=== PATIENT | male | born 1955 | race Caucasian/White ===

== ENCOUNTER 2019-10-11 07:59 | Emergency (ER) | payer OTHER, MEDICARE ==
--- OUTSIDE RECORDS SUMMARY | 2019-10-11 08:04 | XMS REPORT | Clinical Summary ---
:1955 Author Organization [facility] Address [address] [place] [address] Care Team Providers Name Role Phone Asked, Pcp Primary Care Provider Unavailable Allergies Active Allergy Reactions Severity Noted Date Comments Naproxen Sodium GI Intolerance Colchicine GI Intolerance 04/23/2017 Dutasteride-Tamsulosin Other (See Comments) Tamsulosin Other (See Comments) Medications Medication Sig Dispensed Refills Start End Status Date Date metoprolol Take 100 mg by 0 Acti ve tartrate mouth 2 (two) (LOPRESSOR) 100 mg times a day. tablet metFORMIN Take 1,000 mg 0 Active (GLUCOPHAGE) 500 by mouth 2 mg tablet (two) times a day with meals. zinc 50 mg tablet Take 50 mg by 0 Active mouth daily. omega-3/dha/epa/dp Take 1,400 mg 0 Active a/fish oil by mouth daily. (OMEGA-3 2100 ORAL) multivitamin Take 1 tablet 0 Act joey (THERAGRAN) tablet by mouth daily. metOLazone Take 5 mg by 0 Active (ZAROXOLYN) 5 MG mouth daily. tablet furosemide (LASIX) Take 40 mg by 0 Active 40 mg tablet mouth 2 (two) times a day. aspirin (ECOTRIN) Take 81 mg by 0 Active 81 MG enteric mouth daily. coated tablet magnesium sulfate Take 500 mg by 0 Active 100 mg capsule mouth daily. ondansetron Take 4 mg by 0 Activ e (ZOFRAN) 4 MG mouth every 8 tablet (eight) hours as needed for nausea or vomiting. digOXIN (LANOXIN) Take 125 mcg by 0 Active 125 mcg (0.125 mg) mouth daily. tablet potassium chloride Take 20 mEq by 0 Active (KLOR-CON) 20 mEq mouth daily. packet amIODarone Take 200 mg by 0 Acti ve (PACERONE) 200 MG mouth 2 (two) tablet times a day. apixaban (ELIQUIS) Take 5 mg by 0 Active 5 mg tablet mouth 2 (two) times a day. acetaminophen Take 1,000 mg 0 Ac tive (TYLENOL) 500 MG by mouth 2 tablet (two) times a day as needed for mild pain or moderate pain. ferrous sulfate Take 325 mg by 0 Active 325 (65 FE) MG mouth daily tablet with breakfast. dulaglutide Inject 0.75 mg 0 Act joey (TRULICITY) 0.75 under the skin mg/0.5 mL pen every 7 days. injector nystatin Apply topically 30 g 0 04/23/19 Acti ve (MYCOSTATIN) 2 (two) times a 20 021 100,000 unit/gram day. cream citalopram Take 20 mg by 0 Disco ntinued (CeleXA) 20 MG mouth nightly. 020 (Med List tablet Cleanup) apixaban (ELIQUIS) Take 5 mg by 0 Discontinued 5 mg tablet mouth 2 (two) 019 (Med List times a day. Cleanup ) amIODarone Take 400 mg by 0 Disc ontinued (PACERONE) 200 MG mouth 2 (two) 019 (Med List tablet times a day. Cleanup ) iron 18 mg tablet Take 28 mg by 0 Discontinued mouth daily. 020 (Med Li st Cleanup) potassium chloride Take 20 mEq by 0 Discontinued (K-DUR,KLOR-CON) mouth daily. 019 (Reorder) 10 MEQ CR tablet magnesium sulfate Take 500 mg by 0 Discontinued 100 mg capsule mouth daily. 020 (M ed List Cleanup) HYDROcodone-acetam Take 1 tablet 30 tablet 0 10/26/19 inophen (NORCO) by mouth every 019 10-325 mg per 6 (six) hours tabletIndications: as needed for acute pain moderate pain for up to 7 days .Acute Pain. Max Daily Amount: 4 tablets ondansetron ODT Take 1 tablet 15 tablet 0 10/25/ (ZOFRAN-ODT) 4 MG (4 mg total) by disintegrating mouth every 8 tablet (eight) hours as needed for nausea or vomiting for up to 5 days. potassium chloride Take 1 tablet 30 tablet 0 10/26/19 (K-DUR) 20 MEQ CR (20 mEq total) 019 tablet by mouth daily for 30 days. ertapenem 1 g in Infuse 1 g into 0 10/27/19 sodium chloride a venous 019 0.9 % MBP 50 mL catheter daily IVPB for 12 days. amLODIPine Take 1 tablet 30 tablet 0 10/26/19 Expir ed (NORVASC) 10 mg (10 mg total) 019 tablet by mouth daily for 30 days. nystatin Take 5 mL 120 mL 0 10/29/19 (MYCOSTATIN) (500,000 Units 100,000 unit/mL total) by mouth suspension 4 (four) times a day for 6 days. Swish in mouth amoxicillin-pot Take 1 tablet 14 tablet 0 11/15/19 clavulanate by mouth 2 (AUGMENTIN) (two) times a 875-125 mg per day for 7 days. tablet ondansetron Take 1 tablet 30 tablet 0 02/24/19 Disc ontinued (ZOFRAN) 4 MG (4 mg total) by 020 (Med List tablet mouth every 8 Cleanu p) (eight) hours as needed for nausea or vomiting for up to 15 doses. nitrofurantoin Take 50 mg by 0 D iscontinued (MACRODANTIN) 50 mouth daily. 020 (Therapy MG capsule completed ) semaglutide Inject 0.5 mg 0 Disc ontinued (OZEMPIC SUBQ) under the skin 020 (Alternate once a week. therapy ) Every sunday ertapenem 500 mg Infuse 500 mg 0 03/19/19 in sodium chloride into a venous 020 0.9% 50 mL IVPB catheter daily for 19 days. HYDROcodone-acetam Take 1 tablet 10 tablet 0 03/19/19 inophen (NORCO) by mouth every 020 10-325 mg per 8 (eight) hours tabletIndications: as needed for acute pain moderate pain for up to 10 doses .acute pain. Max Daily Amount: 3 tablets belladonna Insert 1 15 suppository 0 04/15/19/09/13 Expi red alkaloids-opium suppository (30 20 020 (B&O SUPPRETTES) mg total) into 16.2-30 mg the rectum suppositoryIndicat every 8 (eight) ions: acute pain hours as needed (bladder spasms) for up to 5 days .acute pain. linezolid (ZYVOX) Take 1 tablet 14 tablet 0 04/15/19 600 mg tablet (600 mg total) 20 020 by mouth 2 (two) times a day for 7 days. traMADoL (ULTRAM) Take 0.5 14 tablet 0 04/15/19 Ex pired 50 mg tablets (25 mg 20 020 tabletIndications: total) by mouth acute pain every 6 (six) hours as needed for moderate pain for up to 7 days .acute pain. triamcinolone Apply topically 80 g 0 05/11/19 (KENALOG) 0.1 % 2 (two) times a 20 020 cream day for 30 days. Active Problems Problem Noted Date Diverticulitis 03/27/2019 Overview: Added automatically from request for mireya orellana [id number] Acute diverticulitis 03/17/2019 Diverticulitis of large intestine with abscess without bleeding 10/17/2018 Chronic systolic (congestive) heart failure 10/17/2018 VALERIA (acute kidney injury) 10/17/2018 Trigger index finger of left hand 09/18/2017 Tendinitis of finger 09/18/2017 CHF exacerbation 05/02/2017 Type 2 diabetes mellitus 05/02/2017 Essential hypertension 05/02/2017 CAD (coronary artery disease) 05/02/2017 Scrotal edema 05/02/2017 Encounters Date Type Specialty Care Team Description 09/30/2019 Office Visit Orthopedic Ramy Salas Pain of right hand Adelaida Heart MD (Primary Dx) 09/30/2019 Travel 09/15/2019 Travel 07/29/2019 Office Visit Orthopedic Ramy Salas Right hand vikas n Adelaida Heart MD (Primary Dx) 07/22/2019 Travel 05/11/2019 Emergency Emergency Jewell Agarwal ([facility] suzi Dx) Medicine Elizabeth Long MD 05/11/2019 Travel 04/23/2019 Hospital Encounter Radiology Rosado, Vesicoint estinal [place] Narayan, fistula 04/23/2019 Office Visit General Surgery [facility], Surgery foll ow-up Dallin Escalante MD examination ( Primary Dx) 04/23/2019 Travel 04/15/2019 Transcribe Orders Access Rosado, Vesicointe stinal [place] Narayan, fistula (Prima ry Dx) 04/11/2019 Anesthesia Event General Surgery Basilia Astudillo MD Cheema, Ivelisse, [employer] 04/11/2019 Surgery General Surgery [facility], Laparoscopic sigmoid Dallin Escalante MD colon resecti on, mobilization of splenic flexure 04/11/2019 - Hospital Encounter General Internal [facility], Diver ticulitis of large intestine with abscess without bleeding (Primary Dx); 04/15/2019 Medicine Dallin Escalante MD Diverticulitis Nancy Jj MD 04/07/2019 Pre-Admit Testing Pre-Admission [facility], Preop tato ting (Primary Appointment Testing Dallin Escalante MD Dx) 03/27/2019 Office Visit General Surgery [facility], Diverticulit is of large Dallin Escalante MD intestine wit h perforation wit hout bleeding (Prima ry Dx) 03/27/2019 Transcribe Orders General Surgery [facility], Diverti culitis of large intestine with perforation without bleeding (Primary Dx); Dallin Escalante MD Diverticuliti s 03/17/2019 - Hospital Encounter General Internal Ronald Harris diverticulitis (Primary Dx); 03/19/2019 Last Matson III, MD VALERIA (acute kidney injury) ([facility]) Nancy Jj MD 02/24/2019 Orders Only General Surgery OpperDallin theodore MD 12/27/2018 Hospital Encounter Radiology Ashlee Pneumatou polo Fransico Busch MD 12/26/2018 Transcribe Orders Access Ashlee Pneumatour ia (Primary Fransico Busch, Dx) 11/14/2018 Office Visit General Surgery [facility], Diverticulit is of large Dallin Escalante MD intestine wit h perforation wit hout bleeding (Prima ry Dx) 11/11/2018 Hospital Encounter Radiology [facility], Diverticu litis of large Dallin Escalante MD intestine wit h perforation and abscess without bleedin g 10/28/2018 Orders Only General Surgery OpDallin gomes MD 10/28/2018 Orders Only General Surgery [place], Diverticulit is of large Dallin Escalante MD intestine wit h perforation and abscess without bleedin g (Primary Dx) 10/28/2018 Patient Outreach Quality Laura Bates [facility] 10/17/2018 - Hospital Encounter General Internal Rivenes, Amari Div erticulitis (Primary Dx); 10/25/2018 Medicine MD Rigo Abnormal CT of the abdomen; Shaggy Peng Type 2 diabe tato mellitus with ketoacidotic coma, unspecified whether jail insulin use ([facility]); MD Lakshmi Essential hyper tension; VALERIA (acute kidn ey injury) ([facility]) after 10/10/2018 Immunizations Name Administration Dates Next Due FLUCELVAX QUAD PF 10/25/2018, 05/04/2017 Pneumococcal Conjugate 13-Valent 05/04/2017 Pneumococcal Polysaccharide 03/19/2019 Family History Medical History Relation Name Comments Heart disease Father Diabetes Mother Relation Name Status Comments Father Mother Social History Tobacco Use Types Packs/Day Years Used Date Former Smoker Smokeless Tobacco: Never Used Comments: only as young adult Alcohol Use Drinks/Week oz/Week Comments Yes Sex Assigned at Date Recorded Not on file Job Start Date Occupation Industry Not on file Not on file Not on file Travel History Travel Start Travel End No recent travel history available. COVID-19 Exposure Response Date Recorded In the last month, have you been in contact with No / Unsure 09/30/2019 10:26 AM CDT someone who was confirmed or suspected to have Coronavirus / COVID-19? Last Filed Vital Signs Vital Sign Reading Time Taken Comments Blood Pressure 128/60 05/11/2019 6:33 AM CDT Pulse 78 05/11/2019 6:33 AM CDT Temperature 36.7 C (98.1 F) 05/11/2019 6:33 AM CDT Respiratory Rate 18 05/11/2019 6:33 AM CDT Oxygen Saturation 99% 05/11/2019 6:33 AM CDT Inhaled Oxygen Concentration - - Weight 102 kg (224 lb) 04/23/2019 9:42 AM CDT Height 177.8 cm (5' 10") 04/23/2019 9:42 AM CDT Body Mass Index 32.14 04/23/2019 9:42 AM CDT Plan of Treatment Date Type Specialty Care Team Description 10/13/2019 Office Visit [place] [id number] [place] [address] [phone] Health Maintenance Due Date Last Done Comments DIABETIC RETINAL EYE EXAM 1955 DIABETIC FOOT EXAM 1964 URINE MICROALBUMIN 1964 COLONOSCOPY SCREENING 2004 SHINGLES VACCINES (#1) 2004 INFLUENZA VACCINE 11/13/2019 10/25/2018, 05/04/2017 Implants Implanted Type Area Development Assistant Device Shelf Model / Identifier Expiration Serial / Lot Date Lens-12/13/2009 Lens ECCS CATARAT EXTRACTION / Implanted: 12/13/2009 (Quantity not on file) / Eea Circular Stapler With Tri- Staple Technolgy Stapling - N/A: [employer] 09/12/2023 [id number] / Implanted: Qty: 1 on 04/11/2019 by Dallin Melendrez MD at [facility] Conventional / N/A DEVICES / Open Surgery (FORMERLY [id number] cutters, [employer]) staplers, reloads Catheter Cv Powerline Dlmn Al 6fr - [id number] Surgical N/A: CR BARD 04/12/2023 [id number] / Implanted: 03/18/2019 at [facility] (Quantity not on file) Implants ; N/A / Expanders; [id number] Extenders; Surgical Wires Catheter Uretl 5fr 70cm Opn-End Flx-Tp Std - [id number] Urologic al N/A: miLibris UROLOGICAL 01/30/2022 [id number] / Implanted: 04/11/2019 at [facility] (Quantity not on file) Implant s or N/A / Sets [id number] Catheter Uretl 5fr 70cm Opn-End Flx-Tp Std - [id number] Urologic al N/A: miLibris UROLOGICAL 01/30/2022 [id number] / Implanted: 04/11/2019 at [facility] (Quantity not on file) Implant s or N/A / Sets [id number] Procedures Procedure Name Priority Date/Time Associated Diagnosis Comme nts XR HAND 3+ VW RIGHT Routine 07/29/2019 9:31 Right hand pain R esults for AM CDT this procedure are in the results section. FL CYSTOGRAM MINIMUM 3 Routine 04/23/2019 3:13 Vesicointestin al Results for VW PM CDT fistula this procedure are in the results section. IR TUNNELED CENTRAL Routine 04/15/2019 1:48 Resu lts for LINE REMOVAL PM [employer] this procedure are in the results section. POC GLUCOSE Routine 04/15/2019 7:41 Results for AM [employer] this procedure are in the results section. ESTIMATED GFR Routine 04/15/2019 6:06 Results fo r AM [employer] this procedure are in the results section. HC COMPLETE BLD COUNT Routine 04/15/2019 6:06 Re sults for W/AUTO DIFF AM [employer] this procedure are in the results section. BASIC METABOLIC PANEL Routine 04/15/2019 6:06 Re sults for AM [employer] this procedure are in the results section. POC GLUCOSE Routine 04/14/2019 9:24 Results for PM [employer] this procedure are in the results section. POC GLUCOSE Routine 04/14/2019 4:21 Results for PM [employer] this procedure are in the results section. POC GLUCOSE Routine 04/14/2019 12:11 Results for PM [employer] this procedure are in the results section. POC GLUCOSE Routine 04/14/2019 7:26 Results for AM [employer] this procedure are in the results section. ESTIMATED GFR Routine 04/14/2019 4:45 Results fo r AM [employer] this procedure are in the results section. HC COMPLETE BLD COUNT Routine 04/14/2019 4:45 Re sults for W/AUTO DIFF AM [employer] this procedure are in the results section. BASIC METABOLIC PANEL Routine 04/14/2019 4:45 Re sults for AM [employer] this procedure are in the results section. POC GLUCOSE Routine 04/13/2019 9:30 Results for PM [employer] this procedure are in the results section. POC GLUCOSE Routine 04/13/2019 11:05 Results for AM [employer] this procedure are in the results section. POC GLUCOSE Routine 04/13/2019 8:54 Results for AM [employer] this procedure are in the results section. GASTROINTESTINAL PANEL Routine 04/13/2019 5:50 R esults for AM [employer] this procedure are in the results section. ESTIMATED GFR Routine 04/13/2019 4:18 Results fo r AM [employer] this procedure are in the results section. HC COMPLETE BLD COUNT Routine 04/13/2019 4:18 Re sults for W/AUTO DIFF AM [employer] this procedure are in the results section. BASIC METABOLIC PANEL Routine 04/13/2019 4:18 Re sults for AM [employer] this procedure are in the results section. POC GLUCOSE Routine 04/12/2019 9:44 Results for PM [employer] this procedure are in the results section. POC GLUCOSE Routine 04/12/2019 3:07 Results for PM [employer] this procedure are in the results section. POC GLUCOSE Routine 04/12/2019 12:26 Results for PM [employer] this procedure are in the results section. POC GLUCOSE Routine 04/12/2019 9:12 Results for AM [employer] this procedure are in the results section. ESTIMATED GFR Routine 04/12/2019 2:06 Results fo r AM [employer] this procedure are in the results section. MAGNESIUM LEVEL Routine 04/12/2019 2:06 Results for AM [employer] this procedure are in the results section. HC COMPLETE BLD COUNT Routine 04/12/2019 2:06 Re sults for W/AUTO DIFF AM [employer] this procedure are in the results section. BASIC METABOLIC PANEL Routine 04/12/2019 2:06 Re sults for AM [employer] this procedure are in the results section. POC GLUCOSE Routine 04/11/2019 5:43 Results for PM [employer] this procedure are in the results section. ECG 12-LEAD Routine 04/11/2019 3:05 Results for PM [employer] this procedure are in the results section. XR CHEST 1 VW PORTABLE Routine 04/11/2019 2:13 R esults for PM [employer] this procedure are in the results section. ESTIMATED GFR Routine 04/11/2019 2:06 Results fo r PM [employer] this procedure are in the results section. FIBRINOGEN Routine 04/11/2019 2:06 Results for PM [employer] this procedure are in the results section. PROTHROMBIN TIME WITH Routine 04/11/2019 2:06 Re sults for INR PM [employer] this procedure are in the results section. PARTIAL THROMBOPLASTIN Routine 04/11/2019 2:06 R esults for TIME (PTT) PM [employer] this procedure are in the results section. IONIZED CALCIUM Routine 04/11/2019 2:06 Results for PM [employer] this procedure are in the results section. MAGNESIUM LEVEL Routine 04/11/2019 2:06 Results for PM [employer] this procedure are in the results section. BASIC METABOLIC PANEL Routine 04/11/2019 2:06 Re sults for PM [employer] this procedure are in the results section. HC COMPLETE BLD COUNT Routine 04/11/2019 2:06 Re sults for W/AUTO DIFF PM [employer] this procedure are in the results section. POC GLUCOSE Routine 04/11/2019 1:49 Results for PM [employer] this procedure are in the results section. SURGICAL PATHOLOGY Routine 04/11/2019 12:30 Resul ts for REQUEST PM [employer] this procedure are in the results section. URINE CULTURE Timed 04/11/2019 9:28 Results fo r AM [employer] this procedure are in the results section. ID AN ELECTIVE Routine 04/11/2019 9:09 Results f or ENDOTRACHEAL AIRWAY AM [employer] this pro cedure are in the results section. URINALYSIS SCREEN AND Timed 04/11/2019 8:41 Diverticulitis Results for MICROSCOPY, WITH REFLEX AM [employer] this procedure TO CULTURE are in the results section. ID AN PERIPHERAL BLOCK Routine 04/11/2019 8:24 R esults for PROCEDURE FOR PAIN AM [employer] this proc edure are in the results section. POC GLUCOSE Routine 04/11/2019 7:10 Results for AM [employer] this procedure are in the results section. ECG PRE/POST OP Routine 04/07/2019 11:48 Preop testing Results for AM [employer] this procedure are in the results section. ESTIMATED GFR Routine 04/07/2019 10:49 Results fo r AM [employer] this procedure are in the results section. TYPE AND SCREEN Routine 04/07/2019 10:49 Preop testing Results for AM [employer] this procedure are in the results section. HEMOGLOBIN A1C Routine 04/07/2019 10:49 Preop testing Results for AM [employer] this procedure are in the results section. BASIC METABOLIC PANEL Routine 04/07/2019 10:49 Preop testing R esults for AM [employer] this procedure are in the results section. HC COMPLETE BLD COUNT Routine 04/07/2019 10:49 Preop testing R esults for W/AUTO DIFF AM [employer] this procedure are in the results section. ESTIMATED GFR Routine 03/19/2019 4:45 Results fo r AM [employer] this procedure are in the results section. HC COMPLETE BLD COUNT Routine 03/19/2019 4:45 Re sults for W/AUTO DIFF AM [employer] this procedure are in the results section. BASIC METABOLIC PANEL Routine 03/19/2019 4:45 Re sults for AM [employer] this procedure are in the results section. POC GLUCOSE Routine 03/18/2019 8:24 Results for PM [employer] this procedure are in the results section. POC GLUCOSE Routine 03/18/2019 5:06 Results for PM [employer] this procedure are in the results section. US GUIDED VASCULAR Routine 03/18/2019 3:01 Resul ts for ACCESS PM [employer] this procedure are in the results section. IR TUNNELED CENTRAL Routine 03/18/2019 3:01 Resu lts for LINE PLACEMENT PM [employer] this procedur e are in the results section. POC GLUCOSE Routine 03/18/2019 11:48 Results for AM [employer] this procedure are in the results section. POC GLUCOSE Routine 03/18/2019 7:06 Results for AM [employer] this procedure are in the results section. ESTIMATED GFR Routine 03/18/2019 4:00 Results fo r AM [employer] this procedure are in the results section. HC COMPLETE BLD COUNT Routine 03/18/2019 4:00 Re sults for W/AUTO DIFF AM [employer] this procedure are in the results section. BASIC METABOLIC PANEL Routine 03/18/2019 4:00 Re sults for AM [employer] this procedure are in the results section. POC GLUCOSE Routine 03/17/2019 4:31 Results for PM [employer] this procedure are in the results section. CT ABDOMEN PELVIS WO STAT 03/17/2019 5:49 Res ults for CONTRAST AM [employer] this procedure are in the results section. URINE CULTURE Routine 03/17/2019 5:43 Results fo r AM [employer] this procedure are in the results section. URINALYSIS SCREEN AND Routine 03/17/2019 5:25 Re sults for MICROSCOPY, WITH REFLEX AM [employer] this procedure TO CULTURE are in the results section. BLOOD CULTURE, AEROBIC Routine 03/17/2019 5:00 R esults for & ANAEROBIC AM [employer] this procedure are in the results section. ESTIMATED GFR STAT 03/17/2019 4:50 Results fo r AM [employer] this procedure are in the results section. COMPREHENSIVE METABOLIC STAT 03/17/2019 4:50 Results for PANEL AM [employer] this procedure are in the results section. LIPASE LEVEL STAT 03/17/2019 4:50 Results for AM [employer] this procedure are in the results section. PARTIAL THROMBOPLASTIN STAT 03/17/2019 4:50 R esults for TIME (PTT) AM [employer] this procedure are in the results section. PROTHROMBIN TIME WITH STAT 03/17/2019 4:50 Re sults for INR AM [employer] this procedure are in the results section. HC COMPLETE BLD COUNT STAT 03/17/2019 4:50 Re sults for W/AUTO DIFF AM [employer] this procedure are in the results section. BLOOD CULTURE, AEROBIC Routine 03/17/2019 4:50 R esults for & ANAEROBIC AM [employer] this procedure are in the results section. CT ABDOMEN PELVIS WO Routine 12/27/2018 2:38 Pneumatouria Res ults for CONTRAST PM [employer] this procedure are in the results section. CT ABDOMEN PELVIS W Routine 11/11/2018 3:06 Diverticulitis of Results for CONTRAST PM CDT large intestine with this pr ocedure perforation and are in the abscess without results bleeding section. POC GLUCOSE Routine 10/25/2018 11:41 Results for AM CDT this procedure are in the results section. CT ABDOMEN PELVIS WO Routine 10/25/2018 9:00 Res ults for CONTRAST AM CDT this procedure are in the results section. POC GLUCOSE Routine 10/25/2018 8:00 Results for AM CDT this procedure are in the results section. ESTIMATED GFR Routine 10/25/2018 4:00 Results fo r AM CDT this procedure are in the results section. HC COMPLETE BLD COUNT Routine 10/25/2018 4:00 Re sults for W/AUTO DIFF AM CDT this procedure are in the results section. BASIC METABOLIC PANEL Routine 10/25/2018 4:00 Re sults for AM CDT this procedure are in the results section. POC GLUCOSE Routine 10/24/2018 8:49 Results for PM CDT this procedure are in the results section. POC GLUCOSE Routine 10/24/2018 5:04 Results for PM CDT this procedure are in the results section. POC GLUCOSE Routine 10/24/2018 11:35 Results for AM CDT this procedure are in the results section. POC GLUCOSE Routine 10/24/2018 7:45 Results for AM CDT this procedure are in the results section. ESTIMATED GFR Routine 10/24/2018 4:48 Results fo r AM CDT this procedure are in the results section. PHOSPHORUS LEVEL Routine 10/24/2018 4:48 Results for AM CDT this procedure are in the results section. MAGNESIUM LEVEL Routine 10/24/2018 4:48 Results for AM CDT this procedure are in the results section. HC COMPLETE BLD COUNT Routine 10/24/2018 4:48 Re sults for W/AUTO DIFF AM CDT this procedure are in the results section. BASIC METABOLIC PANEL Routine 10/24/2018 4:48 Re sults for AM CDT this procedure are in the results section. POC GLUCOSE Routine 10/23/2018 9:33 Results for PM CDT this procedure are in the results section. POC GLUCOSE Routine 10/23/2018 5:27 Results for PM CDT this procedure are in the results section. POC GLUCOSE Routine 10/23/2018 1:13 Results for PM CDT this procedure are in the results section. IR PICC PLACEMENT Routine 10/23/2018 12:55 Result s for PM CDT this procedure are in the results section. POC GLUCOSE Routine 10/23/2018 7:45 Results for AM CDT this procedure are in the results section. POC GLUCOSE Routine 10/22/2018 8:45 Results for PM CDT this procedure are in the results section. POC GLUCOSE Routine 10/22/2018 3:52 Results for PM CDT this procedure are in the results section. CT PELVIS WO CONTRAST Routine 10/22/2018 2:47 Re sults for PM CDT this procedure are in the results section. POC GLUCOSE Routine 10/22/2018 10:42 Results for AM CDT this procedure are in the results section. POC GLUCOSE Routine 10/22/2018 7:14 Results for AM CDT this procedure are in the results section. ESTIMATED GFR Routine 10/22/2018 4:00 Results fo r AM CDT this procedure are in the results section. PHOSPHORUS LEVEL Routine 10/22/2018 4:00 Results for AM CDT this procedure are in the results section. MAGNESIUM LEVEL Routine 10/22/2018 4:00 Results for AM CDT this procedure are in the results section. HC COMPLETE BLD COUNT Routine 10/22/2018 4:00 Re sults for W/AUTO DIFF AM CDT this procedure are in the results section. BASIC METABOLIC PANEL Routine 10/22/2018 4:00 Re sults for AM CDT this procedure are in the results section. PARTIAL THROMBOPLASTIN Routine 10/22/2018 4:00 R esults for TIME (PTT) AM CDT this procedure are in the results section. PROTHROMBIN TIME WITH Routine 10/22/2018 4:00 Re sults for INR AM CDT this procedure are in the results section. POC GLUCOSE Routine 10/21/2018 8:27 Results for PM CDT this procedure are in the results section. POC GLUCOSE Routine 10/21/2018 4:39 Results for PM CDT this procedure are in the results section. POC GLUCOSE Routine 10/21/2018 11:15 Results for AM CDT this procedure are in the results section. CT ABDOMEN PELVIS WO Routine 10/21/2018 10:13 Res ults for CONTRAST AM CDT this procedure are in the results section. ESTIMATED GFR Routine 10/21/2018 7:50 Results fo r AM CDT this procedure are in the results section. MAGNESIUM LEVEL Routine 10/21/2018 7:50 Results for AM CDT this procedure are in the results section. PHOSPHORUS LEVEL Routine 10/21/2018 7:50 Results for AM CDT this procedure are in the results section. BASIC METABOLIC PANEL Routine 10/21/2018 7:50 Re sults for AM CDT this procedure are in the results section. POC GLUCOSE Routine 10/21/2018 7:49 Results for AM CDT this procedure are in the results section. HC COMPLETE BLD COUNT Routine 10/21/2018 4:40 Re sults for W/AUTO DIFF AM CDT this procedure are in the results section. POC GLUCOSE Routine 10/20/2018 8:48 Results for PM CDT this procedure are in the results section. POC GLUCOSE Routine 10/20/2018 5:08 Results for PM CDT this procedure are in the results section. POC GLUCOSE Routine 10/20/2018 11:38 Results for AM CDT this procedure are in the results section. POC GLUCOSE Routine 10/20/2018 8:16 Results for AM CDT this procedure are in the results section. ESTIMATED GFR Routine 10/20/2018 4:57 Results fo r AM CDT this procedure are in the results section. MAGNESIUM LEVEL Routine 10/20/2018 4:57 Results for AM CDT this procedure are in the results section. CBC WITH PLATELET AND Routine 10/20/2018 4:57 Re sults for DIFFERENTIAL AM CDT this procedure are in the results section. BASIC METABOLIC PANEL Routine 10/20/2018 4:57 Re sults for AM CDT this procedure are in the results section. POC GLUCOSE Routine 10/20/2018 12:44 Results for AM CDT this procedure are in the results section. POC GLUCOSE Routine 10/19/2018 9:44 Results for PM CDT this procedure are in the results section. POC GLUCOSE Routine 10/19/2018 4:23 Results for PM CDT this procedure are in the results section. POC GLUCOSE Routine 10/19/2018 11:00 Results for AM CDT this procedure are in the results section. POC GLUCOSE Routine 10/19/2018 7:41 Results for AM CDT this procedure are in the results section. ESTIMATED GFR Routine 10/19/2018 4:47 Results fo r AM CDT this procedure are in the results section. HC COMPLETE BLD COUNT Routine 10/19/2018 4:47 Re sults for W/AUTO DIFF AM CDT this procedure are in the results section. COMPREHENSIVE METABOLIC Routine 10/19/2018 4:47 Results for PANEL AM CDT this procedure are in the results section. HEMOGLOBIN A1C Routine 10/19/2018 4:47 Results f or AM CDT this procedure are in the results section. POC GLUCOSE Routine 10/18/2018 11:54 Results for PM CDT this procedure are in the results section. POC GLUCOSE Routine 10/18/2018 9:01 Results for PM CDT this procedure are in the results section. POC GLUCOSE Routine 10/18/2018 4:29 Results for PM CDT this procedure are in the results section. POC GLUCOSE Routine 10/18/2018 11:37 Results for AM CDT this procedure are in the results section. LACTIC ACID LEVEL, Timed 10/18/2018 9:55 Resul ts for SEPSIS - NOW AND REPEAT AM CDT this procedure 2X EVERY 3 HOURS are in the results section. POC GLUCOSE Routine 10/18/2018 7:24 Results for AM CDT this procedure are in the results section. LACTIC ACID LEVEL, Timed 10/18/2018 6:43 Resul ts for SEPSIS - NOW AND REPEAT AM CDT this procedure 2X EVERY 3 HOURS are in the results section. POC GLUCOSE Routine 10/18/2018 4:52 Results for AM CDT this procedure are in the results section. URINALYSIS SCREEN AND STAT 10/18/2018 3:55 Re sults for MICROSCOPY, WITH REFLEX AM CDT this procedure TO CULTURE are in the results section. URINE CULTURE STAT 10/18/2018 3:55 Results fo r AM CDT this procedure are in the results section. ESTIMATED GFR Routine 10/18/2018 3:45 Results fo r AM CDT this procedure are in the results section. LACTIC ACID LEVEL Routine 10/18/2018 3:45 Result s for AM CDT this procedure are in the results section. HC COMPLETE BLD COUNT Routine 10/18/2018 3:45 Re sults for W/AUTO DIFF AM CDT this procedure are in the results section. COMPREHENSIVE METABOLIC Routine 10/18/2018 3:45 Results for PANEL AM CDT this procedure are in the results section. B NATRIURETIC PEPTIDE Routine 10/18/2018 12:48 Re sults for AM CDT this procedure are in the results section. POC GLUCOSE Routine 10/18/2018 12:30 Results for AM CDT this procedure are in the results section. LACTIC ACID LEVEL, Timed 10/17/2018 9:10 Resul ts for SEPSIS - NOW AND REPEAT PM CDT this procedure 2X EVERY 3 HOURS are in the results section. POC GLUCOSE Routine 10/17/2018 8:26 Results for PM CDT this procedure are in the results section. LACTIC ACID LEVEL, Timed 10/17/2018 6:35 Resul ts for SEPSIS - NOW AND REPEAT PM CDT this procedure 2X EVERY 3 HOURS are in the results section. BLOOD CULTURE, AEROBIC Routine 10/17/2018 5:07 R esults for & ANAEROBIC PM CDT this procedure are in the results section. BLOOD CULTURE, AEROBIC Routine 10/17/2018 5:00 R esults for & ANAEROBIC PM CDT this procedure are in the results section. CT ABDOMEN PELVIS WO STAT 10/17/2018 3:57 Res ults for CONTRAST PM CDT this procedure are in the results section. ECG ED PRELIMINARY Routine 10/17/2018 3:17 Resul ts for INTERPRETATION PM CDT this procedur e are in the results section. ECG 12-LEAD STAT 10/17/2018 3:10 Results for PM CDT this procedure are in the results section. ESTIMATED GFR STAT 10/17/2018 3:02 Results fo r PM CDT this procedure are in the results section. LACTIC ACID LEVEL STAT 10/17/2018 3:02 Result s for PM CDT this procedure are in the results section. TROPONIN STAT 10/17/2018 3:02 Results for PM CDT this procedure are in the results section. LIPASE LEVEL STAT 10/17/2018 3:02 Results for PM CDT this procedure are in the results section. COMPREHENSIVE METABOLIC STAT 10/17/2018 3:02 Results for PANEL PM CDT this procedure are in the results section. HC COMPLETE BLD COUNT STAT 10/17/2018 3:02 Re sults for W/AUTO DIFF PM CDT this procedure are in the results section. after 10/10/2018 Results XR Hand 3+ Vw Right (07/29/2019 9:31 AM CDT) Specimen Narrative Performed At This result has an attachment that is no t available. 3 views Rt hand in good penetrance and quality with out any acute obvious [facility] fractures, dislocations or calcifications unless HPI s tates otherwise. 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 TECHNIQUE: Cystogram was performed. Contrast was insti lled into the bladder in a retrograde manner via Shah catheter. TOTAL DOSE: 22.4 mGy ref air Kerma FINDINGS: Bladder is normally distensible and norm al in contour. No intraluminal filling defect or vesico ureteral reflux. No extraluminal contrast leak or vesicoi ntestinal fistula. No significant postvoid residual. IMPRESSION: Unremarkable cystogram. 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 TECHNIQUE: Cystogram was performed. Cont rast was instilled into the bladder in a retrograde manner via Shah catheter. TOTAL DOSE: 22.4 mGy ref air Kerma FINDINGS: Bladder is normally distensible and norm al in contour. No intraluminal filling defect or vesico ureteral reflux. No extraluminal contrast leak or vesicoi ntestinal fistula. No significant postvoid residual. IMPRESSION: Unremarkable cystogram. [facility]-[id number] Performing Organization Address [facility] Phone Number [facility] [address] [place] [address] IR Tunneled Central Line Removal (04/15/2019 1:48 PM DIRECTOR OF MARKETING [employer] ADS) Specimen Narrative Performed At PROCEDURE: [facility] Bedside tunneled central venous catheter removal Performing Radiologist Ricardo Grimaldo MD Assistants None Pre Procedure Diagnosis: infection Post Procedure Diagnosis: infection Indication: Catheter no longer needed Additional clinical history: None Complications: No immediate complications. IMPRESSION: Successful bedside removeal of a right-sided tunneled central venous catheter. Plan: Please re-consult interventional radiology if new cath eter placement is desired. PROCEDURE SUMMARY: - Tunneled central venous catheter remov al - Additional procedure(s): None PROCEDURE DETAILS: Pre-procedure: Comparison studies: None Prophylactic antibiotics: None Preparation: The right anterior chest was prepared and draped using all elements of maximal sterile barrier technique includin g sterile gloves, sterile gown, catheter, mask, large sterile sheet, delonte rile ultrasound probe cover, hand hygiene and cutaneous antisepsis using chlorhexidine. Anesthesia/Sedation: Level of anesthesia: Lidocaine Duration of intraservice [id number] an esthesia/sedation: N/A Catheter removal The skin site around the subcutaneous tract was noted to be clean/dry and intact. No purulent drainage. Local anesthesia was administered. The catheter was removed with traction. The subcutaneous c uff was removed en bloc. Closure Hemostasis was achieved with manual compression. Steri le dressing(s) applied. Contrast N/A Radiation Dose N/A Additional Details Additional description of procedure: Non e Equipment details: None Specimens removed: Tunneled central veno us catheter. Estimated blood loss (mL): Less than 10 [id number] Procedure Note Hm Interface, Radiology Results Incoming - 04/15/2019 10:15 PM DIRECTOR OF MARKETING [employer] ADS PROCEDURE: Bedside tunneled central venous catheter removal Performing Radiologist Ricardo Grimaldo MD Assistants None Pre Procedure Diagnosis: infection Post Procedure Diagnosis: infection Indication: Catheter no longer needed Additional clinical history: None Complications: No immediate complications. IMPRESSION: Successful bedside removeal of a right-s ided tunneled central venous catheter. Plan: Please re-consult interventional radiolo gy if new catheter placement is desired. PROCEDURE SUMMARY: - Tunneled central venous catheter remov al - Additional procedure(s): None PROCEDURE DETAILS: Pre-procedure: Comparison studies: None Prophylactic antibiotics: None Preparation: The right anterior chest wa s prepared and draped using all elements of maximal sterile barrier technique including sterile gloves, sterile gown, catheter, mask, large sterile sheet, sterile ultrasound probe cover, hand hygiene and cutaneous antisepsis using chlorhexidine. Anesthesia/Sedation: Level of anesthesia: Lidocaine Duration of intraservice [id number] an esthesia/sedation: N/A Catheter removal The skin site around the subcutaneous tr act was noted to be clean/dry and intact. No purulent drainage. Local anesthesia was administered. The catheter was removed with traction. The subcutaneous cuff was removed en bloc. Closure Hemostasis was achieved with manual comp ression. Sterile dressing(s) applied. Contrast N/A Radiation Dose N/A Additional Details Additional description of procedure: Non e Equipment details: None Specimens removed: Tunneled central veno us catheter. Estimated blood loss (mL): Less than 10 [id number] Performing Organization Address City/[facility]/Zipcode Phone Number [facility] [address] [place] [address] POC glucose (04/15/2019 7:41 AM DIRECTOR OF MARKETING [employer] AD[employer])Only the most recent of55 resultswithin the time period is included. Pathologist Sig nature POC glucose 104 (H) 65 - 99 mg/dL [facility] CONFUCIANIST Comment: [facility] Investments Manager Name: Saul Riojas I Device ID: [id number] Chartable: RN Notified Specimen Performing Organization Address City/[facility]/Zipcode Phone Number [facility] DEPARTMENT OF PATHOLOGY [address] [facility] [place] [address] AND GENOMIC MEDICINE [facility] [address] [facility] [place] [address] HOSPITAL Estimated GFR (04/15/2019 6:06 AM DIRECTOR OF MARKETING [employer] ADS)Only the most recent of17 resultswithin the time period is included. Pathologist [facility] Estimated GFR 61 mL/min/1.73 BLUFFS CONFUCIANIST Comment: m2 LESTER Catergory Units Interpretation HOS PITAL G1 >=90 Normal or high G2 60-89 Mildly decreased G3a 45-59 Mildly to moderately decreas ed G3b 30-44 Moderately to severely decre ased G4 15-29 Severely decreased G5 <15 Kidney failure The eGFR was calculated using the Chronic Kidney Disea se Epidemiology Collaboration (CKD-EPI) equation. Interpretation is based on recommendations of the National Kidney Foundation-Kidney Disease Outcomes Jose lity Initiative (NKF-KDOQI) published in 2014. Specimen Plasma specimen Performing Organization Address City/State/Zipcode Phone Number [facility] DEPARTMENT OF PATHOLOGY [address] [facility] [place] [address] [facility] [address] [facility] [place] [address] HOSPITAL CBC with platelet and differential (04/15/2019 6:06 AM DIRECTOR OF MARKETING [employer] ADS)Only the most recent of17 resultswithin the time period is included. WBC 11.0 4.5 - 11.0 k/uL [facility] RBC 3.49 (L) 4.40 - 6.00 [facility] m/uL [facility] HGB 8.3 (L) 14.0 - 18.0 [facility] g/dL [facility] HCT 28.3 (L) 41.0 - 51.0 % [facility] MCV 81.1 (L) 82.0 - 100.0 fL [facility] MCH 23.8 (L) 27.0 - 34.0 pg [facility] MCHC 29.3 (L) 31.0 - 37.0 [facility] g/dL [facility] RDW - SD 49.3 37.0 - 55.0 fL [facility] MPV 9.5 6.9 - 11.0 fL [facility] Platelet count 547 (H) 150 - 400 K/uL [facility] Nucleated RBC 0.00 /100 WBC [facility] Neutrophils 66.3 39.0 - 69.0 % [facility] Lymphocytes 20.2 (L) 25.0 - 45.0 % [facility] Monocytes 8.9 0.0 - 10.0 % [facility] Eosinophils 3.5 0.0 - 5.0 % [facility] Basophils 0.4 0.0 - 1.0 % [facility] Immature granulocytes 0.7 0.0 - 1.0 % [facility] Specimen Blood Performing Organization Address City/[facility]/Zipcode Phone Number [facility] DEPARTMENT OF PATHOLOGY [address] [facility] [place] [address] AND GENOMIC MEDICINE [place] CONFUCIANIST SUGAR [address] Basic metabolic panel (04/15/2019 6:06 AM DIRECTOR OF MARKETING [employer])Only the most recent of13 results within the time period is included. Pathologist Sig nature Sodium 137 135 - 148 mEq/L [facility] Potassium 3.8 3.5 - 5.0 mEq/L [facility] Chloride 97 (L) 98 - 112 mEq/L [facility] CO2 27 24 - 31 mEq/L [facility] Anion gap 13@ANIO 7 - 15 mEq/L [facility] BUN 33 (H) 8 - 23 mg/dL [facility] Creatinine 1.23 (H) 0.70 - 1.20 mg/dL [facility] Glucose 116 (H) 65 - 99 mg/dL [facility] Calcium 9.4 8.8 - 10.2 mg/dL [facility] Specimen Plasma specimen Performing Organization Address City/State/Zipcode Phone Number [facility] DEPARTMENT OF PATHOLOGY [address] [place] [address] AND GENOMIC MEDICINE [facility] [id number] [place] [address] Gastrointestinal panel (04/13/2019 5:50 AM DIRECTOR OF MARKETING [employer] ADS) Pathologist [facility] Gastrointestinal panel Negative for all pathogens tested: BLUFFS Negative for Salmonella CONFUCIANIST Negative for Campylobacter [facility] Negative for Diarrheagenic E coli/Shigella Negative for Shiga-like toxin-producing E coli Negative for Plesiomonas shigelloides Negative for Yersinia enterocolitica Negative for Vibrio species Negative for Clostridium difficile (Toxin A/B) Negative for Cryptosporidium Negative for Giardia lamblia Negative for Cyclospora cayeteanensis Negative for Entamoeba histolytica Negative for Adenovirus F 40/41 Negative for Astrovirus Negative for Norovirus GI/GII Negative for Rotavirus A Negative for Sapovirus Negative for Clostridium difficile toxin Negative for E coli 0157 This real-time PCR assay detects the presence of nucle ic acids (RNA or DNA) for the gastrointestinal pathogens listed. A result of "Not-detected" does not exclude the possib ility of the presence of one or more pathogens at concentrat ions less than the detectable limits of the assay. Comment: Specimen Information Specimen Source: Stool Specimen Site: Nonpreserved Specimen Stool - Nonpreserved Performing Organization Address City/[facility]/Zipcode Phone Number [facility] DEPARTMENT OF PATHOLOGY AND [address] [place], [place] [address] [facility] [address] [place] [address] Magnesium level (04/12/2019 2:06 AM DIRECTOR OF MARKETING [employer])Only the most recent of6 resultswithin the time period is included. Pathologist Sig nature Magnesium 2.5 (H) 1.6 - 2.4 mg/dL [facility] Specimen Plasma specimen Performing Organization Address City/[facility]/Zipcode Phone Number [facility] DEPARTMENT OF PATHOLOGY [address] [facility] [place] [address] [facility] [address] [facility] [place] [address] HOSPITAL ECG 12 lead (04/11/2019 3:05 PM DIRECTOR OF MARKETING [employer] ADS)Only the most recent of2 resultswithin the time period is included. 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 Performing Organization Address [facility] Phone Number [facility] MUSE [address] [place] [address] XR Chest 1 Vw Portable (04/11/2019 2:13 PM DIRECTOR OF MARKETING [employer]) Specimen Narrative Performed At EXAMINATION: XR CHEST 1 VW PORTABLE HM [facility] CLINICAL HISTORY: post op COMPARISON: February 10, 2014 IMPRESSION: Tunneled right IJ central line overlies the cavoatrial junction. Cardiomediastinal silhouette is similar to before when accounting for differences in technique. Heart appears mildly enlarged accentuated by AP techni que and low lung volumes. Aorta is calcified. Patchy bibasilar subsegmental atelectasis. No edema, c onfluent opacity, pleural effusion, or pneumothorax. Status-post midline sternotomy. Extensive spinal hardw are consistent with multilevel fixation. [facility]-[id number] Procedure Note Interface, Radiology Results Incoming - 04/11/2019 2:21 PM DIRECTOR OF MARKETING [employer] PERFORMANCE ADS EXAMINATION: XR CHEST 1 VW PORTABLE CLINICAL HISTORY: post op COMPARISON: February 10, 2014 IMPRESSION: Tunneled right IJ central line overlies the cavoatrial junction. Cardiomediastinal silhouette is similar to before when accounting for differences in technique. Heart appears mildly enlarged accentuate d by AP technique and low lung volumes. Aorta is calcified. Patchy bibasilar subsegmental atelectasi s. No edema, confluent opacity, pleural effusion, or pneumothorax. Status-post midline sternotomy. Extensiv e spinal hardware consistent with multilevel fixation. [facility]-[id number] Performing Organization Address [facility]/Zipcode Phone Number [employer] [address] [place] [address] Partial thromboplastin time, activated (04/11/2019 2:06 PM DIRECTOR OF MARKETING [employer] PERFORMANCE ADS)Only the most recent of3 resultswithin the time period is included. PTT 39.8 (H) 23.0 - 36.0 BLUFFS CONFUCIANIST Comment: [facility] PTT therapeutic range for unfractionated heparin is HOSPITAL 61.0-112.0 seconds which corresponds to Anti-Xa 0.3-0.7 U/ml. Specimen Blood Performing Organization Address [facility] Cent[facility]ode Phone Number [facility] DEPARTMENT OF PATHOLOGY [address] [facility] [address] AND GENOMIC MEDICINE [facility] [address] [facility] X [address] HOSPITAL Prothrombin time with INR (04/11/2019 2:06 PM DIRECTOR OF MARKETING [employer] PERFORMANCE ADS)Only the most recent of3 resultswithin the time period is included. Prothrombin time 16.3 (H) 11.5 - 14.5 [facility] INR 1.3 BLUFFS Comment: CONFUCIANIST [facility] International Normalized Ratio (INR) is a therapeu [facility] monitoring tool for patients who are stable on oral anticoagulant therapy. An INR of 2.0-3.0 is suggested for deep vein thrombosis/pulmonary embolism. Specimen Blood Performing Organization Address City/[facility] Centercode Phone Number [facility] DEPARTMENT OF PATHOLOGY [address] [place] [address] [address] [address] [facility] Fibrinogen (04/11/2019 2:06 PM DIRECTOR OF MARKETING [employer] PERFORMANCE ADS) Pathologist Sig nature Fibrinogen 599 (H) 200 - 450 mg/dL [facility] Specimen Blood Performing Organization Address City/[facility]/Zipcode Phone Number [facility] DEPARTMENT OF PATHOLOGY [address] [place] [address] X [address] Ionized calcium (04/11/2019 2:06 PM DIRECTOR OF MARKETING [employer] PERFORMANCE ADS) Pathologist Sig nature pH 7.42 [facility] Ionized calcium 1.06 (L) 1.11 - 1.32 [facility] mmol/L [facility] Specimen Plasma specimen Performing Organization Address [facility] Centercode Phone Number [facility] DEPARTMENT OF PATHOLOGY [address] [place] [address] X [address] [place] [id number] [place] [address] Surgical pathology request (04/11/2019 12:30 PM DIRECTOR OF MARKETING [employer] PERFORMANCE ADS) [facility] DEPARTMENT OF PATHOLOGY AND GENOMIC MEDICINE Surgical pathology See link below [facility] DEPARTMENT OF report for PDF Lab PATHOLOGY AND Report GENOMIC MEDICINE Result status This is Final [facility] DEPARTMENT OF Report for PATHOLOGY AND [id number] GENOMIC MEDICINE Specimen Performing Organization Address [facility] Centercode Phone Number [facility] DEPARTMENT OF PATHOLOGY [address] [place] [address] X [address] AND [facility] MEDICINE Urine culture (04/11/2019 9:28 AM DIRECTOR OF MARKETING [employer] PERFORMANCE ADS)Only the most recent of3 resultswithin the time period is included. Urine culture Enterococcus faecium [facility] isolate >10-5 cfu/ml [facility] The performance characteristics of this assay on this isolate were validated by the Microbiology Laboratory at [facility]. This source has not been approve d by the U.S. Food and Drug Administration. The results are n ot intended to be used as the sole means for clinical abiel gnosis or patient management. The Microbiology Laboratory i s authorized under the clinical Laboratory Improvement Amendments of 1988 (CLIA-88) to perform high complexit y testing. This organism is Vancomycin Sensitive. (A) Comment: Specimen Information Specimen Source: Urine Specimen Site: Catheterized Specimen Urine - Catheterized Organism Antibiotic Method Susceptibility Enterococcus faecium Ampicillin AMENA >8 mcg/mL: Resistant Enterococcus faecium Levofloxacin AMENA >4 mcg/mL: Resistant Enterococcus faecium Linezolid AMENA 2 mcg/mL: S usceptible Enterococcus faecium Minocycline AMENA >8 mcg/mL: Resistant Enterococcus faecium Tetracycline AMENA >8 mcg/mL: Resistant Enterococcus faecium Vancomycin AMENA <=0.5 mcg/m L: Susceptible Enterococcus faecium Ciprofloxacin AMENA mcg/mL: Re sistant Performing Organization Address City/State/Zipcode Phone Number [facility] DEPARTMENT OF PATHOLOGY AND [address] [place] [address] [address] [address] Airway (04/11/2019 9:09 AM DIRECTOR OF MARKETING [employer] PERFORMANCE ADS) Narrative Performed At Renetta Bourne CRNA 04/11/19 20 9:11 AM Airway Date/Time: 04/11/2019 7:59 AM Performed by: Renetta Bourne CRNA Authorized by: Basilia Astudillo MD Location: OR Urgency: Elective Difficult Airway: No Anesthesiologist: Basilia Astudillo MD Resident/CIRCULAR SAWYER HELPER/AA: Renetta Bourne CRNA Performed by: resident/CIRCULAR SAWYER HELPER/AA Preoxygenated with 100% O2: Yes Mask Ventilation: Easy mask Final Airway Type: Endotracheal airway Final Endotracheal Airway: ETT Cuffed: Yes Technique Used: Video laryngoscopy Devices/Methods Used in Placement: Int ubating stylet Insertion Site: Oral Blade Type: Mark Laryngoscope Blade/Videolaryngoscope Armen de Size: 4 ETT Size (mm): 7.5 Cuff at minimum occlusion pressure: No Measured from: Lips ETT to Lips (cm): 21 Placement Verified by: CO2 detection, di rect visualization and equal breath sounds Laryngoscopic view: Grade I - full vie w of glottis Rapid Sequence Induction (RSI): No Modified RSI: No Number of Attempts at Approach: 2 Attempt with DL grade 3 seen, second attempt with Gli descope successful Urinalysis screen and microscopy, with reflex to culture (04/11/2019 8:41 AM DIRECTOR OF MARKETING [employer] PERFORMANCE ADS)Only the most recent of3 resultswithin the time period is included. Specimen site Catheterized [facility] Color, UA Yellow [facility] Appearance, UA Sl Cloudy [facility] Specific gravity, UA 1.012 1.001 - 1.030 [facility] pH, UA 6.0 5.0 - 9.0 [facility] Protein, UA 2+ (A) Negative [facility] Glucose, UA Negative Negative [facility] Ketones, UA Negative Negative [facility] Bilirubin, UA Negative Negative [facility] Blood, UA Negative Negative [facility] Nitrite, UA Negative Negative [facility] Urobilinogen, UA <2.0 <2.0 E.U./dL [facility] Leukocyte esterase, Negative Negative [facility] Epithelial cells, UA <1 /HPF [facility] WBC, UA 3 (H) 0 - 1 /HPF [facility] RBC, UA <1 0 - 5 /HPF [facility] Bacteria, UA Moderate (A) None seen [facility] Yeast, UA None seen [facility] Yeast with None seen [facility] pseudohyphae, UA [facility] Hyaline casts, UA 2-5 /LPF [facility] Specimen Urine - Urinary bladder Performing Organization Address City/State/Zipcode Phone Number [facility] DEPARTMENT OF PATHOLOGY [address] [facility] [place] [address] AND GENOMIC MEDICINE [facility] [address] [facility] X [address] [facility] Peripheral Block (04/11/2019 8:24 AM DIRECTOR OF MARKETING [employer] PERFORMANCE ADS) Narrative Performed At Basilia Astudillo MD 04/11/2019 8: 26 AM Peripheral Block Performed by: Basilia Astudillo MD Authorized by: Basilia Astudillo MD Patient Location: Pre-op Start Time: 04/11/2019 7:25 AM End Time: 04/11/2019 7:34 AM Reason for Block: at surgeon's request, post-op pain management Staff: Anesthesiologist: Basilia Astudillo MD Performed by: Anesthesiologist Preprocedure: patient identified, IV kristofer cked, site and side verified, risks and benefits discussed, procedure verified, surgical consent complete, patient position confirmed, mo nitors and equipment checked, pre-op evaluation complete and site river ed Peripheral Nerve Block: Patient Position: Supine Prep: ChloraPrep Monitoring: Blood pressure monitoring, heart rate and continuous pulse oximetry Block Type: Quadratus lumborum Laterality: Bilateral Injection Technique: Single injection Procedures: ultrasound guided Ultrasound documentation: Printed/plac ed in chart Anesthesia block local: exparel + 0.25% bupivacaine. Needle: Needle Type: SonoPlex Needle Gauge: 21 G Needle Length: 10 cm Assessment: Injection Assessment: Visualized needle/local ane sthetic surrounding nerve, intermittent aspiration during local anesthetic administration, no symptoms of intraneural/intravenous inje ction, visualized pertinent vascular structures and nerves and needl e tip visualized at all times during injection of medication Paresthesia Pain: None Heart Rate Change: No Slow Fractionated Injection: Yes Block outcome: No apparent complica tions, patient comfortable and patient tolerated procedure well ECG Pre/Post Op (04/07/2019 11:48 AM DIRECTOR OF MARKETING [employer] PERFORMANCE ADS) Pathologist Sig nature Ventricular rate 68 [facility] Atrial rate 68 [facility] ID interval 186 [facility] QRSD interval 198 [facility] QT interval 546 [facility] QTC interval 580 [facility] P axis 1 65 [facility] QRS axis 1 -22 [facility] T wave axis -5 [facility] EKG impression Normal sinus rhythm-Right bu ndle branch block-Minimal voltage criteria for LVH, may be normal variant-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 Performing Organization Address City/State/Zipcode Phone Number [facility] MUSE [address] [place] [address] Type and screen (04/07/2019 10:49 AM DIRECTOR OF MARKETING [employer] PERFORMANCE ADS) Pathologist Sig nature ABO grouping O [facility] Rh type POS [facility] Antibody screen (gel) NEG [facility] Specimen Blood Performing Organization Address City/State/Zipcode Phone Number [facility] DEPARTMENT OF PATHOLOGY [id number] [place] [address] X [phone] AND [facility] [id number] [place] [phone] [place] [address] Hemoglobin A1c (04/07/2019 10:49 AM DIRECTOR OF MARKETING [employer] PERFORMANCE ADS)Only the most recent of2 resultswithin the time period is included. Hemoglobin A1C 6.6 (H) 4.0 - 5.6 % [facility] Comment: LESTER HbA1c cutoffs for diagnosing diabetes: HO SPITAL 4.0% - 5.6% = normal 5.7% - 6.4% = increased risk for diabetes (prediabetes )9 >=6.5% = diabetes9 Goals for glycemic control (ADA 2016) < 7.0% Target for non adults with diabetes. More or less stringent targets may be appropriate for individual patients. <7.5% Target for Children and adolescents with type 1 diabetes. Specimen Blood Performing Organization Address [facility] Centercode Phone Number [facility] DEPARTMENT OF PATHOLOGY [id number] [place] [address] X [phone] AND [facility] [id number] [place] [address] X [address] [facility] IR Tunneled Central Line Placement (03/18/2019 3:01 PM DIRECTOR OF MARKETING [employer] PERFORMANCE ADS) Specimen Narrative Performed At Performing Radiologist SUDHAKAR Acosta MD Assistants None. Anesthesia Type Intraservice moderate sedation was administered by the procedure nurse and monitored by the procedure physician for 10 minute s. Lidocaine 1% and lidocaine 1% with epinephrine were u sed for local anesthetic. Pre Procedure Diagnosis Diverticulitis Post Procedure Diagnosis Status post tunneled right internal jugular vein centr al venous catheter placement. Procedure Placement of a tunneled right internal jugular vein ce ntral venous catheter. Technique After explaining the procedure as well as its benefits and risks including but not limited to bleeding, infection, and damage to adjacent structures all of the patient's questions were answere d to apparent satisfaction and written informed consen t was then obtained. The patient's right neck and upper chest were sterilel y prepared and draped in the routine manner. All elements of maximal sterile barrier technique were followed. Lidocaine 1% was used for local anesthetic. Using real-time ultrasound guidance, a 21-gauge microp uncture needle was advanced successfully into the right internal jugular vein. A 0.018 inch guidewire was advanced centrally into the inferior raymundo a cava through the needle under fluoroscopy. The needle was removed and a micropuncture sheath system w as then placed. Under ultrasound guidance, documentation of vessel pat ency, needle access with permanent recording, and reporting are per formed followed by placement of a sheath in the right inter nal jugular vein. The inner dilator and guidewire were then removed, and a guidewire was advanced through the micropuncture sheath and successf ully into the inferior vena cava. The right infraclavicular fossa wa s anesthetized with lidocaine 1% mixed with epinephrine . A skin incision was made, and a tunneling device was use d to pass the tunneled central venous catheter from the skin entry s ite to the venotomy site. Attention was then returned to the venotomy site. The tract was then sequentially dilated, and a tunneled central venous ca theter was then deployed through a peel-away sheath. The catheter tip was placed in the right atrium under fluoroscopic guidance . All ports were tested and demonstrate adequate flow. T he catheter was secured to the skin using 2-0 silk suture. The small v enotomy incision was closed with Dermabond. The patient t olerated the procedure well. Total Fluoroscopic Exposure 28 mGy Complications None. Specimens Removed None. Estimated Blood Loss Less than 2 mL. Blood/Blood Products Administered None. Grafts/Implants As described in the above report. Impression: Successful fluoroscopic-guided placement of a tunneled central venous catheter via the right internal jugular vein. Ready for use. [facility]-[id number] Procedure Note Interface, Radiology Results Incoming - 03/18/2019 4:44 PM DIRECTOR OF MARKETING [employer] PERFORMANCE ADS Performing Radiologist River Acosta MD Assistants None. Anesthesia Type Intraservice moderate sedation was admin istered by the procedure nurse and monitored by the procedure physician for 10 minutes. Lidocaine 1% and lidocaine 1% with epinephrine were used for local anesthetic. Pre Procedure Diagnosis Diverticulitis Post Procedure Diagnosis Status post tunneled right internal jugu lar vein central venous catheter placement. Procedure Placement of a tunneled right internal j ugular vein central venous catheter. Technique After explaining the procedure as well a s its benefits and risks including but not limited to bleeding, infection, and damage to adjacent structures all of the patient's questions were answered to apparent satisfaction and written informed consent was then obtained. The patient's right neck and upper chest were sterilely prepared and draped in the routine manner. All elements of maximal sterile barrier technique were followed. Lidocaine 1% was used for local anesthetic. Using real-time ultrasound guidance, a 2 1-gauge micropuncture needle was advanced successfully into the right internal jugular vein. A 0.018 inch guidewire was advanced centrally into the inferior vena cava through the needle under fluoroscopy. The needle was removed and a micropuncture s genia system was then placed. Under ultrasound guidance, documentation of vessel patency, needle access with permanent recording, and reporting are performed followed by placement of a sheath in the right inter nal jugular vein. The inner dilator and guidewire were the n removed, and a guidewire was advanced through the micropuncture sheath and successfully into the inferior vena cava. The right infraclavicular fossa was anesthetized with lidocaine 1% mixed with epinephrine. A skin incision was made, and a tunneling device was used to pass the tunneled central venous catheter from the skin entry site to the venotomy site. Attention was then returned to the venot navi site. The tract was then sequentially dilated, and a tunneled central venous catheter was then deployed through a peel-away sheath. The catheter tip was placed in the right atrium under fluoroscopic guidance . All ports were tested and demonstrate ad equate flow. The catheter was secured to the skin using 2-0 silk suture. The small venotomy incision was closed with Dermabond. The patient tolerated the procedure well. Total Fluoroscopic Exposure 28 mGy Complications None. Specimens Removed None. Estimated Blood Loss Less than 2 mL. Blood/Blood Products Administered None. Grafts/Implants As described in the above report. Impression: Successful fluoroscopic-guided placement of a tunneled central venous catheter via the right internal jugular vein. Ready for use. [facility]-[id number] Performing Organization Address City/State/Zipcode Phone Number SUDHAKAR [address] [place] [address] [place] Guided Vascular Access (03/18/2019 3:01 PM DIRECTOR OF MARKETING [employer] PERFORMANCE ADS) Specimen Narrative Performed At Performing Radiologist SUDHAKAR Acosta MD Assistants None. Anesthesia Type Intraservice moderate sedation was administered by the procedure nurse and monitored by the procedure physician for 10 minute s. Lidocaine 1% and lidocaine 1% with epinephrine were u sed for local anesthetic. Pre Procedure Diagnosis Diverticulitis Post Procedure Diagnosis Status post tunneled right internal jugular vein centr al venous catheter placement. Procedure Placement of a tunneled right internal jugular vein ce ntral venous catheter. Technique After explaining the procedure as well as its benefits and risks including but not limited to bleeding, infection, and damage to adjacent structures all of the patient's questions were answere d to apparent satisfaction and written informed consen t was then obtained. The patient's right neck and upper chest were sterilel y prepared and draped in the routine manner. All elements of maximal sterile barrier technique were followed. Lidocaine 1% was used for local anesthetic. Using real-time ultrasound guidance, a 21-gauge microp uncture needle was advanced successfully into the right internal jugular vein. A 0.018 inch guidewire was advanced centrally into the inferior raymundo a cava through the needle under fluoroscopy. The needle was removed and a micropuncture sheath system w as then placed. Under ultrasound guidance, documentation of vessel pat ency, needle access with permanent recording, and reporting are per formed followed by placement of a sheath in the right inter nal jugular vein. The inner dilator and guidewire were then removed, and a guidewire was advanced through the micropuncture sheath and successf ully into the inferior vena cava. The right infraclavicular fossa wa s anesthetized with lidocaine 1% mixed with epinephrine . A skin incision was made, and a tunneling device was use d to pass the tunneled central venous catheter from the skin entry s ite to the venotomy site. Attention was then returned to the venotomy site. The tract was then sequentially dilated, and a tunneled central venous ca theter was then deployed through a peel-away sheath. The catheter tip was placed in the right atrium under fluoroscopic guidance . All ports were tested and demonstrate adequate flow. T he catheter was secured to the skin using 2-0 silk suture. The small v enotomy incision was closed with Dermabond. The patient t olerated the procedure well. Total Fluoroscopic Exposure 28 mGy Complications None. Specimens Removed None. Estimated Blood Loss Less than 2 mL. Blood/Blood Products Administered None. Grafts/Implants As described in the above report. Impression: Successful fluoroscopic-guided placement of a tunneled central venous catheter via the right internal jugular vein. Ready for use. [facility]-[id number] Procedure Note Hm Interface, Radiology Results Incoming - 03/18/2019 4:44 PM DIRECTOR OF MARKETING [employer] PERFORMANCE ADS Performing Radiologist River Acosta MD Assistants None. Anesthesia Type Intraservice moderate sedation was admin istered by the procedure nurse and monitored by the procedure physician for 10 minutes. Lidocaine 1% and lidocaine 1% with epinephrine were used for local anesthetic. Pre Procedure Diagnosis Diverticulitis Post Procedure Diagnosis Status post tunneled right internal jugu lar vein central venous catheter placement. Procedure Placement of a tunneled right internal j ugular vein central venous catheter. Technique After explaining the procedure as well a s its benefits and risks including but not limited to bleeding, infection, and damage to adjacent structures all of the patient's questions were answered to apparent satisfaction and written informed consent was then obtained. The patient's right neck and upper chest were sterilely prepared and draped in the routine manner. All elements of maximal sterile barrier technique were followed. Lidocaine 1% was used for local anesthetic. Using real-time ultrasound guidance, a 2 1-gauge micropuncture needle was advanced successfully into the right internal jugular vein. A 0.018 inch guidewire was advanced centrally into the inferior vena cava through the needle under fluoroscopy. The needle was removed and a micropuncture s genia system was then placed. Under ultrasound guidance, documentation of vessel patency, needle access with permanent recording, and reporting are performed followed by placement of a sheath in the right inter nal jugular vein. The inner dilator and guidewire were the n removed, and a guidewire was advanced through the micropuncture sheath and successfully into the inferior vena cava. The right infraclavicular fossa was anesthetized with lidocaine 1% mixed with epinephrine. A skin incision was made, and a tunneling device was used to pass the tunneled central venous catheter from the skin entry site to the venotomy site. Attention was then returned to the venot navi site. The tract was then sequentially dilated, and a tunneled central venous catheter was then deployed through a peel-away sheath. The catheter tip was placed in the right atrium under fluoroscopic guidance . All ports were tested and demonstrate ad equate flow. The catheter was secured to the skin using 2-0 silk suture. The small venotomy incision was closed with Dermabond. The patient tolerated the procedure well. Total Fluoroscopic Exposure 28 mGy Complications None. Specimens Removed None. Estimated Blood Loss Less than 2 mL. Blood/Blood Products Administered None. Grafts/Implants As described in the above report. Impression: Successful fluoroscopic-guided placement of a tunneled central venous catheter via the right internal jugular vein. Ready for use. [facility]-[id number] Performing Organization Address City/State/Zipcode Phone Number [facility] [address] [place] [address] CT Abdomen Pelvis Wo Contrast (03/17/2019 5:49 AM DIRECTOR OF MARKETING [employer] ADS)Only the most recent of5 resultswithin the time period is included. Specimen Narrative Performed At EXAMINATION: CT ABDOMEN PELVIS WO CONT RAST HM [facility] CLINICAL HISTORY: IV contrast only LLQ pain hx o f perforated diverticulitis. TECHNIQUE: Multiple axial images of the abdomen and pelvis were obtained without intravenous administration of iodinat ed contrast. Sagittal and coronal computerized reformatted images w ere also obtained. All CT images were acquired using radi ation dose lowering technique with automated exposure control an d / or iterative reconstruction. COMPARISON: CT abdomen pelvis 12/28/19 19 IMPRESSION: ABDOMEN: Evaluation of solid abdominal organs is limited without IV contrast. 1. Coronary artery calcifications. Mild scarring at th e lung bases which otherwise clear. 2.Sigmoid colonic diverticulosis, with wall thickening throughout the sigmoid, as well as pericolonic fat stranding and smal l amount of fluid indicating acute sigmoid diverticulitis, which involve s the more proximal and more extensive segment than prior. Resolution of the pelvic crest containing collection previously, and no new pericolonic abscess is identified at this time, th ough follow-up to ensure resolution is recommended. 3.There is abutment of a 3.5 cm segment of the inflame d sigmoid with the top of the urinary bladder, and an air-fluid level is present within the bladder. This could be due to recent catheterization, though patent colovesical fistula is also consideration and confirmation with the clinical histo ry of any recent catheterization, is recommended. 4.Borderline dilated loops of jejunum are likely an as sociated mild ileus. No extraluminal gas is identified . 5.Cholecystectomy. Liver somewhat lobulated in surface contours which may indicate chronic liver disease. No focal lesion de tected on noncontrast exam. 6.Pancreas unremarkable. Calcified splenic granulomata and mild subcapsular scarring. 7.A 1.5 cm right adrenal nodule is stable from 2014, b enign. Left adrenal unremarkable. 8.Calcified plaque and tortuosity of the abdominal aorta without AAA. 9.Bilateral perinephric stranding indicating medical r enal disease. A 1.2 cm probable cyst anteriorly in the mid left kidney . No hydronephrosis. PELVIS: 1. Mild aortocaval and periaortic lymphadenopathy, and also bilateral external iliac lymphadenopathy is likely reactive to t he diverticulitis. Trace free fluid surrounding the inflamed colon. No fo sarah fluid collection. 2.Findings in the urinary bladder as above. Prostate a nd seminal vesicles grossly unremarkable. 3.Izaguirre edd down the visualized spi ne. SUMMARY: Acute sigmoid diverticulitis involving a more lengthy and proximal segment than prior. No abscess identifie d. Abutment and secondary inflammation of the urinary armen dder dome, with an air-fluid level, which may be due to a patent colovesi sarah fistula, though could also be due to recent catheterization, co nferring with the clinical history. Other findings as above. [facility]-[id number] Procedure Note Interface, Radiology Results Incoming - 03/17/2019 6:21 AM DIRECTOR OF MARKETING [employer] ADS EXAMINATION: CT ABDOMEN PELVIS WO CONTRAST CLINICAL HISTORY: IV contrast only LLQ pain hx of perforated diverticulitis. TECHNIQUE: Multiple axial images of the abdomen and pelvis were obtained without intravenous administration of iodinated contrast. Sagittal and coronal computerized reformatted images were also obtained. All CT images were acquired using radiation dose lowering technique with automated expos ure control and / or iterative reconstruction. COMPARISON: CT abdomen pelvis 9 IMPRESSION: ABDOMEN: Evaluation of solid abdominal organs is limited without IV contrast. 1. Coronary artery calcifications. Mild scarring at the lung bases which otherwise clear. 2.Sigmoid colonic diverticulosis, with w all thickening throughout the sigmoid, as well as pericolonic fat stranding and small amount of fluid indicating acute sigmoid diverticulitis, which involves the more proximal and more extensive segment than prior. Resolution of the pelvic crest containi ng collection previously, and no new pericolonic abscess is identified at this time, though follow-up to ensure resolution is recommended. 3.There is abutment of a 3.5 cm segment of the inflamed sigmoid with the top of the urinary bladder, and an air-fluid level is present within the bladder. This could be due to recent catheterization, though patent colovesical fistula is also consideration and confirmation with the clinical history of any recent catheterization, is recommended. 4.Borderline dilated loops of jejunum ar e likely an associated mild ileus. No extraluminal gas is identified. 5.Cholecystectomy. Liver somewhat lobula rosalina in surface contours which may indicate chronic liver disease. No focal lesion detected on noncontrast exam. 6.Pancreas unremarkable. Calcified splen ic granulomata and mild subcapsular scarring. 7.A 1.5 cm right adrenal nodule is stabl e from 2014, benign. Left adrenal unremarkable. 8.Calcified plaque and tortuosity of the abdominal aorta without AAA. 9.Bilateral perinephric stranding indica ting medical renal disease. A 1.2 cm probable cyst anteriorly in the mid left kidney. No hydronephrosis. PELVIS: 1. Mild aortocaval and periaortic lympha denopathy, and also bilateral external iliac lymphadenopathy is likely reactive to the diverticulitis. Trace free fluid surrounding the inflamed colon. No focal fluid collection. 2.Findings in the urinary bladder as abo ve. Prostate and seminal vesicles grossly unremarkable. 3.Izaguirre edd down the visualized spi ne. SUMMARY: Acute sigmoid diverticulitis involving a more lengthy and proximal segment than prior. No abscess identified. Abutment and secondary inflammation of t he urinary bladder dome, with an air- fluid level, which may be due to a patent colovesical fistula, though could also be due to recent catheterization, conferring with the clinical history. Other findings as above. [facility]-[id number] Performing Organization Address City/[facility] Phone Number [facility] [address] [place] [address] Blood culture, aerobic & anaerobic (03/17/2019 5:00 AM DIRECTOR OF MARKETING [employer] ADS)Only the most recent of4 resultswithin the time period is included. Blood culture No growth after 5 days of incubation. [facility] CONFUCIANIST isolate Comment: HOSPITAL Specimen Information Specimen Source: Blood Specimen Site: Hand Right Specimen Blood - Antecubital, left Performing Organization Address City/State/Zipcode Phone Number [facility] DEPARTMENT OF PATHOLOGY AND [address] [place], [place] [address] GENOMIC MEDICINE [address] [address] Lipase level (03/17/2019 4:50 AM DIRECTOR OF MARKETING [employer] ADS)Only the most recent of2 resultswithin the time period is included. Pathologist Sig nature Lipase 22 13 - 60 U/L [facility] Specimen Plasma specimen Performing Organization Address City/[facility]/Zipcode Phone Number [facility] DEPARTMENT OF PATHOLOGY [id number] [place] [address] X [id number] [place] [address] Comprehensive metabolic panel (03/17/2019 4:50 AM DIRECTOR OF MARKETING [employer] ADS)Only the most recent of4 resultswithin the time period is included. Sodium 134 (L) 135 - 148 [facility] mEq/L [facility] Potassium 3.5 3.5 - 5.0 [facility] mEq/L [facility] Chloride 87 (L) 98 - 112 mEq/L [facility] CO2 29 24 - 31 mEq/L [facility] Anion gap 18@ANIO (H) 7 - 15 mEq/L [facility] BUN 48 (H) 8 - 23 mg/dL [facility] Creatinine 1.84 (H) 0.70 - 1.20 [facility] mg/dL [facility] Glucose 179 (H) 65 - 99 mg/dL [facility] Calcium 10.0 8.8 - 10.2 [facility] mg/dL [facility] Protein 7.8 6.3 - 8.3 g/dL [facility] Albumin 3.6 3.5 - 5.0 g/dL [facility] A/G ratio 0.9 0.7 - 3.8 [facility] Alkaline phosphatase 80 40 - 129 U/L [facility] AST 20 10 - 50 U/L [facility] ALT 16 5 - 50 U/L [facility] Total bilirubin 0.4 0.2 - 1.2 [facility] mg/dL [facility] Specimen Plasma specimen Performing Organization Address City/[facility]/Zipcode Phone Number [facility] DEPARTMENT OF PATHOLOGY [phone] [place] [address] X [address] AND [facility] [id number] [place] [address] [facility] [address] Abdomen Pelvis W Contrast (11/11/2018 3:06 PM CDT) Specimen Narrative Performed At EXAMINATION: CT ABDOMEN PELVIS W CONTR AST HM [facility] CLINICAL HISTORY: K57.20 Diverticulitis of large int estine with perforation and abscess without bleeding, perforated s igmoid diverticulitis with abscess TECHNIQUE: Multiple axial images of the abdomen and pe lvis were obtained following intravenous administration of iodinated cont rast. CT imaging was performed with iterative reconstruction technique and/or automated exposure control to reduce radiation dose. COMPARISON: Multiple CTs of the abdomen and pelvis fro m 10/17/2018 200 10/25/2018, also CT abdomen pelvis from 2013. FINDINGS: LOWER THORAX: There is some residual linear atelectasis in the left lung base. Right lung base atelectasis has resolved. Calcified granulom a in the left lower lobe. Heavy coronary arterial calcifications are noted. Midline sternotomy wires are present. ABDOMEN: Liver: There is no hepatic mass or intrahepatic biliar y ductal dilatation. Gallbladder and Common Bile Duct: The gallbladder is s urgically absent. The common bile duct is not dilated. Pancreas: The pancreas is unremarkable. Spleen: A calcified granuloma is present in the spleen. Adrenal Glands: A right-sided adrenal nodules present which measures 1.9 x 1.2 cm (axial dimensions on series 2 image 46). The nodule has been stable since January 2014. Kidneys: There are 2 simple renal cysts in the left ki dney. The kidneys are somewhat atrophic bilaterally with minimal perinep hric stranding, compatible with medical renal disease. There is no kory dence of solid mass, calculus, or hydronephrosis. Vasculature: The abdominal aorta is normal in caliber with moderate calcific atherosclerosis. Nodes: Numerous prominent retroperitoneal lymph nodes are present, slightly improved from prior. These are likely reactive in etiology. Bowel: There is diverticulosis of the sigmoid colon an d descending colon with extensive fat stranding around a portion of the s igmoid colon. The stranding has improved compared to prior CT. There is no free intraperitoneal air. Resolution of small abscess adjacent to the sigmoid colon in the right low er quadrant. Abscess between the sigmoid colon and superior aspect of the bladder has decreased in size currently measuring 6.3 x 3.8 cm. sl ight increase in small contained phlegmon in the left low er quadrant best seen on series 2 images 112 through 114 without drainable collection to be reassessed at the time of the next fo llow-up. This could represent a developing fistula Bones and Soft Tissues : There is posterior fusion of the entire visualized spine from T8-S1. PELVIS: Pelvic Organs and Bladder: No pelvic mas s or lymphadenopathy. IMPRESSION: 1.Perforated sigmoid diverticulitis with resolution of small abscess in the right lower quadrant adjacent to the sigmoid colon with decrease in size of abscess posterior to the bladder. No bowel obs truction. No new fluid collections. 2.Right-sided adrenal nodule is present measuring 1.9 cm, which has been stable since January 2014. [facility]-[id number] Dictated and approved by residential mental health worker/fellow: Dyan Lopez M.D. I, Gregory Mccurdy MD, personally reviewed the images and resident's/fellow's findings and agree with the final report. Procedure Note [facility], Radiology Results Incoming - 11/11/2018 4:52 PM CDT EXAMINATION: CT ABDOMEN PELVIS W CONTRAST CLINICAL HISTORY: K57.20 Diverticulitis of large intestine with perforation and abscess without bleeding, perforated sigmoid diverticulitis with abscess TECHNIQUE: Multiple axial images of the abdomen and pelvis were obtained following intravenous administration of iodinated contrast. CT imaging was performed with iterative reconstruction technique and/or automated exposure control to reduce radiation dose. COMPARISON: Multiple CTs of the abdomen and pelvis from 10/17/2018 200 10/25/2018, also CT abdomen pelvis from January 2014. FINDINGS: LOWER THORAX: There is some residual linear atelectasi s in the left lung base. Right lung base atelectasis has resolved. Calcified granuloma in the left lower lobe. Heavy coronary arterial calcifications are noted. Midline sternotomy wires are present. ABDOMEN: Liver: There is no hepatic mass or intra hepatic biliary ductal dilatation. Gallbladder and Common Bile Duct: The ga llbladder is surgically absent. The common bile duct is not dilated. Pancreas: The pancreas is unremarkable. Spleen: A calcified granuloma is present in the spleen. Adrenal Glands: A right-sided adrenal no dules present which measures 1.9 x 1.2 cm (axial dimensions on series 2 image 46). The nodule has been stable since January 2014. Kidneys: There are 2 simple renal cysts in the left kidney. The kidneys are somewhat atrophic bilaterally with minimal perinephric stranding, compatible with medical renal disease. There is no evidence of solid mass, calculus, or hydronephrosis. Vasculature: The abdominal aorta is norm al in caliber with moderate calcific atherosclerosis. Nodes: Numerous prominent retroperitonea l lymph nodes are present, slightly improved from prior. These are likely reactive in etiology. Bowel: There is diverticulosis of the si gmoid colon and descending colon with extensive fat stranding around a portion of the sigmoid colon. The stranding has improved compared to prior CT. There is no free intraperitoneal air. Resolution of small abscess adjacent to the sigmoid colon in the right lower quadrant. Abscess between the sigmoid colon and superior aspect of the bladder has decreased in size currently measuring 6.3 x 3.8 cm. slight increase in small contained phlegmon in the left lower quadrant best seen on series 2 images 11 2 through 114 without drainable collection to be reassessed at the time of the next follow-up. 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 PELVIS: Pelvic Organs and Bladder: No pelvic mas s or lymphadenopathy. IMPRESSION: 1.Perforated sigmoid diverticulitis with resolution of small abscess in the right lower quadrant adjacent to the sigmoid colon with decrease in size of abscess posterior to the bladder. No bowel obstruction. No new fluid collections. 2.Right-sided adrenal nodule is present measuring 1.9 cm, which has been stable since January 2014. [facility]-[id number] Dictated and approved by radiology resid ent/fellow: Mehrdad Lopez M.D. I, Gregory Mccurdy MD, personally reviewed t he images and resident's/fellow's findings and agree with the final report. Performing Organization Address City/[facility]/Zipcode Phone Number [facility] [address] [place] [address] Phosphorus level (10/24/2018 4:48 AM CDT)Only the most recent of3 resultswithin the time period is included. Pathologist Sig nature Phosphorus 2.8 2.4 - 4.5 mg/dL [facility] [place] [facility] Specimen Plasma specimen Performing Organization Address City/[facility]/Zipcode Phone Number [facility] DEPARTMENT OF PATHOLOGY [address] [facility] [place] [address] AND GENOMIC MEDICINE [facility] [place] [address] [facility] [place] [address] HOSPITAL IR PICC Placement (10/23/2018 12:55 PM CDT) Specimen Narrative Performed At [facility]ED[facility] ( PICC) placement Performing Radiologist: Rae Mckeon MD Assistants: None Pre Procedure Diagnosis: Diverticulitis Post Procedure Diagnosis: Diverticulitis Indication: IV access for fluids/medication/blood dr doreen Complications: No immediate post procedure complication s. IMPRESSION: 1.Technically successful insertion of a right sided du al lumen power injectable PICC. 2.The right basilic and brachial veins are patent and compressible on preprocedure ultrasound. PLAN: The PICC is ready for immediate use. PROCEDURE SUMMARY: 1.Venous access with ultrasound guidance 2.PICC insertion under fluoroscopic guid ance PROCEDURE DETAILS: Pre-procedure: Comparison studies: None Written informed consent was obtained. Prophylactic antibiotics: None Preparation: The upper extremity was prepared and drap ed using all elements of maximal sterile barrier technique includin g sterile gloves, sterile gown, catheter, mask, large sterile sheet, delonte rile ultrasound probe cover, hand hygiene and cutaneous antisepsis using chlorhexidine. Anesthesia/Sedation: Level of anesthesia: None Medications used: 1% Lidocaine Anesthesia administration: None Duration of intra-service [id number] anesthesia/sedation: N/A Access: Local anesthesia was administered. The right brachial and basilic veins were evaluated with preprocedure ultrasound. Both vein s were patent as demonstrated by normal ultrasound compressibility. [place] l-time ultrasound was used to visualize needle entry into the vessel and a permanent image was st ored. Vein accessed: Right basilic vein Access technique: 5 Macanese micropuncture set Venography: Vein accessed: N/A Indication for venography: Not performed Findings: N/A PICC placement: A 0.018 inch measuring wire was used to measure the in travascular distance. The catheter was trimmed to the appropriate length and placed into the vein under fluoroscopic guidance via a peel-a way sheath. The catheter tip location was fluoroscopical ly verified and an image was archived. PICC placed: Bard Catheter size: 5 Macanese Catheter length: 50 cm Catheter tip position: Atriocaval juncti on Closure: The catheter was secured to the subcutaneous tissues a nd a sterile bandage was applied. Catheter securement technique: StatLock Contrast: Contrast agent: None Contrast volume: N/A Radiation dose: Reference air kerma: 0.4 mGy Additional details: Estimated blood loss: Less than 10 cc [facility]-[id number] Procedure Note [facility], Radiology Results Incoming - 10/23/2018 1:49 PM CDT PROCEDURE: Peripherally inserted central catheter ( PICC) placement Performing Radiologist: Rae Mckeon MD Assistants: None Pre Procedure Diagnosis: Diverticulitis Post Procedure Diagnosis: Diverticulitis Indication: IV access for fluids/medication/blood dr logan Complications: No immediate post procedure complication s. IMPRESSION: 1.Technically successful insertion of a right sided dual lumen power injectable PICC. 2.The right basilic and brachial veins a re patent and compressible on preprocedure ultrasound. PLAN: The PICC is ready for immediate use. PROCEDURE SUMMARY: 1.Venous access with ultrasound guidance 2.PICC insertion under fluoroscopic guid ancchristoph PROCEDURE DETAILS: Pre-procedure: Comparison studies: None Written informed consent was obtained. Prophylactic antibiotics: None Preparation: The upper extremity was pre pared and draped using all elements of maximal sterile barrier technique including sterile gloves, sterile gown, catheter, mask, large sterile sheet, sterile ultrasound probe cover, hand hygiene and cutaneous antisepsis using chlorhexidine. Anesthesia/Sedation: Level of anesthesia: None Medications used: 1% Lidocaine Anesthesia administration: None Duration of intra-service [id number] anesthesia/sedation: N/A Access: Local anesthesia was administered. The r ight brachial and basilic veins were evaluated with preprocedure ultrasound. Both veins were patent as demonstrated by normal ultrasound compressibility. Real-time ultrasound was used to visualize needle entry into the vessel and a permanent image was st ored. Vein accessed: Right basilic vein Access technique: 5 Macanese micropuncture set Venography: Vein accessed: N/A Indication for venography: Not performed Findings: N/A PICC placement: A 0.018 inch measuring wire was used to measure the intravascular distance. The catheter was trimmed to the appropriate length and placed into the vein under fluoroscopic guidance via a peel-away sheath. The catheter tip location was fluoroscopical ly verified and an image was archived. PICC placed: Bard Catheter size: 5 Macanese Catheter length: 50 cm Catheter tip position: Atriocaval juncti on Closure: The catheter was secured to the subcutan eous tissues and a sterile bandage was applied. Catheter securement technique: StatLock Contrast: Contrast agent: None Contrast volume: N/A Radiation dose: Reference air kerma: 0.4 mGy Additional details: Estimated blood loss: Less than 10 cc [facility]-[id number] Performing Organization Address City/State/[facility] Cent[facility] Phone Number [facility] [address] [place] [address] CT Pelvis Wo Contrast (10/22/2018 2:47 PM CDT) Specimen Narrative Performed At Procedure: SUDHAK[facility] Limited CT of the pelvis obtained in preparation for p ossible abscess drain placement Performing Radiologist Ricardo Grimaldo MD Assistants None Pre Procedure Diagnosis: Diverticular abscess Post Procedure Diagnosis: Diverticular abscess Indication: Diverticular abscess Complications None IMPRESSION: 1.Limited CT of the pelvis obtained with the patient i n the left lateral decubitus position demonstrates interval decrease in s ize of the fluid collection adjacent to the sigmoid colon previously seen on prior CT. 2.Large or fluid collection seen within the pelvis is unchanged in size, however, is accessible percutaneously. PROCEDURE SUMMARY: 1.Limited, noncontrast CT of the pelvis obtained with the patient in the left lateral decubitus position demonstrates a small 2 .4 x 3.2 cm fluid collection adjacent to the mid/distal sigmoid colon. T his previously measured 4.4 x 3.[address] from 10/21/2018. There is a second, air-fluid level seen more inferiorly within the pelvis measuring 5.6 x 4.7 cm, previously 5.5 x 4. 4 cm. This is essentially unchanged in size, however, not accessible percutaneously. PROCEDURE DETAILS: Pre-procedure: Comparison studies: CT abdomen pelvis wi thout contrast from 10/21/2018 Written and informed consent for the procedure (to inc lude risks, benefits and alternative therapy) and monitored consci ous sedation was obtained from the patient. Prophylactic antibiotics: None Anesthesia/Sedation: None Procedural Technique: A bilobed abscess is seen adjacent to the sigmoid colo n. The superior portion of the abscess has decreased in size when comp ared to previous examination from 10/21/2018. For this reason, percutaneo us drainage is not possible. The air-fluid level seen more inferiorly within the pelvis is unchanged in size, how ever, not accessible percutaneously. Additional Details Additional description of procedure: Non e Equipment details: None Specimens removed: None Estimated blood loss (mL): Less than 10 [facility]-[id number] Procedure Note [facility], Radiology Results Incoming - 10/22/2018 6:34 PM CDT Procedure: Limited CT of the pelvis obtained in pre paration for possible abscess drain placement Performing Radiologist Ricardo Grimaldo MD Assistants None Pre Procedure Diagnosis: Diverticular abscess Post Procedure Diagnosis: Diverticular abscess Indication: Diverticular abscess Complications None IMPRESSION: 1.Limited CT of the pelvis obtained with the patient in the left lateral decubitus position demonstrates interval decrease in size of the fluid collection adjacent to the sigmoid colon previously seen on prior CT. 2.Large or fluid collection seen within the pelvis is unchanged in size, however, is accessible percutaneously. PROCEDURE SUMMARY: 1.Limited, noncontrast CT of the pelvis obtained with the patient in the left lateral decubitus position demonstrates a small 2.4 x 3.2 cm fluid collection adjacent to the mid/distal sigmoid colon. This previously measured 4.4 x 3.[address] from 10/21/2018. There is a second, air-fluid l evel seen more inferiorly within the pelvis measuring 5.6 x 4.7 cm, previously 5.5 x 4.4 cm. This is essentially unchanged in size, however, not accessible percutaneously. PROCEDURE DETAILS: Pre-procedure: Comparison studies: CT abdomen pelvis wi thout contrast from 10/21/2018 Written and informed consent for the pro cedure (to include risks, benefits and alternative therapy) and monitored conscious sedation was obtained from the patient. Prophylactic antibiotics: None Anesthesia/Sedation: None Procedural Technique: A bilobed abscess is seen adjacent to th e sigmoid colon. The superior portion of the abscess has decreased in size when compared to previous examination from 10/21/2018. For this reason, percutaneous drainage is not possible. The air-fluid level seen more inferiorly within the pelvis is unchange d in size, however, not accessible percutaneously. Additional Details Additional description of procedure: Non e Equipment details: None Specimens removed: None Estimated blood loss (mL): Less than 10 [facility]-[id number] Performing Organization Address City/[facility]/Zipcode Phone Number [facility] [address] [place] [address] Lactic acid level, SEPSIS - Now and repeat 2x every 3 hours (10/18/2018 9:55 AM CDT)Only the most recent of4 resultswithin the time period is included. [facility] Lactic acid 2.2 0.5 - 2.2 mmol/L [facility] Specimen Plasma specimen Performing Organization Address City/[facility]/Zipcode Phone Number [facility] DEPARTMENT OF PATHOLOGY [address] [facility]. [place] [phone] Lactic acid level (10/18/2018 3:45 AM CDT)Only the most recent of2 results within the time period is included. Pathologist Salas giraldo Lactic acid 3.4 (H) 0.5 - 2.2 mmol/L [facility] Specimen Plasma specimen Performing Organization Address [place]/[facility] Phone Number [facility] DEPARTMENT OF PATHOLOGY [address] [place] [address] B natriuretic peptide (10/18/2018 12:48 AM CDT) Pathologist Salas giraldo BNP 166 (H) 0 - 100 pg/mL [facility] Specimen Blood Performing Organization Address [place]/[facility] Phone Number [facility] DEPARTMENT OF PATHOLOGY [address] [place] [address] ECG ED Preliminary Interpretation - Not an Order (10/17/2018 3:17 PM CDT) Narrative Performed At Amari Majano MD 10/17/2018 7 :13 PM ECG ED Preliminary Interpretation - Not an Order Performed by: Amari Majano MD Authorized by: Amari Majano MD ECG reviewed by ED Physician in the abse nce of a hosiery knitter: yes Interpretation: Interpretation: non-specific Rate: ECG rate: 77 ECG rate assessment: normal Rhythm: Rhythm: sinus rhythm Conduction: Conduction: abnormal ST segments: ST segments: Non-specific T waves: T waves: non-specific Troponin (10/17/2018 3:02 PM CDT) Troponin 0.038 0.000 - 0.040 [facility] Comment: ng/mL [facility] changed methodology eff ective: HOSPITAL 06/18/2018 at 10:00 am The new method has a 99th percentile cutoff of 0.040 n g/mL Specimen Plasma specimen Performing Organization Address [place]/[facility] Phone Number [facility] DEPARTMENT OF PATHOLOGY [address] [place] [address] AND [facility] CONFUCIANIST [place] [address] [facility] [place] [address] HOSPITAL after 10/10/2018 Insurance Payer Benefit Plan / Subscriber ID Effective Dates Phone Addre ss Type Group MEDICARE MEDICARE PART A xxxxxxxxxxx 2013-[place] Medicare AND B t AARP AARP SUPPLEMENT xxxxxxxxxxx 2019-Present [address] (Home) [place] [address] Advance Directives For more information, please contact: [phone] Type Date Recorded Patient Social Professionals Explanati on Advance Directives, Living Will 10/17/2018 3:16 PM and Medical Power of Rotary Cutter Operator Code Status Date Activated Date Inactivated Comments Full Code 05/02/2017 5:50 PM 05/05/2017 1:38 PM Code Status decision reached by: Patient
--- OUTSIDE RECORDS SUMMARY | 2019-10-11 08:06 | XMS REPORT | Continuity of Care Document ---
:1955 Author Organization [facility] t Address [address] Lamb [address] [place] [id number] Care Team Providers Name Role Phone Asked, Pcp Primary Care Physician Unavailable Una Salas MD Attending Clinician Stefano MILIAN, Ethan Attending Clinician Boris Melendrez MD Attending Clinician Ashlee MILIAN, Narayan Attending Clinician Davion MILIAN Attending Clinician Wilda MILIAN, Kun Attending Clinician Elmira MELTON Attending Clinician Steven MILIAN TEmy Attending Clinician [facility] Attending Clinician Unavailable Gretel MILIAN, REmy Attending Clinician Ginette MILIAN PEmy Attending Clinician DAVION Admitting Clinician Unavailable GINETTE Admitting Clinician Unavailable Payers Payer Name Policy Policy Number Effective Expiration Source Type Date Date MEDICAREMEDICARE PART xxxxxxxxxxx 2013 Franco Oneil AND 00:00:00 [facility] Gejunnpxzilc35/1/2013 [place] 2019 [place] SUPPLEMENTxxxxxxxxxxx 00:00:00 Met baer 2019-PresentComme rcial Problems Condition Condition Condition Status Onset Resolution Last Treating Co mments Source Name Details Category Date Date Treatment Clinician Date Diverticul Diverticul Disease Active Overview : [place] itis itis 2-13 Added Methodi 00:00: automatic st 00 ally from request for surgery [id number] Acute Acute Disease Active [place] diverticul diverticul 2-03 Me thodi itis itis 00:00: st 00 Diverticul Diverticul Disease Active [place] itis of itis of 905 Methodi large large 00:00: st intestine intestine 00 with with abscess abscess without without bleeding bleeding Chronic Chronic Disease Active [place] systolic systolic 905 Method i (congestiv (congestiv 00:00: st e) heart e) heart 00 failure failure VALERIA (acute VALERIA (acute Disease Active [place] kidney kidney 9 Methodi injury) injury) 00:00: st 00 Trigger Trigger Disease Active [place] index index 8-07 Methodi finger of finger of 00:00: st left hand left hand 00 Tendinitis Tendinitis Disease Active [place] of finger of finger 8-07 Meth candelaria 00:00: st 00 CHF CHF Disease Active [place] exacerbati exacerbati 3-21 Me thodi on on 00:00: st 00 Type 2 Type 2 Disease Active [place] diabetes diabetes 3-21 Method i mellitus mellitus 00:00: st 00 Essential Essential Disease Active [facility] hypertensi hypertensi 3-21 Me [facility] on on 00:00: st 00 CAD CAD Disease Active [place] (coronary (coronary 3- Meth candelaria artery artery 00:00: st disease) disease) 00 Scrotal Scrotal Disease Active [place] edema edema 3-21 Methodi 00:00: st 00 Allergies, Adverse Reactions, Alerts Allergy Allergy Status Severity Reaction(s) Onset Inactive Treating Comm ents Source Name Type Date Date Clinician Colchici Propensi Active [facility] [place] ne ty to Intolerance 3-12 Metho di adverse 00:00: st reaction 00 s to drug Naproxen Propensi Active [facility] [place] Sodium ty to Intolerance 1 Metho di adverse 00:00: st reaction 00 s to drug Dutaster Propensi Active Other (See [place] laron-Tams ty to Comments) 02-12 Metho di ulosin adverse 00:00: st reaction 00 s to drug Tamsulos Propensi Active Other (See 1900-0 Ho ch[place] in ty to Comments) 02-12 Methodi adverse 00:00: st reaction 00 s to drug Family History Family Member Diagnosis Comments Start Date Stop Date Source Natural father Heart disease Lucas Lopezist Natural mother Diabetes [place] Me thodist Social History Social Habit Start Date Stop Date Quantity Comments Source Sex Assigned At [place] M ethodist Exposure to Not sure [place] Metho dist SARS-CoV-2 (event) Alcohol intake 2019-09-30 2019-09-30 Current drinker [place] [facility] 00:00:00 00:00:00 of alcohol (finding) Tobacco Comment 2019-04-07 2019-04-07 only as young [place] [facility] 00:00:00 00:00:00 adult Smoking Status Start Date Stop Date Source Former smoker 2019-09-30 00:00:00 2019-09-30 00:00:00 [place] [facility] Medications Ordered Filled Start Stop Current Ordering Indication Dosage Frequency Signature Comments Components Source Medication Medication Date Date Medication? Clinician (SIG) Name Name triamcinolo 2019- 2020- No Q.5D Apply [facility] miguel ángel ne 05-10 04-28 topically Method (KENALOG) 00:00: 23:59 2 (two) st 0.1 % cream 00 :00 times a day for 30 days. nystatin 2019-0 2020- No Q.5D Apply [place] (MYCOSTATIN 3-11 03-11 topically Nm thodi ) 100,000 00:00: 23:59 2 (two) st unit/gram 00 :00 times a cream day. metoprolol 2020-0 Yes 100mg Q.5D Take 100 Franco perez tartrate 3-03 mg by Methodi (LOPRESSOR) 15:35: mouth 2 st 100 mg 08 (two) tablet times a day. metFORMIN 2020-0 Yes 1000mg Q.5D Take 1,000 [place] (GLUCOPHAGE 3-03 mg by Methodi ) 500 mg 15:35: mouth 2 st tablet 08 (two) times a day with meals. zinc 50 mg 2020-0 Yes 50mg QD Take 50 mg [place] tablet 3-03 by mouth Methodi 15:35: daily. st 08 omega-3/dha 2020-0 Yes 1400mg QD Take 1,400 [place] /epa/dpa/fi 3-03 mg by Methodi sh oil 15:35: mouth st (OMEGA-3 08 daily. 2100 ORAL) multivitami 2020-0 Yes 1{tbl} QD Take 1 [place] n 3-03 tablet by Methodi (THERAGRAN) 15:35: mouth st tablet 08 daily. metOLazone 2020-0 Yes 5mg QD Take 5 mg [place] (ZAROXOLYN) 3-03 by mouth Meth candelaria 5 MG tablet 15:35: daily. st 08 furosemide 2020-0 Yes 40mg Q.5D Take 40 mg [place] (LASIX) 40 3-03 by mouth 2 Met hodi mg tablet 15:35: (two) st 08 times a day. aspirin 2020-0 Yes 81mg QD Take 81 mg [place] (ECOTRIN) 3-03 by mouth Method i 81 MG 15:35: daily. st enteric 08 coated tablet magnesium 2020-0 Yes 500mg QD Take 500 [place] sulfate 100 3-03 mg by Methodi mg capsule 15:35: mouth st 08 daily. ondansetron 2020-0 Yes 4mg Q8H Take 4 mg [place] (ZOFRAN) 4 3-03 by mouth Metho di MG tablet 15:35: every 8 st 08 (eight) hours as needed for nausea or vomiting. digOXIN 2020-0 Yes 125ug QD Take 125 [place] (LANOXIN) 3-03 mcg by Methodi 125 mcg 15:35: mouth st (0.125 mg) 08 daily. tablet potassium 2020-0 Yes 20meq QD Take 20 [place] chloride 3-03 mEq by Methodi (KLOR-CON) 15:35: mouth st 20 mEq 08 daily. packet amIODarone 2020-0 Yes 200mg Q.5D Take 200 [place] (PACERONE) 3-03 mg by Methodi 200 MG 15:35: mouth 2 st tablet 08 (two) times a day. apixaban 2020-0 Yes 5mg Q.5D Take 5 mg [place] (ELIQUIS) 5 3-03 by mouth 2 Me thodi mg tablet 15:35: (two) st 08 times a day. acetaminoph 2020-0 Yes 1000mg Q.5D Take 1,000 [place] en 3-03 mg by Methodi (TYLENOL) 15:35: mouth 2 st 500 MG 08 (two) tablet times a day as needed for mild pain or moderate pain. ferrous 2020-0 Yes 325mg QD Take 325 [place] sulfate 325 3-03 mg by Methodi (65 FE) MG 15:35: mouth st tablet 08 daily with breakfast. dulaglutide 2019-0 Yes .75mg Q1W Inject [facility] [facility] (TRULICITY) 3-03 0.75 mg Metho di 0.75 mg/0.5 15:35: under the s t mL pen 08 skin every injector 7 days. linezolid 2020- No 600mg Q.5D Take 1 [place] (ZYVOX) 600 04-14 03-10 tablet Metho di mg tablet 00:00: 23:59 ([address] 00 :00 total) by mouth 2 (two) times a day for 7 days. traMADoL 2020- No acute pain 25mg Q6H Take 0.5 [place] (ULTRAM) 50 - 03-10 tablets Meth candelaria mg tablet 00:00: 23:59 ([address] 00 :00 total) by mouth every 6 (six) hours as needed for moderate pain for up to 7 days .acute pain. belladonna 2020- No acute pain 30mg Q8H Insert 1 [place] alkaloids-o - 03-08 suppositor M ethodi pium (B&O 00:00: 23:59 y ([address] SUPPRETTES) 00 :00 total) 16.2-30 mg into the suppository rectum every 8 (eight) hours as needed (bladder spasms) for up to 5 days .acute pain. nitrofurant 2020- No 50mg QD Take 50 mg [place] oin 04-07-24 by mouth Methodi (MACRODANTI 09:39: 00:[address] N) 50 MG 53 :00 capsule semaglutide 2020- No .5mg Q7D Inject 0.5 [place] (OZEMPIC 2- 02-24 mg under Method i SUBQ) 09:35: 00:[address] 12 :00 once a week. Every sunday ertapenem 2019- 2020- No 500mg Q24H Infuse 500 [place] 500 mg in 2-05 02-24 mg into a Meth candelaria sodium 00:00: 23:[address] chloride 00 :00 catheter 0.9% 50 mL daily for IVPB 19 days. HYDROcodone 2019-0 2020- No acute pain 1{tbl} Q8H Take 1 [place] -acetaminop 2-05 02-12 tablet by Me aguilacandelaria felipe (NORCO) 00:00: 23:[address] 10-325 mg 00 :00 every 8 per tablet (eight) hours as needed for moderate pain for up to 10 doses .acute pain. Max Daily Amount: 3 tablets iron 18 mg 2019- No 28mg QD Take 28 mg [place] tablet 03-17-03 by mouth Methodi 08:13: 00:[address] 35 :00 magnesium 2019- No 500mg QD Take 500 [place] sulfate 100 03-17-03 mg by Method i mg capsule 08:09: 00:[address] 47 :00 daily. citalopram 2019- No 20mg QD Take 20 mg [place] (CeleXA) 20 03-17-03 by mouth Met hodi MG tablet 08:09: 00:[address] 20 :00 ondansetron 2019- No 4mg Q8H Take 1 [facility] (ZOFRAN) 4 02-24 tablet (4 Met hodi MG tablet 00:00: 00:00 mg total) st 00 :00 by mouth every 8 (eight) hours as needed for nausea or vomiting for up to 15 doses. amoxicillin 2018-02- No 1{tbl} Q.5D Take 1 [place] -pot 0-03 10-10 tablet by Methodi clavulanate 00:00: 23:[address] (AUGMENTIN) 00 :00 (two) 875-125 mg times a per tablet day for 7 days. nystatin 2018- No [id number] Q.25D Take 5 mL [place] (MYCOSTATIN 10-28 (500,000 Met hodi ) 100,000 00:00: 23:[address] unit/mL 00 :00 total) by suspension mouth 4 (four) times a day for 6 days. Swish in mouth ertapenem 1 2019- No 1g Q24H Infuse 1 g [place] g in sodium 10-26 into a Metho di chloride 00:00: 23:[address] 0.9 % MBP 00 :00 catheter 50 mL IVPB daily for 12 days. potassium 2018- No 20meq QD Take 20 [place] chloride 10-25 mEq by Methodi (K-DUR,KLOR 13:39: 00:[address] -CON) 10 41 :00 daily. MEQ CR tablet potassium 2018- No 20meq QD Take 1 [place] chloride 10-25-13 tablet (20 Meth candelaria (K-DUR) 20 00:00: 23:59 mEq total) st MEQ CR 00 :00 by mouth tablet daily for 30 days. amLODIPine 2018- No 10mg QD Take 1 [place] (NORVASC) 10-25 tablet (10 Met hodi 10 mg 00:00: 23:59 mg total) st tablet 00 :00 by mouth daily for 30 days. HYDROcodone 2018- No acute pain 1{tbl} Q6H Take 1 [place] -acetaminop 10-25 tablet by Me rachele wang (NORCO) 00:00: 23:[address] 10-325 mg 00 :00 every 6 per tablet (six) hours as needed for moderate pain for up to 7 days .Acute Pain. Max Daily Amount: 4 tablets ondansetron 2018- No 4mg Q8H Take 1 [place] ODT 10-25 tablet (4 Methodi (ZOFRAN-ODT 00:00: 23:59 mg total) st ) 4 MG 00 :00 by mouth disintegrat every 8 ing tablet (eight) hours as needed for nausea or vomiting for up to 5 days. apixaban 2018- No 5mg Q.5D Take 5 mg [facility] [facility] (ELIQUIS) 5 10-17 by mouth 2 M ethodi mg tablet 20:47: 00:00 (two) st 32 :00 times a day. amIODarone 2018- No 400mg Q.5D Take 400 [place] (PACERONE) 10-17 mg by Methodi 200 MG 20:47: 00:[address] tablet 23 :00 (two) times a day. Immunizations Ordered Immunization Filled Immunization Date Status Commen ts Source Name Name Pneumococcal 2019-03-19 Completed [place] Polysaccharide 00:00:00 [facility] FLUCELVAX QUAD PF 2018-10-25 Completed [place] 00:00:00 [facility] Pneumococcal 2017-05-04 Completed [place] Conjugate 13-Valent 00:00:00 Metho dist FLUCELVAX QUAD PF 2017-05-04 Completed [place] 00:00:00 [facility] Vital Signs Vital Name Observation Time Observation Value Comments Source Systolic blood 2019-05-11 06:33:00 128 mm[Hg] [place] [facility] pressure Diastolic blood 2019-05-11 06:33:00 60 mm[Hg] [place] [facility] pressure Heart rate 2019-05-11 06:33:00 78 /min Lucas Alcantara Body temperature 2019-05-11 06:33:00 36.72 Lola [place] [facility] Respiratory rate 2019-05-11 06:33:00 18 /min [place] [facility] Oxygen saturation in 2019-05-11 06:33:00 99 /min Lucas Alcantara Arterial blood by Pulse oximetry Body height 2019-04-23 09:42:00 177.8 cm Lucas Alcantara Body weight 2019-04-23 09:42:00 101.606 kg Lucas Alcantara BMI 2019-04-23 09:42:00 32.14 kg/m2 Lucas Alcantara Procedures Procedure Date / Time Performing Clinician Source Performed XR HAND 3+ VW RIGHT 2019-07-29 09:31:53 Chrissie Salas [place] CYSTOGRAM MINIMUM 3 VW 2019-04-23 15:13:42 Autumn Rosado Narayan IR TUNNELED CENTRAL LINE 2019-04-15 13:48:00 Brady Jalloh [facility] REMOVAL Elizabeth POC GLUCOSE 2019-04-15 07:41:00 Nancy Jj ethodist BASIC METABOLIC PANEL 2019-04-15 06:06:00 Nancy Jj [facility] HC COMPLETE BLD COUNT 2019-04-15 06:06:00 Nancy Jj [facility] W/AUTO DIFF ESTIMATED GFR 2019-04-15 06:06:00 Nancy Jj ethodist POC GLUCOSE 2019-04-14 21:24:00 Nancy Jj ethodist POC GLUCOSE 2019-04-14 16:21:00 Nancy Jj ethodist POC GLUCOSE 2019-04-14 12:11:00 Nancy Jj ethodist POC GLUCOSE 2019-04-14 07:26:00 Nancy Jj ethodist BASIC METABOLIC PANEL 2019-04-14 04:45:00 Nancy Jj Flaco de jesus [facility] HC COMPLETE BLD COUNT 2019-04-14 04:45:00 Nancy Jj Flaco de jesus [facility] W/AUTO DIFF ESTIMATED GFR 2019-04-14 04:45:00 Nancy Jj ethodist POC GLUCOSE 2019-04-13 21:30:00 Nancy Jj ethodist POC GLUCOSE 2019-04-13 11:05:00 Nancy Jj ethodist POC GLUCOSE 2019-04-13 08:54:00 Nancy Jj ethodist GASTROINTESTINAL PANEL 2019-04-13 05:50:00 Nancy Jj chris [facility] BASIC METABOLIC PANEL 2019-04-13 04:18:00 Nancy Jj Flaco de jesus [facility] HC COMPLETE BLD COUNT 2019-04-13 04:18:00 Nancy Jj [facility] de jesus [facility] W/AUTO DIFF ESTIMATED GFR 2019-04-13 04:18:00 Nancy Jj ethodist POC GLUCOSE 2019-04-12 21:44:00 Nancy Jj ethodist POC GLUCOSE 2019-04-12 15:07:00 Nancy Jj ethodist POC GLUCOSE 2019-04-12 12:26:00 Nancy Jj ethodist POC GLUCOSE 2019-04-12 09:12:00 Nancy Jj ethodist BASIC METABOLIC PANEL 2019-04-12 02:06:00 Jared Tsai [facility] HC COMPLETE BLD COUNT 2019-04-12 02:06:00 Jared Tsai [facility] W/AUTO DIFF MAGNESIUM LEVEL 2019-04-12 02:06:00 Jared Tsai Meth odist ESTIMATED GFR 2019-04-12 02:06:00 Jared Tsai Meth odist POC GLUCOSE 2019-04-11 17:43:00 Nancy Jj ethodist ECG 12-LEAD 2019-04-11 15:05:18 Flo Goncalves Met hodist XR CHEST 1 VW PORTABLE 2019-04-11 14:13:11 Flo Goncalves [facility] HC COMPLETE BLD COUNT 2019-04-11 14:06:00 Flo Goncalves on [facility]ism W/AUTO DIFF BASIC METABOLIC PANEL 2019-04-11 14:06:00 Flo Goncalves on [facility] MAGNESIUM LEVEL 2019-04-11 14:06:00 Flo Goncalves Met hodist IONIZED CALCIUM 2019-04-11 14:06:00 Flo Goncalves Met hodist PARTIAL THROMBOPLASTIN TIME 2019-04-11 14:06:00 Flo Goncalves [facility] (PTT) PROTHROMBIN TIME WITH INR 2019-04-11 14:06:00 Flo Goncalves [place] FIBRINOGEN 2019-04-11 14:06:00 Flo Goncalves Met hodkenya ESTIMATED GFR 2019-04-11 14:06:00 Flo Goncalves Met hodist POC GLUCOSE 2019-04-11 13:49:00 Nancy Jj SURGICAL PATHOLOGY REQUEST 2019-04-11 12:30:00 Gerardo Melendrez E. URINE CULTURE 2019-04-11 09:28:00 Robyn Melendrez ethmanuel E. MO AN ELECTIVE ENDOTRACHEAL 2019-04-11 09:09:38 Renetta Bourne AIRWAY URINALYSIS SCREEN AND 2019-04-11 08:41:00 Robyn Melendrez MICROSCOPY, WITH REFLEX TO E. CULTURE MO AN PERIPHERAL BLOCK 2019-04-11 08:24:29 Basilia Astudillo on [facility] PROCEDURE FOR PAIN [place] POC GLUCOSE 2019-04-11 07:10:00 Robyn Melendrez ethmanuel E. ECG PRE/POST OP 2019-04-07 11:48:10 Kerry Ku Met laurenist HC COMPLETE BLD COUNT 2019-04-07 10:49:00 Kerry Ku on [facility] W/AUTO DIFF BASIC METABOLIC PANEL 2019-04-07 10:49:00 Kerry Ku on [facility] HEMOGLOBIN A1C 2019-04-07 10:49:00 Kerry Ku Met hodist TYPE AND SCREEN 2019-04-07 10:49:00 Kerry Ku Met hodist ESTIMATED GFR 2019-04-07 10:49:00 Kerry Ku Met hodist BASIC METABOLIC PANEL 2019-03-19 04:45:00 Nancy Jj [facility] HC COMPLETE BLD COUNT 2019-03-19 04:45:00 DavionNancy [facility] W/AUTO DIFF ESTIMATED GFR 2019-03-19 04:45:00 Nancy Jj ethodist POC GLUCOSE 2019-03-18 20:24:00 Nancy Jj ethodist POC GLUCOSE 2019-03-18 17:06:00 Nancy Jj ethodist IR TUNNELED CENTRAL LINE 2019-03-18 15:01:00 Inogab Nancy Zavala [facility] PLACEMENT US GUIDED VASCULAR ACCESS 2019-03-18 15:01:00 Davion Nancy Zavala [facility] POC GLUCOSE 2019-03-18 11:48:00 Nancy Jj ethodist POC GLUCOSE 2019-03-18 07:06:00 Nancy Jj ethodist BASIC METABOLIC PANEL 2019-03-18 04:00:00 Nancy Jj [facility] HC COMPLETE BLD COUNT 2019-03-18 04:00:00 Nancy Jj [facility] W/AUTO DIFF ESTIMATED GFR 2019-03-18 04:00:00 Nancy Jj ethodist POC GLUCOSE 2019-03-17 16:31:[address] ABDOMEN PELVIS WO 2019-03-17 05:49:47 Deib Watson on [facility] CONTRAST Candie URINE CULTURE 2019-03-17 05:43:00 Debi Watson Me thodist Candie URINALYSIS SCREEN AND 2019-03-17 05:25:00 Debi Watson [facility] MICROSCOPY, WITH REFLEX TO Candie CULTURE BLOOD CULTURE, AEROBIC & 2019-03-17 05:00:00 Debi Watson ANAEROBIC Candie BLOOD CULTURE, AEROBIC & 2019-03-17 04:50:00 Debi Watson ANAEROBIC Candie HC COMPLETE BLD COUNT 2019-03-17 04:50:00 Debi Watson [facility] W/AUTO DIFF Candie PROTHROMBIN TIME WITH INR 2019-03-17 04:50:00 Debi Watson Candie PARTIAL THROMBOPLASTIN TIME 2019-03-17 04:50:00 Sandeep Watson (PTT) Candie LIPASE LEVEL 2019-03-17 04:50:00 Debi Watson Me thodist Candie COMPREHENSIVE METABOLIC 2019-03-17 04:50:00 Debi Watson [facility] PANEL Candie ESTIMATED GFR 2019-03-17 04:50:00 Debi Watson Me thodist Candie CT ABDOMEN PELVIS WO 2018-12-27 14:38:10 Autumn Rosado [facility] CONTRAST Narayan CT ABDOMEN PELVIS W 2018-11-11 15:06:21 Robyn Melendrez on [facility] CONTRAST E. POC GLUCOSE 2018-10-25 11:41:[address] ABDOMEN PELVIS WO 2018-10-25 09:00:18 Fortino Snider on [facility] CONTRAST POC GLUCOSE 2018-10-25 08:00:00 Colt Peng ethodist BASIC METABOLIC PANEL 2018-10-25 04:00:00 David Benitez HC COMPLETE BLD COUNT 2018-10-25 04:00:00 David Benitez [facility] W/AUTO DIFF ESTIMATED GFR 2018-10-25 04:00:00 David Benitez ethodist POC GLUCOSE 2018-10-24 20:49:00 Colt Peng ethodist POC GLUCOSE 2018-10-24 17:04:00 Colt Peng ethodist POC GLUCOSE 2018-10-24 11:35:00 Colt Peng ethodist POC GLUCOSE 2018-10-24 07:45:00 Colt Peng ethodist BASIC METABOLIC PANEL 2018-10-24 04:48:00 David Benitez HC COMPLETE BLD COUNT 2018-10-24 04:48:00 David Benitez W/AUTO DIFF MAGNESIUM LEVEL 2018-10-24 04:48:00 David Benitez ethodist PHOSPHORUS LEVEL 2018-10-24 04:48:00 David Benitez ESTIMATED GFR 2018-10-24 04:48:00 David Benitez ethodist POC GLUCOSE 2018-10-23 21:33:00 Colt Peng ethodist POC GLUCOSE 2018-10-23 17:27:00 Colt Peng ethodist POC GLUCOSE 2018-10-23 13:13:00 Colt Peng ethodist IR PICC PLACEMENT 2018-10-23 12:55:00 Robyn Melendrez E. POC GLUCOSE 2018-10-23 07:45:00 Colt Peng ethodist POC GLUCOSE 2018-10-22 20:45:00 Colt Peng ethodist POC GLUCOSE 2018-10-22 15:52:[address] PELVIS WO CONTRAST 2018-10-22 14:47:04 Fortino Snider POC GLUCOSE 2018-10-22 10:42:00 Colt Peng ethodist POC GLUCOSE 2018-10-22 07:14:00 Colt Peng ethodist PROTHROMBIN TIME WITH INR 2018-10-22 04:00:00 Fortino Snider PARTIAL THROMBOPLASTIN TIME 2018-10-22 04:00:00 Fortino Snider [facility] (PTT) BASIC METABOLIC PANEL 2018-10-22 04:00:00 David Benitez [facility] HC COMPLETE BLD COUNT 2018-10-22 04:00:00 Sanjuananathanielclarice Celesteclarice de jesus [facility] W/AUTO DIFF MAGNESIUM LEVEL 2018-10-22 04:00:00 SanjuananathanielCeleste oneilclarice Zavala Kathleen ethodist PHOSPHORUS LEVEL 2018-10-22 04:00:00 SanjuananathanielclariceDavid [facility] ESTIMATED GFR 2018-10-22 04:00:00 David Benitez Kathleen ethodist POC GLUCOSE 2018-10-21 20:27:00 Colt Peng ethodist POC GLUCOSE 2018-10-21 16:39:00 Colt Peng ethodist POC GLUCOSE 2018-10-21 11:15:[address] ABDOMEN PELVIS WO 2018-10-21 10:13:36 Fortino Snider on [facility] CONTRAST BASIC METABOLIC PANEL 2018-10-21 07:50:00 Colt Peng [facility] PHOSPHORUS LEVEL 2018-10-21 07:50:00 Colt Peng [facility] MAGNESIUM LEVEL 2018-10-21 07:50:00 Colt Peng ethodist ESTIMATED GFR 2018-10-21 07:50:00 Colt Peng ethodist POC GLUCOSE 2018-10-21 07:49:00 Colt Peng ethodist HC COMPLETE BLD COUNT 2018-10-21 04:40:00 David Benitez [facility] W/AUTO DIFF POC GLUCOSE 2018-10-20 20:48:00 Colt Peng ethodist POC GLUCOSE 2018-10-20 17:08:00 Colt Peng ethodist POC GLUCOSE 2018-10-20 11:38:00 Colt Peng ethodist POC GLUCOSE 2018-10-20 08:16:00 Colt Peng ethodist BASIC METABOLIC PANEL 2018-10-20 04:57:00 Colt Peng [facility] CBC WITH PLATELET AND 2018-10-20 04:57:00 Colt Peng [facility] DIFFERENTIAL MAGNESIUM LEVEL 2018-10-20 04:57:00 Colt Peng ethodist ESTIMATED GFR 2018-10-20 04:57:00 Colt Peng ethodist POC GLUCOSE 2018-10-20 00:44:00 Colt Peng ethodist POC GLUCOSE 2018-10-19 21:44:00 Colt Peng ethodist POC GLUCOSE 2018-10-19 16:23:00 Colt Peng ethodist POC GLUCOSE 2018-10-19 11:00:00 Colt Peng ethodist POC GLUCOSE 2018-10-19 07:41:00 Colt Peng ethodist HEMOGLOBIN A1C 2018-10-19 04:47:00 Cristine Segal Nm thodist COMPREHENSIVE METABOLIC 2018-10-19 04:47:00 Cristine Segal [facility] PANEL HC COMPLETE BLD COUNT 2018-10-19 04:47:00 Cristine Segal [facility] W/AUTO DIFF ESTIMATED GFR 2018-10-19 04:47:00 Cristine Segal Nm thodist POC GLUCOSE 2018-10-18 23:54:00 Colt Peng ethodist POC GLUCOSE 2018-10-18 21:01:00 Colt Peng ethodist POC GLUCOSE 2018-10-18 16:29:00 Colt Peng ethodist POC GLUCOSE 2018-10-18 11:37:00 Colt Peng ethmanuel LACTIC ACID LEVEL, SEPSIS - 2018-10-18 09:55:00 Colt Peng NOW AND REPEAT 2X EVERY 3 HOURS POC GLUCOSE 2018-10-18 07:24:00 Colt Peng ethodist LACTIC ACID LEVEL, SEPSIS - 2018-10-18 06:43:00 Colt Peng NOW AND REPEAT 2X EVERY 3 HOURS POC GLUCOSE 2018-10-18 04:52:00 Colt Peng ethodist URINE CULTURE 2018-10-18 03:55:00 Amari Majano Me thodist URINALYSIS SCREEN AND 2018-10-18 03:55:00 Amari Majano MICROSCOPY, WITH REFLEX TO CULTURE COMPREHENSIVE METABOLIC 2018-10-18 03:45:00 Cristine Segal PANEL HC COMPLETE BLD COUNT 2018-10-18 03:45:00 Cristine Segal [facility] W/AUTO DIFF LACTIC ACID LEVEL 2018-10-18 03:45:00 Thu Capone Me thodist ESTIMATED GFR 2018-10-18 03:45:00 Cristine Segal Nm thodist B NATRIURETIC PEPTIDE 2018-10-18 00:48:00 Thu Capone n [facility] POC GLUCOSE 2018-10-18 00:30:00 Colt Peng ethodist LACTIC ACID LEVEL, SEPSIS - 2018-10-17 21:10:00 Amari Majano NOW AND REPEAT 2X EVERY 3 HOURS POC GLUCOSE 2018-10-17 20:26:00 Colt Peng ethodist LACTIC ACID LEVEL, SEPSIS - 2018-10-17 18:35:00 Amari Majano NOW AND REPEAT 2X EVERY 3 HOURS BLOOD CULTURE, AEROBIC & 2018-10-17 17:07:00 Amari Majano ANAEROBIC BLOOD CULTURE, AEROBIC & 2018-10-17 17:00:[address] ABDOMEN PELVIS WO 2018-10-17 15:57:04 Amari Majano on [facility] CONTRAST ECG ED PRELIMINARY 2018-10-17 15:17:38 Amari Majano INTERPRETATION ECG 12-LEAD 2018-10-17 15:10:02 Amari Majano Nm thodist HC COMPLETE BLD COUNT 2018-10-17 15:02:00 Amari Majano W/AUTO DIFF COMPREHENSIVE METABOLIC 2018-10-17 15:02:00 Amari Majano PANEL LIPASE LEVEL 2018-10-17 15:02:00 Amari Majano Nm thodist TROPONIN 2018-10-17 15:02:00 Amari Majano Nm thodist LACTIC ACID LEVEL 2018-10-17 15:02:00 Amari Majano ESTIMATED GFR 2018-10-17 15:02:00 Amari Majano Nm thodist Plan of Care Planned Activity Planned Date Details Comments Source Future Scheduled 2019-11-13 INFLUENZA VACCINE [place] [facility] Test 00:00:00 [code = INFLUENZA VACCINE] Future Scheduled 2004 COLONOSCOPY SCREENING [place] [facility] Test 00:00:00 [code = COLONOSCOPY SCREENING] Future Scheduled 2004 SHINGLES VACCINES (#1) [place] [facility] 00:00:00 [code = SHINGLES VACCINES (#1)] Future Scheduled 1964 DIABETIC FOOT EXAM [place] [facility] 00:00:00 [code = DIABETIC FOOT EXAM] Future Scheduled 1964 URINE MICROALBUMIN [place] [facility] 00:00:00 [code = URINE MICROALBUMIN] Future Scheduled 1954 DIABETIC RETINAL EYE [place] [facility] 00:00:00 EXAM [code = DIABETIC RETINAL EYE EXAM] Encounters Start End Encounter Admission Attending Care Care Encounter Source Date/Time Date/Time Type Type Clinicians Facility Department ID 2019-09-30 2019-09-30 Outpatient [facility] [id number] [place] 00:00:00 00:00:00 CHRISSIE [address] 2019-07-29 2019-07-29 Outpatient [facility] [id number] [place] 00:00:00 00:00:00 CHRISSIE [address] 2019-07-29 2019-07-29 Outpatient [facility] [id number] [place] 00:00:00 00:00:00 CHRISSIE [address] 2019-05-11 2019-05-11 Emergency [facility] [id number] [place] 00:00:00 00:00:00 ELIZABETH [address] 2019-04-23 2019-04-23 Outpatient OPAIMEEMANN, [facility] [id number] [place] 00:00:00 00:00:00 ROBYN [address] 2019-04-23 2019-04-23 Outpatient ASHLEE, [facility] [id number] [place] 00:00:00 00:00:00 AUTUMN 957 Method i 2019-04-11 2019-04-15 Inpatient DAVION, [facility] [id number] [place] 00:00:00 00:00:00 RANGANATH 103 Meth candelaria 2019-04-07 2019-04-07 Outpatient OPSCOTTY, [facility] [id number] [place] 00:00:00 00:00:00 ROBYN 434 Method i 2019-03-17 2019-03-19 Inpatient DAVION, [facility] [id number] [place] 00:00:00 00:00:00 RANGANATH 582 Meth candelaria 2018-12-27 2018-12-27 Outpatient ASHLEE, [facility] [id number] [place] 00:00:00 00:00:00 AUTUMN 988 Method i 2018-11-11 2018-11-11 Outpatient OPSCOTTY, [facility] [id number] [place] 00:00:00 00:00:00 ROBYN 149 Method i 2018-10-17 2018-10-25 Inpatient JOGLEKAR, [facility] [id number] [place] 00:00:00 00:00:00 COLT 798 Method i Results Test Description Test Time Test Comments Results Result Sour e Comments [place] Cystogram 2019-04-13 [facility] 3 Views 1 Radiology Results Nm thodist 15:36:57 - 04/23/2019 3:40 PM CDTEXAMINATION: FL CYSTOGRAM MINIMUM 3 VWCLINICAL HISTORY: N32.1 Vesicointestinal fistula, N32.1COMPARISON: None.TECHNIQUE: Cystogram was performed. Contrast was instilled into the bladder in a retrograde manner via Shah catheter. TOTAL DOSE: 22.4 mGy ref air KermaFINDINGS:Bladder is normally distensible and normal in contour. No intraluminal filling defect or vesicoureteral reflux. No extraluminal contrast leak or vesicointestinal fistula.No significant postvoid residual.IMPRESSION: Unremarkable cystogram.[id number] H3K IR Tunneled [facility], [place] Central Line 3 Radiology Results Metho dist Removal 22:12:22 Incoming - 04/15/2019 10:15 PM CSTPROCEDURE: Bedside tunneled central venous catheter removalPerforming RadiologistRicardo Grimaldo MD AssistantsNone Pre Procedure Diagnosis:infectionPos t Procedure Diagnosis:infectionInd ication:Catheter no longer neededAdditional clinical history: NoneComplications: No immediate complications.IMPRESSI ON:Successful bedside removeal of a right-sided tunneled central venous catheter. Plan: Please re-consult interventional radiology if new catheter placement is desired. PROCEDURE SUMMARY:- Tunneled central venous catheter removal- Additional procedure(s): NonePROCEDURE DETAILS:Pre-procedure: Comparison studies: NoneProphylactic antibiotics: NonePreparation: The right anterior chest was prepared and draped using all elements of maximal sterile barrier technique including sterile gloves, sterile gown, catheter, mask, large sterile sheet, sterile ultrasound probe cover, hand hygiene and cutaneous antisepsis using chlorhexidine.Anesthes ia/Sedation:Level of anesthesia: LidocaineDuration of intraservice nazu-ky-slgr anesthesia/sedation: N/ACatheter removalThe skin site around the subcutaneous tract was noted to be clean/dry and intact. No purulent drainage. Local anesthesia was administered. The catheter was removed with traction. The subcutaneous cuff was removed en bloc.ClosureHemostasis was achieved with manual compression. Sterile dressing(s) applied.ContrastN/ARad iation DoseN/AAdditional DetailsAdditional description of procedure: NoneEquipment details: NoneSpecimens removed: Tunneled central venous catheter. Estimated blood loss (mL): Less than 10HMRM-WPHYAAW POC glucose 2019-04-15 07:42:43 Test Item Value Reference Range Interpretation Comme nts POC glucose (test code = 104 mg/dL 65-99 H Ope rator Name: Saul Harvey [id number]) ID: [id number] rich: VERN Notified Lab Interpretation (test code = Abnormal 94759-1) [facility] MethodistBasic metabolic vipml7825-06-62 06:58:02 Test Item Value Reference Range Interpretation Comments Sodium (test code = 2951-2) 137 135- 148 mEq/L Potassium (test code = 2823-3) 3.8 3.5- 5.0 mEq/L Chloride (test code = 2075-0) 97 98- 112 mEq/L L CO2 (test code = 8-9) 27 24- 31 mEq/L Anion gap (test code = 25828-4) 13@ANIO 7- 15 mEq/L BUN (test code = 3094-0) 33 mg/dL 8-23 H Creatinine (test code = 2160-0) 1.23 mg/dL 0.7-1.2 H Glucose (test code = 2345-7) 116 mg/dL 65-99 H Calcium (test code = 21548-1) 9.4 mg/dL 8.8-10.2 Lab Interpretation (test code = Abnormal 93375-8) Lucas MethodistEstimated [id number] 06:58:02 Test Item Value Reference Range Interpretation Comments Estimated GFR (test 61 mL/min/1.73 m2 Caterg ory Units code = 5488) InterpretationG 1 >=90 Normal or highG2 60-89 Mildly sylirpitzP7z 45-59 Mildly to mode rately ulwbottbeB3x 30-44 Moderately to severely decreasedG4 15-29 Severely decre asedG5 <15 Kidn ey failureThe eGFR was calculated [place]hit [place] the Chronic Kidney Disease Epidemiology Co llaboration (CKD-EPI) equat ion. Interpretation is based on recommendations of the National Kidney Foundation-Kidn ey Disease Outcomes Qualit y Initiative (NKF-KDOQI) pub lished in 2014. Lucas MethodistCBC with platelet and cfesyckfoqhw6526-72-08 06:39:10 Test Item Value Reference Range Interpretation Comments WBC (test code = 50245-9) 11.0 4.5- 11.0 k/uL RBC (test code = 98802-9) 3.49 m/uL 4.4-6 L HGB (test code = 718-7) 8.3 g/dL 14-18 L HCT (test code = 4544-3) 28.3 % 41-51 L MCV (test code = 787-2) 81.1 fL 82-100 L MCH (test code = 785-6) 23.8 pg 27-34 L MCHC (test code = 786-4) 29.3 g/dL 31-37 L RDW - SD (test code = 62197-4) 49.3 fL 37-55 MPV (test code = 05733-0) 9.5 fL 6.9-11 Platelet count (test code = 547 K/uL 150-400 H 64124-9) Nucleated RBC (test code = 19081-5) 0.00 /100 WBC Neutrophils (test code = 97623-7) 66.3 % 39-69 Lymphocytes (test code = 77215-8) 20.2 % 25-45 L Monocytes (test code = 42574-6) 8.9 % 0-10 Eosinophils (test code = 26046-8) 3.5 % 0-5 Basophils (test code = 28558-2) 0.4 % 0-1 Immature granulocytes (test code = 0.7 % 0-1 85002-8) Lab Interpretation (test code = Abnormal 15731-6) [facility] [id number] 15:13:08 Test Item Value Reference Range Interpretation Comments Case number (test code = [id number]) Surgical pathology See link below for report (test code = PDF Lab Report [id number]) Result status (test code This is Final Report = [id number]) for [id number] [facility] TylerGastro[facility] ymrid8989-06-13 12:13:20Gastrointestinal panelNegative for all pathogens tested:Negative for SalmonellaNegative for CampylobacterNegative for Diarrheagenic E coli/ShigellaNegative for Shiga-like toxin-producing E coliNegativefor Plesiomonas shigelloidesNegative for Yersinia enterocoliticaNegative for Vibrio speciesNegative for Clostridium difficile (Toxin A/B)Negative for CryptosporidiumNegative for Giardia lambliaNegativefor Cyclospora cayeteanensisNegative for Entamoeba histolyticaNegative for Adenovirus F 40/41Negative for AstrovirusNegative for Norovirus GI/GIINegative for Rotavirus ANegative for SapovirusNegative for Clostridium difficile toxinNegative for E coli 0157This real-time PCR assay detects the presence of nucleic acids (RNA or DNA) for the gastrointestinal pathogens listed.A result of "Not-detected" does not exclude the possibility of the presence of one or more pathogens at concentrations less than the detectable limits of the assay. Comment: Specimen InformationSpecimen Source: StoolSpecimen Site: Nonpreserved [facility] MethodistECG 12 fqlt9196-65-14 09:05:17 Test Item Value Reference Range Interpretation Comments Ventricular rate (test 74 code = 253) Atrial rate (test code 74 = 255) MO interval (test code 176 = 266) QRSD interval (test 206 code = 260) QT interval (test code 510 = 264) QTC interval (test code 566 = 265) P axis 1 (test code = 79 267) QRS axis 1 (test code = -14 268) T wave axis (test code -22 = 270) EKG impression (test Normal sinus rhythm code = 273) with sinus arrhythmia-Right bundle branch block-Inferior infarct (cited on or before 26-MAY-2009)-Abnormal ECG-In automated comparison with ECG of 07-APR-2019 11:48,-Criteria for Anterior infarct are no longer present-T wave inversion more evident in Anterior leads- [facility] CampusistMagnesium twwun3942-16-02 02:59:18 Test Item Value Reference Range Interpretation Comments Magnesium (test code = 72759-4) 2.5 mg/dL 1.6-2.4 H Lab Interpretation (test code = Abnormal 91201-2) [facility] TylerPartial thromboplastin time, iqnafjyjq8582-93-65 14:33:54 Test Item Value Reference Range Interpretation Comments PTT (test code = 39.8 23.0- 36.0 sec H PTT thera peutic range 3173-2) for unfractiona rosalina heparin is61.0- 112.0 seconds which corresponds to Anti-Xa0.3-0.7 U/ml. Lab Interpretation Abnormal (test code = 86486-1) [place] MethodistProthrombin time with [id number] 14:32:58 Test Item Value Reference Range Interpretation Comments Prothrombin time (test 16.3 11.5- 14.5 sec H code = 5902-2) INR (test code = 1.3 The Interna tional 00996-5) Normalized Rati o (INR) is a therapeuti c monitoring tool for patients who ar e stable on oral anticoagulant t herapy. An INR of 2.0-3 .0 is suggested for d eep vein thrombosis/pulm onary embolism. Lab Interpretation Abnormal (test code = 61124-1) [place] GhaetsxyfUnvinuidfe0018-66-10 14:32:08 Test Item Value Reference Range Interpretation Comments Fibrinogen (test code = 13125-8) 599 mg/dL 200-450 H Lab Interpretation (test code = Abnormal 11153-1) [place] MethodistIonized [id number] 14:27:33 Test Item Value Reference Range Interpretation Comments pH (test code = 2753-2) 7.42 Ionized calcium (test code = 1.06 mmol/L 1.11-1.32 L ) Lab Interpretation (test code = Abnormal 63354-4) [place] MethodistXR Chest 1 Vw Kifizzxq1910-85-54 14:18:35Hm Interface, Radiology Results - 04/11/2019 2:21 PM CSTEXAMINATION: XR CHEST 1 VW PORTABLECLINICAL HISTORY: post opCOMPARISON: February 10, 2014IMPRESSION:Tunneled right IJ central line overlies the cavoatrial junction. Cardiomediastinal silhouette is similar to before when accounting for differences in technique.Heart appears mildly enlarged accentuated by AP technique and low lung volumes. Aorta is calcified.Patchy bibasilar subsegmental atelectasis. No edema, confluent opacity, pleural effusion, or pneumothorax.Status-post midline sternotomy. Extensive spinal hardware consistent with multilevel fixation.[facility]-[id number] MethodistUrinalysis screen and microscopy, with reflex to sgtswos2993-66-88 09:35:02 Test Item Value Reference Range Interpretation Comments Specimen site (test code = Catheterized 9580597) Color, UA (test code = 5778-6) Yellow Appearance, UA (test code = Sl Cloudy 5767-9) Specific gravity, UA (test code 1.012 1.001-1.030 = 5811-5) pH, UA (test code = 5803-2) 6.0 5.0-9.0 Protein, UA (test code = 2+ Negative A 72001-4) Glucose, UA (test code = Negative Negative 94478-2) Ketones, UA (test code = 2514-8) Negative Negative Bilirubin, UA (test code = Negative Negative 5770-3) Blood, UA (test code = 5794-3) Negative Negative Nitrite, UA (test code = 5802-4) Negative Negative Urobilinogen, UA (test code = <2.0 <2.0 E.U./dL 04641-6) Leukocyte esterase, UA (test Negative Negative code = 5799-2) Epithelial cells, UA (test code <1 /HPF = 5787-7) WBC, UA (test code = 5821-4) 3 0- 1 /HPF H RBC, UA (test code = 99100-6) <1 0- 5 /HPF Bacteria, UA (test code = Moderate None seen A 39442-0) Yeast, UA (test code = 31242-8) None seen Yeast with pseudohyphae, UA None seen (test code = 43658-6) Hyaline casts, UA (test code = 2-5 /LPF 5796-8) Lab Interpretation (test code = Abnormal 00654-9) [facility] HospitalGsfmxavemXsyalh4410-96-34 09:09:38Renetta Bourne CRNA 04/11/2019 9:11 AMAirwayDate/Time: 04/11/2019 7:59 AMPerformed by: Renetta Bourne CRNAAuthorized by: Basilia Astudillo MD Location: ORUrgency: ElectiveDifficult Airway: No Anesthesiologist: Basilia Astudillo MDResiomot/SERVICE DELIVERY ANALYST/AA: Renetta Bourne CRNAPerformed by: resident/SERVICE DELIVERY ANALYST/AAPreoxygenated with 100% O2: Yes Mask Ventilation: Easy maskFinal Airway Type: Endotracheal airwayFinal Endotracheal Airway: ETTCuffed: Yes Technique Used: Video laryngoscopyDevices/Methods Used in Placement: Intubating styletInsertion Site: OralBlade Type: MacintoshLar yngoscope Blade/Videolaryngoscope Blade Size: 4ETT Size (mm): 7.5Cuff at minimum occlusion pressure: No Measured from: LipsETT to Lips (cm): 21Placement Verified by: CO2 detection, direct visualization and equal breath sounds Laryngoscopic view: Grade I - full view of glottisRapid Sequence Induc tion (RSI): No Modified RSI: No Number of Attempts at Approach: 2 Attempt with DL grade 3 seen, second attempt with Glidescope successfulHouneal Lopezist Peripheral Ttobe9524-20-19 08:24:29Basilia Astudillo MD 04/11/2019 8:26 AMPeripheral BlockPerformed by: Basilia Astudillo MDAuthorized by: Basilia Astudillo MD Patient Location: Pre-opStart Time: 04/11/2019 7:25 AMEnd Time: 04/11/2019 7:34 AMReason for Block: at surgeon's request, post-op pain management Staff: Anesthesiologist:Basilia Astudillo MD Performed by: AnesthesiologistPreprocedure: patient identified, IV checked, site and side verified, risks and benefits discussed, procedure verified, surgical consent complete, patient position confirmed, monitors and equipment checked, pre-op evaluation complete and site markedPeripheral Nerve Block: Patient Position: Supine Prep: ChloraPrep Monitoring: Blood pressuremonitoring, heart rate and continuous pulse oximetryBlock Type: Quadratus lumborumLaterality: Bilat eralInjection Technique: Single injectionProcedures: ultrasound guided Ultrasound documentation: Printed/placed in chartAnesthesia block local: exparel + 0.25% bupivacaine.Needle: Needle Type: SonoPlex Needle Gauge: 21 G Needle Length: 10 cmAssessment: Injection Assessment: Visualized need le/local anesthetic surrounding nerve, intermittent aspiration during local anesthetic administration, no symptoms of intraneural/intravenous injection, visualized pertinent vascular structures and nerves and needle tip visualized at all times during injection of medication Paresthesia Pain: None Heart Rate Change: No Slow Fractionated Injection: Yes Block outcome: No apparent complications, patient comfortable and patient tolerated procedure wellLucas Sweet Pre/Post [id number] 19:00:25 Test Item Value Reference Range Interpretation Comments Ventricular rate (test 68 code = 253) Atrial rate (test code 68 = 255) MO interval (test code 186 = 266) QRSD interval (test 198 code = 260) QT interval (test code 546 = 264) QTC interval (test 580 code = 265) P axis 1 (test code = 65 267) QRS axis 1 (test code -22 = 268) T wave axis (test code -5 = 270) EKG impression (test Normal sinus code = 273) rhythm-Right bundle branch block-Minimal voltage criteria for LVH, may be normal variant-Inferior infarct (cited on or before 26-MAY-2009)-Anterior infarct , age undetermined-Abnormal ECG- Lucas MethodistType and gbqlle8619-65-45 13:37:00 Test Item Value Reference Range Interpretation Comments ABO grouping (test code = 883-9) O Rh type (test code = 83004-1) POS Antibody screen (gel) (test code = NEG 890-4) Lucas MethodistHemoglobin [id number] 12:19:11 Test Item Value Reference Range Interpretation Comments Hemoglobin A1C (test 6.6 % 4-5.6 H HbA1c c utoffs for code = 97956-8) diagnosing diabetes:4.0% - 5.6% = normal5.7% - 6.4% = increased risk for diabetes (prediabetes)9> =6.5% = hafsbigj6Bctu s for glycemic contro l (ADA 2016)< 7.0% Ta rget for non adults with abiel betes. More or less stringent targe ts may be appropriate for individual fei ents. <7.5% Target for Children and adolescents wit h type 1 diabetes. Lab Interpretation (test Abnormal code = 84113-5) Lucas AlcantaraBlood culture, aerobic & tkhvuncgr7599-76-10 09:33:05 Test Item Value Reference Range Interpretation Comments Blood culture No growth Specimen isolate (test after 5 days InformationSpe cimen code = 600-7) of Source: BloodS pecimen incubation. Site: Hand [facility] t Lucas LopezistUS Guided Vascular Oojhqt2422-61-89 16:41:28Hm Interface, Radiology Results - 03/18/2019 4:44 PM CSTPerforming Radiologist River Acosta MD AssistantsNone. Anesthesia TypeIntraservice moderate sedation was administered by the procedure nurse and monitored by the procedure physician for 10 minutes. Lidocaine 1% and lidocaine 1% with epinephrine were used for local anesthetic. Pre Procedure DiagnosisDiverticulitis Post Procedure DiagnosisStatus post tunneled right internal jugular vein central venous catheter placement. ProcedurePlacement of a tunneled right internal jugular vein central venous catheter. TechniqueAfter explaining the procedure as well as its benefits and risks including but not limited to bleeding, infection, and damage to adjacent structures all of the patient's questions were answered to apparent satisfaction and written informed consent was then obtained.The patient's right neck and upper chest were sterilelyprepared and draped in the routine manner. All elements of maximal sterile barrier technique were followed. Lidocaine 1% was used for local anesthetic.Using real-time ultrasound guidance, a 21-gauge mi cropuncture needle was advanced successfully into the right internal jugular vein. A 0.018 inch guidewire was advanced centrally into the inferior vena cava through the needle under fluoroscopy. The needle was removed and a micropuncture sheath system was then placed. Under ultrasound guidance, documentation of vessel patency, needle access with permanent recording, and reporting are performed followed by placement of a sheath in the right internal jugular vein. The inner dilator and guidewire were then removed, and a guidewire was advanced through the micropuncture sheath and successfully into theinferior vena cava. The right infraclavicular fossa was [...] was placed in the right atrium under fluoroscopicguidance. All ports were tested and demonstrate adequate flow. The catheter was secured to the skin using 2-0 silk suture. The small venotomy incision was closed with Dermabond. The patient tolerated the procedure well. Total Fluoroscopic Uplvclaw32 mGyComplicationsNone. Specimens RemovedNone. Estimated Blood LossLess than 2 mL. Blood/Blood Products AdministeredNone. Grafts/ImplantsAs described in the above report. Impression: Successful fluoroscopic-guided placement of a tunneled central venous catheter via the right internal jugular vein. Ready for use.[facility]-[id number] MethodistIR Tunneled Central Line Vuvhoqncp7389-44-53 16:41:17Hm Interface, Radiology Results Incoming - 03/18/2019 4:44 PM CSTPerforming Radiologist River Acosta MD [facility]. Anesthesia TypeIntraservice moderate sedation was administered by the procedure nurse and monitored by the procedure physician for 10 minutes. Lidocaine 1% and lidocaine 1% with epinephrine were used for local anesthetic. Pre Procedure DiagnosisDiverticulitis Post Procedure DiagnosisStatus post tunneled right internal jugular vein central venous catheter placement. ProcedurePlacement of a tunneled right internal jugular vein central venous catheter. TechniqueAfter explaining the procedure as well as its benefits and risks including but not limited to bleeding, infection, and damage to adjacent structures all of the patient's questions were answered to apparent satisfaction and written informed consent was then obtained.The patient's right neck and upper chest were sterilelyprepared and draped in the routine manner. All elements of maximal sterile barrier technique were followed. Lidocaine 1% was used for local anesthetic.Using real-time ultrasound guidance, a 21-gauge mi cropuncture needle was advanced successfully into the right internal jugular vein. A 0.018 inch guidewire was advanced centrally into the inferior vena cava through the needle under fluoroscopy. The needle was removed and a micropuncture sheath system was then placed. Under ultrasound guidance, documentation of vessel patency, needle access with permanent recording, and reporting are performed followed by placement of a sheath in the right internal jugular vein. The inner dilator and guidewire were then removed, and a guidewire was advanced through the micropuncture sheath and successfully into theinferior vena cava. The right infraclavicular fossa was [...] was placed in the right atrium under fluoroscopicguidance. All ports were tested and demonstrate adequate flow. The catheter was secured to the skin using 2-0 silk suture. The small venotomy incision was closed with Dermabond. The patient tolerated the procedure well. Total Fluoroscopic Ckqquxsa09 mGyComplicationsNone. Specimens RemovedNone. Estimated Blood LossLess than 2 mL. Blood/Blood Products AdministeredNone. Grafts/ImplantsAs described in the above report. Impression: Successful fluoroscopic-guided placement of a tunneled central venous catheter via the right internal jugular vein. Ready for use.[facility]-[id number] MethodistCT Abdomen Pelvis Wo [id number] 06:18:05Hm Interface, Radiology Results 03/17/2019 6:21 AM CSTEXAMINATION: CT ABDOMEN PELVIS WO CONTRASTCLINICAL HISTORY: IV contrast only LLQ pain hx of perforated diverticulitis.TECHNIQUE: Multiple axial images of the abdomen and pelvis were obtained without intravenous administration of iodinated contrast. Sagittal and coronal computerized reformatted images were also obtained. All CT images were acquired using radiation dose lowering technique with automated exposure control and / or iterative reconstruction.COMPARISON: CT abdomen pelvis 12/27/2018 IMPRESSION:ABDOMEN:Evaluation of solid abdominal organs is limited without IV contrast.1. Coronary artery calcifications. Mild scarring at the lung bases which otherwise clear.2.Sigmoid colonic diverticulosis, with wall thickening throughout the sigmoid, as well as pericolonic fat stranding and small amount of fluid indicating acute sigmoid diverticulitis, which involves the more proximal and more extensive segment than prior. Resolution of the pelvic crest containing collection previously, and no new pericolonic abscess is identifiedat this time, though follow-up to ensure resolution is recommended.3.There is abutment of a 3.5 cm segment of the inflamed sigmoid with the top of the urinary bladder, and an air-fluid level is presentwithin the bladder. This could be due to recent catheterization, though patent colovesical fistula is also consideration and confirmation with the clinical history of any recent catheterization, is margot mmended.4.Borderline dilated loops of jejunum are likely an associated mild ileus. No extraluminal gas is identified.5.Cholecystectomy. Liver somewhat lobulated in surface contours which may indicate chronic liver disease. No focal lesion detected on noncontrast exam.6.Pancreas unremarkable. Calcifiedsplenic granulomata and mild subcapsular scarring.7.A 1.5 cm right adrenal nodule is stable from 2013, benign. Left adrenal unremarkable.8.Calcified plaque and tortuosity of the abdominal aorta withoutAAA.9.Bilateral perinephric stranding indicating medical renal disease. A 1.2 cm probable cyst anteriorly in the mid left kidney. No hydronephrosis. PELVIS:1. Mild aortocaval and periaortic lymphadenopathy, and also bilateral external iliac lymphadenopathy is likely reactive to the diverticulitis. Trace free fluid surrounding the inflamed colon. No focal fluid collection.2.Findings in the urinary bladder as above. Prostate and seminal vesicles grossly unremarkable.3.Izaguirre edd down the visualized spine. SUMMARY:Acute sigmoid diverticulitis involving a more lengthy and proximal segment than prior. No abscess identified.Abutment and secondary inflammation of the urinary bladder dome, with an air-fluid level, which may be due to a patent colovesical fistula, though could also be due to recent cat heterization, conferring with the clinical history.Other findings as above. [facility]-[id number] MethodistComprehensive metabolic ipnek8320-46-48 05:20:58 Test Item Value Reference Range Interpretation Comments Sodium (test code = 2951-2) 134 135- 148 mEq/L L Potassium (test code = 2823-3) 3.5 3.5- 5.0 mEq/L Chloride (test code = 2075-0) 87 98- 112 mEq/L L CO2 (test code = 2027-9) 29 24- 31 mEq/L Anion gap (test code = 07406-0) 18@ANIO 7- 15 mEq/L H BUN (test code = 3094-0) 48 mg/dL 8-23 H Creatinine (test code = 2160-0) 1.84 mg/dL 0.7-1.2 H Glucose (test code = 2345-7) 179 mg/dL 65-99 H Calcium (test code = 40789-2) 10.0 mg/dL 8.8-10.2 Protein (test code = 2885-2) 7.8 g/dL 6.3-8.3 Albumin (test code = 1751-7) 3.6 g/dL 3.5-5 A/G ratio (test code = 1759-0) 0.9 0.7-3.8 Alkaline phosphatase (test code = 80 U/L 40-129 6768-6) AST (test code = 1920-8) 20 U/L 10-50 ALT (test code = 1742-6) 16 U/L 5-50 Total bilirubin (test code = 0.4 mg/dL 0.2-1.2 1974-03) Lab Interpretation (test code = Abnormal 18863-2) [place] [facility]Lip[facility] [id number] 05:20:58 Test Item Value Reference Range Interpretation Comments Lipase (test code = 3040-3) 22 U/L 13-60 [place] [facility]CT Abdomen Pelvis W [id number] 16:49:31Hm Interface, Radiology Results - 11/11/2018 4:52 PM CDTEXAMINATION: CT ABDOMEN PELVIS W CONTRASTCLINICAL HISTORY: K57.20 Diverticulitis of large intestine with perforation and abscess without bleeding, perforated sigmoid diverticulitis with abscessTECHNIQUE: Multiple axial images of the abdomen and pelvis were obtained following intravenous administration of iodinated contrast. CT imaging was performed with iterative reconstruction technique and/or automated exposure control to reduce radiation dose.COMPARISON: Multiple CTs of the abdomen and pelvis from 10/17/2018 200 10/25/2018, also CTabdomen pelvis from January 2014.FINDINGS:LOWER THORAX:There is some residual linear atelectasis inthe left lung base. Right lung base atelectasis has resolved. Calcified granuloma in the left lower lobe. Heavy coronary arterial calcifications are noted. Midline sternotomy wires are present.ABDOMEN:Liver: There is no hepatic mass or intrahepatic biliary ductal dilatation.Gallbladder and Common BileDuct: The gallbladder is surgically absent. The common bile duct is not dilated.Pancreas: The pancreas is unremarkable.Spleen: A calcified granuloma is present in the spleen.Adrenal Glands: A right-sided adrenal nodules present which measures 1.9 x 1.2 cm (axial dimensions on series 2 image 46). The nodule has been stable since January 2014.Kidneys: There are 2 simple renal cysts in the left kidney. The kidneys are somewhat atrophic bilaterally with minimal perinephric stranding, compatible with medical renal disease. There is no evidence of solid mass, calculus, or hydronephrosis.Vasculature: Theabdominal aorta is normal in caliber with moderate calcific atherosclerosis.Nodes: Numerous prominent retroperitoneal lymph nodes are present, slightly improved from prior. These are likely reactive inetiology.Bowel: There is diverticulosis of the sigmoid colon and descending colon with extensive fatstranding around a portion of the sigmoid colon. [...] increase in small contained phlegmon in the leftlower quadrant best seen on series 2 images 112 through 114 without drainable collection to be reassessed at the time of the next follow-up. This could represent a developing fistulaBones and Soft Tissues : There is posterior fusion of the entire visualized spine from T8-S1.PELVIS:Pelvic Organs and Bladder: No pelvic mass or lymphadenopathy.IMPRESSION:1.Perforated sigmoid diverticulitis with resolution of small abscess in the right lower quadrant adjacent to the sigmoid colon with decrease in size of abscess posterior to the bladder. No bowel obstruction. No new fluid collections.2.Right-sided adrenal nodule is present measuring 1.9 cm, which has been stable since January 2014.[facility]-[id number] and approved by limited radiology technician/fellow: Wai Garcia, Lilia Mccurdy MD, personallyreviewed the images and resident's/fellow's findings and agree with the final report.Lucas AlcantaraPhosphorus [id number] 07:23:36 Test Item Value Reference Range Interpretation Comments Phosphorus (test code = 2777-1) 2.8 mg/dL 2.4-4.5 Lucas AlcantaraIR PICC [id number] 13:46:12Hm Interface, Radiology Results Incoming - 10/23/2018 1:49 PM CDTPROCEDURE:Peripherally inserted kalpana tral catheter (PICC) placementPerforming Radiologist:Rae Mckeon MD Assistants:None Pre Procedure Diagnosis:DiverticulitisPost Procedure Diagnosis:DiverticulitisIndication:IV access for fluids/medication/blood drawsComplications:No immediate post procedure complications.IMPRESSION:1.Technicallysuccessful insertion of a right sided dual lumen power injectable PICC. 2.The right basilic and brachial veins are patent and compressible on preprocedure ultrasound.PLAN:The PICC is ready for immediate use. P ROCEDURE SUMMARY:1.Venous access with ultrasound guidance2.PICC insertion under fluoroscopic guidancePROCEDURE DETAILS:Pre-procedure:Comparison studies: NoneWritten informed consent was obtained.Prophylactic antibiotics: No nePreparation: The upper extremity was prepared and draped using all elements of maximal sterile barrier technique including sterile gloves, sterile gown, catheter, mask, large sterile sheet, sterile ultrasound probe cover, hand hygiene and cutaneous antisepsis using chlorhexidine.Anesthesia/Sedation:Level of anesthesia: NoneMedications used: 1% LidocaineAnesthesia administration: NoneDuration of intra-service [id number] anesthesia/sedation: N/AAccess:Local anesthesia was administered. The right brachial and basilic veins were evaluated with preprocedure ultrasound. Both veins were patent as demonstrated by normal ultrasound compressibility. Real-time ultrasound was used to visualize needle entry into the vessel and a permanent image was stored. Vein accessed: Right basilic veinAccess technique:5 Urdu micropuncture setVenography:Vein accessed: N/AIndication for venography: Not performedFindings: N/APICC placement:A 0.018 inch measuring wire was used to measure the intravascular distance. The catheter was trimmed to the appropriate length and placed into the vein under fluoroscopic guidance via a peel-away sheath. The catheter tip location was fluoroscopically verified and an image was archived. PICC placed: BardCatheter size: 5 FrenchCatheter length: 50 cmCatheter tip position: Atriocaval junctionClosure:The catheter was secured to the subcutaneous tissues and a sterile bandage was applied.Catheter securement technique: StatLockContrast:Contrast agent: NoneContrast volume: N/ARadiation dose:Reference air kerma: 0.4 mGyAdditional details:Estimated blood loss: Less than 10 [facility]-[id number] MethodistCT Pelvis Wo [id number] 18:31:03Hm Interface, Radiology Results 10/22/2018 6:34 PM CDTProcedure:Limited CT of the pelvisobtained in preparation for possible abscess drain placementPerforming RadiologistRicardo Grimaldo MD AssistantsNone Pre Procedure Diagnosis:Diverticular abscessPost Procedure Diagnosis:Diverticular abscessIndication:Diverticular abscessComplicationsNone IMPRESSION:1.Limited CT of the pelvis obtained withthe patient in the left lateral decubitus position demonstrates interval decrease in size of the fluid collection adjacent to the sigmoid colon previously seen on prior CT.2.Large or fluid collection seen within the pelvis is unchanged in size, however, is accessible percutaneously. PROCEDURE SUMMARY:1.Limited, noncontrast CT of the pelvis obtained with [...] essentially unchanged in size, however, not accessible percutaneously.PROCEDURE DETAILS:Pre- procedure:Comparison studies: CT abdomen pelvis without contrast from 10/21/2018Written and informed consent for the procedure (to include risks, benefits and alternative therapy) and monitored conscious sedation was obtained from the patient.Prophylactic antibiotics: NoneAnesthesia/Sedation:NoneProcedural Technique:A bilobed abscess is seen adjacent to the sigmoid colon. The superior portion of the abscess has decreased in size when compared to previous examination from 10/21/2018. For this reason, percutaneous drainage is not possible. The air-fluid level seen more inferiorly within the pelvis is unchanged in size, however, not accessible percutaneously.Additional DetailsAdditional description of procedure: NoneEquipment details: NoneSpecimens removed: NoneEstimated blood loss (mL): Less than [id number] MethodistLactic acid level, SEPSIS - Now and repeat 2x every 3 [id number] 10:21:07 Test Item Value Reference Range Interpretation Comments Lactic acid (test code = 15790-6) 2.2 mmol/L 0.5-2.2 [place] MethodistLactic acid [id number] 04:11:24 Test Item Value Reference Range Interpretation Comments Lactic acid (test code = 41972-7) 3.4 mmol/L 0.5-2.2 H Lab Interpretation (test code = Abnormal 96003-0) [place] [facility] [id number] 01:21:57 Test Item Value Reference Range Interpretation Comments BNP (test code = 93764-3) 166 pg/mL 0-100 H Lab Interpretation (test code = Abnormal 22788-5) [place] XsuvdouqtIhoncowc1207-79-75 15:31:36 Test Item Value Reference Range Interpretation Comments Troponin (test code 0.038 ng/mL 0-0.04 [place] [employer] = 38462-9) Laboratories ch anged methodology eff ective: 06/18/2018 at 10: 00 amThe new method has a 99th percentile cuto ff of 0.040 ng/mL [place] [facility] Preliminary Interpretation - Not an [id number] 15:17:38Amari Majano MD 10/17/2018 7:13 [facility] [place] Preliminary Interpretation - Not an OrderPerformedby: Amari Majano MDAuthorized by: Amari Majano MD ECG reviewed by ED Physician in the absence of a mri technician: yes Interpretation: Interpretation: non-specific Rate: ECG rate: 77ECG rate assessment: normal Rhythm: Rhythm: sinus rhythm Conduction: Conduction: abnormal ST segments: ST segments: Non-specificT waves: T waves: non-specificSt. Louis Behavioral Medicine Instituteneal Alcantara
[2019-10-11 08:18] LABS: Absolute Lymphocytes (CBC) 2.5 K/uL (0.7-4.9); MPV 7.2 fL (7.6-11.3)
[2019-10-11 08:26] LABS: Protime INR 1.45
[2019-10-11 09:03] LABS: ALT/SGPT 31 U/L (12-78); AST/SGOT 29 U/L (15-37); Albumin 2.9 g/dL (3.4-5.0); Alkaline Phosphatase 76 U/L (45-117); BUN Blood Urea Nitrogen 47 mg/dL (7-18); Bicarbonate 38 mmol/L (21-32); Bilirubin Direct < 0.1 mg/dL (0-0.2); Bilirubin Total 0.2 mg/dL (0.2-1.0); Glucose Level 116 mg/dL (74-106); Magnesium 2.6 mg/dL (1.8-2.4); NT PRO-BNP 538 pg/mL (<125); Potassium 3.7 mmol/L (3.5-5.1); Protein, Total 7.6 g/dL (6.4-8.2); Sodium Level 136 mmol/L (136-145); Troponin (Emerg Dept Use Only) < 0.02 ng/mL (0.0-0.045)
[2019-10-11] MEDS ORDERED: ASPIRIN 81 MG CHEWABLE TABLET ONE (09:04)
[2019-10-11 09:36] LABS: Anisocytosis 1+; Blood Morphology Comment NOTED (NOT SEEN); Platelet Estimate INCR; Urine White Blood Cell Casts OK
--- NOTE | 2019-10-11 09:37 | ER ---
Nurse's Notes [facility] Name: Gregory Payne Age: 63 yrs Sex: Male : 1955 Arrival Date: 10/11/2019 Time: 08:01 Bed 4 Private MD: Diagnosis: Chest pain, unspecified Presentation: 10/10 07:54 Chief complaint: EMS states: has been having chest pain throughout the night and has sv taken a total of 3 Nitro's with some relief. On EMS arrival pt given a Nitro with good results and SBP went down about 50 points. 20G R FA BP 122/55 HR-64 BS-133. Pt reports his Nitro is about 2 yrs old. 07:54 Method Of Arrival: EMS: [facility] sv 08:00 Coronavirus screen: Client denies travel out of the [place] in the last 14 days. At this sv time, the client does not indicate any symptoms associated with coronavirus-19. Ebola Screen: No symptoms or risks identified at this time. Initial Sepsis Screen: Does the patient meet any 2 criteria? No. Patient's initial sepsis screen is negative. Does the patient have a suspected source of infection? No. Patient's initial sepsis screen is negative. Risk Assessment: Do you want to hurt yourself or someone else? Patient reports no desire to harm self or others. Onset of symptoms was October 11, 2019. 08:00 Acuity: RAH 2 sv Triage Assessment: 07:55 General: Appears in no apparent distress. comfortable, well developed, Behavior is sv cooperative, appropriate for age, talkative. Pain: Complains of pain in chest Pain does not radiate. Pain currently is 6 out of 10 on a pain scale. Quality of pain is described as burning, Is intermittent. Neuro: Level of Consciousness is awake, alert, obeys commands, Oriented to person, place, time, situation, Moves all extremities. Speech is normal. Cardiovascular: Patient's skin is warm and dry. Rhythm is sinus rhythm. Respiratory: Airway is patent Respiratory effort is even, unlabored, Respiratory pattern is regular, symmetrical, Denies shortness of breath. Derm: Skin is pink, warm \\T\\ dry. Historical: - Allergies: 09:07 Colchicine; sv - Home Meds: 09:07 digoxin 125 mcg Oral tab 1 tab once daily [Active]; hydroxyzine HCl 25 mg Oral tab sv daily [Active]; metolazone 5 mg oral tab 1 tab once daily [Active]; metformin 500 mg Oral tab 1 tab 2 times per day [Active]; potassium chloride 20 mEq Oral TbER 1 tab once daily [Active]; metoprolol tartrate 100 mg Oral tab 1 tab 2 times per day [Active]; Lasix 40 mg Oral tab 1 tab 2 times per day [Active]; magnesium oxide 500 mg Oral cap daily [Active]; iron/ferrous sulfate 65 mg daily [Active]; multivitamin oral tab daily [Active]; Zinc Sulfate 50 mg daily Oral [Active]; Aspirin Oral [Active]; Fish Oil oral 1400 mg daily oral [Active]; amiodarone 200 mg Oral tab 1 tab 2 times per day [Active]; Eliquis 5 mg oral tab 1 tab 2 times per day [Active]; Clindamycin 600 mg BID Oral [Active]; - PMHx: 09:07 Myocardial infarction; Atrial Fib; CHF; Diabetes - NIDDM; sv - PSHx: 09:07 CABG; part of left lung lobectomy; Cholecystectomy; sigmoid colon resection; cataracts; sv Spinal; - Immunization history:: Adult Immunizations up to date, Flu vaccine is up to date. - Social history:: Smoking status: Patient denies any tobacco usage or history of. Patient/guardian denies using alcohol. - Family history:: not pertinent. Screenin:00 Abuse screen: Denies threats or abuse. Denies injuries from another. Nutritional sv screening: No deficits noted. Tuberculosis screening: No symptoms or risk factors identified. Fall Risk None identified. Assessment: 08:00 Pain: Pain began last night into the morning. sv 08:55 Reassessment: Patient appears in no apparent distress at this time. No changes from previously documented assessment. Patient and/or family updated on plan of care and expected duration. Pain level reassessed. Patient is alert, oriented x 3, equal unlabored respirations, skin warm/dry/pink. 09:59 Reassessment: Called to the room by the pt. Pt requesting to speak to the [facility] supervisor ditching or college administrator earth observations chief scientist. Asked pt if I could get the charge nurse to come speak with him and he stated "Well I'm just going to ask her the same thing." Pt wants to speak with the housefellow regarding his transfer. I informed the charge nurse of pt's request. Yessenia PORRASnurses supervisor called and informed of pt's request, she will be down shortly to speak with the pt. 11:11 Reassessment: Report called to Elisa PORRAS at [facility]. hb 11:30 Reassessment: Patient appears in no apparent distress at this time. No changes from sv previously documented assessment. Patient and/or family updated on plan of care and expected duration. Pain level reassessed. Patient is alert, oriented x 3, equal unlabored respirations, skin warm/dry/pink. 11:50 Reassessment: Patient appears in no apparent distress at this time. No changes from sv previously documented assessment. Patient and/or family updated on plan of care and expected duration. Pain level reassessed. Patient is alert, oriented x 3, equal unlabored respirations, skin warm/dry/pink. Vital Signs: 08:00 BP 162 / 65; Pulse 70; Resp 17; Temp 98.6; Pulse Ox 96% ; Weight 99.79 kg; Height 5 ft. sv 10 in. (177.80 cm); Pain 6/10; 08:38 BP 134 / 45; Pulse 68 MON; Resp 19; Pulse Ox 95% on R/A; sv 09:18 BP 138 / 48; Pulse 66 MON; Resp 14; Pulse Ox 98% on R/A; sv 10:00 BP 162 / 49; Pulse 68; Resp 20; Pulse Ox 100% ; hb 11:00 BP 120 / 59; Pulse 71; Resp 18; Pulse Ox 99% ; sv 12:06 BP 110 / 51; Pulse 70; Resp 18; Pulse Ox 100% ; sv 08:00 Body Mass Index 31.57 (99.79 kg, 177.80 cm) sv 08:38 Sinus Rhythm sv 09:18 Sinus Rhythm sv ED Course: 07:54 Arm band placed on Patient placed in an exam room, on a stretcher, on ride operator, sv on pulse oximetry. 07:54 Maintain EMS IV. Dressing intact. Good blood return noted. Site clean \\T\\ dry. Gauge \\T\\ sv site: 20G R FA. 08:00 Patient has correct armband on for positive identification. Bed in low position. Call sv light in reach. Side rails up X2. monitor tech on. Pulse ox on. NIBP on. Door closed. Head of bed elevated. 08:00 Initial lab(s) drawn, by me, sent to lab. sv 08:00 Patient maintains SpO2 saturation greater than 95% on room air. sv 08:01 Patient arrived in ED. 08:01 Davidson Collins MD is Attending Physician. ma2 08:04 Erica Ma, VERN is Primary Nurse. sv 08:05 EKG done, by ED staff, reviewed by Davidson Collins MD. [facility] 08:10 ED physician to see patient. sv 08:19 Triage completed. sv 08:51 X-ray(s) taken. sv 09:03 XRAY Chest (1 view) In Process Unspecified. EDMS 09:35 initiated a transfer with Kellee from the [facility] a the request of the patient. 10:04 administrative approval given by Kellee Giordano/patient has been accepted to [facility]/ Dr. Juan Pablo Bourne has accepted the patient in transfer/ report to be called to [phone]. 12:09 No provider procedures requiring assistance completed. Patient transferred, IV remains sv in place. intact. Administered Medications: 08:55 Drug: Aspirin Chewable Tablet 324 mg Route: PO; sv 10:00 Follow up: Response: No adverse reaction sv 11:57 Drug: GI Cocktail without - (Maalox Suspension 30 ml, Lidocaine Liquid 2 % 15 sv ml) Route: PO; 12:09 Follow up: Response: No adverse reaction sv Outcome: 09:37 ER care complete, transfer ordered by . [facility] 12:07 Transferred by ground EMS to [facility], Transfer form completed. X-rays sv sent w/ patient. Note: Report given to [facility]. 12:07 Condition: stable 12:07 Instructed on the need for transfer. 12:10 Patient left the ED. sv Signatures: Dispatcher [employer] EDMS Erica Ma RN RN sv Smirch, Shelby, RN RN Sydney Lanier RN RN Zoran, Hillary [facility] Davidson Collins MD MD [facility] Miriam Arora
--- NOTE | 2019-10-11 09:37 | EDPHYS ---
Physician Documentation [facility] Name: Gregory Payne Age: 63 yrs Sex: Male : 1955 Arrival Date: 10/11/2019 Time: 08:01 Bed 4 Private MD: ED Physician Davidson Collins HPI: 10/10 08:45 This 63 yrs old Male presents to ER via Unassigned with complaints of Chest ma2 Pain. 08:45 The patient or guardian reports chest pain that is located primarily in the substernal ma2 area. Onset: suddenly, gradually, 1 day(s) ago. Associated signs and symptoms: The patient has no apparent associated signs or symptoms. The chest pain is described as aching. Severity of pain: At its worst the pain was mild in the emergency department the pain is unchanged. The patient has experienced similar episodes in the past. Historical: - Allergies: :07 Colchicine; sv - Home Meds: : digoxin 125 mcg Oral tab 1 tab once daily [Active]; hydroxyzine HCl 25 mg Oral tab sv daily [Active]; metolazone 5 mg oral tab 1 tab once daily [Active]; metformin 500 mg Oral tab 1 tab 2 times per day [Active]; potassium chloride 20 mEq Oral TbER 1 tab once daily [Active]; metoprolol tartrate 100 mg Oral tab 1 tab 2 times per day [Active]; Lasix 40 mg Oral tab 1 tab 2 times per day [Active]; magnesium oxide 500 mg Oral cap daily [Active]; iron/ferrous sulfate 65 mg daily [Active]; multivitamin oral tab daily [Active]; Zinc Sulfate 50 mg daily Oral [Active]; Aspirin Oral [Active]; Fish Oil oral 1400 mg daily oral [Active]; amiodarone 200 mg Oral tab 1 tab 2 times per day [Active]; Eliquis 5 mg oral tab 1 tab 2 times per day [Active]; Clindamycin 600 mg BID Oral [Active]; - PMHx: 09:07 Myocardial infarction; Atrial Fib; CHF; Diabetes - NIDDM; sv - PSHx: :07 CABG; part of left lung lobectomy; Cholecystectomy; sigmoid colon resection; cataracts; sv Spinal; - Immunization history:: Adult Immunizations up to date, Flu vaccine is up to date. - Social history:: Smoking status: Patient denies any tobacco usage or history of. Patient/guardian denies using alcohol. - Family history:: not pertinent. ROS: 08:45 Constitutional: Negative for fever, chills, and weight loss. ma2 08:45 All other systems are negative. Exam: 08:45 Constitutional: This is a well developed, well nourished patient who is awake, alert, ma2 and in no acute distress. Neck: Trachea midline, no thyromegaly or masses palpated, and no cervical lymphadenopathy. Supple, full range of motion without nuchal rigidity, or vertebral point tenderness. No Meningismus. Chest/axilla: Normal chest wall appearance and motion. Nontender with no deformity. No lesions are appreciated. Cardiovascular: Regular rate and rhythm with a normal S1 and S2. No gallops, murmurs, or rubs. Normal PMI, no JVD. No pulse deficits. Respiratory: Lungs have equal breath sounds bilaterally, clear to auscultation and percussion. No rales, rhonchi or wheezes noted. No increased work of breathing, no retractions or nasal flaring. Abdomen/GI: Soft, non-tender, with normal bowel sounds. No distension or tympany. No guarding or rebound. No evidence of tenderness throughout. Neuro: Awake and alert, GCS 15, oriented to person, place, time, and situation. Cranial nerves II-XII grossly intact. Motor strength 5/5 in all extremities. Sensory grossly intact. Cerebellar exam normal. Normal gait. Vital Signs: 08:00 BP 162 / 65; Pulse 70; Resp 17; Temp 98.6; Pulse Ox 96% ; Weight 99.79 kg; Height 5 ft. sv 10 in. (177.80 cm); Pain 6/10; 08:38 BP 134 / 45; Pulse 68 MON; Resp 19; Pulse Ox 95% on R/A; sv 09:18 BP 138 / 48; Pulse 66 MON; Resp 14; Pulse Ox 98% on R/A; sv 10:00 BP 162 / 49; Pulse 68; Resp 20; Pulse Ox 100% ; hb 11:00 BP 120 / 59; Pulse 71; Resp 18; Pulse Ox 99% ; sv 12:06 BP 110 / 51; Pulse 70; Resp 18; Pulse Ox 100% ; sv 08:00 Body Mass Index 31.57 (99.79 kg, 177.80 cm) sv 08:38 Sinus Rhythm sv 09:18 Sinus Rhythm sv MDM: 08:01 Patient medically screened. ma2 08:45 Differential diagnosis: abnormal EKG, gastroesophageal reflux disease (GERD), stable ma2 angina, unstable angina. The patient was given aspirin in the Emergency Department. ROD Risk Score: TOTAL SCORE = 4. 09:30 Data reviewed: vital signs, nurses notes, EMS record. ma2 09:31 HEART Score: History: Highly Suspicious (2), ECG: Non specific repolarization ma2 disturbance / LBTB / PM (1), Age: > or = 65 years (2), Risk Factors: > or = 3 Risk factors for atherosclerotic disease (2), Troponin: < or = 1 x Normal Limit (0), Total Score = 5. Counseling: I had a detailed discussion with the patient and/or guardian regarding: the historical points, exam findings, and any diagnostic results supporting the discharge/admit diagnosis, the presence of at least one elevated blood pressure reading (>120/80) during this emergency department visit, the need for outpatient follow up. ED course: I recommended admission. 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 gill can see him there. . 10/10 08:03 Order name: Basic Metabolic Panel; Complete Time: 09:24 [facility] 10/10 08:03 Order name: CBC with Diff 10/10 08:03 Order name: LFT's; Complete Time: 09:24 ne10/10 08:03 Order name: Magnesium; Complete Time: 09:24 ne10/10 08:03 Order name: NT PRO-BNP; Complete Time: 09:24 [facility] 10/10 08:03 Order name: PT-INR; Complete Time: 09:24 [facility] 10/10 08:03 Order name: Troponin (emerg Dept Use Only); Complete Time: 09:24 ne10/10 08:03 Order name: XRAY Chest (1 view) [facility] 10/10 08:03 Order name: EKG; Complete Time: 08:03 [facility] 10/10 08:03 Order name: Cardiac monitoring; Complete Time: 08:19 ne2 10/10 08:03 Order name: EKG - Nurse/Tech; Complete Time: 08:19 ne2 10/10 08:22 Order name: CBC Smear Scan [facility] 10/10 08:03 Order name: IV Saline Lock; Complete Time: 08:19 ne2 10/10 08:03 Order name: Labs collected and sent; Complete Time: 08: ne2 10/10 08:03 Order name: O2 Per Protocol; Complete Time: 08: ne2 10/10 08:03 Order name: O2 Sat Monitoring; Complete Time: 08: ma2 Administered Medications: 08:55 Drug: Aspirin Chewable Tablet 324 mg Route: PO; sv 10:00 Follow up: Response: No adverse reaction sv 11:57 Drug: GI Cocktail without - (Maalox Suspension 30 ml, Lidocaine Liquid 2 % 15 sv ml) Route: PO; 12:09 Follow up: Response: No adverse reaction sv Disposition: 10/11/19 09:37 Transfer ordered to [facility]. Diagnosis is Chest pain, unspecified. - Reason for transfer: Patient request. - Accepting physician is OSH. - Condition is Stable. - Problem is new. - Symptoms are unchanged. Signatures: Dispatcher [employer] [facility] Erica Ma RN RN sv Alzahri, Mohammad, MD MD ma2 Corrections: (The following items were deleted from the chart) 09:37 09:37 10/11/2019 09:37 Transfer ordered to [facility]. Diagnosis is Chest pain, ma2 unspecified. Reason for transfer: Higher level of care. Accepting physician is OSH. Condition is Stable. Problem is new. Symptoms are unchanged. ma2 12:10 09:37 10/11/2019 09:37 Transfer ordered to [facility]. Diagnosis is Chest pain, sv unspecified. Reason for transfer: Patient request. Accepting physician is OSH. Condition is Stable. Problem is new. Symptoms are unchanged. ma2
--- NOTE | 2019-10-11 09:54 | RAD REPORT ---
EXAM DESCRIPTION: RAD - Chest Single View - 10/11/2019 9:03 am CLINICAL HISTORY: CONGESTION COMPARISON: Portable chest July 2013, CT chest July 2013 TECHNIQUE: AP portable chest image was obtained 10/11/2019 9:03 am . FINDINGS: Right lung field is clear. Left lung field also appears to be clear though the lateral bas e is not optimally visualized due to positioning and prominent soft tissues on this portable examinat ion. Cardiac silhouette is enlarged. Central vasculature within normal limits. No pneumothorax is pre sent. No measurable right-side pleural effusion. Left costophrenic angle blunting is present. This is not substantially different from comparison. Scarring is favored over left pleural effusion. Follow- up two view imaging or CT chest imaging could be performed for continued, unexplained symptoms. Sternotomy wires are in place. Extensive surgical hardware placement along the thoracic spine. No acu te bony abnormality seen. No acute aortic findings suspected. IMPRESSION: No acute cardiopulmonary finding confirmed. 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
[2019-10-11] MEDS ORDERED: LIDOCAINE VISCOUS 2% SOLN 15 ML UDC ONE (12:06)
[2019-10-11] MEDS ORDERED: MAGNE/ALUM HYDROXD 30 ML UCUP ONE (12:06)
== END 2019-10-11 12:10 | disposition short-term general hospital (02) ==
LOC: ER 07:59
DX: R07.9 Chest pain, unspecified (principal); E11.9 Type 2 diabetes mellitus without complications; I48.91 Unspecified atrial fibrillation; I50.9 Heart failure, unspecified; Z79.82 Long term (current) use of aspirin; Z88.8 Allergy status to other drugs, medicaments and biological substances; Z95.1 Presence of aortocoronary bypass graft
CPT/HCPCS: 36415; 71045; 80048; 80076; 83735; 83880; 84484; 85025; 85610; 93005; 99285

== ENCOUNTER 2022-07-16 23:12 | Emergency (ER) | payer OTHER, MEDICARE ==
--- OUTSIDE RECORDS SUMMARY | 2022-07-16 23:38 | XMS REPORT | Continuity of Care Document ---
:1955 Author Organization [facility] t Address [address] [place] [address] Care Team Providers Name Role Phone Cinthya Ricardo MD Primary Care Physician Malcom Talavera MD Attending Clinician Cinthya Ricardo MD Attending Clinician Rigo Wang MD Attending Clinician Kathleen Thomas MD Attending Clinician Ancelmo Wong MD Attending Clinician Jaycee Attending Clinician Unavailable Kathleen Plummer Attending Clinician Tamiko Perry MA Attending Clinician Unavailable Kathleen Plummer MD Attending Clinician Kirsten Jordan DO Attending Clinician Pattie Attending Clinician Unavailable Karri PORRAS, Brie Attending Clinician Unavailable Autumn Rosado Attending Clinician [phone] Maribeth Matta MA Attending Clinician Unavailable Sadiq Bowling MD Attending Clinician WOODROW LOU Attending Clinician Unavailable ARMANDO ALEXANDER Attending Clinician Unavailable ROBYN HARTMANN Attending Clinician Unavailable MD ARMANDO ALEXANDER Attending Clinician Unavailable NESS CALABRESE Attending Clinician Unavailable BULL ALBERTO Attending Clinician Unavailable MD BULL ALBERTO Attending Clinician Unavailable MARIO ALBERTO VELAZQUEZ Attending Clinician Unavailable CHRISSIE RIVERA Attending Clinician Unavailable SAÚL SORENSEN Attending Clinician Unavailable COLT BLANCAS Attending Clinician Unavailable Jaycee Admitting Clinician Unavailable Pattie Admitting Clinician Unavailable WOODROW LOU Admitting Clinician Unavailable ARMANDO ALEXANDER Admitting Clinician Unavailable MD ARMANDO ALEXANDER Admitting Clinician Unavailable BULL ALBERTO Admitting Clinician Unavailable MD BULL ALBERTO Admitting Clinician Unavailable CINTHYA RICARDO Admitting Clinician Unavailable COLT BLANCAS Admitting Clinician Unavailable Payers Payer Name Policy Type Policy Number Effective Date Expiration Date S ource MEDICARE B-[place]: [id number] 2013 [employer] 00:00:00 [facility] - [id number] 2017 OPTIONS 00:00:00 Problems Condition Condition Condition Status Onset Resolution Last Treating Co mments Source Name Details Category Date Date Treatment Clinician Date EVAL WITH EVAL WITH Diagnosis Active 2022-03-10 Alfonso LEE 1-20 12:47:00 l Active 00:00: [place] 03/03/2022 00 MH [facility] TODD WITH TODD Diagnosis Active 2022-05-05 Alfonso LEE 1-20 12:24:00 l Active 00:00: [place] 03/03/2022 00 [facility] Anemia Anemia Disease Active [facility] 05-03 st 00:00: Hospita 00 l Vitamin D Vitamin D Disease Active Met hodi deficiency deficiency 04-08 00:00: Hospita 00 l 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-08 diabetes diabetes 00:00: Hospit 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 y y 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 04-08 kidney kidney 00:00: Hospita disease disease 00 l Obesity Obesity Disease Active [facility] (BMI (BMI 2- st 30-39.9) 30-39.9) 00:00: Hospit a 00 l Borderline Borderline Disease Active M ethodi abnormal abnormal 04-08 TFTs TFTs 00:00: Hospita 00 l PAD PAD Disease Active [facility] (periphera (periphera 2-24 st l artery l artery 00:00: Hospit a disease) disease) 00 l (HCC) QUALITY COMPLIANCE CONSULTANT (HCC) QUALITY COMPLIANCE CONSULTANT R QUALITY COMPLIANCE CONSULTANT/TPA R QUALITY COMPLIANCE CONSULTANT/TPA Diabetic Diabetic Disease Active Metho di ulcer of ulcer of 1-14 st toe of toe of 00:00: Hospita right foot right foot 00 l associated associated with type with type 2 diabetes 2 diabetes mellitus, mellitus, limited to limited to breakdown breakdown of skin of skin Diabetic Diabetic Disease Active Metho di ulcer of ulcer of 1-14 st right right 00:00: Hospita lower leg lower leg 00 l associated associated with type with type 2 diabetes 2 diabetes mellitus, mellitus, limited to limited to breakdown breakdown of skin of skin NSTEMI NSTEMI Disease Active 2020-02 [facility] (non-ST (non-ST 1-03 st elevated elevated 00:00: Hospit a myocardial myocardial 00 l infarction infarction ) ) [place] Disease Active M ethodi l fistula l fistula 831 st 00:00: Hospita 00 l Gout of Gout of Disease Active [facility] hand hand 8-30 st 00:00: Hospita 00 l Chest pain Chest pain Disease Active M ethodi 8-29 st 00:00: Hospita 00 l Diverticul Diverticul Disease Active Overview : Methodi itis itis 2-[address] 00:00: g of this Hospita 00 note l might be different from the original. Added automatic ally from request for surgery [id number] Diverticul Diverticul Disease Active M ethodi itis of itis of 10-17 st large large 00:00: Hospita intestine intestine 00 l with with abscess abscess without without bleeding bleeding Chronic Chronic Disease Active [facility] systolic systolic 9-05 st (congestiv (congestiv 00:00: Ho spita e) heart e) heart 00 l failure failure VALERIA (acute VALERIA (acute Disease Active M ethodi kidney kidney 9-05 st injury) injury) 00:00: Hospita 00 l Trigger Trigger Disease Active [facility] index index 8-07 st finger of finger of 00:00: [facility] left hand left hand 00 l Tendinitis Tendinitis Disease Active M ethodi of finger of finger 8-07 st 00:00: Hospita 00 l CHF CHF Disease Active [facility] exacerbati exacerbati 05-02 st on on 00:00: Hospita 00 l Type 2 Type 2 Disease Active [facility] diabetes diabetes 05-02 mellitus mellitus 00:00: Hospit a 00 l Essential Essential Disease Active Met [facility]odi hypertensi hypertensi 05-02 on on 00:00: Hospita 00 l CAD CAD Disease Active [facility] (coronary (coronary 05-02 artery artery 00:00: Hospita disease) disease) 00 l Scrotal Scrotal Disease Active [facility] edema edema 05-02 00:00: Hospita 00 l Neurogenic Neurogenic Problem Active [place] dysfunctio Dysfunctio 05-31 Me tro n of the n of the 00:00: Urolog y urinary Urinary 00 bladder Bladder Dysuria Dysuria Problem Active [place] 05-31 [facility] 00:00: Urology 00 PARAPLEGIA PARAPLEGI Diagnosis Active 2022-05-05 Alfonso , Milady, 12:24:00 l UNSPECIFIE UNSPECIFIE He rmann D D Active [facility] Allergies, Adverse Reactions, Alerts Allergy Allergy Status Severity Reaction(s) Onset Inactive Treating Comm ents Source Name Type Date Date Clinician Fentanyl Propensi Active Other (See 05/04/21: Methodi ty to Comments) 05-[address] adverse 00:00: states Hospita reaction 00 that he l s to was put drug in IMU because of fentanyl [place] Propensi Active GI Method i ne ty to Intolerance 04-23 st adverse 00:00: Hospita reaction 00 l s to drug Aleve Allergy Active [place] to 02-12 [facility] substanc 00:00: Urology e 00 COLCHICI Allergy Active [place] to 02-12 [facility] substanc 00:00: Urology e 00 Flomax Allergy Active [place] to 02-12 [facility] substanc 00:00: Urology e 00 Emily Allergy Active [place] to 02-12 [facility] substanc 00:00: Urology e 00 Naproxen Propensi Active GI Method i Sodium ty to Intolerance 02-12 st adverse 00:00: Hospita reaction 00 l s to drug Linezoli Allergy Active [place] to [facility] substanc Urology e Family History Family Member Diagnosis Comments Start Date Stop Date Source Natural father Heart disease [facility] Natural mother Cancer [facility] Natural mother Diabetes [facility] Natural mother [facility]pertension [facility] Natural sister Diabetes [facility] Social History Social Habit Start Date Stop Date Quantity Comments Source Gender identity 2021-03-01 Identifies as Method ist 23:04:24 male gender Hospital (finding) Sexual orientation 2021-03-01 [facility] 23:04:24 Hospital History of tobacco Current smoker [facility] Alcohol intake 2022-06-12 2022-06-12 Ex-drinker Taoism 00:00:00 00:00:00 (finding) Hospital History of Social 2022-06-12 2022-06-[address] function 00:00:00 00:00:00 Hospital Tobacco use and 2022-01-23 2022-01-23 Smokeless tobacco [facility] exposure 00:00:00 00:00:00 non-user Hospital Tobacco Comment 2022-01-23 2022-01-23 only as young Method ist 00:00:00 00:00:00 adult Hospital Sex Ass[birth year] At [birth year] M Taoism 00:00:00 00:00:00 Hospital Smoking Status Start Date Stop Date Source Ex-smoker 2022-01-23 00:00:00 2022-01-23 00:00:00 [facility] Medications Ordered Filled Start Stop Current Ordering Indication Dosage Frequency Signature Comments Components Source Medication Medication Date Date Medication? Clinician (SIG) Name Name pregabalin 2022- Yes [id number] 50mg QD Take 1 [facility] (Lyrica) 50 06-19 06-[address] MG capsule 00:00: 04:59 (50 mg [facility] 00 :00 total) by l mouth nightly for 30 days. furosemide 2022- No 40mg Q.5D Take 1 Meth candel[place] (LASIX) 40 06-12 tablet (40 st mg tablet 11:26: 00:00 mg total) Ho spita 44 :00 by mouth 2 l (two) times a day. metoclopram 2022- No 5mg Q.25D Take 0.5 Methodi laron 06-12 tablets (5 st (REGLAN) 10 11:26: 00:00 mg total) Hospita MG tablet 44 :00 by mouth 4 l (four) times a day. carvediloL 2022- No 12.5mg Q.5D Take 1 [facility] (COREG) 06-[address] 12.5 MG 11:26: 00:00 (12.5 mg Hospi ta tablet 44 :00 total) by l mouth 2 (two) times a day with meals. rosuvastati 2022- No 10mg QD Take 1 Met hodi n (CRESTOR) 06-12 tablet (10 s t 10 mg 11:26: 00:00 mg total) Hospit a tablet 44 :00 by mouth l nightly. calcium 2022- No 1200{ca QD Take 1,200 [facility] carbonate 06-12 psule} capsules st (CALCIUM 11:26: 00:00 by mouth [facility] 600 ORAL) 44 :00 daily. l aspirin 2022- No 81mg Q.[id number] Take 1 M ethodi (ECOTRIN) 06-12 [id number] tablet (81 st 81 MG 11:26: 00:00 3W mg total) Hospit a enteric 44 :00 by mouth 3 l coated (three) tablet times a week. nitrofurant 2022- No nitrofuran Methodi oin 06-[address] (MACRODANTI 11:26: 00:00 macrocryst Hospita N) 50 MG 44 :00 al 50 mg l capsule capsule TAKE ONE (1) CAPSULE(S) BY MOUTH ONCE A DAY. zinc 50 mg Yes 50mg QD Take 50 mg M ethodi tablet 06-[address] 10:28: daily. Hospita 18 l multivitami 2022-0 Yes 1{tbl} QD Take 1 Me [facility]odi n 06-[address] (THERAGRAN) 10:28: mouth Hospi ta tablet 18 daily. l ferrous 2022-0 Yes 325mg QD Take 1 [facility] sulfate 325 06-[address] (65 FE) MG 10:28: (325 mg [facility] tablet 18 total) by l mouth daily with breakfast. MAGNESIUM 3-0 Yes 1{tbl} QD Take 1 Meth candelaria ORAL 5- tablet by st 10:28: mouth Hospita 18 daily. l pyridoxine, 2022-0 Yes 100mg QD Take 1 Met [facility]odi vitamin B6, - tablet st (B-6) 100 10:28: (100 mg Hospi ta MG tablet 18 total) by l mouth daily. cranberry 2022-0 Yes Take by Metho di fruit 06-[address] extract 10:28: Hospita (CRANBERRY 18 l EXTRACT ORAL) cinnamon 2022-0 Yes 4000{tb Take 4,000 [facility] bark 06-12 l} tablets by st (CINNAMON 10:28: mouth. Hospit a ORAL) 18 l APPLE CIDER 0 Yes 2400{ca Take 2,400 [facility] VINEGAR 06-12 psule} capsules st ORAL 10:28: by mouth. Hospita 18 l cyanocobala 2022-0 Yes 1000ug QD Take 1 [facility] min 06-[address] (VITAMIN 10:28: (1,000 mcg Hos jorge B-12) 1000 18 total) by l MCG tablet mouth daily. UNABLE TO 0 Yes 1000mg 1,000 mg. M ethodi FIND 06-[address] 10:28: oil Hospita 18 l allopurinoL 2022-0 Yes [id number] 300mg QD Take 1 [facility] (ZYLOPRIM) 06-[address] 300 MG 00:00: (300 mg Hospita tablet 00 total) by l mouth daily. aspirin 2022-0 Yes [id number] 81mg Q.[id number] Take 1 [facility] (ECOTRIN) 06-12 [id number] tablet (81 st 81 MG 00:00: 3W mg total) Hospita enteric 00 by mouth 3 l coated (three) tablet times a week. calcium 3-0 Yes 1200mg QD Take 2 Method i carbonate - tablets st (Calcium 00:00: (1,200 mg [facility] 600) 600 mg 00 total) by l calcium mouth (1,500 mg) daily. tablet carvediloL 2022-0 Yes [id number] 12.5mg Q.5D Take 1 [facility] (COREG) 5-[address] 12.5 MG 00:00: (12.5 mg Hospit a tablet 00 total) by l mouth 2 (two) times a day with meals. empaglifloz 2022-0 Yes [id number] 10mg QD Take 1 [facility] in - tablet (10 st (Jardiance) 00:00: mg total) H ospita 10 mg 00 by mouth l tablet daily. tablet nitrofurant 2022-0 Yes [id number] 100mg QD Take 2 Methodi oin 06-[address] (MACRODANTI 00:00: (100 mg Hos jorge N) 50 MG 00 total) by l capsule mouth daily. rosuvastati 2022-0 Yes [id number] 10mg QD Take 1 Methodi n (CRESTOR) 06-12 tablet (10 st 10 mg 00:00: mg total) Hospita tablet 00 by mouth l nightly. furosemide 2022-0 Yes [id number] 40mg Q.5D Take 1 [facility] (LASIX) 40 06-12 tablet (40 st mg tablet 00:00: mg total) Hos jorge 00 by mouth 2 l (two) times a day. Lantus 0 Yes [id number] 10U QD Inject 0.1 [facility] U-100 06-12 mL (10 st Insulin 100 00:00: Units Hospi ta unit/mL 00 total) l injection under the (vial) skin daily. metoclopram 2022-0 Yes [id number] 5mg Q.25D Take 0.5 Methodi laron - tablets (5 st (REGLAN) 10 00:00: mg total) H ospita MG tablet 00 by mouth 4 l (four) times a day. lisinopriL 0 4- Yes [id number] 5mg QD Take 1 [facility] (PRINIVIL) 06-12 tablet (5 st 5 mg tablet 00:00: 04:59 mg total) Hospita 00 :00 by mouth l daily. gabapentin 2022-0 2023- No [id number] 300mg Q.[id number] Take 1 [facility] (Neurontin) 06-[id number] 300 mg 00:00: 00:00 3D (300 mg Hospita capsule 00 :00 total) by l mouth 3 (three) times a day as needed (sciatic pain) for up to 30 days. omega-3/dha No 1400mg QD Take 1,400 [facility] /epa/dpa/fi 05-03 03-[address] sh oil 09:04: 00:00 mouth Hospita (OMEGA-3 24 :00 daily. l 2100 ORAL) blood sugar Yes [id number] TID [facility] diagnostic 05-03 st strips 00:00: Hospita strip test 00 l strips insulin Yes 1{syrin QD 1 Syringe [facility] syr/ndl 05-03 ge} daily. st U100 half 00:00: Hospita tamika 0.5 mL 00 l 31 gauge x 5/16" syringe empaglifloz No 10mg QD Take 1 Met hodi in 05-03 tablet (10 st (Jardiance) 00:00: 00:00 mg total) Hospita 10 mg 00 :00 by mouth l tablet daily. tablet Lantus No 10U QD Inject 0.1 Meth candelaria U-100 05-03 mL (10 st Insulin 100 00:00: 00:00 Units [facility] unit/mL 00 :00 total) l injection under the (vial) skin daily. predniSONE 2022- No 1 tablet [facility] (DELTASONE) 05-[address] 20 mg 00:00: 00:00 morning Hospita tablet 00 :00 and night l for 5 days then 1 for 5 days. FOR GOUT FLARES allopurinoL No 300mg QD Take 1 Me [facility] (ZYLOPRIM) 03-[address] 300 MG 00:00: 00:00 (300 mg Hospita tablet 00 :00 total) by l mouth daily. predniSONE 2022- No 1 tablet [facility] (DELTASONE) 03-[address] 20 mg 00:00: 00:00 morning Hospita tablet 00 :00 and night l for 5 days then 1 for 5 days. FOR GOUT FLARES lisinopriL 2021-02 No 5mg QD Take 1 Meth candelaria (PRINIVIL) 03-26- tablet (5 st 5 mg tablet 00:00: 00:00 mg total) Hospita 00 :00 by mouth l daily. Lantus 2021-02 No 15U QD Inject [facility] U-100 03-[address] Insulin 100 00:00: 00:00 (15 Units Hospita unit/mL 00 :00 total) l injection under the (vial) skin daily. levothyroxi 2021-02- No 25ug QD Take 25 [facility] ne 02-28 11-[address] (SYNTHROID) 14:47: 00:00 mouth [facility] 25 mcg 21 :00 daily. l tablet predniSONE 2021-02- No 1mg QD Take 1 Meth candelaria (DELTASONE) 02-[address] 1 mg tablet 14:46: 00:00 mouth [facility] 31 :00 daily. l blood sugar 2021-02- No [id number] TID M ethodi diagnostic 02-28 st strips 00:00: 00:00 Hospita strip test 00 :00 l strips levothyroxi 2021-02 No 25ug Take 1 Met hodi ne 02-28 tablet (25 st (SYNTHROID) 00:00: 00:00 mcg total) Hospita 25 mcg 00 :00 by mouth. l tablet Jardiance Jardiance 2021-02 No Jardiance Zavala 10 mg 10 mg 0-28 10 mg [facility] tablet TAKE tablet TAKE 00:00: tablet Urology ONE (1) ONE (1) 00 TAKE ONE TABLET(S) TABLET(S) (1) BY MOUTH BY MOUTH TABLET(S) ONCE A DAY. ONCE A DAY. BY MOUTH ONCE A DAY. insulin 2021- No 15U QD Inject 15 Meth candelaria GLARGINE 09-[address] (LANTUS) 14:11: 00:00 under the Hos jorge 100 unit/mL 50 :00 skin l injection daily. (vial) insulin 2021- No 5U Q.[id number] Inject 5 [facility] regular 09-[id number] (HumuLIN-R) 14:09: 00:00 3D under the Hospita 100 unit/mL 25 :00 skin 3 l injection (three) times a day before meals. empaglifloz 2022- No 10mg QD Take 1 Met hodi in 09-22 tablet (10 st (Jardiance) 00:00: 00:00 mg total) Hospita 10 mg 00 :00 by mouth l tablet daily. tablet insulin 2021- No 10U QD Inject 0.1 Met hodi GLARGINE 09-2217 mL (10 st (LANTUS) 00:00: 00:00 Units Hospita 100 unit/mL 00 :00 total) l injection under the (vial) skin daily. acetaminoph 2021- No 1000mg Q.5D Take 1,000 Methodi en 7-25 07-[address] (TYLENOL) 12:24: 00:00 mouth 2 [facility] 500 MG 17 :00 (two) l tablet times a day as needed for mild pain or moderate pain. predniSONE 2021- No 1mg QD Take 1 Meth candelaria (DELTASONE) 07-20-25 tablet (1 st 1 mg tablet 00:00: 00:00 mg total) Hospita 00 :00 by mouth l daily for 90 days. lancets 30 Yes [id number] BID Met hodi gauge misc 06-22 st 00:00: Hospita 00 l blood sugar 2021- No [id number] BID M ethodi diagnostic 06-22 st strips 00:00: 00:00 Hospita strip test 00 :00 l strips empaglifloz 2021- No 10mg QD Take 1 Met hodi in 06-22 tablet (10 st (Jardiance) 00:00: 00:00 mg total) Hospita 10 mg 00 :00 by mouth l tablet daily. tablet allopurinoL 2022- No 300mg Q.5D Take 1 Me [facility] (ZYLOPRIM) 05-[address] 300 MG 00:00: 00:00 (300 mg Hospita tablet 00 :00 total) by l mouth 2 (two) times a day. aspirin 2021- No 81mg QD Take 1 [facility] (ECOTRIN) 05-05 tablet (81 st 81 MG 00:00: 04:59 mg total) Hospit a enteric 00 :00 by mouth l coated daily for tablet 90 days. pen needle, 0 2022- No Inject 4 M ethodi diabetic 32 3-02 05-[address] gauge [facility]:00[facility] Eliquis 5 Eliquis 5 No Eliquis 5 [place] mg tablet mg tablet mg tablet [facility] TAKE ONE TAKE ONE TAKE ONE Uro logy (1) (1) (1) TABLET(S) TABLET(S) TABLET(S) BY MOUTH BY MOUTH BY MOUTH TWICE A TWICE A TWICE A DAY. DAY. DAY. ertapenem 1 ertapenem 1 No ertapenem [place] gram gram 1 gram [facility] solution solution solution Uro logy for for for injection injection injection Fish Oil Fish Oil No Fish Oil Flaco ston [facility] furosemide furosemide No furosemide [place] 40 mg 40 mg 40 mg [facility] tablet TAKE tablet TAKE tablet Urology TWO (2) TWO (2) TAKE TWO TABLET(S) TABLET(S) (2) BY MOUTH BY MOUTH TABLET(S) TWICE A TWICE A BY MOUTH DAY. DAY. TWICE A DAY. GaviLyte-G GaviLyte-G No GaviLyte-G [place] 236 236 236 [facility] gram-22.74 gram-22.74 gram-22.74 Urology gram-6.74 gram-6.74 gram-6.74 gram-5.86 gram-5.86 gram-5.86 gram oral gram oral gram oral solution solution solution TAKE BY TAKE BY TAKE BY MOUTH MOUTH MOUTH DIRECTED. DIRECTED. DIRECTED. hydroxyzine hydroxyzine No hydroxyzin [place] HCl 25 mg HCl 25 mg e HCl 25 M etro tablet TAKE tablet TAKE mg tablet Urology ONE (1) ONE (1) TAKE ONE TABLET(S) TABLET(S) (1) BY MOUTH AT BY MOUTH AT TABLET(S) BEDTIME. BEDTIME. BY MOUTH AT BEDTIME. ketoconazol ketoconazol No ketoconazo [place] e 2 % e 2 % le 2 % [facility] shampoo shampoo shampoo Urolog y APPLY TO APPLY TO APPLY TO AFFECTED AFFECTED AFFECTED AREA AREA AREA DIRECTED. DIRECTED. DIRECTED. LEAVE ON LEAVE ON LEAVE ON FOR ONE (1) FOR ONE (1) FOR ONE MINUTE THEN MINUTE THEN (1) MINUTE RINSE OFF. RINSE OFF. THEN RINSE OFF. Klor-Con Klor-Con No Klor-Con Flaco ston M20 mEq M20 mEq M20 mEq [facility] tablet,exte tablet,exte tablet,ext Urology nded nded ended release release release TAKE ONE TAKE ONE TAKE ONE (1) (1) (1) TABLET(S) TABLET(S) TABLET(S) BY MOUTH BY MOUTH BY MOUTH ONCE A DAY. ONCE A DAY. ONCE A DAY. levocetiriz levocetiriz No levocetiri [place] ine 5 mg ine 5 mg zine 5 mg Me tro tablet TAKE tablet TAKE tablet Urology ONE (1) ONE (1) TAKE ONE TABLET(S) TABLET(S) (1) BY MOUTH AT BY MOUTH AT TABLET(S) BEDTIME. BEDTIME. BY MOUTH AT BEDTIME. linezolid linezolid No linezolid [place] 600 mg 600 mg 600 mg [facility] tablet tablet tablet Urology metformin metformin No metformin [place] 1,000 mg 1,000 mg 1,000 mg Met ro tablet TAKE tablet TAKE tablet Urology ONE (1) ONE (1) TAKE ONE TABLET(S) TABLET(S) (1) BY MOUTH BY MOUTH TABLET(S) TWICE A TWICE A BY MOUTH DAY. DAY. TWICE A DAY. methylpredn methylpredn No methylpred [place] isolone 4 isolone 4 nisolone 4 [facility] mg tablets mg tablets mg tablets Urology in a dose in a dose in a dose pack USE pack USE pack USE DIRECTED BY DIRECTED BY PACKAGE PACKAGE DIRECTED INSTRUCTION INSTRUCTION BY PACKAGE S (DO NOT S (DO NOT INSTRUCTIO SPACE OUT SPACE OUT NS (DO NOT OVER THE OVER THE SPACE OUT DAY). DAY). OVER THE DAY). metolazone metolazone No metolazone [place] 5 mg tablet 5 mg tablet 5 mg M etro TAKE ONE TAKE ONE tablet Urolo gy (1) (1) TAKE ONE TABLET(S) TABLET(S) (1) BY MOUTH BY MOUTH TABLET(S) ONCE A DAY. ONCE A DAY. BY MOUTH ONCE A DAY. metoprolol metoprolol No metoprolol [place] tartrate tartrate tartrate Met ro 100 mg 100 mg 100 mg Urology tablet TAKE tablet TAKE tablet ONE (1) ONE (1) TAKE ONE TABLET(S) TABLET(S) (1) BY MOUTH BY MOUTH TABLET(S) TWICE A TWICE A BY MOUTH DAY. DAY. TWICE A DAY. nitroglycer nitroglycer No nitroglyce [place] in 0.4 mg in 0.4 mg rin 0.4 mg [facility] sublingual sublingual sublingual Urology tablet tablet tablet DISSOLVE DISSOLVE DISSOLVE ONE (1) ONE (1) ONE (1) TABLET TABLET TABLET UNDER UNDER UNDER TONGUE TONGUE TONGUE EVERY 5 EVERY 5 EVERY 5 MINUTES MINUTES MINUTES NEEDED FOR NEEDED FOR NEEDED FOR CHEST PAIN CHEST PAIN CHEST PAIN FOR UP TO 3 FOR UP TO 3 FOR UP TO DOSES. DOSES. 3 DOSES. ondansetron ondansetron No ondansetro [place] HCl 4 mg HCl 4 mg n HCl 4 mg M etro tablet tablet tablet Urology pantoprazol pantoprazol No pantoprazo [place] e 40 mg e 40 mg le 40 mg [facility] tablet,luis tablet,luis tablet,del Urology yed release yed release ayed TAKE ONE TAKE ONE release (1) (1) TAKE ONE TABLET(S) TABLET(S) (1) BY MOUTH BY MOUTH TABLET(S) ONCE A DAY. ONCE A DAY. BY MOUTH ONCE A DAY. prednisone prednisone No prednisone [place] 5 mg tablet 5 mg tablet 5 mg M etro TAKE ONE TAKE ONE tablet Urolo gy (1) TABLET (1) TABLET TAKE ONE BY MOUTH BY MOUTH (1) TABLET DAILY FOR DAILY FOR BY MOUTH 30 DAYS. 30 DAYS. DAILY FOR 30 DAYS. Suprep Suprep No Suprep [place] Bowel Prep Bowel Prep Bowel Prep [facility] Kit 17.5 Kit 17.5 Kit 17.5 Uro logy gram-3.13 gram-3.13 gram-3.13 gram-1.6 gram-1.6 gram-1.6 gram oral gram oral gram oral solution solution solution START START START LIQUID DIET LIQUID DIET LIQUID MORNING MORNING DIET BEFORE BEFORE MORNING PROCEDURE. PROCEDURE. BEFORE TAKE FIRST TAKE FIRST PROCEDURE. DOSE AT 4PM DOSE AT 4PM TAKE FIRST WITH TWO WITH TWO DOSE AT LAXATIVES. LAXATIVES. 4PM WITH TAKE SECOND TAKE SECOND TWO DOSE AT DOSE AT LAXATIVES. 10PM WITH 10PM WITH TAKE TWO TWO SECOND LAXATIVES. LAXATIVES. DOSE AT 10PM WITH TWO LAXATIVES. Trulicity Trulicity No Trulicity [place] 1.5 mg/0.5 1.5 mg/0.5 1.5 mg/0.5 [facility] mL mL mL Urology subcutaneou subcutaneou subcutaneo s pen s pen us pen injector injector injector INJECT 1.5 INJECT 1.5 INJECT 1.5 MG MG MG SUBCUTANEOU SUBCUTANEOU SUBCUTANEO SLY ONCE A SLY ONCE A USLY ONCE WEEK. WEEK. A WEEK. zinc zinc No zinc [place] [facility] Accu-Chek Accu-Chek No Accu-Chek [place] Guide test Guide test Guide test [facility] strips USE strips USE strips USE Urology TO TEST TO TEST TO TEST TWICE TWICE TWICE DAILY. DAILY. DAILY. allopurinol allopurinol No allopurino [place] 300 mg 300 mg l 300 mg [facility] tablet TAKE tablet TAKE tablet Urology ONE (1) ONE (1) TAKE ONE TABLET(S) TABLET(S) (1) BY MOUTH BY MOUTH TABLET(S) TWICE A TWICE A BY MOUTH DAY. DAY. TWICE A DAY. amiodarone amiodarone No amiodarone [place] 200 mg 200 mg 200 mg [facility] tablet TAKE tablet TAKE tablet Urology ONE (1) ONE (1) TAKE ONE TABLET(S) TABLET(S) (1) BY MOUTH BY MOUTH TABLET(S) TWICE A TWICE A BY MOUTH DAY. DAY. TWICE A DAY. apple cider apple cider No apple [place] vinegar 600 vinegar 600 cider [facility] mg capsule mg capsule vinegar Urology Take by Take by 600 mg oral route. oral route. capsule Take by oral route. Aspir-81 Aspir-81 No Aspir-81 Flaco ston [facility] calcium calcium No calcium [place] [facility] carvedilol carvedilol No carvedilol [place] 3.125 mg 3.125 mg 3.125 mg Met ro tablet TAKE tablet TAKE tablet Urology ONE (1) ONE (1) TAKE ONE TABLET(S) TABLET(S) (1) BY MOUTH BY MOUTH TABLET(S) TWICE A DAY TWICE A DAY BY MOUTH WITH FOOD. WITH FOOD. TWICE A DAY WITH FOOD. Cinnamon Cinnamon No Cinnamon Flaco ston [facility] ertapenem 1 ertapenem 1 No ertapenem [place] gram gram 1 gram [facility] solution solution solution Uro logy for for for injection injection injection Fish Oil Fish Oil No Fish Oil [facility] furosemide furosemide No furosemide [place] 40 mg 40 mg 40 mg [facility] tablet TAKE tablet TAKE tablet Urology TWO (2) TWO (2) TAKE TWO TABLET(S) TABLET(S) (2) BY MOUTH BY MOUTH TABLET(S) TWICE A TWICE A BY MOUTH DAY. DAY. TWICE A DAY. Jardiance Jardiance No 1 Q1D Jardiance [place] 10 mg 10 mg 10 mg [facility] tablet Take tablet Take tablet Urology 1 tablet 1 tablet Take 1 every day every day tablet by oral by oral every day route. route. by oral route. Lantus Lantus No Lantus [place] Solostar Solostar Solostar [facility] U-100 U-100 U-100 Urology Insulin Insulin Insulin levothyroxi levothyroxi No levothyrox [place] ne 25 mcg ne 25 mcg ine 25 mcg [facility] tablet TAKE tablet TAKE tablet Urology ONE (1) ONE (1) TAKE ONE TABLET(S) TABLET(S) (1) BY MOUTH BY MOUTH TABLET(S) ONCE A DAY ONCE A DAY BY MOUTH IN THE IN THE ONCE A DAY MORNING ON MORNING ON IN THE AN EMPTY AN EMPTY MORNING ON STOMACH. STOMACH. AN EMPTY STOMACH. magnesium magnesium No 500mg Q1D magnesium [place] 250 mg (as 250 mg (as 250 mg (as [facility] magnesium magnesium magnesium Urology oxide) oxide) oxide) tablet Take tablet Take tablet 500 mg 500 mg Take 500 every day every day mg every by oral by oral day by route. route. oral route. metoclopram metoclopram No metoclopra [place] laron 5 mg laron 5 mg mide 5 mg Me tro tablet TAKE tablet TAKE tablet Urology ONE (1) ONE (1) TAKE ONE TABLET(S) TABLET(S) (1) BY MOUTH BY MOUTH TABLET(S) FOUR TIMES FOUR TIMES BY MOUTH A DAY A DAY FOUR TIMES BEFORE BEFORE A DAY MEALS AND MEALS AND BEFORE AT BEDTIME. AT BEDTIME. MEALS AND AT BEDTIME. metoprolol metoprolol No metoprolol [place] tartrate tartrate tartrate [facility] 100 mg 100 mg 100 mg Urology tablet TAKE tablet TAKE tablet ONE (1) ONE (1) TAKE ONE TABLET(S) TABLET(S) (1) BY MOUTH BY MOUTH TABLET(S) TWICE A TWICE A BY MOUTH DAY. DAY. TWICE A DAY. multivitami multivitami No multivitam [place] n n in [facility] nitroglycer nitroglycer No nitroglyce [place] in 0.4 mg in 0.4 mg rin 0.4 mg [facility] sublingual sublingual sublingual Urology tablet TAKE tablet TAKE tablet ONE (1) ONE (1) TAKE ONE TABLET(S) TABLET(S) (1) BY MOUTH BY MOUTH TABLET(S) EVERY 5 EVERY 5 BY MOUTH MINUTES MINUTES EVERY 5 NEEDED FOR NEEDED FOR MINUTES CHEST PAIN CHEST PAIN NEEDED FOR (AFTER 3 (AFTER 3 CHEST PAIN TABS DIAL TABS DIAL (AFTER 3 911). 911). TABS DIAL 911). pantoprazol pantoprazol No pantoprazo [place] e 40 mg e 40 mg le 40 mg [facility] tablet,luis tablet,luis tablet,del Urology yed release yed release ayed TAKE ONE TAKE ONE release (1) (1) TAKE ONE TABLET(S) TABLET(S) (1) BY MOUTH BY MOUTH TABLET(S) ONCE A DAY. ONCE A DAY. BY MOUTH ONCE A DAY. potassium potassium No potassium [place] chloride ER chloride ER chloride [facility] 20 mEq 20 mEq ER 20 mEq Urolog y tablet,exte tablet,exte tablet,ext nded nded ended release(par release(par release(pa t/cryst) t/cryst) rt/cryst) TAKE ONE TAKE ONE TAKE ONE (1) (1) (1) TABLET(S) TABLET(S) TABLET(S) BY MOUTH BY MOUTH BY MOUTH ONCE A DAY. ONCE A DAY. ONCE A DAY. prednisone prednisone No prednisone [place] 1 mg tablet 1 mg tablet 1 mg M etro TAKE ONE TAKE ONE tablet Urolo gy (1) (1) TAKE ONE TABLET(S) TABLET(S) (1) BY MOUTH BY MOUTH TABLET(S) ONCE A DAY. ONCE A DAY. BY MOUTH ONCE A DAY. rosuvastati rosuvastati No rosuvastat [place] n 10 mg n 10 mg in 10 mg [facility] tablet TAKE tablet TAKE tablet Urology ONE (1) ONE (1) TAKE ONE TABLET(S) TABLET(S) (1) BY MOUTH BY MOUTH TABLET(S) NIGHTLY. NIGHTLY. BY MOUTH NIGHTLY. Vitamin B-6 Vitamin B-6 No Vitamin [place] 100 mg 100 mg B-6 100 mg [facility] tablet Take tablet Take tablet Urology by oral by oral Take by route. route. oral route. vitamin B12 vitamin B12 No vitamin [place] 1,000 1,000 B12 1,000 [facility] mcg-folic mcg-folic mcg-folic Urology acid 400 acid 400 acid 400 mcg mcg mcg sublingual sublingual sublingual lozenge lozenge lozenge Place by Place by Place by sublingual sublingual sublingual route. route. route. zinc zinc No zinc [facility] Accu-Chek Accu-Chek No Accu-Chek [place] Guide test Guide test Guide test [facility] strips USE strips USE strips USE Urology TO TEST TO TEST TO TEST TWICE TWICE TWICE DAILY. DAILY. DAILY. allopurinol allopurinol No allopurino [place] 300 mg 300 mg l 300 mg [facility] tablet TAKE tablet TAKE tablet Urology ONE (1) ONE (1) TAKE ONE TABLET(S) TABLET(S) (1) BY MOUTH BY MOUTH TABLET(S) ONCE A DAY. ONCE A DAY. BY MOUTH ONCE A DAY. apple cider apple cider No apple [place] vinegar 600 vinegar 600 cider [facility] mg capsule mg capsule vinegar Urology Take by Take by 600 mg oral route. oral route. capsule Take by oral route. Aspir-81 Aspir-81 No Aspir-81 [facility] Bactrim DS Bactrim DS No 1 Q12H Bactrim DS [place] 800 mg-160 800 mg-160 800 mg-160 [facility] mg tablet mg tablet mg tablet Urology Take 1 Take 1 Take 1 tablet tablet tablet every 12 every 12 every 12 hours by hours by hours by oral route oral route oral route for 7 days. for 7 days. for 7 days. calcium calcium No calcium [place] [facility] carvedilol carvedilol No carvedilol [place] 3.125 mg 3.125 mg 3.125 mg [facility] tablet TAKE tablet TAKE tablet Urology ONE (1) ONE (1) TAKE ONE TABLET(S) TABLET(S) (1) BY MOUTH BY MOUTH TABLET(S) TWICE A DAY TWICE A DAY BY MOUTH WITH FOOD. WITH FOOD. TWICE A DAY WITH FOOD. Cinnamon Cinnamon No Cinnamon [facility] Urology cranberry cranberry No cranberry [facility]rology Fish Oil Fish Oil No Fish Oil [facility]rology furosemide furosemide No furosemide [place] 40 mg 40 mg 40 mg [facility] tablet TAKE tablet TAKE tablet Urology TWO (2) TWO (2) TAKE TWO TABLET(S) TABLET(S) (2) BY MOUTH BY MOUTH TABLET(S) TWICE A TWICE A BY MOUTH DAY. DAY. TWICE A DAY. Humulin R Humulin R No Humulin R [place] Regular Regular Regular [facility] U-100 U-100 U-100 Urology Insulin 100 Insulin 100 Insulin unit/mL unit/mL 100 injection injection unit/mL solution solution injection INJECT FIVE INJECT FIVE solution (5) UNITS (5) UNITS INJECT UNDER THE UNDER THE FIVE (5) SKIN 3 SKIN 3 UNITS TIMES DAILY TIMES DAILY UNDER THE WITH MEALS. WITH MEALS. SKIN 3 PLUS PLUS TIMES SLIDING SLIDING DAILY WITH SCALE UP TO SCALE UP TO MEALS. 30 UNITS 30 UNITS PLUS DAILY. DAILY. SLIDING SCALE UP TO 30 UNITS DAILY. Lantus Lantus No Lantus [place] U-100 U-100 U-100 [facility] Insulin 100 Insulin 100 Insulin Urology unit/mL unit/mL 100 subcutaneou subcutaneou unit/mL s solution s solution subcutaneo INJECT 15 INJECT 15 us UNITS UNDER UNITS UNDER solution THE SKIN THE SKIN INJECT 15 ONCE DAILY. ONCE DAILY. UNITS UNDER THE SKIN ONCE DAILY. levothyroxi levothyroxi No levothyrox [place] ne 25 mcg ne 25 mcg ine 25 mcg [facility] tablet TAKE tablet TAKE tablet Urology ONE (1) ONE (1) TAKE ONE TABLET(S) TABLET(S) (1) BY MOUTH BY MOUTH TABLET(S) ONCE A DAY ONCE A DAY BY MOUTH IN THE IN THE ONCE A DAY MORNING ON MORNING ON IN THE AN EMPTY AN EMPTY MORNING ON STOMACH. STOMACH. AN EMPTY STOMACH. magnesium magnesium No 500mg Q1D magnesium [place] 250 mg (as 250 mg (as 250 mg (as [facility] magnesium magnesium magnesium Urology oxide) oxide) oxide) tablet Take tablet Take tablet 500 mg 500 mg Take 500 every day every day mg every by oral by oral day by route. route. oral route. metoclopram metoclopram No metoclopra [place] laron 5 mg laron 5 mg mide 5 mg Me tro tablet TAKE tablet TAKE tablet Urology ONE (1) ONE (1) TAKE ONE TABLET(S) TABLET(S) (1) BY MOUTH BY MOUTH TABLET(S) FOUR TIMES FOUR TIMES BY MOUTH A DAY A DAY FOUR TIMES BEFORE BEFORE A DAY MEALS AND MEALS AND BEFORE AT BEDTIME. AT BEDTIME. MEALS AND AT BEDTIME. multivitami multivitami No multivitam [place] n n in [facility] nitrofurant nitrofurant No 1capsul Q1D nitrofuran [place] oin oin e(s) toin [facility] macrocrysta macrocrysta macrocryst Urology l 50 mg l 50 mg al 50 mg capsule capsule capsule Take 1 Take 1 Take 1 capsule capsule capsule every day every day every day by oral by oral by oral route for route for route for 30 days. 30 days. 30 days. prednisone prednisone No prednisone [place] 1 mg tablet 1 mg tablet 1 mg M etro TAKE ONE TAKE ONE tablet Urolo gy (1) (1) TAKE ONE TABLET(S) TABLET(S) (1) BY MOUTH BY MOUTH TABLET(S) ONCE A DAY. ONCE A DAY. BY MOUTH ONCE A DAY. rosuvastati rosuvastati No rosuvastat [place] n 10 mg n 10 mg in 10 mg [facility] tablet TAKE tablet TAKE tablet Urology ONE (1) ONE (1) TAKE ONE TABLET(S) TABLET(S) (1) BY MOUTH BY MOUTH TABLET(S) NIGHTLY. NIGHTLY. BY MOUTH NIGHTLY. Vitamin B-6 Vitamin B-6 No Vitamin [place] 100 mg 100 mg B-6 100 mg [facility] tablet Take tablet Take tablet Urology by oral by oral Take by route. route. oral route. vitamin B12 vitamin B12 No vitamin [place] 1,000 1,000 B12 1,000 [facility] mcg-folic mcg-folic mcg-folic Urology acid 400 acid 400 acid 400 mcg mcg mcg sublingual sublingual sublingual lozenge lozenge lozenge Place by Place by Place by sublingual sublingual sublingual route. route. route. zinc zinc No zinc [place] [facility] Accu-Chek Accu-Chek No Accu-Chek [place] Guide test Guide test Guide test [facility] strips USE strips USE strips USE Urology DIRECTED DIRECTED THREE TIMES THREE TIMES DIRECTED A DAY. A DAY. THREE TIMES A DAY. allopurinol allopurinol No allopurino [place] 300 mg 300 mg l 300 mg [facility] tablet TAKE tablet TAKE tablet Urology ONE (1) ONE (1) TAKE ONE TABLET(S) TABLET(S) (1) BY MOUTH BY MOUTH TABLET(S) ONCE A DAY. ONCE A DAY. BY MOUTH ONCE A DAY. apple cider apple cider No apple [place] vinegar 600 vinegar 600 cider [facility] mg capsule mg capsule vinegar Urology Take by Take by 600 mg oral route. oral route. capsule Take by oral route. Aspir-81 Aspir-81 No Aspir-81 [facility] calcium calcium No calcium [place] [facility] carvedilol carvedilol No carvedilol [place] 12.5 mg 12.5 mg 12.5 mg [facility] tablet TAKE tablet TAKE tablet Urology ONE (1) ONE (1) TAKE ONE TABLET(S) TABLET(S) (1) BY MOUTH BY MOUTH TABLET(S) TWICE A DAY TWICE A DAY BY MOUTH WITH FOOD. WITH FOOD. TWICE A DAY WITH FOOD. carvedilol carvedilol No carvedilol [place] 3.125 mg 3.125 mg 3.125 mg [facility] tablet TAKE tablet TAKE tablet Urology ONE (1) ONE (1) TAKE ONE TABLET(S) TABLET(S) (1) BY MOUTH BY MOUTH TABLET(S) TWICE A DAY TWICE A DAY BY MOUTH WITH FOOD. WITH FOOD. TWICE A DAY WITH FOOD. C[facility]berry [facility] cranberry [facility] Fish Oil Fish Oil No Fish Oil [facility] furosemide furosemide No furosemide [place] 40 mg 40 mg 40 mg [facility] tablet TAKE tablet TAKE tablet Urology TWO (2) TWO (2) TAKE TWO TABLET(S) TABLET(S) (2) BY MOUTH BY MOUTH TABLET(S) TWICE A TWICE A BY MOUTH DAY. DAY. TWICE A DAY. Humulin R Humulin R No Humulin R [place] Regular Regular Regular [facility] U-100 U-100 U-100 Urology Insulin 100 Insulin 100 Insulin unit/mL unit/mL 100 injection injection unit/mL solution solution injection INJECT FIVE INJECT FIVE solution (5) UNITS (5) UNITS INJECT UNDER THE UNDER THE FIVE (5) SKIN 3 SKIN 3 UNITS TIMES DAILY TIMES DAILY UNDER THE WITH MEALS. WITH MEALS. SKIN 3 PLUS PLUS TIMES SLIDING SLIDING DAILY WITH SCALE UP TO SCALE UP TO MEALS. 30 UNITS 30 UNITS PLUS DAILY. DAILY. SLIDING SCALE UP TO 30 UNITS DAILY. Jardiance Jardiance No Jardiance [place] 10 mg 10 mg 10 mg [facility] tablet TAKE tablet TAKE tablet Urology ONE (1) ONE (1) TAKE ONE TABLET(S) TABLET(S) (1) BY MOUTH BY MOUTH TABLET(S) ONCE A DAY. ONCE A DAY. BY MOUTH ONCE A DAY. Lantus Lantus No Lantus [place] U-100 U-100 U-100 [facility] Insulin 100 Insulin 100 Insulin Urology unit/mL unit/mL 100 subcutaneou subcutaneou unit/mL s solution s solution subcutaneo INJECT 15 INJECT 15 us UNITS UNDER UNITS UNDER solution THE SKIN THE SKIN INJECT 15 ONCE DAILY. ONCE DAILY. UNITS UNDER THE SKIN ONCE DAILY. levothyroxi levothyroxi No levothyrox [place] ne 25 mcg ne 25 mcg ine 25 mcg [facility] tablet TAKE tablet TAKE tablet Urology ONE (1) ONE (1) TAKE ONE TABLET(S) TABLET(S) (1) BY MOUTH BY MOUTH TABLET(S) ONCE A DAY ONCE A DAY BY MOUTH IN THE IN THE ONCE A DAY MORNING ON MORNING ON IN THE AN EMPTY AN EMPTY MORNING ON STOMACH. STOMACH. AN EMPTY STOMACH. lisinopril lisinopril No lisinopril [place] 5 mg tablet 5 mg tablet 5 mg M etro TAKE ONE TAKE ONE tablet Urolo gy (1) (1) TAKE ONE TABLET(S) TABLET(S) (1) BY MOUTH BY MOUTH TABLET(S) ONCE A DAY. ONCE A DAY. BY MOUTH ONCE A DAY. magnesium magnesium No 500mg Q1D magnesium [place] 250 mg (as 250 mg (as 250 mg (as [facility] magnesium magnesium magnesium Urology oxide) oxide) oxide) tablet Take tablet Take tablet 500 mg 500 mg Take 500 every day every day mg every by oral by oral day by route. route. oral route. metoclopram metoclopram No metoclopra [place] laron 5 mg laron 5 mg mide 5 mg Me tro tablet TAKE tablet TAKE tablet Urology ONE (1) ONE (1) TAKE ONE TABLET(S) TABLET(S) (1) BY MOUTH BY MOUTH TABLET(S) FOUR TIMES FOUR TIMES BY MOUTH A DAY A DAY FOUR TIMES BEFORE BEFORE A DAY MEALS AND MEALS AND BEFORE AT BEDTIME. AT BEDTIME. MEALS AND AT BEDTIME. multivitami multivitami No multivitam [place] n n in [facility] nitrofurant nitrofurant No nitrofuran [place] oin oin toin [facility] macrocrysta macrocrysta macrocryst Urology l 50 mg l 50 mg al 50 mg capsule capsule capsule TAKE ONE TAKE ONE TAKE ONE (1) (1) (1) CAPSULE(S) CAPSULE(S) CAPSULE(S) BY MOUTH BY MOUTH BY MOUTH ONCE A DAY. ONCE A DAY. ONCE A DAY. prednisone prednisone No prednisone [place] 1 mg tablet 1 mg tablet 1 mg M etro TAKE ONE TAKE ONE tablet Urolo gy (1) (1) TAKE ONE TABLET(S) TABLET(S) (1) BY MOUTH BY MOUTH TABLET(S) ONCE A DAY. ONCE A DAY. BY MOUTH ONCE A DAY. prednisone prednisone No prednisone [place] 20 mg 20 mg 20 mg [facility] tablet TAKE tablet TAKE tablet Urology ONE (1) ONE (1) TAKE ONE TABLET(S) TABLET(S) (1) BY MOUTH BY MOUTH TABLET(S) EVERY EVERY BY MOUTH MORNING AND MORNING AND EVERY NIGHT FOR 5 NIGHT FOR 5 MORNING DAYS, THEN DAYS, THEN AND NIGHT ONCE DAILY ONCE DAILY FOR 5 FOR 5 DAYS. FOR 5 DAYS. DAYS, THEN ONCE DAILY FOR 5 DAYS. rosuvastati rosuvastati No rosuvastat [place] n 10 mg n 10 mg in 10 mg [facility] tablet TAKE tablet TAKE tablet Urology ONE (1) ONE (1) TAKE ONE TABLET(S) TABLET(S) (1) BY MOUTH BY MOUTH TABLET(S) NIGHTLY. NIGHTLY. BY MOUTH NIGHTLY. sulfamethox sulfamethox No sulfametho [place] azole 800 azole 800 xazole 800 [facility] mg-trimetho mg-trimetho mg-trimeth Urology prim 160 mg prim 160 mg oprim 160 tablet TAKE tablet TAKE mg tablet ONE (1) ONE (1) TAKE ONE TABLET(S) TABLET(S) (1) BY MOUTH BY MOUTH TABLET(S) EVERY EVERY BY MOUTH TWELVE TWELVE EVERY HOURS FOR HOURS FOR TWELVE SEVEN DAYS. SEVEN DAYS. HOURS FOR SEVEN DAYS. Sure Sure No Sure [place] Comfort Comfort Comfort [facility] Insulin Insulin Insulin Urolog y Syringe 0.3 Syringe 0.3 Syringe mL 31 gauge mL 31 gauge 0.3 mL 31 x 516" USE x 06/27" USE gauge x DIRECTED DIRECTED 06/27" USE FOR LANTUS FOR LANTUS AND HUMALOG AND HUMALOG DIRECTED INJECTIONS INJECTIONS FOR LANTUS 4 TIMES 4 TIMES AND DAILY. DAILY. HUMALOG INJECTIONS 4 TIMES DAILY. sure sure No sure [place] comfort comfort comfort [facility] insulin insulin insulin Urolog y syringe/u-1 syringe/u-1 syringe/u- 00/ 00/ 100/ 0.3ml/31g x 0.3ml/31g x 0.3ml/31g 5/16 31g x 5/16 31g x x 5/16 31g 5/16" 0.3 /16" 0.3 x 5/16" ml misc ml misc 0.3 ml misc Vitamin B-6 Vitamin B-6 No Vitamin [place] 100 mg 100 mg B-6 100 mg [facility] tablet Take tablet Take tablet Urology by oral by oral Take by route. route. oral route. vitamin B12 vitamin B12 No vitamin [place] 1,000 1,000 B12 1,000 [facility] mcg-folic mcg-folic mcg-folic Urology acid 400 acid 400 acid 400 mcg mcg mcg sublingual sublingual sublingual lozenge lozenge lozenge Place by Place by Place by sublingual sublingual sublingual route. route. route. zinc zinc No zinc [place] [facility] Accu-Chek Accu-Chek No Accu-Chek [place] Guide test Guide test Guide test [facility] strips USE strips USE strips USE Urology THREE TIMES THREE TIMES THREE A DAY. A DAY. TIMES A DAY. allopurinol allopurinol No allopurino [place] 300 mg 300 mg l 300 mg [facility] tablet TAKE tablet TAKE tablet Urology ONE (1) ONE (1) TAKE ONE TABLET(S) TABLET(S) (1) BY MOUTH BY MOUTH TABLET(S) ONCE A DAY. ONCE A DAY. BY MOUTH ONCE A DAY. apple cider apple cider No apple [place] vinegar 600 vinegar 600 cider [facility] mg capsule mg capsule vinegar Urology Take by Take by 600 mg oral route. oral route. capsule Take by oral route. Aspir-81 Aspir-81 No Aspir-81 [facility] calcium calcium No calcium [place] [facility] carvedilol carvedilol No carvedilol [place] 12.5 mg 12.5 mg 12.5 mg [facility] tablet TAKE tablet TAKE tablet Urology ONE (1) ONE (1) TAKE ONE TABLET(S) TABLET(S) (1) BY MOUTH BY MOUTH TABLET(S) TWICE A DAY TWICE A DAY BY MOUTH WITH FOOD. WITH FOOD. TWICE A DAY WITH FOOD. carvedilol carvedilol No carvedilol [place] 3.125 mg 3.125 mg 3.125 mg Met ro tablet TAKE tablet TAKE tablet Urology ONE (1) ONE (1) TAKE ONE TABLET(S) TABLET(S) (1) BY MOUTH BY MOUTH TABLET(S) TWICE A DAY TWICE A DAY BY MOUTH WITH FOOD. WITH FOOD. TWICE A DAY WITH FOOD. Cinnamon Cinnamon No Cinnamon [facility] cranberry cranberry No cranberry [place] [facility] furosemide furosemide No furosemide [place] 40 mg 40 mg 40 mg [facility] tablet TAKE tablet TAKE tablet Urology TWO (2) TWO (2) TAKE TWO TABLET(S) TABLET(S) (2) BY MOUTH BY MOUTH TABLET(S) TWICE A TWICE A BY MOUTH DAY. DAY. TWICE A DAY. Humulin R Humulin R No Humulin R [place] Regular Regular Regular [facility] U-100 U-100 U-100 Urology Insulin 100 Insulin 100 Insulin unit/mL unit/mL 100 injection injection unit/mL solution solution injection INJECT FIVE INJECT FIVE solution (5) UNITS (5) UNITS INJECT UNDER THE UNDER THE FIVE (5) SKIN 3 SKIN 3 UNITS TIMES DAILY TIMES DAILY UNDER THE WITH MEALS. WITH MEALS. SKIN 3 PLUS PLUS TIMES SLIDING SLIDING DAILY WITH SCALE UP TO SCALE UP TO MEALS. 30 UNITS 30 UNITS PLUS DAILY. DAILY. SLIDING SCALE UP TO 30 UNITS DAILY. Jardiance Jardiance No Jardiance [place] 10 mg 10 mg 10 mg [facility] tablet TAKE tablet TAKE tablet Urology ONE (1) ONE (1) TAKE ONE TABLET(S) TABLET(S) (1) BY MOUTH BY MOUTH TABLET(S) ONCE A DAY. ONCE A DAY. BY MOUTH ONCE A DAY. Lantus Lantus No Lantus [place] U-100 U-100 U-100 [facility] Insulin 100 Insulin 100 Insulin Urology unit/mL unit/mL 100 subcutaneou subcutaneou unit/mL s solution s solution subcutaneo INJECT 10 INJECT 10 us UNITS UNDER UNITS UNDER solution THE SKIN THE SKIN INJECT 10 ONCE A DAY. ONCE A DAY. UNITS UNDER THE SKIN ONCE A DAY. levothyroxi levothyroxi No levothyrox [place] ne 25 mcg ne 25 mcg ine 25 mcg [facility] tablet TAKE tablet TAKE tablet Urology ONE (1) ONE (1) TAKE ONE TABLET(S) TABLET(S) (1) BY MOUTH BY MOUTH TABLET(S) ONCE A DAY ONCE A DAY BY MOUTH IN THE IN THE ONCE A DAY MORNING ON MORNING ON IN THE AN EMPTY AN EMPTY MORNING ON STOMACH. STOMACH. AN EMPTY STOMACH. lisinopril lisinopril No lisinopril [place] 5 mg tablet 5 mg tablet 5 mg M etro TAKE ONE TAKE ONE tablet Urolo gy (1) (1) TAKE ONE TABLET(S) TABLET(S) (1) BY MOUTH BY MOUTH TABLET(S) ONCE A DAY. ONCE A DAY. BY MOUTH ONCE A DAY. magnesium magnesium No 500mg Q1D magnesium [place] 250 mg (as 250 mg (as 250 mg (as [facility] magnesium magnesium magnesium Urology oxide) oxide) oxide) tablet Take tablet Take tablet 500 mg 500 mg Take 500 every day every day mg every by oral by oral day by route. route. oral route. metoclopram metoclopram No metoclopra [place] laron 5 mg laron 5 mg mide 5 mg Me tro tablet TAKE tablet TAKE tablet Urology ONE (1) ONE (1) TAKE ONE TABLET(S) TABLET(S) (1) BY MOUTH BY MOUTH TABLET(S) FOUR TIMES FOUR TIMES BY MOUTH A DAY A DAY FOUR TIMES BEFORE BEFORE A DAY MEALS AND MEALS AND BEFORE AT BEDTIME. AT BEDTIME. MEALS AND AT BEDTIME. multivitami multivitami No multivitam [place] n n in [facility] nitrofurant nitrofurant No nitrofuran [place] oin oin toin [facility] macrocrysta macrocrysta macrocryst Urology l 50 mg l 50 mg al 50 mg capsule capsule capsule TAKE ONE TAKE ONE TAKE ONE (1) (1) (1) CAPSULE(S) CAPSULE(S) CAPSULE(S) BY MOUTH BY MOUTH BY MOUTH ONCE A DAY. ONCE A DAY. ONCE A DAY. prednisone prednisone No prednisone [place] 1 mg tablet 1 mg tablet 1 mg M etro TAKE ONE TAKE ONE tablet Urolo gy (1) (1) TAKE ONE TABLET(S) TABLET(S) (1) BY MOUTH BY MOUTH TABLET(S) ONCE A DAY. ONCE A DAY. BY MOUTH ONCE A DAY. prednisone prednisone No prednisone [place] 20 mg 20 mg 20 mg [facility] tablet TAKE tablet TAKE tablet Urology ONE (1) ONE (1) TAKE ONE TABLET(S) TABLET(S) (1) BY MOUTH IN BY MOUTH IN TABLET(S) THE MORNING THE MORNING BY MOUTH AND NIGHT AND NIGHT IN THE FOR 5 DAYS FOR 5 DAYS MORNING THEN 1 THEN 1 AND NIGHT TABLET TABLET FOR 5 DAYS DAILY FOR 5 DAILY FOR 5 THEN 1 DAYS. DAYS. TABLET DAILY FOR 5 DAYS. rosuvastati rosuvastati No rosuvastat [place] n 10 mg n 10 mg in 10 mg [facility] tablet TAKE tablet TAKE tablet Urology ONE (1) ONE (1) TAKE ONE TABLET(S) TABLET(S) (1) BY MOUTH BY MOUTH TABLET(S) NIGHTLY. NIGHTLY. BY MOUTH NIGHTLY. sulfamethox sulfamethox No sulfametho [place] azole 800 azole 800 xazole 800 [facility] mg-trimetho mg-trimetho mg-trimeth Urology prim 160 mg prim 160 mg oprim 160 tablet TAKE tablet TAKE mg tablet ONE (1) ONE (1) TAKE ONE TABLET(S) TABLET(S) (1) BY MOUTH BY MOUTH TABLET(S) EVERY EVERY BY MOUTH TWELVE TWELVE EVERY HOURS FOR HOURS FOR TWELVE SEVEN DAYS. SEVEN DAYS. HOURS FOR SEVEN DAYS. Sure Sure No Sure [place] Comfort Comfort Comfort [facility] Insulin Insulin Insulin Urolog y Syringe 0.3 Syringe 0.3 Syringe mL 31 gauge mL 31 gauge 0.3 mL 31 x 5/16" USE x 16" USE gauge x DIRECTED DIRECTED 06/27" USE FOR LANTUS FOR LANTUS AND HUMALOG AND HUMALOG DIRECTED INJECTIONS INJECTIONS FOR LANTUS 4 TIMES 4 TIMES AND DAILY. DAILY. HUMALOG INJECTIONS 4 TIMES DAILY. Sure Sure No Sure [place] Comfort Comfort Comfort [facility] Insulin Insulin Insulin Urolog y Syringe 0.5 Syringe 0.5 Syringe mL 31 gauge mL 31 gauge 0.5 mL 31 x 5/16" USE x 5/16" USE gauge x ONE (1) ONE (1) 5/16" USE SYRINGE SYRINGE ONE (1) ONCE A DAY. ONCE A DAY. SYRINGE ONCE A DAY. sure sure No sure [facility] comfort comfort [facility] insulin insulin insulin Urolog y syringe/u-1 syringe/u-1 syringe/u- 00/ / 100/ 0.3ml/31g x 0.3ml/31g x 0.3ml/31g 16 31g x /16 31g x x 16 31g 5/16" 0.3 5/16" 0.3 x 5/16" ml misc ml misc 0.3 ml misc sure sure No sure [facility] comfort comfort [facility] insulin insulin insulin Urolog y syringe/u-1 syringe/u-1 syringe/u- 00/ / 100/ 0.5ml/31g x 0.5ml/31g x 0.5ml/31g 16 31g x /16 31g x x 16 31g 16" 0.5 16" 0.5 x 16" ml misc ml misc 0.5 ml misc Vitamin B-6 Vitamin B-6 No Vitamin [place] 100 mg 100 mg B-6 100 mg [facility] tablet Take tablet Take tablet Urology by oral by oral Take by route. route. oral route. vitamin B12 vitamin B12 No vitamin [place] 1,000 1,000 B12 1,000 [facility] mcg-folic mcg-folic mcg-folic Urology acid 400 acid 400 acid 400 mcg mcg mcg sublingual sublingual sublingual lozenge lozenge lozenge Place by Place by Place by sublingual sublingual sublingual route. route. route. zinc zinc No zinc [place] [facility] allopurinol allopurinol No allopurino [place] 100 mg 100 mg l 100 mg [facility] tablet TAKE tablet TAKE tablet Urology ONE (1) ONE (1) TAKE ONE TABLET(S) TABLET(S) (1) BY MOUTH BY MOUTH TABLET(S) ONCE A DAY ONCE A DAY BY MOUTH (TAKE ALONG (TAKE ALONG ONCE A DAY WITH 300 MG WITH 300 MG (TAKE TABLETS). TABLETS). ALONG WITH 300 MG TABLETS). amiodarone amiodarone No amiodarone [place] 200 mg 200 mg 200 mg [facility] tablet TAKE tablet TAKE tablet Urology ONE (1) ONE (1) TAKE ONE TABLET(S) TABLET(S) (1) BY MOUTH BY MOUTH TABLET(S) TWICE A TWICE A BY MOUTH DAY. DAY. TWICE A DAY. Aspir-81 Aspir-81 No Aspir-81 [facility] Augmentin Augmentin No 1 Q12H Augmentin [place] 500 mg-125 500 mg-125 500 mg-125 [facility] mg tablet mg tablet mg tablet Urology Take 1 Take 1 Take 1 tablet tablet tablet every 12 every 12 every 12 hours by hours by hours by oral route oral route oral route for 10 for 10 for 10 days. days. days. citalopram citalopram No citalopram [place] 20 mg 20 mg 20 mg [facility] tablet tablet tablet Urology digoxin 125 digoxin 125 No digoxin [place] mcg (0.125 mcg (0.125 125 mcg [facility] mg) tablet mg) tablet (0.125 mg) Urology TAKE ONE TAKE ONE tablet (1) (1) TAKE ONE TABLET(S) TABLET(S) (1) BY MOUTH BY MOUTH TABLET(S) DAILY. DAILY. BY MOUTH DAILY. Eliquis 5 Eliquis 5 No Eliquis 5 [facility] mg tablet mg tablet mg tablet [facility] TAKE ONE TAKE ONE TAKE ONE Uro logy (1) (1) (1) TABLET(S) TABLET(S) TABLET(S) BY MOUTH BY MOUTH BY MOUTH TWICE A TWICE A TWICE A DAY. DAY. DAY. ertapenem 1 ertapenem 1 No ertapenem [place] gram gram 1 gram [facility] solution solution solution Uro logy for for for injection injection injection Fish Oil Fish Oil No Fish Oil Flaco ston [facility] furosemide furosemide No furosemide [place] 40 mg 40 mg 40 mg [facility] tablet TAKE tablet TAKE tablet Urology TWO (2) TWO (2) TAKE TWO TABLET(S) TABLET(S) (2) BY MOUTH BY MOUTH TABLET(S) TWICE A TWICE A BY MOUTH DAY. DAY. TWICE A DAY. GaviLyte-G GaviLyte-G No GaviLyte-G [place] 236 236 236 [facility] gram-22.74 gram-22.74 gram-22.74 Urology gram-6.74 gram-6.74 gram-6.74 gram-5.86 gram-5.86 gram-5.86 gram oral gram oral gram oral solution solution solution TAKE BY TAKE BY TAKE BY MOUTH MOUTH MOUTH DIRECTED. DIRECTED. DIRECTED. hydroxyzine hydroxyzine No hydroxyzin [place] HCl 25 mg HCl 25 mg e HCl 25 M etro tablet TAKE tablet TAKE mg tablet Urology ONE (1) ONE (1) TAKE ONE TABLET(S) TABLET(S) (1) BY MOUTH AT BY MOUTH AT TABLET(S) BEDTIME. BEDTIME. BY MOUTH AT BEDTIME. ketoconazol ketoconazol No ketoconazo [place] e 2 % e 2 % le 2 % [facility] shampoo shampoo shampoo Urolog y APPLY TO APPLY TO APPLY TO AFFECTED AFFECTED AFFECTED AREA AREA AREA DIRECTED. DIRECTED. DIRECTED. LEAVE ON LEAVE ON LEAVE ON FOR ONE (1) FOR ONE (1) FOR ONE MINUTE THEN MINUTE THEN (1) MINUTE RINSE OFF. RINSE OFF. THEN RINSE OFF. Klor-Con Klor-Con No Klor-Con Flaco ston M20 mEq M20 mEq M20 mEq [facility] tablet,exte tablet,exte tablet,ext Urology nded nded ended release release release TAKE ONE TAKE ONE TAKE ONE (1) (1) (1) TABLET(S) TABLET(S) TABLET(S) BY MOUTH BY MOUTH BY MOUTH ONCE A DAY. ONCE A DAY. ONCE A DAY. levocetiriz levocetiriz No levocetiri [place] ine 5 mg ine 5 mg zine 5 mg Me tro tablet TAKE tablet TAKE tablet Urology ONE (1) ONE (1) TAKE ONE TABLET(S) TABLET(S) (1) BY MOUTH AT BY MOUTH AT TABLET(S) BEDTIME. BEDTIME. BY MOUTH AT BEDTIME. linezolid linezolid No linezolid [place] 600 mg 600 mg 600 mg [facility] tablet tablet tablet Urology metformin metformin No metformin [place] 1,000 mg 1,000 mg 1,000 mg Met ro tablet TAKE tablet TAKE tablet Urology ONE (1) ONE (1) TAKE ONE TABLET(S) TABLET(S) (1) BY MOUTH BY MOUTH TABLET(S) TWICE A TWICE A BY MOUTH DAY. DAY. TWICE A DAY. methylpredn methylpredn No methylpred [place] isolone 4 isolone 4 nisolone 4 [facility] mg tablets mg tablets mg tablets Urology in a dose in a dose in a dose pack USE pack USE pack USE DIRECTED BY DIRECTED BY PACKAGE PACKAGE DIRECTED INSTRUCTION INSTRUCTION BY PACKAGE S (DO NOT S (DO NOT INSTRUCTIO SPACE OUT SPACE OUT NS (DO NOT OVER THE OVER THE SPACE OUT DAY). DAY). OVER THE DAY). metolazone metolazone No metolazone [place] 5 mg tablet 5 mg tablet 5 mg M etro TAKE ONE TAKE ONE tablet Urolo gy (1) (1) TAKE ONE TABLET(S) TABLET(S) (1) BY MOUTH BY MOUTH TABLET(S) ONCE A DAY. ONCE A DAY. BY MOUTH ONCE A DAY. metoprolol metoprolol No metoprolol [place] tartrate tartrate tartrate Met ro 100 mg 100 mg 100 mg Urology tablet TAKE tablet TAKE tablet ONE (1) ONE (1) TAKE ONE TABLET(S) TABLET(S) (1) BY MOUTH BY MOUTH TABLET(S) TWICE A TWICE A BY MOUTH DAY. DAY. TWICE A DAY. nitroglycer nitroglycer No nitroglyce [place] in 0.4 mg in 0.4 mg rin 0.4 mg [facility] sublingual sublingual sublingual Urology tablet tablet tablet DISSOLVE DISSOLVE DISSOLVE ONE (1) ONE (1) ONE (1) TABLET TABLET TABLET UNDER UNDER UNDER TONGUE TONGUE TONGUE EVERY 5 EVERY 5 EVERY 5 MINUTES MINUTES MINUTES NEEDED FOR NEEDED FOR NEEDED FOR CHEST PAIN CHEST PAIN CHEST PAIN FOR UP TO 3 FOR UP TO 3 FOR UP TO DOSES. DOSES. 3 DOSES. ondansetron ondansetron No ondansetro [place] HCl 4 mg HCl 4 mg n HCl 4 mg M etro tablet tablet tablet Urology pantoprazol pantoprazol No pantoprazo [place] e 40 mg e 40 mg le 40 mg [facility] tablet,luis tablet,luis tablet,del Urology yed release yed release ayed TAKE ONE TAKE ONE release (1) (1) TAKE ONE TABLET(S) TABLET(S) (1) BY MOUTH BY MOUTH TABLET(S) ONCE A DAY. ONCE A DAY. BY MOUTH ONCE A DAY. prednisone prednisone No prednisone [place] 5 mg tablet 5 mg tablet 5 mg M etro TAKE ONE TAKE ONE tablet Urolo gy (1) (1) TAKE ONE TABLET(S) TABLET(S) (1) BY MOUTH BY MOUTH TABLET(S) DAILY. DAILY. BY MOUTH DAILY. Trulicity Trulicity No Trulicity [place] 1.5 mg/0.5 1.5 mg/0.5 1.5 mg/0.5 [facility] mL mL mL Urology subcutaneou subcutaneou subcutaneo s pen s pen us pen injector injector injector INJECT 1.5 INJECT 1.5 INJECT 1.5 MG MG MG SUBCUTANEOU SUBCUTANEOU SUBCUTANEO SLY ONCE A SLY ONCE A USLY ONCE WEEK. WEEK. A WEEK. zinc zinc No zinc [facility] allopurinol allopurinol No allopurino [place] 100 mg 100 mg l 100 mg [facility] tablet TAKE tablet TAKE tablet Urology ONE (1) ONE (1) TAKE ONE TABLET(S) TABLET(S) (1) BY MOUTH BY MOUTH TABLET(S) ONCE A DAY ONCE A DAY BY MOUTH (TAKE WITH (TAKE WITH ONCE A DAY 300 MG 300 MG (TAKE WITH TABLETS). TABLETS). 300 MG TABLETS). allopurinol allopurinol No allopurino [place] 300 mg 300 mg l 300 mg [facility] tablet TAKE tablet TAKE tablet Urology ONE (1) ONE (1) TAKE ONE TABLET(S) TABLET(S) (1) BY MOUTH BY MOUTH TABLET(S) ONCE A DAY. ONCE A DAY. BY MOUTH ONCE A DAY. amiodarone amiodarone No amiodarone [place] 200 mg 200 mg 200 mg [facility] tablet TAKE tablet TAKE tablet Urology ONE (1) ONE (1) TAKE ONE TABLET(S) TABLET(S) (1) BY MOUTH BY MOUTH TABLET(S) TWICE A TWICE A BY MOUTH DAY. DAY. TWICE A DAY. amoxicillin amoxicillin No amoxicilli [place] 500 500 n 500 [facility] mg-potassiu mg-potassiu mg-potassi Urology m m um clavulanate clavulanate clavulanat 125 mg 125 mg e 125 mg tablet TAKE tablet TAKE tablet ONE (1) ONE (1) TAKE ONE TABLET(S) TABLET(S) (1) BY MOUTH BY MOUTH TABLET(S) EVERY EVERY BY MOUTH TWELVE TWELVE EVERY HOURS FOR HOURS FOR TWELVE SEVEN DAYS. SEVEN DAYS. HOURS FOR SEVEN DAYS. Aspir-81 Aspir-81 No Aspir-81 Flaco ston [facility] citalopram citalopram No citalopram [place] 20 mg 20 mg 20 mg [facility] tablet tablet tablet Urology digoxin 125 digoxin 125 No digoxin [place] mcg (0.125 mcg (0.125 125 mcg [facility] mg) tablet mg) tablet (0.125 mg) Urology TAKE ONE TAKE ONE tablet (1) (1) TAKE ONE TABLET(S) TABLET(S) (1) BY MOUTH BY MOUTH TABLET(S) DAILY. DAILY. BY MOUTH DAILY. Immunizations Ordered Immunization Filled Immunization Date Status Commen ts Source Name Name Petrabytes READY TO USE 2021-08-12 Completed [facility] COVID-19 MRNA 00:00:00 Hospital VACCINATION FLUZONE HIGH-DOSE PF 2020-12-17 Completed [facility] 00:00:00 [facility] PFIZER COVID-19 MRNA 2020-12-17 Completed [facility] VACCINATION 00:00:00 [facility] PFIZER COVID-19 MRNA 2020-05-20 Completed [facility] VACCINATION 00:00:00 [facility] COVID-19 MRNA 2020-04-29 Completed [facility] VACCINATION 00:00:00 [facility] FLUZONE HIGH-DOSE PF 2020-01-20 Completed [facility] 00:00:00 Hospital Pneumococcal 2019-03-19 Completed [facility] Polysaccharide 00:00:00 Hospital Influenza, 2018-11-12 Completed [facility] Unspecified 00:00:00 Hospital influenza, influenza, 2018-11-12 Completed [place] [facility] injectable, injectable, 00:00:00 Urology quadrivalent quadrivalent influenza, influenza, 2018-11-12 Completed [place] [facility] injectable, injectable, 00:00:00 Urology quadrivalent quadrivalent influenza, influenza, 2018-11-[address] [facility], 00:00:00 Urology quadrivalent quadrivalent influenza, influenza, 2018-11-12 Completed [place] [facility] injectable, injectable, 00:00:00 Urology quadrivalent quadrivalent influenza, influenza, 2018-11-[address] [facility] injectable, 00:00:00 Urology quadrivalent quadrivalent influenza, influenza, 2018-11-[address] [facility], injectable, 00:00:00 Urology quadrivalent quadrivalent FLUCELVAX QUAD PF 2018-10-[address] 00:00:00 [facility] Pneumococcal 2017-05-04 Completed [facility] Conjugate 13-Valent 00:00:00 Hospi david FLUCELVAX QUAD PF 2017-05-[address] 00:[facility] Hospital Vital Signs Vital Name Observation Time Observation Value Comments Source BP Diastolic 2022-05-10 00:00:00 81 mm[Hg] [facility] Height 2022-05-10 00:00:00 70 [in_i] [facility] BMI (Body Mass 2022-05-10 00:00:00 32.3 kg/m2 [facility] Index) Urology BP Systolic 2022-05-10 00:00:00 122 mm[Hg] [facility] Body Weight 2022-05-10 00:00:00 225 [lb_av] [facility] BP Diastolic 2022-03-15 00:00:00 80 mm[Hg] [facility] Height 2022-03-15 00:00:00 70 [in_i] [facility] BMI (Body Mass 2022-03-15 00:00:00 32.3 kg/m2 [place] [facility] Index) Urology BP Systolic 2022-03-15 00:00:00 118 mm[Hg] [facility] Body Weight 2022-03-15 00:00:00 225 [lb_av] [facility] BP Diastolic 2021-12-09 00:00:00 74 mm[Hg] [facility] Height 2021-12-09 00:00:00 70 [in_i] [facility] BMI (Body Mass 2021-12-09 00:00:00 32.3 kg/m2 [place] [facility] Index) Urology BP Systolic 2021-12-09 00:00:00 136 mm[Hg] [facility] Body Weight 2021-12-09 00:00:00 225 [lb_av] [facility] BP Diastolic 2021-09-02 00:00:00 72 mm[Hg] [facility] Height 2021-09-02 00:00:00 70 [in_i] [facility] BMI (Body Mass 2021-09-02 00:00:00 32.3 kg/m2 [place] [facility] Index) Urology BP Systolic 2021-09-02 00:00:00 132 mm[Hg] [facility] Body Weight 2021-09-02 00:00:00 225 [lb_av] [facility] Height 2020-10-20 00:00:00 70 [in_i] [facility] BMI (Body Mass 2020-10-20 00:00:00 32.3 kg/m2 [place] [facility] Index) [facility] Body Weight 2020-10-20 00:00:00 225 [lb_av] [facility] Height 2020-07-08 00:00:00 70 [in_i] [facility] BMI (Body Mass 2020-07-08 00:00:00 32.3 kg/m2 [place] [facility] Index) [facility] Body Weight 2020-07-08 00:00:00 225 [lb_av] [facility] Systolic blood 2022-06-12 15:19:00 98 mm[Hg] [facility] pressure Diastolic blood 2022-06-12 15:19:00 57 mm[Hg] [facility] pressure Heart rate 2022-06-12 15:19:00 94 /min [facility] Body height 2022-06-12 15:19:00 177.8 cm [facility] Body weight 2022-06-12 15:19:00 73.483 kg [facility] BMI 2022-06-12 15:19:00 23.24 kg/m2 [facility] Height 2022-03-14 17:03:00 5 [ft_i] [facility] Weight 2022-03-14 17:03:00 [facility] BMI Calculated 2022-03-14 17:03:00 [facility] Body temperature 2022-03-06 15:23:00 36.67 Lola [facility] Oxygen saturation in 2022-03-06 15:23:00 98 /min [facility] Arterial blood by Pulse oximetry Procedures Procedure Date / Time Performing Clinician Source Performed US, renal 2022-05-10 00:00:00 Lucas boyle Urology COMPREHENSIVE METABOLIC 2022-05-02 13:21:00 [facility] PANEL HEMOGLOBIN A1C 2022-05-02 13:21:00 [facility]ital LIPID PANEL 2022-05-02 13:21:00 [facility] T3, FREE 2022-05-02 13:21:00 [facility] T4, FREE 2022-05-02 13:21:00 [facility] THYROID STIMULATING 2022-05-02 13:21:00 [facility] HORMONE THYROID PEROXIDASE 2022-05-02 13:21:00 [facility] ANTIBODY THYROGLOBULIN ANTIBODY 2022-05-02 13:21:00 [facility] ECG 12-LEAD 2022-04-24 13:16:28 Ancelmo Wong [facility] spital TTE COMPLETE, WO 2022-03-27 15:44:29 Ancelmo Wong H ospital CONTRAST, W DOPPLER ([id number]) CT LUMBAR SPINE WO 2022-03-10 13:38:45 [facility] CONTRAST CT THORACIC SPINE WO 2022-03-10 13:29[facility]OT[facility] 2022-03-06 16:07:00 [facility] Ho spital ALT (SGPT) 2022-03-06 16:07:00 [facility] Ho spital CREATININE LEVEL 2022-03-06 16:07:00 [facility] H ospital ALBUMIN LEVEL 2022-03-06 16:07:00 [facility] Ho spital CBC WITH PLATELET AND 2022-03-06 16:07:00 [facility] DIFFERENTIAL SEDIMENTATION RATE 2022-03-06 16:07:00 [facility] C-REACTIVE PROTEIN 2022-03-06 16:07:00 [facility] URIC ACID LEVEL 2022-03-06 16:07:00 [facility] spital ECG 12-LEAD 2022-01-23 14:32:06 Ancelmo Wong Ho spital CBC WITH PLATELET AND 2021-09-05 17:40:[address] [facility] DIFFERENTIAL COMPREHENSIVE METABOLIC 2021-09-05 17:40:00 [facility] PANEL SEDIMENTATION RATE 2021-09-05 17:40:00 [facility] C-REACTIVE PROTEIN 2021-09-05 17:40:00 [facility] URIC ACID LEVEL 2021-09-05 17:40:00 [facility] ANKLE BRACHIAL INDEX 2021-07-18 16:24:26 [facility] DUPLEX ARTERIAL LOWER 2021-07-18 16:24:08 [facility] EXTREMITY BILATERAL Surgery/Procedure 2017-05-02 00:00:00 [facility] U[facility] Colonoscopy 2014-04-14 00:00:00 Lucas boyle Urology CARDIO- Pacemaker [facility] Urology Plan of Care Planned Activity Planned Date Details Comments Source Future Scheduled Test 2022-07-13 Hepatitis C screening [facility] 11:30:29 (procedure) [code = 920241365] Future Scheduled Test 2022-07-13 SHINGLES VACCINES (1 [facility] 11:30:29 of 2) [code = SHINGLES VACCINES (1 of 2)] Future Scheduled Test 2022-07-13 COLONOSCOPY SCREENING [facility] 11:30:29 [code = COLONOSCOPY SCREENING] Future Scheduled Test 2022-07-13 COVID-19 VACCINE (5 - [facility] 11:30:29 Booster for Pfizer series) [code = COVID-19 VACCINE (5 - Booster for Pfizer series)] Future Scheduled Test 2022-07-13 DIABETIC FOOT EXAM [facility] 11:30:29 [code = DIABETIC FOOT EXAM] Future Scheduled Test 2022-07-13 INFLUENZA VACCINE [facility] 11:30:29 [code = INFLUENZA VACCINE] Future Scheduled Test 2022-07-13 DIABETES: RETINAL EYE [facility] 11:30:29 EXAM [code = DIABETES: RETINAL EYE EXAM] Future Scheduled Test 2022-07-13 65+ PNEUMOCOCCAL Me [facility] 11:30:29 VACCINE (3 - PPSV23 if available, else PCV20) [code = 65+ PNEUMOCOCCAL VACCINE (3 - PPSV23 if available, else PCV20)] Diagnostic Test 2022-05-10 culture, urine + [facility] Pending 00:00:00 sensitivity [code = Urology culture, urine + sensitivity] Diagnostic Test 2022-05-10 urinalysis, dipstick [facility] Pending 00:00:00 [code = urinalysis, Urology dipstick] Diagnostic Test 2022-05-10 urinalysis, [place] Met[facility] o Pending 00:00:00 microscopic [code = Urology urinalysis, microscopic] Future Appointment 2022-08-16 Flaco Franco [facility] 09:00:00 [id number] [facility] Urology [facility] [address]; , [place] [address] Encounters Start End Encounter Admission Attending Care Care Encounter Source Date/Time Date/Time Type Type Clinicians Facility Department ID 2022-03-27 Outpatient [id number] [id number] Memoria 08:35:49 [id number] Alfredito [id number] 2022-06-29 2022-06-29 Transcribe Talavera, 1.2.840.1 [id number] Methodi 00:00:00 00:00:00 Kofi Holland [address]141[address]1.[address] 3.430.2.7 Hospit a .3.296526 l .8 2022-06-22 2022-06-22 Orders Анна, 1.2.840.1 [id number] Methodi 00:00:00 00:00:00 Only Cinthya [address]186.1.[address] 3.430.2.7 Hospit a .3.239596 l .8 2022-06-19 2022-06-19 Orders Patrickla, 1.2.840.0 [id number] Methodi 00:00:00 00:00:00 Only Cinthya 25020.1.[address] 3.430.2.7 Hospit a .3.492858 l .8 2022-06-12 2022-06-12 Office Анна, 1.2.840.9 [id number] Methodi 10:00:00 11:19:31 Visit Cinthya 33963.1.[address] 3.430.2.7 Hospit a .3.016630 l .8 2022-06-12 2022-06-12 Outpatient [facility] [id number] [place] 00:00:00 00:00:00 CINTHYA [address] 2022-06-12 2022-06-12 Travel 1.2.840.1 1.2.897.979 1622 [id number] Methodi 00:00:00 00:00:[address] 3.430.2.7 0.2.7.3.698 Ho spita .3.954042 084.8 l .8 2022-05-17 2022-05-17 Travel 1.2.840.1 1.2.136.939 0435 [id number] Methodi 00:00:00 00:00:[address] 3.430.2.7 0.2.7.3.698 Ho spita .3.667737 084.8 l .8 2022-05-10 2022-05-10 [place] [facility] [place] [id number] Joes alarcon 00:00:00 00:00:00 NarayanMilady Graves MD: [id number] Urology [facility] [address], [place] [address] , Ph. 2022-05-03 2022-05-03 Office Kathleen, 1.2.840.1 [id number] Methodi 08:20:00 09:34:01 Visit Rigo 37040.1.[address] 3.430.2.7 Hospit a .3.489217 l .8 2022-05-03 2022-05-03 Outpatient KATHLEEN [facility] [id number] [place] 00:00:00 00:00:[address]O [address] 2022-05-03 2022-05-03 Travel 1.2.840.1 1.2.549.341 [id number] [id number] Methodi 00:00:00 00:00:[address] 3.430.2.7 0.2.7.3.698 Ho spita .3.351927 084.8 l .8 2022-04-28 2022-04-28 Refill William, 1.2.840.1 [id number] Methodi 00:00:00 00:00:[address] Steve 3.430.2.7 Hospit a .3.979871 l .8 2022-04-24 2022-04-24 Office Amy, 1.2.840.1 [id number] Methodi 08:00:00 08:43:18 Visit Ancelmo 91540.1.[address] 3.430.2.7 Hospit a .3.610766 l .8 2022-04-24 2022-04-24 Outpatient AMY [facility] [id number] [place] 00:00:00 00:00:00 ANCELMO [address] 2022-04-24 2022-04-24 Travel 1.2.840.1 1.2.287.030 [id number] Methodi 00:00:00 00:00:[address] 3.430.2.7 0.2.7.3.698 Ho spita .3.851410 084.8 l .8 2022-03-14 2022-04-13 [facility] [id number] Memoria 16:45:00 05:59:00 [place] [address] l Alfredito Delarosaann 2022-03-14 2022-04-[facility] [id number] Memoria 16:45:00 05:59:[address] [place] 2022-04-13 2022-04-13 Outpatient [facility] 284 [id number] [place] 00:00:00 00:00:00 08361 [facility] 2022-04-13 2022-04-13 Outpatient [facility] 284 [id number] [place] 00:00:00 00:00:00 43833 [facility] 2022-04-13 2022-04-13 Outpatient [facility] 284 [id number] [place] 00:00:00 00:00:00 58797 [facility] 2022-04-13 2022-04-13 Outpatient [facility] 284 [id number] [place] 00:00:00 00:00:00 93181 [facility] 2022-04-13 2022-04-13 Outpatient [facility] 284 [id number] [place] 00:00:00 00:00:00 78269 [facility] 2022-04-13 2022-04-13 Outpatient [facility] 284 [id number] [place] 00:00:00 00:00:00 47851 [facility] 2022-04-13 2022-04-13 Outpatient [facility] 284 [id number] [place] 00:00:00 00:00:00 44618 [facility] 2022-03-14 2022-04-12 Outpatient Attdonna, JAVIERR TIRR [id number] 10:45:00 23:59:00 Kathleen 00 2022-03-29 2022-03-29 Telephone Perry, 1.2.840.1 [id number] Methodi 00:00:00 00:00:[address] 3.430.2.7 Hospit a .3.872765 l .8 2022-03-27 2022-03-27 Outpatient AMY, [facility] [id number] [place] 00:00:00 00:00:[address]MO [address] 2022-03-27 2022-03-27 Travel 1.2.840.1 1.2.455.994 [id number] Methodi 00:00:00 00:00:[address] 3.430.2.7 0.2.7.3.698 Ho spita .3.856500 084.8 l .8 2022-03-15 2022-03-15 [facility] [place] - [id number] Jose alarcon 00:00:00 00:00:00 [facility] Milady Camilo MD: [id number] Urology [address] [address], [place] [address] , Ph. 2022-03-13 2022-03-13 Outpatient [facility] 284 [place] 00:00:00 00:00:00 43676 [facility] 2022-03-13 2022-03-13 Outpatient [facility] 284 [place] 00:00:00 00:00:00 32301 [facility] 2022-03-13 2022-03-13 Outpatient [facility] [place] 00:00:00 00:00:00 [id number] [facility] 2022-03-10 2022-03-10 Hospital Attar, 1.2.840.1 [id number] Methodi 06:54:23 23:59:00 Encounter Kathleen 55346.1.1 [address] 3.430.2.7 Hospit a .3.827481 l .8 2022-03-10 2022-03-10 [facility] Attar, 1.2.840.1 [id number] Methodi 06:54:09 23:59:00 Encounter Kathleen 86611.1.1 179 s t 3.430.2.7 Hospit a .3.812524 l .8 2022-03-10 2022-03-10 Outpatient ATTAR, [facility] [id number] [place] 00:00:00 00:00:00 MOHAMMED [address] 2022-03-10 2022-03-10 Outpatient ATTAR, [facility] [id number] [place] 00:00:00 00:00:00 MOHAMMED [address] 2022-03-10 2022-03-10 Travel 1.2.840.1 1.2.986.074 [id number] Methodi 00:00:00 00:00:[address] 3.430.2.7 0.2.7.3.698 Ho spita .3.539061 084.8 l .8 2022-03-06 2022-03-06 Office [facility], 1.2.840.1 [id number] Methodi 09:20:00 10:15:26 Visit Latifa 65612.1.[address] 3.430.2.7 Hospit a .3.580229 l .8 2022-03-06 2022-03-06 Outpatient FAKOYA, [facility] [id number] [place] 00:00:00 00:00:00 LATIFA [address] 2022-03-06 2022-03-06 Travel 1.2.840.1 1.2.270.433 9598 049213 Methodi 00:00:00 00:00:[address] 3.430.2.7 0.2.7.3.698 Ho spita .3.517203 084.8 l .8 2022-03-02 2022-03-02 Outpatient [facility] 284 [id number] [place] 00:00:00 00:00:00 [address] [facility] 2022-02-20 2022-02-20 Community [facility], 1.2.840.1 [id number] [id number] Methodi 00:00:00 00:00:00 Orders Kathleen 57594.1.[address] 3.430.2.7 Hospit a .3.472167 l .8 2022-01-23 2022-01-23 Office Amy, 1.2.840.1 [id number] 5887 Methodi 08:00:00 09:29:02 Visit Ancelmo 64689.1.[address] 3.430.2.7 Hospit a .3.527224 l .8 2022-01-23 2022-01-23 Outpatient AMY [facility] [id number] [place] 00:00:00 00:00:00 ANCELMO [address] 2022-01-23 2022-01-23 Travel 1.2.840.1 1.2.432.931 9585 009445 Methodi 00:00:00 00:00:[address] 3.430.2.7 0.2.7.3.698 Ho spita .3.341532 084.8 l .8 2021-12-30 2021-12-30 Outpatient Praful_T VFP VFP [id number] 0-20 [facility] 00:00:00 00:00:00 [id number] Family Practic e 2021-12-29 2021-12-29 Office Kathleen, 1.2.840.1 [id number] Methodi 14:00:00 14:58:45 Visit Rigo 60333.1.[address] 3.430.2.7 Hospit a .3.962982 l .8 2021-12-29 2021-12-29 Outpatient KATHLEEN [facility] [id number] [place] 00:00:00 00:00:00 RIGO [address] 2021-12-29 2021-12-29 Travel 1.2.840.1 1.2.477.013 [id number] [id number] Methodi 00:00:00 00:00:[address] 3.430.2.7 0.2.7.3.698 Ho spita .3.545787 084.8 l .8 2021-12-14 2021-12-14 Outpatient Armstrong_B [facility]U [facility]U 284 193-202 [place] 00:00:00 00:00:00 04932 [facility] 2021-12-14 2021-12-14 Outpatient Armstrong_B [facility]U [facility]U 284 193-202 [place] 00:00:00 00:00:00 25896 [facility] 2021-12-13 2021-12-13 Outpatient Armstrong_B [facility]U [facility]U 284 193-202 [place] 00:00:00 00:00:00 15927 [facility] 2021-12-12 2021-12-12 Outpatient Armstrong_B HMU [facility]U 284 193-202 [place] 00:00:00 00:00:00 13744 [facility] 2021-12-09 2021-12-09 Outpatient Armstrong_B HMU HMU 284 193-202 [place] 00:00:00 00:00:00 76169 [facility] 2021-12-09 2021-12-09 [place] [facility] [place] [id number] Jose alarcon 00:00:00 00:00:00 Milady Lorenzana MD: [id number] [address] , Ph. 2021-11-24 2021-11-24 Outpatient Armstrong_B [facility]U [facility]U 284 [id number] [place] 00:00:00 00:00:00 43905 [facility] 2021-11-23 2021-11-23 Outpatient Armstrong_B [facility]U HMU 284 193-202 [place] 00:00:00 00:00:00 10840 [facility] 2021-11-07 2021-11-07 Patient Zeng, 1.2.840.1 [id number] Methodi 00:00:00 00:00:00 Outreach Brie [address]57.1.[address] 3.430.2.7 Hospit a .3.536004 l .8 2021-10-20 2021-10-20 Travel 1.2.840.1 1.2.513.814 1527 [id number] Methodi 00:00:00 00:00:[address] 3.430.2.7 0.2.7.3.698 Ho spita .3.315444 084.8 l .8 2021-10-03 2021-10-03 Outpatient Armstrong_B [facility] 284 193- [place] 00:00:00 00:00:00 [facility] 2021-09-22 2021-09-22 Office Kathleen, 1.2.840.1 [id number] Methodi 13:00:00 14:17:47 Visit Rigo 85232.1.[address] 3.430.2.7 Hospit a .3.362767 l .8 2021-09-22 2021-09-22 [facility] [id number] [place] 00:00:00 00:00:00 RIGO [address] 2021-09-22 2021-09-22 Travel 1.2.840.1 1.2.189.787 [id number] [id number] Methodi 00:00:00 00:00:[address] 3.430.2.7 0.2.7.3.698 Ho spita .3.762346 084.8 l .8 2021-09-16 2021-09-16 Outpatient Armstrong[facility]B [facility] [place] 284 193- [place] 00:00:00 00:00:00 [facility] 2021-09-07 2021-09-07 Outpatient Armstrong[facility]B [facility] [place] 284 193- [place] 00:00:00 00:00:00 [facility] 2021-09-05 2021-09-05 Office William, 1.2.840.1 [id number] Methodi 11:45:00 12:32:31 Visit Kathleen 37590.1.[address] Steve 3.430.2.7 Hospit a .3.185990 l .8 2021-09-05 2021-09-05 Outpatient Armstrong[facility]B [facility] [place] 284 193 [place] 11:14:00 11:14:00 [facility] 2021-09-05 2021-09-05 Outpatient WILLIAM [facility] [id number] [place] 00:00:00 00:00:00 [address]AM[address] 2021-09-05 2021-09-05 Travel 1.2.840.1 1.2.659.294 [id number] Methodi 00:00:00 00:00:[address] 3.430.2.7 0.2.7.3.698 Ho spita .3.139080 084.8 l .8 2021-09-02 2021-09-02 Outpatient Armstrong_B HMU U 284 [place] 09:41:00 09:41:00 [facility] 2021-09-02 2021-09-02 [place] [facility] [place] [id number] [facility] 00:00:00 Narayan [place] Milady Camilo MD: 26483 Urology [address] [address], [place] [address] , Ph. 2021-09-02 2021-09-02 Outpatient Rosado, [facility] [place] fef2 [id number] 00:00:00 00:00:00 Autumn [id number] [place] [id number] 2021-08-24 2021-08-24 Outpatient Armstrong_B [facility]U U 284 193 [place] 03:13:00 03:13:00 37545 [facility] 2021-07-20 2021-07-20 Lauren Matta, 1.2.840.1 [id number] Methodi 00:00:00 00:00:[address] 3.430.2.7 Hospit a .3.279618 l .8 2021-07-18 2021-07-18 Office Sadiq Bowling 1.2.840.1 [id number] Methodi 12:20:00 13:04:05 Visit Mino 45232.1.[address] 3.430.2.7 Hospit a .3.164646 l .8 2021-07-18 2021-07-18 Outpatient YARA, [facility] [id number] [place] 00:00:00 00:00:[address] 2021-07-18 2021-07-18 Outpatient YARA, [facility] [id number] [place] 00:00:00 00:00:[address] 2021-07-18 2021-07-18 Outpatient YARA, [facility] [id number] [place] 00:00:00 00:00:[address] 2021-07-18 2021-07-18 Travel 1.2.840.1 1.2.587.648 7162 [id number] Methodi 00:00:00 00:00:[address] 3.430.2.7 0.2.7.3.698 Ho spita .3.764081 084.8 l .8 2021-06-22 2021-06-22 Outpatient KATHLEEN, [facility] [id number] [place] 00:00:00 00:00:00 RIGO [address] 2021-05-26 2021-05-26 Outpatient DASHA, [facility] 021 [id number] [place] 00:00:00 00:00:00 PETER [address] 2021-05-03 2021-05-05 Inpatient CATHERINE, [facility] 064 [id number] [place] 00:00:00 00:00:00 ARMANDO [address] 2021-04-20 2021-04-20 Outpatient MARY KATE, [facility] [id number] [place] 00:00:00 00:00:00 ROBYN [address] 2021-04-07 2021-04-13 Inpatient CATHERINE, [facility] 027 [id number] [place] 00:00:00 00:00:00 ARMANDO [address] 2021-04-07 2021-04-07 Outpatient [facility] [id number] [place] 00:00:00 00:00:[address] 2021-04-07 2021-04-07 Outpatient [facility] [id number] [place] 00:00:00 00:00:[address] 2021-04-05 2021-04-05 Outpatient OPPERMANN, [facility] 2100 [id number] [place] 00:00:00 00:00:00 ROBYN [address] 2021-03-30 2021-03-30 Outpatient OPPERMANN, [facility] 2100 [id number] [place] 00:00:00 00:00:00 ROBYN [address] 2021-03-25 2021-03-25 Outpatient ATTAR, [facility] [id number] [place] 00:00:00 00:00:00 MOHAMMED [address] 2021-03-16 2021-03-16 Outpatient OPPERMANN, [facility] 2100 [id number] [place] 00:00:00 00:00:00 ROBYN [address] 2021-03-10 2021-03-10 Outpatient WILLIAM, [facility] [id number] [place] 00:00:00 00:00:00 MOHAMMED [address] 2021-03-09 2021-03-09 Outpatient OPPERMANN, [facility] 2100 [id number] [place] 00:00:00 00:00:00 ROBYN [address] 2021-03-02 2021-03-02 Outpatient OPPERMANN, [facility] 2100 [id number] [place] 00:00:00 00:00:00 ROBYN [address] 2021-01-11 2021-01-11 Outpatient Daniel_T VFP VFP [id number] 0-20 [facility] 11:06:00 11:06:00 [id number] Family Practic e 2020-12-29 2021-01-05 Inpatient CATHERINE, [facility] 064 [id number] [place] 00:00:00 00:00:00 ARMANDO [address] 2020-12-15 2020-12-17 Inpatient CATHERINE, [facility] 064 [id number] [place] 00:00:00 00:00:00 [address]ANDO [address] 2020-10-21 2020-10-21 Outpatient Armstrong_B HMU HMU 284 [id number] [place] 09:43:00 09:43:00 44414 [facility] 2020-10-20 2020-10-20 Outpatient Armstrong_B HMU HMU 284 [id number] [place] 03:01:00 03:01:00 58828 [facility] 2020-10-20 2020-10-20 Outpatient Rosado, HMU U 90c5 [id number] 00:00:00 00:00:00 [place] [id number] Narayan [id number] 2020-10-20 2020-10-20 [place] [facility] [place] [id number] H candineal 00:00:00 00:00:00 Narayan Zavala Milady Camilo Urosurya villegas MD: 72079 Urology [facility] [address], [place] [address] , Ph. 2020 2020 Outpatient BHARATI, [facility] [id number] [place] 00:00:00 00:00:[address] ALI [address] 2020-07-20 2020-07-20 Outpatient DOLLY, [facility] [id number] [place] 00:00:00 00:00:00 BULL 250 Method i 2020-07-16 2020-07-16 Outpatient DOLLY, [facility] [id number] [place] 00:00:00 00:00:00 BULL [address] 2020-07-13 2020-07-13 Outpatient Armstrong_B HMU U 284 [id number] [place] 08:31:00 08:31:00 38464 [facility] 2020-07-09 2020-07-09 Outpatient Armstrong_B HMU HMU 284 193-202 [place] 04:30:00 04:30:00 93210 [facility] 2020-07-08 2020-07-08 Outpatient Armstrong_B HMU HMU 284 [id number] [place] 11:34:00 11:34:00 47747 [facility] 2020-07-08 2020-07-08 Outpatient Ashlee, U U 1fa9 ee08-2 00:00:00 00:00:00 Autumn [id number] Narayan [id number] 2020-07-08 2020-07-08 Autumn U [place] - [id number] H dorian 00:00:00 00:00:00 Narayan Milady Love MD: 7777 Urology [facility] [address], [place] [address] , Ph. 2020-07-07 2020-07-07 Outpatient Armstrong_B [facility]U U 284 [id number] [place] 12:39:00 12:39:00 01233 [facility] 2020-07-06 2020-07-06 Outpatient Armstrong_B HMU U 284 [id number] [place] 10:24:00 10:24:00 15030 [facility] 2020-06-28 2020-06-28 Outpatient WILLIAM, [facility] [id number] [place] 00:00:00 00:00:00 MOHAMMED [address] 2020-05-20 2020-05-20 Outpatient ROBBEN, [facility] [id number] [place] 00:00:00 00:00:00 MARIO ALBERTO [address] 2020-04-29 2020-04-29 Outpatient [facility] [id number] [place] 00:00:00 00:00:[address] 2020-02-25 2020-02-25 Outpatient WILLIAM, [facility] [id number] [place] 00:00:00 00:00:00 MOHAMMED [address] 2019-12-22 2019-12-22 Outpatient OPAIMEEMANN, [facility] [id number] [place] 00:00:00 00:00:00 ROBYN [address] 2019-11-24 2019-11-24 Outpatient WILLIAM, [facility] [id number] [place] 00:00:00 00:00:00 MOHAMMED [address] 2019-11-20 2019-11-20 Outpatient Daniel_T VFP VFP [id number] 0-20 [facility] 05:01:00 05:01:00 [id number] Family Practic e 2019-10-13 2019-10-13 Outpatient WILLIAM, [facility] [id number] [place] 00:00:00 00:00:00 MOHAMMED [address] 2019-10-11 2019 Outpatient CATHERINE, [facility] 012 [id number] [place] 00:00:00 00:00:00 ARMANDO [address] 2019-09-30 2019-09-30 Outpatient NICOLE, [facility] [id number] [place] 00:00:00 00:00:00 CHRISSIE [address] 2019-07-29 2019-07-29 Outpatient RIVERA, [facility] [id number] [place] 00:00:00 00:00:00 CHRISSIE [address] 2019-07-29 2019-07-29 Outpatient RIVERA, [facility] [id number] [place] 00:00:00 00:00:00 CHRISSIE [address] 2019-05-11 2019-05-11 Emergency SORENSEN, [facility] 064 [id number] [place] 00:00:00 00:00:00 SAÚL [address] 2019-04-23 2019-04-23 Outpatient OPPERMANN, [facility] 2100 [id number] [place] 00:00:00 00:00:00 ROBYN [address] 2019-04-23 2019-04-23 Outpatient ROSADO, [facility] 2100 [id number] [place] 00:00:00 00:00:00 AUTUMN [address] 2019-04-11 2019-04-15 Inpatient KANDALA, [facility] [id number] [place] 00:00:00 00:00:00 RANGANATH [address] 2019-04-07 2019-04-07 Outpatient OPPERMANN, [facility] 2100 [id number] [place] 00:00:00 00:00:00 ROBYN [address] 2019-03-17 2019-03-19 Inpatient KANDALA, [facility] [id number] [place] 00:00:00 00:00:00 RANGANATH [address] 2018-12-27 2018-12-27 Outpatient ROSADO, [facility] 2100 [id number] [place] 00:00:00 00:00:00 AUTUMN [address] 2018-11-11 2018-11-11 Outpatient MARY KATE, [facility] 2100 [id number] [place] 00:00:00 00:00:00 ROBYN [address] 2018-10-17 2018-10-25 Inpatient YONNY, [facility] 012 [id number] [place] 00:00:00 00:00:00 COLT [address] Results Test Description Test Time Test Comments Results Result Comments Source Comprehensive metabolic panel 2022-05-04 01:03:00 Test Item Value Reference Range Interpretation Comme nts Glucose (test code = 77 mg/dL 65-139 Non-fa sting reference 2345-7) interval BUN (test code = 3094-0) 33 mg/dL 7-25 H Creatinine (test code = 1.80 mg/dL 0.70-1.35 H 2160-0) eGFR (test code = 06741-7) 41 See_Comment L T he eGFR is based on the CKD-EPI 202 1 equation. To ca lculate the new eGFR fr om a previous Creati nine or Cystatin Cresul t, go to https://www.kid art.org /professionals/ kdoqi/g fr%5Fcalculator [Automated mess age] The system [employer] generated this result transmitted ref erence range: > OR = 6 0 mL/min/1.73m2. The reference range was not used to int erpret this result as normal/abnormal . BUN/creatinine ratio (test 18 See_Comment [Automated message] code = 3097-3) The system [facility] generated this result transmitted ref erence range: 6 - 22 ( calc). The reference r mini was not used to interpret this result as normal/abnor mal. Sodium (test code = 140 mmol/L 709-492 7111-2) Potassium (test code = 5.6 mmol/L 3.5-5.3 H 2823-3) Chloride (test code = 101 mmol/L 98-110 2075-0) CO2 (test code = 2027-9) 32 mmol/L 20-32 Calcium (test code = 9.9 mg/dL 8.6-10.3 21388-8) Protein (test code = 6.7 g/dL 6.1-8.1 2885-2) Albumin, S (test code = 4.0 g/dL 3.6-5.1 1751-7) Globulin, total (test code 2.7 See_Comment [Automated message] = 95888-0) The system whic h generated this result transmitted ref erence range: 1.9 - 3. 7 g/dL (calc). The ref erence range was not u sed to interpret this result as normal/abnor mal. Albumin/globulin ratio 1.5 See_Comment [Aut omated message] (test code = 1759-0) The sys tem which generated this result transmitted ref erence range: 1.0 - 2. 5 (calc). The ref erence range was not u sed to interpret this result as normal/abnor mal. Total bilirubin (test code 0.3 mg/dL 0.2-1.2 = 1974-) Alkaline phosphatase (test 59 U/L 35-144 code = 6768-6) AST (test code = 1920-8) 46 U/L 10-35 H ALT (test code = 1742-6) 37 U/L 9-46 KENNETH (test code = KENNETH) FASTING:NO FASTING: NO RAC (test code = RAC) Performing Organization Information: Site ID: [facility]GA Name: [facility] Address: [address] [place] [phone] Director: Raffaele Stahl Lab Interpretation (test Abnormal code = 20907-0) [facility] [id number] 01:03:00 Test Item Value Reference Range Interpretation Comments Cholesterol, total 111 mg/dL <=200 (test code = 2093-3) HDL cholesterol 57 mg/dL See_Comment [Automated (test code = 2085-9) message ] The system which generated this result transmitted reference range : > OR = 40. The reference range was not used to interpret this result as normal/abnormal . Triglycerides (test 76 mg/dL <=150 code = 2571-8) LDL cholesterol 38 mg/dL (calc) Reference ra nge: calculated (test <100 Desira ble code = 61278-2) range <100 m g/dL for primary prevention; <70 mg/dL for patients with C HD or diabetic patients with > or = 2 CHD risk factors. LDL-C is now calculated using the Keith calculation, which is a validated novel method providin g better accuracy than the Friedewald equation in the estimation of LDL-C. Gaston Heath S et al. JIMMY. 2013;310(19): 3608-8759 (http://educati on .Litigain .com/faq/KUA187 ) Cholesterol/HDL 1.9 See_Comment [Automated ratio (test code = message] The 9830-1[employer]iant system which generated this result transmitted reference range : <5.0 (calc). Th e reference range was not used to interpret this result as normal/abnormal . Non-HDL cholesterol 54 See_Comment For fei ents with (test code = diabetes plus 1 43386-5) major ASCVD ris k factor, treatin g to a non-HDL-C goal of <100 mg/dL (LDL-C of <70 mg/dL) is considered a therapeutic option. [Automated message] The system which generated this result transmitted reference range : <130 mg/dL (calc). The reference range was not used to interpret this result as normal/abnormal . KENNETH (test code = FASTING:NO KENNETH) FASTING: NO RAC (test code = Performing RAC) Organization Information: Site ID: RGA Name: [facility] Address: [address] [place] [phone] Director: Raffaele Stahl [facility] [id number] 01:03:00 Test Item Value Reference Range Interpretation Comments Hemoglobin A1C 5.0 See_Comment For the purpo se of (test code = screening for t 4548-4) presence ofdiab etes: <5.7% Consisten t with the absence of diabetes5.7-6.4 % Consistent with increased risk for diabetes (prediabetes)> or =6.5% Consisten t with diabetes This a ssay result is consi stent with a decrease d riskof diabetes . Currently, no consensus exist s regarding use ofhemoglobin A1 c for diagnosis of di abetes in children. According to [place] Diabetes Associ ation (ADA)guidelines , hemoglobin A1c <7.0% represents optimalcontrol in non- di abetic patients. Differentmetric s may apply to specif ic patient populat ions. Standards of De dical Care in Diabetes(ADA). [Automated mess age] The system [employer] generated this result transmitted ref erence range: <5.7 % o f total Hgb. The reference range was not used to int erpret this result as normal/abnormal . KENNETH (test code = FASTING:NO KENNETH) FASTING: NO RAC (test code = Performing RAC) Organization Information: Site ID: [facility] Name: [facility] Address: [address] [place] [address] Director: Raffaele Thom [place] [address], [id number] 01:03:00 Test Item Value Reference Range Interpretation Comments T4, free (test code 1.1 ng/dL 0.8-1.8 = 3024-7) KENNETH (test code = FASTING:NO FASTING: NO KENNETH) RAC (test code = Performing Organization RAC) Information: Site ID: [facility] Name: [facility] Address: [address] [place] [address] Director: Raffaele Thom CohnFavioSelect Medical [facility], BeachwoodThyroid stimulating [id number] 01:03:00 Test Item Value Reference Range Interpretation Comments TSH (test 0.77 See_Comment [Automated mes chelsea] code = The system [employer]ley 3016-3) generated this result transmit rosalina reference range : 0.40 - 4.50 mIU /L. The reference r mini was not used to interpret this result as normal/abnormal . KENNETH (test FASTING:NO FASTING: code = KENNETH) NO RAC (test Performing code = RAC) Organization Information: Site ID: [facility] Name: [facility] Address: [address] [place] [address] Director: [place] [address], [id number] 01:03:00 Test Item Value Reference Range Interpretation Comments T3, free (test code 3.3 pg/mL 2.3-4.2 = 3051-0) KENNETH (test code = FASTING:NO FASTING: NO KENNETH) RAC (test code = Performing Organization RAC) Information: Site ID: [facility] Name: [facility] Address: [address] [place] [address] Director: Raffaele Stahl [facility] PlanoThyroperoxidase [id number] 01:03:00 Test Item Value Reference Range Interpretation Comments Thyroperoxidase Ab <1 See_Comment [Automat ed (test code = 8099-4) message ] The system which generated this result transmitted reference range : <9 IU/mL. The reference range was not used to interpret this result as normal/abnormal . KENNETH (test code = KENNETH) FASTING:NO FASTING: NO RAC (test code = RAC) Performing Organization Information: Site ID: IG [facility]: [facility] Address: [address] [place] [phone] Director: Dr. Raffaele Alcantara HospitalThyroglobulin [id number] 01:03:00 Test Item Value Reference Range Interpretation Comments Thyroglobulin Ab <1 See_Comment [Automated (test code = 8098-6) message ] The system which generated this result transmitted reference range : < or = 1 IU/mL. The reference range was not used to interpr et this result as normal/abnormal . KENNETH (test code = FASTING:NO KENNETH) FASTING: NO RAC (test code = Performing RAC) Organization Information: Site ID: IG Name: [facility] Address: [address] [place] [phone] Director: Dr. Raffaele Alcantara [facility] [id number] 13:36:59 Test Item Value Reference Range Interpretation Comments Ventricular rate (test 64 code = 253) Atrial rate (test code 64 = 255) MT interval (test code 282 = 266) QRSD interval (test 162 code = 260) QT interval (test code 480 = 264) QTC interval (test 495 code = 265) P axis 1 (test code = 47 267) QRS axis 1 (test code -32 = 268) T wave axis (test code 33 = 270) EKG impression (test Sinus rhythm with 1st code = 273) degree AV block-Left axis deviation-Right bundle branch block-Left ventricular hypertrophy ( R in aVL , Romhilt-Gomez )-Possible Lateral infarct (cited on or before 31-JAN-2014)-Inferior infarct (cited on or before 26-MAY-2009)-Abnormal ECG-In automated comparison with ECG of 23-JAN-2022 08:32,-MT interval has increased-Questionable change in initial forces of Anterolateral leads-Electronically Signed By Ancelmo Wong MD ([id number]), video tape editor Jennifer Meyers ([id number]) on 04/24/2022 8:36:58 AM [facility]2023-01-24 15:11:00 Test Item Value Reference Range Interpretation Comments Albumin, S (test 4.6 g/dL 3.8-4.8 code = 1751-7) KENNETH (test code = Performed at: KENNETH) [address] [id number] Director: Anshu Cerda MD, Phone: [phone] [facility]2023-01-24 15:11:00 Test Item Value Reference Range Interpretation Comments Creatinine (test code = 1.36 mg/dL 0.76-1.27 H 2160-0) eGFR (test code = 57 mL/min/1.73 >=59 L 49387-4) KENNETH (test code = KENNETH) Performed at: [address] [id number] Director: Anshu Cerda MD, Phone: [phone] Lab Interpretation (test Abnormal code = 39242-5) [facility] ([place])2022-03-07 15:11:00 Test Item Value Reference Range Interpretation Comments AST (test code 28 See_Comment [Automated m essage] = 1920-8) The system [employer] h generated this result transmit rosalina reference range : 0 - 40 IU/L. The reference range was not used to interpret this result as normal/abnormal . KENNETH (test code Performed at: - = KENNETH) [address] [id number] Director: Anshu Cerda MD, Phone: [phone] [facility] ([place])2022-03-07 15:11:00 Test Item Value Reference Range Interpretation Comments ALT (test code 29 See_Comment [Automated m essage] = 0342-6) The system [employer] h generated this result transmit rosalina reference range : 0 - 44 IU/L. The reference range was not used to interpret this result as normal/abnormal . KENNETH (test code Performed at: - = KENNETH) Lab[address] [id number] Director: Anshu Cerda MD, Phone: [phone] [facility]ano[facility] acid [id number] 15:11:00 Test Item Value Reference Range Interpretation Comments Uric acid 4.4 mg/dL 3.8-8.4 Therapeutic ta rget (test code = for gout patien ts: 3084-1) <6.0 KENNETH (test code Performed at: - = KENNETH) [facility] [id number] Director: Anshu Cerda MD, Phone: [phone] [facility]-reactive [id number] 15:11:00 Test Item Value Reference Range Interpretation Comments CRP (test code = 6 mg/L 0-1987-06) KENNETH (test code = Performed at: KENNETH) [facility] [id number] Director: Anshu Cerda MD, Phone: [phone] [facility] with platelet and [id number] 15:11:00 Test Item Value Reference Range Interpretation Comments WBC (test code = 7.3 See_Comment [Automated 6690-2) message] The system which generated this result transmitted reference range : 3.4 - 10.8 x10E3/uL. The reference range was not used to interpret this result as normal/abnormal . RBC (test code = 5.17 See_Comment [Automated 549-8) message] The system which generated this result transmitted reference range : 4.14 - 5.80 x10E6/uL. The reference range was not used to interpret this result as normal/abnormal . HGB (test code = 14.7 g/dL 13.0-17.7 718-7) HCT (test code = 45.0 % 37.5-51.0 4544-3) MCV (test code = 87 fL 79-97 787-2) MCH (test code = 28.4 pg 26.6-33.0 785-6) MCHC (test code = 32.7 g/dL 31.5-35.7 786-4) RDW (test code = 13.5 % 11.6-15.4 788-0) Platelet count (test 225 See_Comment [Autom ated code = 777-3) message] The system which generated this result transmitted reference range : 150 - 450 x10E3/uL. The reference range was not used to interpret this result as normal/abnormal . Neutrophils (test 52 % Not Estab. code = 770-8) Lymphocytes (test 31 % Not Estab. code = 736-9) Monocytes (test code 14 % Not Estab. = 5905-5) Eosinophils (test 2 % Not Estab. code = 713-8) Basophils (test code 1 % Not Estab. = 706-2) Neutrophils, absolute 3.8 See_Comment [Auto mated (test code = 751-8) message] The system which generated this result transmitted reference range : 1.4 - 7.0 x10E3/uL. The reference range was not used to interpret this result as normal/abnormal . Lymphocytes, absolute 2.2 See_Comment [Auto mated (test code = 731-0) message] The system which generated this result transmitted reference range : 0.7 - 3.1 x10E3/uL. The reference range was not used to interpret this result as normal/abnormal . Monocytes, absolute 1.0 See_Comment H [Automa rosalina (test code = 742-7) message] The system which generated this result transmitted reference range : 0.1 - 0.9 x10E3/uL. The reference range was not used to interpret this result as normal/abnormal . Eosinophils, absolute 0.2 See_Comment [Auto mated (test code = 711-2) message] The system which generated this result transmitted reference range : 0.0 - 0.4 x10E3/uL. The reference range was not used to interpret this result as normal/abnormal . Basophils, absolute 0.1 See_Comment [Automa rosalina (test code = 704-7) message] The system which generated this result transmitted reference range : 0.0 - 0.2 x10E3/uL. The reference range was not used to interpret this result as normal/abnormal . Immature granulocytes 0 % Not Estab. (test code = 68765-5) Immature 0.0 See_Comment [Automated granulocytes, message] The absolute (test code = system which 42543-2) generated this result transmitted reference range : 0.0 - 0.1 x10E3/uL. The reference range was not used to interpret this result as normal/abnormal . KENNETH (test code = KENNETH) Performed at: 01 - [facility] [address] [place], [place] [id number] Director: Anshu Cerda MD, Phone: [phone] Lab Interpretation Abnormal (test code = 02248-4) [facility] [id number] 15:11:00 Test Item Value Reference Range Interpretation Comments Sedimentation rate 7 See_Comment [Automat ed (test code = 4537-7) message ] The system which generated this result transmitted reference range : 0 - 30 mm/hr. T he reference range was not used to interpret this result as normal/abnormal . KENNETH (test code = Performed at: KENNETH) - [facility] [address] [place], [place] [id number] Director: Anshu Cerda MD, Phone: [phone] [facility]stick[facility] - [id number] 09:18:00 Test Item Value Reference Range Interpretation Comments leukocytes (test code = leukocytes) trace urobilinogen (test code = urobilinogen) neg protein (test code = protein) 100 pH (test code = pH) 6.5 blood (test code = blood) neg specific gravity (test code = specific 1.025 gravity) ketone (test code = ketone) neg bilirubin (test code = bilirubin) neg glucose (test code = glucose) 500 color (test code = color) clarity (test code = clarity) nitrite (test code = nitrite) neg [facility] LghhtxgCMRZ-WeS-5 (COVID-19) RNA [Presence] in Respiratory specimen by SHANNAN with probe [id number] 01:35:51 Test Item Value Reference Range Interpretation Comments SARS-CoV-2 (COVID-19) RNA Not detected [Presence] in Respiratory specimen by SHANNAN with probe detection (test code = 86021-8) Whether patient is employed in a Unknown healthcare setting (test code = 85090-7) Whether the patient has symptoms Unknown related to condition of interest (test code = 80970-9) Whether the patient was Unknown hospitalized for condition of interest (test code = 10359-0) Whether the patient was admitted Unknown to intensive care unit (ICU) for condition of interest (test code = 82072-4) Whether patient resides in a Unknown congregate care setting (test code = 03760-8) status (test code = Unknown 25662-6) Date and time of symptom onset Unknown (test code = 75277-1) LUCAS BURRELLSARS-CoV-2 (COVID-19) RNA [Presence] in Respiratory specimen by SHANNAN with probe [id number] 00:41:51 Test Item Value Reference Range Interpretation Comments SARS coronavirus RNA [Presence] Not detected in Isolate by SHANNAN with probe detection (test code = 97017-9) Whether patient is employed in a Unknown healthcare setting (test code = 50665-9) Whether the patient has symptoms Unknown related to condition of interest (test code = 79067-3) Whether the patient was Unknown hospitalized for condition of interest (test code = 06418-6) Whether the patient was admitted Unknown to intensive care unit (ICU) for condition of interest (test code = 40571-8) Whether patient resides in a Unknown congregate care setting (test code = 58714-2) status (test code = Unknown 97143-8) Date and time of symptom onset Unknown (test code = 94038-4) LUCAS BURRELLSARS-CoV-2 (COVID-19) RNA [Presence] in Respiratory specimen by SHANNAN with probe [id number] 00:41:51 Test Item Value Reference Range Interpretation Comments SARS-CoV-2 (COVID-19) RNA Not detected [Presence] in Respiratory specimen by SHANNAN with probe detection (test code = 69004-2) Whether patient is employed in a Unknown healthcare setting (test code = 52730-5) Whether the patient has symptoms Unknown related to condition of interest (test code = 69855-3) Whether the patient was Unknown hospitalized for condition of interest (test code = 41794-8) Whether the patient was admitted Unknown to intensive care unit (ICU) for condition of interest (test code = 05359-8) Whether patient resides in a Unknown congregate care setting (test code = 03650-6) status (test code = Unknown 96882-2) Date and time of symptom onset Unknown (test code = 78712-4) LUCAS BURRELLSARS-CoV-2 (COVID-19) RNA [Presence] in Respiratory specimen by SHANNAN with probe [id number] 23:26:09 Test Item Value Reference Range Interpretation Comments SARS-CoV-2 (COVID-19) RNA Not detected Not-Detected [Presence] in Respiratory specimen by SHANNAN with probe detection (test code = 39433-9) Whether patient is employed in a healthcare setting (test code = 31727-7) Whether the patient has symptoms related to condition of interest (test code = 80005-9) Patient was hospitalized because of this condition (test code = 30611-3) Whether the patient was admitted to intensive care unit (ICU) for condition of interest (test code = 03313-7) Whether patient resides in a congregate care setting (test code = 59521-6) LUCAS BURRELLSARS-CoV-2 (COVID-19) RNA [Presence] in Respiratory specimen by SHANNAN with probe [id number] 23:43:22 Test Item Value Reference Range Interpretation Comments SARS-CoV-2 (COVID-19) RNA Not detected Not-Detected [Presence] in Respiratory specimen by SHANNAN with probe detection (test code = 62414-5) Whether patient is employed in a healthcare setting (test code = 98179-0) Whether the patient has symptoms related to condition of interest (test code = 04052-2) Patient was hospitalized because of this condition (test code = 47231-5) Whether the patient was admitted to intensive care unit (ICU) for condition of interest (test code = 83527-9) Whether patient resides in a congregate care setting (test code = 75983-4) LUCAS BURRELLSARS-CoV-2 (COVID-19) RNA [Presence] in Respiratory specimen by SHANNAN with probe [id number] 14:14:19 Test Item Value Reference Range Interpretation Comments SARS-CoV-2 (COVID-19) RNA Not detected Not-Detected [Presence] in Respiratory specimen by SHANNAN with probe detection (test code = 45026-8) Whether patient is employed in a healthcare setting (test code = 01603-5) Whether the patient has symptoms related to condition of interest (test code = 96115-7) Patient was hospitalized because of this condition (test code = 38942-2) Whether the patient was admitted to intensive care unit (ICU) for condition of interest (test code = 27635-7) Whether patient resides in a congregate care setting (test code = 20592-8) [facility]
[2022-07-17] MEDS ORDERED: TETANUS & DIPHTHERIA TOX,ADULT 0.5 ML VIAL ONE (00:53)
--- NOTE | 2022-07-17 01:24 | EDPHYS ---
Physician Documentation [facility] Name: Gregory Payne Age: 66 yrs Sex: Male : 1955 Arrival Date: 07/16/2022 Time: 23:12 Bed 18 Private MD: ED Physician Mino Caro HPI: 07/17 01:16 This 66 yrs old Male presents to ER via EMS with unknown complaint. kdr 01:16 This 66 yrs old Male presents to ER via EMS with complaints of Fall, head injury, kdr facial laceration. 01:16 Patient states he was walking in the garage when he missed a step and fell striking his kdr head on the concrete. He presents with a laceration over the right lateral eyebrow. He denies any LOC. This happened some hours prior to arrival. He is not on any blood thinners. Patient refused CT scan. Patient also preferred nonsutured repair of the wound. Patient is otherwise nontoxic and appropriate on initial presentation. Onset: The symptoms/episode began/occurred just prior to arrival. Severity of symptoms: At their worst the symptoms were mild in the emergency department the symptoms. The patient has not experienced similar symptoms in the past. The patient has not recently seen a physician. Historical: - Allergies: 07/16 23:29 Colchicine; ll3 23:29 Fentanyl; ll3 23:29 GABAPENTIN; ll3 23:29 Naproxen; ll3 - Home Meds: 23:29 Aspirin Oral M,W,F [Active]; rosuvastatin 10 mg oral tablet daily [Active]; ll3 metoclopramide HCl 5 mg Oral tablet daily [Active]; Lasix 40 mg Oral tab 1 tab 2 times per day [Active]; carvedilol 12.5 mg oral tablet 2 times per day [Active]; allopurinol 300 mg Oral tablet daily [Active]; multivitamin Oral tab daily [Active]; Zinc Sulfate 50 mg daily Oral [Active]; nitrofurantoin macrocrystal 50 mg Oral capsule daily [Active]; magnesium oxide 500 mg Oral cap daily [Active]; iron/ferrous sulfate 65 mg daily [Active]; Lantus U-100 Insulin 100 unit/mL Sub-Q solution 15 U in AM [Active]; Jardiance 10 mg oral tablet daily [Active]; - Immunization history:: Client reports receiving the 2nd dose of the Covid vaccine. - Social history:: Smoking status: Patient denies any tobacco usage or history of. ROS: 07/17 01:16 Constitutional: Negative for fever, chills, and weight loss, Eyes: Negative for injury, kdr pain, redness, and discharge, Neck: Negative for injury, pain, and swelling, Cardiovascular: Negative for chest pain, palpitations, and edema, Respiratory: Negative for shortness of breath, cough, wheezing, and pleuritic chest pain, Abdomen/GI: Negative for abdominal pain, nausea, vomiting, diarrhea, and constipation, Back: Negative for injury and pain, : Negative for injury, bleeding, discharge, and swelling, MS/Extremity: Negative for injury and deformity, Neuro: Negative for headache, weakness, numbness, tingling, and seizure activity. Psych: Negative for depression, anxiety, suicide ideation, homicidal ideation, and hallucinations, Allergy/Immunology: Negative for hives, rash, and allergies, Endocrine: Negative for neck swelling, polydipsia, polyuria, polyphagia, and marked weight changes, Hematologic/Lymphatic: Negative for swollen nodes, abnormal bleeding, and unusual bruising. Skin: Positive for abrasion(s), laceration(s), of the outer aspect of right eyebrow, Negative for hematoma, Patient has multiple abrasions on his elbows and hands. He also has a laceration about 2 and half centimeters over the lateral right eyebrow.. Exam: 01:16 Constitutional: This is a well developed, well nourished patient who is awake, alert, kdr and in no acute distress. Head/Face: Normocephalic, atraumatic. Eyes: Pupils equal round and reactive to light, extra-ocular motions intact. Lids and lashes normal. Conjunctiva and sclera are non-icteric and not injected. Cornea within normal limits. Periorbital areas with no swelling, redness, or edema. Neck: Trachea midline, no thyromegaly or masses palpated, and no cervical lymphadenopathy. Supple, full range of motion without nuchal rigidity, or vertebral point tenderness. No Meningismus. Chest/axilla: Normal chest wall appearance and motion. Nontender with no deformity. No lesions are appreciated. Cardiovascular: Regular rate and rhythm with a normal S1 and S2. No gallops, murmurs, or rubs. Normal PMI, no JVD. No pulse deficits. Respiratory: Lungs have equal breath sounds bilaterally, clear to auscultation and percussion. No rales, rhonchi or wheezes noted. No increased work of breathing, no retractions or nasal flaring. Abdomen/GI: Soft, non-tender, with normal bowel sounds. No distension or tympany. No guarding or rebound. No evidence of tenderness throughout. Back: No spinal tenderness. No costovertebral tenderness. Full range of motion. MS/ Extremity: Pulses equal, no cyanosis. Neurovascular intact. Full, normal range of motion. Neuro: Awake and alert, GCS 15, oriented to person, place, time, and situation. Cranial nerves II-XII grossly intact. Motor strength 5/5 in all extremities. Sensory grossly intact. Cerebellar exam normal. Normal gait. Psych: Awake, alert, with orientation to person, place and time. Behavior, mood, and affect are within normal limits. 01:16 Skin: Appearance: normal except for affected area, injury, abrasion(s), small abrasion noted, laceration(s), the wound is approximately 2.5 cm(s), with a depth of .5 cm(s), of the outer aspect of right eyebrow. Vital Signs: 07/16 23:17 BP 98 / 70; Pulse 72; Resp 16; Temp 97.5(TE); Pulse Ox 100% on R/A; Weight 74.84 kg ll3 (R); Height 5 ft. 10 in. (R); Pain 3/10; /05 01:49 BP 120 / 53; Pulse 67; Resp 17; Pulse Ox 100% on R/A; ll3 07/16 23:17 Body Mass Index 23.67 (74.84 kg, 177.8 cm) ll3 07/16 23:17 Pain Scale: Adult ll3 Laceration: 01:16 Wound Repair of 2.5cm ( 1.0in ) subcutaneous laceration to right eye. Distal kdr neuro/vascular/tendon intact. Anesthesia: Local anesthetic administered with 1% lidocaine. Wound prep: Simple cleansing by nurse, Copious irrigation. Skin closed with 1-0 Prolene using Steri-Strip application with benzoin. Dressed with Neosporin, bandaid. Patient tolerated well. MDM: 01:16 Data reviewed: vital signs, nurses notes. ED course: Patient declined CAT scanning and kdr suturing. Patient was happy with the care provided the plan for discharge and follow-up. Advised the patient to keep an eye on the wound for secondary infection. Patient is on Bactrim at this time for the next few days.. 01:23 Patient medically screened. 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 Exp: ll3 07/23/2023. Lot #: [id number]. } Route: IM; Site: right deltoid; 01:48 Follow up: Response: No adverse reaction ll3 Disposition Summary: 07/17/22 01:23 Discharge Ordered Location: Home kdr Problem: new kdr Symptoms: have improved kdr Condition: Stable kdr Diagnosis - Unspecified injury of head, initial encounter kdr - Facial laceration (right orbit), multiple upper extremity abrasions, closed head kdr injury, Followup: kdr - With: Private Physician - When: 2 - 3 days - Reason: If symptoms return, Further diagnostic work-up, Recheck today's complaints, Continuance of care, Re-evaluation by your physician Discharge Instructions: - Discharge Summary Sheet kdr - Sterile Tape Wound Care kdr - Abrasion, [id number] kdr - Facial Laceration, [id number] kdr - Head Injury, Adult, [id number] kdr Forms: - Medication Reconciliation Form kdr - Thank You Letter kdr Signatures: Mino Caro MD MD kdr Kira Hewitt, RN RN 3
--- NOTE | 2022-07-17 01:24 | ER ---
Nurse's Notes [facility] Name: Gregory Payne Age: 66 yrs Sex: Male : 1955 Arrival Date: 07/16/2022 Time: 23:12 Bed 18 Private MD: Diagnosis: Unspecified injury of head, initial encounter;Facial laceration (right orbit), multiple upper extremity abrasions, closed head injury, Presentation: 07/16 23:17 Chief complaint: EMS states: Toned out for a fall, pt states he missed a step in his ll3 garage and landed on left side, laceration noted to right eyebrow, bleeding controlled, denies LOC, denies taking blood thinners. Coronavirus screen: Vaccine status: Patient reports receiving the 2nd dose of the covid vaccine. At this time, the client does not indicate any symptoms associated with coronavirus-19. Ebola Screen: No symptoms or risks identified at this time. Initial Sepsis Screen: Does the patient meet any 2 criteria? No. Patient's initial sepsis screen is negative. Does the patient have a suspected source of infection? No. Patient's initial sepsis screen is negative. Risk Assessment: Do you want to hurt yourself or someone else? Patient reports no desire to harm self or others. Onset of symptoms was July 16, 2022. 23:17 Method Of Arrival: EMS: [facility] 3 23:17 Acuity: RAH 3 ll3 Triage Assessment: 23:29 General: Appears uncomfortable, Behavior is calm, cooperative. Pain: Complains of pain ll3 in right eye Pain does not radiate. Pain currently is 3 out of 10 on a pain scale. Is continuous. Neuro: Level of Consciousness is awake, alert, obeys commands, Oriented to person, place, time, situation. Respiratory: Respiratory effort is even, unlabored, Respiratory pattern is regular, symmetrical. Derm: Wound noted outer aspect of right eyebrow Wound is Lac to right eyebrow, bleeding controlled, dressing applied. Musculoskeletal: Circulation, motion, and sensation intact. Historical: - Allergies: 23:29 Colchicine; ll3 23:29 Fentanyl; ll3 23:29 GABAPENTIN; ll3 23:29 Naproxen; ll3 - Home Meds: 23:29 Aspirin Oral M,W,F [Active]; rosuvastatin 10 mg oral tablet daily [Active]; ll3 metoclopramide HCl 5 mg Oral tablet daily [Active]; Lasix 40 mg Oral tab 1 tab 2 times per day [Active]; carvedilol 12.5 mg oral tablet 2 times per day [Active]; allopurinol 300 mg Oral tablet daily [Active]; multivitamin Oral tab daily [Active]; Zinc Sulfate 50 mg daily Oral [Active]; nitrofurantoin macrocrystal 50 mg Oral capsule daily [Active]; magnesium oxide 500 mg Oral cap daily [Active]; iron/ferrous sulfate 65 mg daily [Active]; Lantus U-100 Insulin 100 unit/mL Sub-Q solution 15 U in AM [Active]; Jardiance 10 mg oral tablet daily [Active]; - Immunization history:: Client reports receiving the 2nd dose of the Covid vaccine. - Social history:: Smoking status: Patient denies any tobacco usage or history of. Screenin:38 [facility] ED Fall Risk Assessment (Adult) History of falling in the last 3 months, ll3 including since admission Yes- single mechanical fall (1 pt) Confusion or Disorientation No (0 pts) Intoxicated or Sedated No (0 pts) Impaired Gait No (0 pts) Mobility Assist Device Used No (0 pt) Altered Elimination No (0 pt) Score/Fall Risk Level 0 - 2 = Low Risk Oriented to surroundings, Maintained a safe environment, Educated pt \T\ family on fall prevention, incl call for assistance when getting out of bed, Assessed \T\ reinforced patient's understanding of fall precautions. Abuse screen: Denies threats or abuse. Denies injuries from another. Nutritional screening: No deficits noted. Tuberculosis screening: No symptoms or risk factors identified. Assessment: 23:29 General: See triage assessment. ll3 Vital Signs: 23:17 BP 98 / 70; Pulse 72; Resp 16; Temp 97.5(TE); Pulse Ox 100% on R/A; Weight 74.84 kg ll3 (R); Height 5 ft. 10 in. (R); Pain 04/21; 07/17 01:49 BP 120 / 53; Pulse 67; Resp 17; Pulse Ox 100% on R/A; ll3 07/16 23:17 Body Mass Index 23.67 (74.84 kg, 177.8 cm) ll3 07/16 23:17 Pain Scale: Adult ll3 ED Course: 07/16 23:17 Patient arrived in ED. ll3 23:22 Triage completed. ll3 23:29 Arm band placed on Patient placed in an exam room, on a stretcher, on pulse oximetry. ll3 23:38 Patient has correct armband on for positive identification. Bed in low position. Call ll3 light in reach. Side rails up X 1. Adult w/ patient. 07/17 00:01 Mino Caro MD is Attending Physician. kdr 01:48 No provider procedures requiring assistance completed. Patient did not have IV access ll3 during this emergency room visit. Administered Medications: 01:06 Drug: Tetanus-Diphtheria Toxoid IM Adult 0.5 ml {Cake Tester: [employer]. Exp: ll3 07/23/2023. Lot #: [id number]. } Route: IM; Site: right deltoid; 01:48 Follow up: Response: No adverse reaction ll3 Medication: 01:48 Vaccine Information Statement (VIS) provided today. Questions and/or concerns ll3 addressed. VIS edition date: September 17, 2020. Outcome: 01:23 Discharge ordered by . kdr 01:48 Discharged to home via wheelchair, with family. ll3 01:48 Condition: stable 01:48 Discharge instructions given to patient, family, Instructed on discharge instructions, follow up and referral plans. Demonstrated understanding of instructions, follow-up care. 01:49 Patient left the ED. ll3 Signatures: Mino Caro MD MD kdr Loubet, Lynsea RN RN ll3
[2022-07-17 02:11] VITALS: BP 98/70; TEMP 97.5; O2SAT 100
== END 2022-07-17 01:49 | disposition home or self-care (01) ==
LOC: ER 23:12
PROC: 0HQ1XZZ Repair Face Skin, External Approach (ICD-10-PCS; principal; 2022-07-17)
DX: S01.111A Laceration without foreign body of right eyelid and periocular area, initial encounter (principal); S40.812A Abrasion of left upper arm, initial encounter; S40.811A Abrasion of right upper arm, initial encounter; S09.90XA Unspecified injury of head, initial encounter; Z23 Encounter for immunization; Z88.5 Allergy status to narcotic agent; Z88.6 Allergy status to analgesic agent; Z88.8 Allergy status to other drugs, medicaments and biological substances
CPT/HCPCS: 90471; 90714; 99284

== ENCOUNTER 2022-08-12 14:39 | Emergency (ER) | payer OTHER, MEDICARE ==
[2022-08-12] MEDS ORDERED: Ringers Lactate 1,000 ML IV ONE (15:11)
[2022-08-12 15:26] LABS: Absolute Lymphocytes (CBC) 1.9 K/uL (0.7-4.9); Lymphocytes % 14.2 % (15.3-44.8); MCV 88.2 fL (80-100); MPV 8.6 fL (7.6-11.3); RBC Red Blood Cell Count 4.08 M/uL (4.33-5.43)
[2022-08-12 15:35] LABS: Protime INR 1.11
--- OUTSIDE RECORDS SUMMARY | 2022-08-12 15:36 | XMS REPORT | Continuity of Care Document ---
:1955 Author Organization [facility] t Address [address] [place] [address] [place] [id number] Care Team Providers Name Role Phone Cinthya Ricardo MD Primary Care Physician MALCOM ARITA Attending Clinician Unavailable Cinthya Ricardo MD Attending Clinician Jaycee Attending Clinician Unavailable Rigo Wang MD Attending Clinician Kathleen Thomas MD Attending Clinician Ancelmo Wong MD Attending Clinician Kathleen Plummer Attending Clinician Tamiko Perry MA Attending Clinician Unavailable Kathleen Plummer MD Attending Clinician Kirsten Jordan DO Attending Clinician Pattie Attending Clinician Unavailable Brie Zeng RN Attending Clinician Unavailable Autumn Rosado Attending Clinician [phone] Maribeth Matta MA Attending Clinician Unavailable Jorge Livingston MD Attending Clinician WOODROW LOU Attending Clinician Unavailable ARMADNO ALEXANDER Attending Clinician Unavailable ROBYN HARTMANN Attending [...] Policy Number Effective Date Expiration Date S melia MEDICARE B-TX: [id number] 2013 [employer] SOLUTIONS 00:00:00 [facility] - [id number] 2017 OPTIONS 00:00:00 Problems Condition Condition Condition Status Onset Resolution Last Treating Co mments Source Name Details Category Date Date Treatment Clinician Date EVAL WITH EVAL WITH Diagnosis Active 2022-03-10 Alfonso LEE 1-20 12:47:00 l Active 00:00: Alfredito 03/03/2022 00 MH [facility] TODD WITH TODD Diagnosis Active 2022-05-05 Alfonso LEE WITH ROSA 1-20 12:24:00 l Active 00:00: Alfredito 03/03/2022 00 [facility] Anemia Anemia Disease Active [facility] 3 st 00:00: Hospita 00 l Vitamin D Vitamin D Disease Active Met hodi deficiency deficiency 2 st 00:00: Hospita 00 l 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 00:00: Hospit 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 y y 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 00:00: Hospita disease disease 00 l Obesity Obesity Disease Active [facility] (BMI (BMI 2-25 st 30-39.9) 30-39.9) 00:00: Hospit a 00 l Borderline Borderline Disease Active M ethodi abnormal abnormal 2 st TFTs TFTs 00:00: Hospita 00 l PAD PAD Disease Active [facility] (periphera (periphera 2-24 st l artery l artery 00:00: Hospit a disease) disease) 00 l (HCC) 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/TPA R 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 SCIENCE TEACHER/TPA Diabetic Diabetic Disease Active Metho di ulcer of ulcer of 1-14 st toe of toe of 00:00: Hospita left foot left foot 00 l associated associated with type with type 2 diabetes 2 diabetes mellitus, mellitus, limited to limited to breakdown breakdown of skin of skin Diabetic Diabetic Disease Active [facility]o di ulcer of ulcer of 1-14 st left lower left lower 00:00: Ho spita leg leg 00 l associated associated with type with type 2 diabetes 2 diabetes mellitus, mellitus, limited to limited to breakdown breakdown of skin of skin NSTEMI NSTEMI Disease Active 2020-02 [facility] (non-ST (non-ST 1-03 st elevated elevated 00:00: Hospit a myocardial myocardial 00 l infarction infarction ) ) [place] Disease Active M ethodi l fistula l fistula 8-31 st 00:00: Hospita 00 l Gout of [...] Added automatic ally from request for surgery [id number] Diverticul Diverticul Disease Active M ethodi itis of itis of 9-05 st large large 00:00: Hospita intestine intestine [...] Disease Active Met [facility] hypertensi hypertensi 05-02 st on on 00:00: Hospita 00 l CAD CAD Disease Active [facility] (coronary (coronary 05-02 artery artery 00:00: Hospita disease) disease) 00 l Scrotal Scrotal Disease Active [facility] edema edema 05-02 00:00: Hospita 00 l Neurogenic Neurogenic Problem Active [place] dysfunctio Dysfunctio 05-31 Me tro n of the n of the 00:00: Urolog y urinary Urinary 00 bladder Bladder Dysuria Dysuria Problem Active [place] 05-31 [facility] 00:00: Urology 00 PARAPLEGIA PARAPLEGI Diagnosis Active 2022-05-05 Alfonso , Milady, 12:24:00 l UNSPECIFIE UNSPECIFIE He rmmamadou D D Active [facility] Allergies, Adverse Reactions, [...] Method i ne ty to Intolerance 04-23 adverse 00:00: Hospita reaction 00 l s to drug Naproxen Propensi Active GI Method i Sodium ty to Intolerance 02-12 st adverse 00:00: Hospita reaction 00 l s to drug Aleve Allergy Active [place] to 02-12 [facility] substanc 00:00: Urology e 00 COLCHICI Allergy Active [place] to 02-12 [facility] substanc 00:00: Urology e 00 Flomax Allergy Active to 02-12 [facility] substanc 00:00: Urology e 00 Emily Allergy Active [place] to 02-12 [facility] substanc 00:00: Urology e 00 Linezoli Allergy Active [place]ching [place] [facility] Urology e Family History Family Member Diagnosis Comments Start Date Stop Date Source Natural father Heart disease [facility] Natural mother Cancer [facility] Natural mother Diabetes [facility] Natural mother Hypertension [facility] Natural sister Diabetes [facility] Social History Social Habit Start Date Stop Date Quantity Comments Source Gender identity 2021-03-01 Identifies as [facility] 23:04:24 male gender Hospital (finding) Sexual orientation 2021-03-01 [facility] 23:04:24 Hospital History of tobacco Current smoker [facility] Alcohol intake 2022-06-12 2022-06-12 Ex-drinker [facility] 00:00:00 00:00:00 (finding) Hospital Tobacco use and 2022-01-23 2022-01-23 Smokeless tobacco [facility] exposure 00:00:00 00:00:00 non-user Hospital Tobacco Comment 2022-01-23 2022-01-23 only as young [facility] 00:00:00 00:00:00 adult Hospital History of Social 2021-03-02 2021-03-[address] function 00:00:00 00:00:00 Hospital Sex Ass[birth year] At [birth year] M [facility] 00:00:00 00:00:00 Hospital Smoking Status Start Date Stop Date Source Ex-smoker 2022-01-23 00:00:00 2022-01-23 00:00:00 [facility] Medications Ordered Filled Start Stop Current Ordering Indication Dosage Frequency Signature Comments Components Source Medication Medication Date Date Medication? Clinician (SIG) Name Name pregabalin 2022- Yes [id number] 50mg QD Take 1 [facility] (Lyrica) 50 06-[address] MG capsule 00:00: 04:59 (50 [...] 44 :00 by mouth l nightly. calcium 2022-2022- No 1200{ca QD Take 1,200 [facility] carbonate 06-12 psule} capsules st (CALCIUM 11:26: 00:00 by mouth [facility] 600 ORAL) 44 :00 daily. l aspirin 2022- No 81mg [id number] Take 1 M ethodi (ECOTRIN) 06-12 [id number] tablet (81 st 81 MG 11:26: 00:00 3W mg total) Hospit a enteric 44 :00 by mouth 3 l coated (three) tablet times a week. nitrofurant 2022- No nitrofuran Methodi oin 06-[address] (MACRODANTI 11:26: 00:00 macrocryst Hospita N) 50 MG 44 :00 al 50 mg l capsule capsule TAKE ONE (1) CAPSULE(S) BY MOUTH ONCE A DAY. zinc 50 mg 0 Yes 50mg QD Take 50 mg M [...] by l mouth daily with breakfast. MAGNESIUM 2023-0 Yes 1{tbl} QD Take 1 Meth candelaria [...] Hospit a ORAL) 18 l APPLE CIDER 2022-0 Yes 2400{ca Take 2,400 [facility] VINEGAR 06-12 psule} capsules st ORAL 10:28: by mouth. Hospita 18 l cyanocobala 2022-0 Yes 1000ug QD Take 1 [facility] min 06-[address] (VITAMIN 10:28: (1,000 mcg Hos jorge B-12) 1000 18 total) by l MCG tablet mouth daily. UNABLE TO 2022-0 Yes 1000mg 1,000 mg. M ethodi FIND 06-[address] 10:28: oil Hospita 18 l allopurinoL 2022-0 Yes [id number] 300mg QD Take 1 [facility] (ZYLOPRIM) 06-[address] 300 MG 00:00: (300 mg Hospita tablet 00 total) by l mouth daily. aspirin 2022-0 Yes [id number] 81mg Q.[id number] Take 1 [facility] (ECOTRIN) 06-12 [id number] tablet (81 st 81 MG 00:00: 3W mg total) Hospita enteric 00 by mouth 3 l coated (three) tablet times a week. calcium 2022-0 Yes 1200mg QD Take 2 Method i carbonate - tablets st (Calcium 00:00: (1,200 mg [facility] 600) 600 mg 00 total) by l calcium mouth (1,500 mg) daily. tablet carvediloL 2022-0 Yes [id number] 12.5mg Q.5D Take 1 [facility] (COREG) 06-[address] 12.5 MG 00:00: (12.5 mg Hospit a tablet 00 total) by l mouth 2 (two) times a day with meals. empaglifloz 0 Yes [id number] 10mg QD Take 1 [facility] in - tablet (10 st (Jardiance) 00:00: mg total) H ospita 10 mg 00 by mouth l tablet daily. tablet nitrofurant 2022-0 Yes [id number] 100mg QD Take 2 [facility] oin 5- capsules st (MACRODANTI 00:00: (100 mg Hos jorge N) 50 MG 00 total) by l capsule mouth daily. rosuvastati 0 Yes [id number] 10mg QD Take 1 [facility] n (CRESTOR) 5 tablet (10 st 10 mg 00:00: mg total) Hospita tablet 00 by mouth l nightly. furosemide 0 Yes [id number] 40mg Q.5D Take 1 [facility] (LASIX) 40 06-12 tablet (40 st mg tablet 00:00: mg total) Hos jorge 00 by mouth 2 l (two) times a day. Lantus 0 Yes [id number] 10U QD Inject 0.1 [facility] U-100 06-12 mL (10 st Insulin 100 00:00: Units Hospi ta unit/mL 00 total) l injection under the (vial) skin daily. metoclopram 0 Yes [id number] 5mg Q.25D Take 0.5 [facility] laron 06-12 tablets (5 st (REGLAN) 10 00:00: mg total) H ospita MG tablet 00 by mouth 4 l (four) times a day. lisinopriL 0 2023- Yes [id number] 5mg QD Take 1 [facility] (PRINIVIL) 06-12 tablet (5 st 5 mg tablet 00:00: 04:59 mg total) Hospita 00 :00 by mouth l daily. gabapentin 2022-0 2022- No [id number] 300mg Q.[id number] Take 1 [facility] (Neurontin) 06-[id number] 300 mg 00:00: 00:00 3D (300 mg Hospita capsule 00 :00 total) by l mouth 3 (three) times a day as needed (sciatic pain) for up to 30 days. omega-3/dha No 1400mg QD Take 1,400 [facility] /epa/dpa/fi 05-03 03-[address] sh oil 09:04: 00:00 mouth Hospita (OMEGA-3 24 :00 daily. l 2100 ORAL) blood sugar Yes [id number] TID [facility] diagnostic 05-03 st strips 00:00: Hospita strip test 00 l strips insulin Yes 1{syrin QD 1 Syringe [facility] syr/ndl 05-03 ge} daily. st U100 half 00:00: Hospita tamika 0.5 mL 00 l 31 gauge x 5/16" syringe empaglifloz 2022- No 10mg QD Take 1 [...] mcg 21 :00 daily. l tablet predniSONE 2021-02 No 1mg QD Take 1 Meth candel[facility] (DELTASONE) 02-[address] 1 mg tablet 14:46: 00:00 mouth [facility] 31 :00 daily. l blood sugar 2021-02- No [id number] TID M ethodi diagnostic 02-28 st strips 00:00: 00:00 Hospita strip test 00 :00 l strips levothyroxi 2021-02- No 25ug Take 1 Met hodi ne [...] 2021- No 15U QD Inject 15 Meth cadnelaria GLARGINE 09-[address] (LANTUS) 14:11: 00:00 under the Hos jorge 100 unit/mL 50 :00 skin l injection daily. (vial) insulin 2021- No 5U [id number] Inject 5 [facility] regular 09-[id number] (HumuLIN-R) 14:09: 00:00 3D under the Hospita 100 unit/mL 25 :00 skin 3 l injection (three) times a day before meals. empaglifloz 2022- No 10mg QD Take 1 Met hodi in 8-11 03-22 tablet (10 st (Jardiance) 00:00: 00:00 mg total) Hospita 10 mg 00 :00 by mouth l tablet daily. tablet insulin No 10U QD Inject 0.1 Met hodi GLARGINE 09-2217 mL (10 st (LANTUS) 00:00: 00:00 Units Hospita 100 unit/mL 00 :00 total) l injection under the (vial) skin daily. acetaminoph No 1000mg Q.5D Take 1,000 [facility] en 7-25 07-[address] (TYLENOL) 12:24: 00:00 mouth 2 [facility] 500 MG 17 :00 (two) l tablet times a day as needed for mild pain or moderate pain. predniSONE No 1mg QD Take 1 Meth candelaria (DELTASONE) 07-20 tablet (1 st 1 mg tablet 00:00: 00:00 mg total) Hospita 00 :00 by mouth l daily for 90 days. lancets 30 Yes [id number] BID Met hodi gauge misc 06-22 st 00:00: Hospita 00 l blood sugar 2021- No [id number] BID M ethodi diagnostic 06-22 st strips [...] daily for tablet 90 days. pen needle, 2022- No Inject 4 M ethodi diabetic 32 3-02 05-[address] gauge x 00:00: 00:00 daily [facility] " 00 :00 l needle Eliquis [...] ston [facility] furosemide furosemide No furosemide [place] 40 mg 40 mg 40 mg [facility] tablet TAKE tablet TAKE tablet Urology TWO (2) TWO (2) TAKE TWO TABLET(S) TABLET(S) (2) BY MOUTH BY MOUTH TABLET(S) TWICE A TWICE A BY MOUTH DAY. DAY. TWICE A DAY. GaviLyte-G GaviLyte-G No GaviLyte-G [place] 236 236 236 [facility] gram-22.74 gram-22.74 gram-22.74 Urology gram-6.74 gram-6.74 gram-6.74 gram-5.86 gram-5.86 gram-5.86 gram oral gram oral gram oral solution solution solution TAKE BY TAKE BY TAKE BY MOUTH MOUTH MOUTH DIRECTED. DIRECTED. DIRECTED. hydroxyzine hydroxyzine No hydroxyzin [place] HCl 25 mg HCl 25 mg e HCl 25 M etro tablet TAKE tablet TAKE mg tablet Urology ONE (1) ONE (1) TAKE ONE TABLET(S) TABLET(S) (1) BY MOUTH AT BY MOUTH AT TABLET(S) BEDTIME. BEDTIME. BY MOUTH AT BEDTIME. ketoconazol ketoconazol No ketoconazo [place] e 2 % e 2 % le [...] ONCE A DAY. levocetiriz levocetiriz No levocetiri [place] ine 5 mg ine 5 mg zine 5 mg Me tro tablet TAKE tablet TAKE tablet Urology ONE (1) ONE (1) TAKE ONE TABLET(S) TABLET(S) (1) BY MOUTH AT BY MOUTH AT TABLET(S) BEDTIME. BEDTIME. BY MOUTH AT BEDTIME. linezolid linezolid No linezolid [place] 600 mg 600 mg 600 mg [facility] tablet tablet tablet Urology metformin metformin No metformin [place] 1,000 mg 1,000 mg 1,000 mg Met ro tablet TAKE tablet TAKE tablet Urology ONE (1) ONE (1) TAKE ONE TABLET(S) TABLET(S) (1) BY MOUTH BY MOUTH TABLET(S) TWICE A TWICE A BY MOUTH DAY. DAY. TWICE A DAY. methylpredn methylpredn No methylpred [place] isolone 4 isolone 4 nisolone 4 [facility] [...] OVER THE DAY). metolazone metolazone No metolazone [place] 5 mg tablet 5 mg tablet 5 mg M etro TAKE ONE TAKE ONE tablet Urolo gy (1) (1) TAKE ONE TABLET(S) TABLET(S) (1) BY MOUTH BY MOUTH TABLET(S) ONCE A DAY. ONCE A DAY. BY MOUTH ONCE A DAY. metoprolol metoprolol No metoprolol [place] tartrate tartrate tartrate Met ro 100 mg [...] DOSES. 3 DOSES. ondansetron ondansetron No ondansetro [place] HCl 4 mg HCl 4 mg n HCl 4 mg M etro tablet tablet tablet Urology pantoprazol pantoprazol No pantoprazo [place] e 40 mg e 40 mg le [...] WEEK. A WEEK. zinc zinc No zinc [facility] Accu-Chek Accu-Chek No Accu-Chek [place] Guide test Guide test Guide test [facility] strips USE strips USE strips USE Urology TO TEST TO TEST TO TEST TWICE TWICE TWICE DAILY. DAILY. DAILY. allopurinol allopurinol No allopurino [place] 300 mg 300 mg l 300 mg [facility] tablet TAKE tablet TAKE tablet Urology ONE (1) ONE (1) TAKE ONE TABLET(S) TABLET(S) (1) BY MOUTH BY MOUTH TABLET(S) TWICE A TWICE A BY MOUTH DAY. DAY. TWICE A DAY. amiodarone amiodarone No amiodarone [place] 200 mg 200 mg 200 mg [facility] tablet TAKE tablet TAKE tablet Urology ONE (1) ONE (1) TAKE ONE TABLET(S) TABLET(S) (1) BY MOUTH BY MOUTH TABLET(S) TWICE A TWICE A BY MOUTH DAY. DAY. TWICE A DAY. apple cider apple cider No apple [place] vinegar 600 vinegar 600 cider [facility] mg capsule mg capsule vinegar Urology Take by Take by 600 mg oral route. oral route. capsule Take by oral route. Aspir-81 Aspir-81 No Aspir-[address] [facility] calcium calcium No calcium [place] [facility] carvedilol carvedilol No carvedilol [place] 3.125 mg 3.125 mg 3.125 mg Met ro tablet TAKE tablet TAKE tablet Urology ONE (1) ONE (1) TAKE ONE TABLET(S) TABLET(S) (1) BY MOUTH BY MOUTH TABLET(S) TWICE A DAY TWICE A DAY BY MOUTH WITH FOOD. WITH FOOD. TWICE A DAY WITH FOOD. Cinnamon Cinnamon No Cinnamon Flaco ston [facility] ertapenem 1 ertapenem 1 No ertapenem [place] gram gram 1 gram [facility] solution solution solution Uro logy for for for injection injection injection Fish Oil Fish Oil No Fish Oil Flaco ston [facility] furosemide furosemide No furosemide [place] 40 mg 40 mg 40 mg [facility] [...] by oral route. Lantus Lantus No Lantus [place] Solostar Solostar Solostar Met ro U-100 U-100 U-100 Urology Insulin Insulin Insulin levothyroxi levothyroxi No levothyrox [place] ne 25 mcg ne 25 mcg ine [...] STOMACH. magnesium magnesium No 500mg Q1D magnesium [place] 250 mg (as 250 mg (as 250 mg (as [facility] magnesium magnesium magnesium Urology oxide) oxide) oxide) tablet Take tablet Take tablet 500 mg 500 mg Take 500 every day every day mg every by oral by oral day by route. route. oral route. metoclopram metoclopram No metoclopra [place] laron 5 mg laron 5 mg mide [...] AND AT BEDTIME. metoprolol metoprolol No metoprolol [place] tartrate tartrate tartrate Met ro 100 mg 100 mg 100 mg Urology tablet TAKE tablet TAKE tablet ONE (1) ONE (1) TAKE ONE TABLET(S) TABLET(S) (1) BY MOUTH BY MOUTH TABLET(S) TWICE A TWICE A BY MOUTH DAY. DAY. TWICE A DAY. multivitami multivitami No multivitam [place] n n in [facility] nitroglycer nitroglycer No nitroglyce [place] in 0.4 mg in 0.4 mg rin [...] TABS DIAL 911). pantoprazol pantoprazol No pantoprazo [place] e 40 mg e 40 mg le 40 mg [facility] tablet,luis tablet,luis tablet,del Urology yed release yed release ayed TAKE ONE TAKE ONE release (1) (1) TAKE ONE TABLET(S) TABLET(S) (1) BY MOUTH BY MOUTH TABLET(S) ONCE A DAY. ONCE A DAY. BY MOUTH ONCE A DAY. potassium potassium No potassium [place] chloride ER chloride ER chloride [facility] 20 mEq 20 mEq ER 20 mEq Urolog y tablet,exte tablet,exte tablet,ext nded nded ended release(par release(par release(pa t/cryst) t/cryst) rt/cryst) TAKE ONE TAKE ONE TAKE ONE (1) (1) (1) TABLET(S) TABLET(S) TABLET(S) BY MOUTH BY MOUTH BY MOUTH ONCE A DAY. ONCE A DAY. ONCE A DAY. prednisone prednisone No prednisone [place] 1 mg tablet 1 mg tablet 1 mg M etro TAKE ONE TAKE ONE tablet Urolo gy (1) (1) TAKE ONE TABLET(S) TABLET(S) (1) BY MOUTH BY MOUTH TABLET(S) ONCE A DAY. ONCE A DAY. BY MOUTH ONCE A DAY. rosuvastati rosuvastati No rosuvastat [place] n 10 mg n 10 mg in 10 mg [facility] tablet TAKE tablet TAKE tablet Urology ONE (1) ONE (1) TAKE ONE TABLET(S) TABLET(S) (1) BY MOUTH BY MOUTH TABLET(S) NIGHTLY. NIGHTLY. BY MOUTH NIGHTLY. Vitamin B-6 Vitamin B-6 No Vitamin [place] 100 mg 100 mg B-6 100 mg [facility] tablet Take tablet Take tablet Urology by oral by oral Take by route. route. oral route. vitamin B12 vitamin B12 No vitamin [place] 1,000 1,000 B12 1,000 [facility] mcg-folic mcg-folic mcg-folic Urology acid 400 acid 400 acid 400 mcg mcg mcg sublingual sublingual sublingual lozenge lozenge lozenge Place by Place by Place by sublingual sublingual sublingual route. route. route. zinc zinc No zinc [facility]rology Accu-Chek Accu-Chek No Accu-Chek [place] Guide test Guide test Guide test [facility] strips USE strips USE strips USE Urology TO TEST TO TEST TO TEST TWICE TWICE TWICE DAILY. DAILY. DAILY. allopurinol allopurinol No allopurino [place] 300 mg 300 mg l 300 mg [facility] tablet TAKE tablet TAKE tablet Urology ONE (1) ONE (1) TAKE ONE TABLET(S) TABLET(S) (1) BY MOUTH BY MOUTH TABLET(S) ONCE A DAY. ONCE A DAY. BY MOUTH ONCE A DAY. apple cider apple cider No apple [place] vinegar 600 vinegar 600 cider [facility] mg capsule mg capsule vinegar Urology Take by Take by 600 mg oral route. oral route. capsule Take by oral route. Aspir-81 Aspir-81 No Aspir-81 [facility] Bactrim DS Bactrim DS No 1 Q12H Bactrim DS [place] 800 mg-160 800 mg-160 800 mg-160 [facility] mg tablet mg tablet mg tablet Urology Take 1 Take 1 Take 1 tablet tablet tablet every 12 every 12 every 12 hours by hours by hours by oral route oral route oral route for 7 days. for 7 days. for 7 days. calcium calcium No calcium [place] [facility] carvedilol carvedilol No carvedilol [place] 3.125 mg 3.125 mg 3.125 mg Met ro tablet TAKE tablet TAKE tablet Urology ONE (1) ONE (1) TAKE ONE TABLET(S) TABLET(S) (1) BY MOUTH BY MOUTH TABLET(S) TWICE A DAY TWICE A DAY BY MOUTH WITH FOOD. WITH FOOD. TWICE A DAY WITH FOOD. Cinnamon Cinnamon No Cinnamon [facility] Urology cranberry cranberry No cranberry [facility] Urology Fish Oil Fish Oil No Fish Oil [facility] furosemide furosemide No furosemide [place] 40 mg 40 mg 40 mg [facility] tablet TAKE tablet TAKE tablet Urology TWO (2) TWO (2) TAKE TWO TABLET(S) TABLET(S) (2) BY MOUTH BY MOUTH TABLET(S) TWICE A TWICE A BY MOUTH DAY. DAY. TWICE A DAY. Humulin R Humulin R No Humulin R [place] Regular Regular Regular [facility] U-100 U-100 U-100 [...] 30 UNITS DAILY. Lantus Lantus No Lantus [place] U-100 U-100 U-100 [facility] Insulin 100 Insulin 100 Insulin Urology unit/mL unit/mL 100 subcutaneou subcutaneou unit/mL s solution s solution subcutaneo INJECT 15 INJECT 15 us UNITS UNDER UNITS UNDER solution THE SKIN THE SKIN INJECT 15 ONCE DAILY. ONCE DAILY. UNITS UNDER THE SKIN ONCE DAILY. levothyroxi levothyroxi No levothyrox [place] ne 25 mcg ne 25 mcg ine [...] STOMACH. magnesium magnesium No 500mg Q1D magnesium [place] 250 mg (as 250 mg (as 250 mg (as [facility] magnesium magnesium magnesium Urology oxide) oxide) oxide) tablet Take tablet Take tablet 500 mg 500 mg Take 500 every day every day mg every by oral by oral day by route. route. oral route. metoclopram metoclopram No metoclopra [place] laron 5 mg laron 5 mg mide [...] AND AT BEDTIME. multivitami multivitami No multivitam [place] n n in [facility] nitrofurant nitrofurant No 1capsul Q1D nitrofuran [place] oin oin e(s) toin [facility] macrocrysta macrocrysta macrocryst Urology l 50 mg l 50 mg al 50 mg capsule capsule capsule Take 1 Take 1 Take 1 capsule capsule capsule every day every day every day by oral by oral by oral route for route for route for 30 days. 30 days. 30 days. prednisone prednisone No prednisone [place] 1 mg tablet 1 mg tablet 1 mg M etro TAKE ONE TAKE ONE tablet Urolo gy (1) (1) TAKE ONE TABLET(S) TABLET(S) (1) BY MOUTH BY MOUTH TABLET(S) ONCE A DAY. ONCE A DAY. BY MOUTH ONCE A DAY. rosuvastati rosuvastati No rosuvastat [place] n 10 mg n 10 mg in 10 mg [facility] tablet TAKE tablet TAKE tablet Urology ONE (1) ONE (1) TAKE ONE TABLET(S) TABLET(S) (1) BY MOUTH BY MOUTH TABLET(S) NIGHTLY. NIGHTLY. BY MOUTH NIGHTLY. Vitamin B-6 Vitamin B-6 No Vitamin [place] 100 mg 100 mg B-6 100 mg [facility] tablet Take tablet Take tablet Urology by oral by oral Take by route. route. oral route. vitamin B12 vitamin B12 No vitamin [place] 1,000 1,000 B12 1,000 [facility] mcg-folic mcg-folic mcg-folic Urology acid 400 acid 400 acid 400 mcg mcg mcg sublingual sublingual sublingual lozenge lozenge lozenge Place by Place by Place by sublingual sublingual sublingual route. route. route. zinc zinc No zinc [place] [facility] Accu-Chek Accu-Chek No Accu-Chek [place] Guide test Guide test Guide test [facility] strips USE strips USE strips USE Urology DIRECTED DIRECTED THREE TIMES THREE TIMES DIRECTED A DAY. A DAY. THREE TIMES A DAY. allopurinol allopurinol No allopurino [place] 300 mg 300 mg l 300 mg [facility] tablet TAKE tablet TAKE tablet Urology ONE (1) ONE (1) TAKE ONE TABLET(S) TABLET(S) (1) BY MOUTH BY MOUTH TABLET(S) ONCE A DAY. ONCE A DAY. BY MOUTH ONCE A DAY. apple cider apple cider No apple [place] vinegar 600 vinegar 600 cider [facility] mg capsule mg capsule vinegar Urology Take by Take by 600 mg oral route. oral route. capsule Take by oral route. Aspir-81 Aspir-81 No Aspir-81 [address]aco ston [facility] calcium calcium No calcium [place] [facility] carvedilol carvedilol No carvedilol [place] 12.5 mg 12.5 mg 12.5 mg [facility] tablet TAKE tablet TAKE tablet Urology ONE (1) ONE (1) TAKE ONE TABLET(S) TABLET(S) (1) BY MOUTH BY MOUTH TABLET(S) TWICE A DAY TWICE A DAY BY MOUTH WITH FOOD. WITH FOOD. TWICE A DAY WITH FOOD. carvedilol carvedilol No carvedilol [place] 3.125 mg 3.125 mg 3.125 mg Met ro tablet TAKE tablet TAKE tablet Urology ONE (1) ONE (1) TAKE ONE TABLET(S) TABLET(S) (1) BY MOUTH BY MOUTH TABLET(S) TWICE A DAY TWICE A DAY BY MOUTH WITH FOOD. WITH FOOD. TWICE A DAY WITH FOOD. Cinnamon Cinnamon No Cinnamon Fl[facility] sto [facility] cranberry cranberry No cranberry [facility] Fish Oil Fish Oil No Fish Oil Flaco ston [facility] furosemide furosemide No furosemide [place] 40 mg 40 mg 40 mg [facility] tablet TAKE tablet TAKE tablet Urology TWO (2) TWO (2) TAKE TWO TABLET(S) TABLET(S) (2) BY MOUTH BY MOUTH TABLET(S) TWICE A TWICE A BY MOUTH DAY. DAY. TWICE A DAY. Humulin R Humulin R No Humulin R [place] Regular Regular Regular [facility] U-100 U-100 U-100 [...] 30 UNITS DAILY. Jardiance Jardiance No Jardiance [place] 10 mg 10 mg 10 mg [facility] tablet TAKE tablet TAKE tablet Urology ONE (1) ONE (1) TAKE ONE TABLET(S) TABLET(S) (1) BY MOUTH BY MOUTH TABLET(S) ONCE A DAY. ONCE A DAY. BY MOUTH ONCE A DAY. Lantus Lantus No Lantus [place] U-100 U-100 U-100 [facility] Insulin 100 Insulin 100 Insulin Urology unit/mL unit/mL 100 subcutaneou subcutaneou unit/mL s solution s solution subcutaneo INJECT 15 INJECT 15 us UNITS UNDER UNITS UNDER solution THE SKIN THE SKIN INJECT 15 ONCE DAILY. ONCE DAILY. UNITS UNDER THE SKIN ONCE DAILY. levothyroxi levothyroxi No levothyrox [place] ne 25 mcg ne 25 mcg ine [...] AN EMPTY STOMACH. lisinopril lisinopril No lisinopril [place] 5 mg tablet 5 mg tablet 5 mg M etro TAKE ONE TAKE ONE tablet Urolo gy (1) (1) TAKE ONE TABLET(S) TABLET(S) (1) BY MOUTH BY MOUTH TABLET(S) ONCE A DAY. ONCE A DAY. BY MOUTH ONCE A DAY. magnesium magnesium No 500mg Q1D magnesium [place] 250 mg (as 250 mg (as 250 mg (as [facility] magnesium magnesium magnesium Urology oxide) oxide) oxide) tablet Take tablet Take tablet 500 mg 500 mg Take 500 every day every day mg every by oral by oral day by route. route. oral route. metoclopram metoclopram No metoclopra [place] laron 5 mg laron 5 mg mide [...] AND AT BEDTIME. multivitami multivitami No multivitam [place] n n in [facility] nitrofurant nitrofurant No nitrofuran [place] oin oin toin [facility] macrocrysta macrocrysta macrocryst Urology l 50 mg l 50 mg al 50 mg capsule capsule capsule TAKE ONE TAKE ONE TAKE ONE (1) (1) (1) CAPSULE(S) CAPSULE(S) CAPSULE(S) BY MOUTH BY MOUTH BY MOUTH ONCE A DAY. ONCE A DAY. ONCE A DAY. prednisone prednisone No prednisone [place] 1 mg tablet 1 mg tablet 1 mg M etro TAKE ONE TAKE ONE tablet Urolo gy (1) (1) TAKE ONE TABLET(S) TABLET(S) (1) BY MOUTH BY MOUTH TABLET(S) ONCE A DAY. ONCE A DAY. BY MOUTH ONCE A DAY. prednisone prednisone No prednisone [place] 20 mg 20 mg 20 mg [facility] [...] FOR 5 DAYS. rosuvastati rosuvastati No rosuvastat [place] n 10 mg n 10 mg in 10 mg [facility] tablet TAKE tablet TAKE tablet Urology ONE (1) ONE (1) TAKE ONE TABLET(S) TABLET(S) (1) BY MOUTH BY MOUTH TABLET(S) NIGHTLY. NIGHTLY. BY MOUTH NIGHTLY. sulfamethox sulfamethox No sulfametho [place] azole 800 azole 800 xazole 800 [facility] mg-trimetho mg-trimetho mg-trimeth Urology prim 160 mg prim 160 mg oprim 160 tablet TAKE tablet TAKE mg tablet ONE (1) ONE (1) TAKE ONE TABLET(S) TABLET(S) (1) BY MOUTH BY MOUTH TABLET(S) EVERY EVERY BY MOUTH TWELVE TWELVE EVERY HOURS FOR HOURS FOR TWELVE SEVEN DAYS. SEVEN DAYS. HOURS FOR SEVEN DAYS. Sure Sure No Sure [facility] Comfort Comfort [facility] Insulin Insulin Insulin Urolog y Syringe 0.3 Syringe 0.3 Syringe mL 31 gauge mL 31 gauge 0.3 mL 31 x 06/27" USE x 06/27" USE gauge x DIRECTED DIRECTED 06/27" USE FOR LANTUS FOR LANTUS AND HUMALOG AND HUMALOG DIRECTED INJECTIONS INJECTIONS FOR LANTUS 4 TIMES 4 TIMES AND DAILY. DAILY. HUMALOG INJECTIONS 4 TIMES DAILY. sure sure No sure [facility] comfort comfort [facility] insulin insulin insulin Urolog y syringe/u-1 syringe/u-1 syringe/u- 00/ 00/ 100/ 0.3ml/31g x 0.3ml/31g x 0.3ml/31g 06/27 31g x 5/16 31g x x 06/27 31g 06/27" 0.3 06/27" 0.3 x 06/27" ml misc ml misc 0.3 ml misc Vitamin B-6 Vitamin B-6 No Vitamin [place] 100 mg 100 mg B-6 100 mg [facility] tablet Take tablet Take tablet Urology by oral by oral Take by route. route. oral route. vitamin B12 vitamin B12 No vitamin [place] 1,000 1,000 B12 1,000 [facility] mcg-folic mcg-folic mcg-folic Urology acid 400 acid 400 acid 400 mcg mcg mcg sublingual sublingual sublingual lozenge lozenge lozenge Place by Place by Place by sublingual sublingual sublingual route. route. route. zinc zinc No zinc [place] [facility] Accu-Chek Accu-Chek No Accu-Chek [place] Guide test Guide test Guide test [facility] strips USE strips USE strips USE Urology THREE TIMES THREE TIMES THREE A DAY. A DAY. TIMES A DAY. allopurinol allopurinol No allopurino [place] 300 mg 300 mg l 300 mg [facility] tablet TAKE tablet TAKE tablet Urology ONE (1) ONE (1) TAKE ONE TABLET(S) TABLET(S) (1) BY MOUTH BY MOUTH TABLET(S) ONCE A DAY. ONCE A DAY. BY MOUTH ONCE A DAY. apple cider apple cider No apple [place] vinegar 600 vinegar 600 cider [facility] mg capsule mg capsule vinegar Urology Take by Take by 600 mg oral route. oral route. capsule Take by oral route. Aspir-81 Aspir-81 No Aspir-81 [facility] calcium calcium No calcium [place] [facility] carvedilol carvedilol No carvedilol [place] 12.5 mg 12.5 mg 12.5 mg [facility] tablet TAKE tablet TAKE tablet Urology ONE (1) ONE (1) TAKE ONE TABLET(S) TABLET(S) (1) BY MOUTH BY MOUTH TABLET(S) TWICE A DAY TWICE A DAY BY MOUTH WITH FOOD. WITH FOOD. TWICE A DAY WITH FOOD. carvedilol carvedilol No carvedilol [place] 3.125 mg 3.125 mg 3.125 mg Met ro tablet TAKE tablet TAKE tablet Urology ONE (1) ONE (1) TAKE ONE TABLET(S) TABLET(S) (1) BY MOUTH BY MOUTH TABLET(S) TWICE A DAY TWICE A DAY BY MOUTH WITH FOOD. WITH FOOD. TWICE A DAY WITH FOOD. Cinnamon Cinnamon No Cinnamon Flaco ston [facility] cranberry cranberry No cranberry [facility] furosemide furosemide No furosemide [place] 40 mg 40 mg 40 mg [facility] tablet TAKE tablet TAKE tablet Urology TWO (2) TWO (2) TAKE TWO TABLET(S) TABLET(S) (2) BY MOUTH BY MOUTH TABLET(S) TWICE A TWICE A BY MOUTH DAY. DAY. TWICE A DAY. Humulin R Humulin R No Humulin R [place] Regular Regular Regular [facility] U-100 U-100 U-100 [...] 30 UNITS DAILY. Jardiance Jardiance No Jardiance [place] 10 mg 10 mg 10 mg [facility] tablet TAKE tablet TAKE tablet Urology ONE (1) ONE (1) TAKE ONE TABLET(S) TABLET(S) (1) BY MOUTH BY MOUTH TABLET(S) ONCE A DAY. ONCE A DAY. BY MOUTH ONCE A DAY. Lantus Lantus No Lantus [place] U-100 U-100 U-100 [facility] Insulin 100 Insulin 100 Insulin Urology unit/mL unit/mL 100 subcutaneou subcutaneou unit/mL s solution s solution subcutaneo INJECT 10 INJECT 10 us UNITS UNDER UNITS UNDER solution THE SKIN THE SKIN INJECT 10 ONCE A DAY. ONCE A DAY. UNITS UNDER THE SKIN ONCE A DAY. levothyroxi levothyroxi No levothyrox [place] ne 25 mcg ne 25 mcg ine [...] AN EMPTY STOMACH. lisinopril lisinopril No lisinopril [place] 5 mg tablet 5 mg tablet 5 mg M etro TAKE ONE TAKE ONE tablet Urolo gy (1) (1) TAKE ONE TABLET(S) TABLET(S) (1) BY MOUTH BY MOUTH TABLET(S) ONCE A DAY. ONCE A DAY. BY MOUTH ONCE A DAY. magnesium magnesium No 500mg Q1D magnesium [place] 250 mg (as 250 mg (as 250 mg (as [facility] magnesium magnesium magnesium Urology oxide) oxide) oxide) tablet Take tablet Take tablet 500 mg 500 mg Take 500 every day every day mg every by oral by oral day by route. route. oral route. metoclopram metoclopram No metoclopra [place] laron 5 mg laron 5 mg mide [...] AND AT BEDTIME. multivitami multivitami No multivitam [place] n n in [facility] nitrofurant nitrofurant No nitrofuran [place] oin oin toin [facility] macrocrysta macrocrysta macrocryst Urology l 50 mg l 50 mg al 50 mg capsule capsule capsule TAKE ONE TAKE ONE TAKE ONE (1) (1) (1) CAPSULE(S) CAPSULE(S) CAPSULE(S) BY MOUTH BY MOUTH BY MOUTH ONCE A DAY. ONCE A DAY. ONCE A DAY. prednisone prednisone No prednisone [place] 1 mg tablet 1 mg tablet 1 mg M etro TAKE ONE TAKE ONE tablet Urolo gy (1) (1) TAKE ONE TABLET(S) TABLET(S) (1) BY MOUTH BY MOUTH TABLET(S) ONCE A DAY. ONCE A DAY. BY MOUTH ONCE A DAY. prednisone prednisone No prednisone [place] 20 mg 20 mg 20 mg [facility] [...] FOR 5 DAYS. rosuvastati rosuvastati No rosuvastat [place] n 10 mg n 10 mg in 10 mg [facility] tablet TAKE tablet TAKE tablet Urology ONE (1) ONE (1) TAKE ONE TABLET(S) TABLET(S) (1) BY MOUTH BY MOUTH TABLET(S) NIGHTLY. NIGHTLY. BY MOUTH NIGHTLY. sulfamethox sulfamethox No sulfametho [place] azole 800 azole 800 xazole 800 [facility] mg-trimetho mg-trimetho mg-trimeth Urology prim 160 mg prim 160 mg oprim 160 tablet TAKE tablet TAKE mg tablet ONE (1) ONE (1) TAKE ONE TABLET(S) TABLET(S) (1) BY MOUTH BY MOUTH TABLET(S) EVERY EVERY BY MOUTH TWELVE TWELVE EVERY HOURS FOR HOURS FOR TWELVE SEVEN DAYS. SEVEN DAYS. HOURS FOR SEVEN DAYS. Sure Sure No Sure [place] Comfort Comfort Comfort [facility] Insulin Insulin Insulin Urolog y Syringe 0.3 Syringe 0.3 Syringe mL 31 gauge mL 31 gauge 0.3 mL 31 x 5/16" USE x 5/16" USE gauge x DIRECTED DIRECTED 16" USE FOR LANTUS FOR LANTUS AND HUMALOG AND HUMALOG DIRECTED INJECTIONS INJECTIONS FOR LANTUS 4 TIMES 4 TIMES AND DAILY. DAILY. HUMALOG INJECTIONS 4 TIMES DAILY. Sure Sure No Sure [place] Comfort Comfort Comfort [facility] Insulin Insulin Insulin Urolog y Syringe 0.5 Syringe 0.5 Syringe mL 31 gauge mL 31 gauge 0.5 mL 31 x 5/16" USE x 5/16" USE gauge x ONE (1) ONE (1) 5/16" USE SYRINGE SYRINGE ONE (1) ONCE A DAY. ONCE A DAY. SYRINGE ONCE A DAY. sure sure No sure [place] comfort comfort comfort [facility] insulin insulin insulin Urolog y syringe/u-1 syringe/u-1 syringe/u- 100/ 0.3ml/31g x 0.3ml/31g x 0.3ml/31g 16 31g x 5/16 31g x x 5/16 31g 5/16" 0.3 5/16" 0.3 x 5/16" ml misc ml misc 0.3 ml misc sure sure No sure [place] comfort comfort comfort [facility] insulin insulin insulin Urolog y syringe/u-1 syringe/u-1 syringe/u- 100/ 0.5ml/31g x 0.5ml/31g x 0.5ml/31g 5/16 31g x 5/16 31g x x 5/16 31g 5/16" 0.5 5/16" 0.5 x 5/16" ml misc ml misc 0.5 ml misc Vitamin B-6 Vitamin B-6 No Vitamin [place] 100 mg 100 mg B-6 100 mg [facility] tablet Take tablet Take tablet Urology by oral by oral Take by route. route. oral route. vitamin B12 vitamin B12 No vitamin [place] 1,000 1,000 B12 1,000 [facility] mcg-folic mcg-folic mcg-folic Urology acid 400 acid 400 acid 400 mcg mcg mcg sublingual sublingual sublingual lozenge lozenge lozenge Place by Place by Place by sublingual sublingual sublingual route. route. route. zinc zinc No zinc [place] [facility] allopurinol allopurinol No allopurino [place] 100 mg 100 mg l 100 mg [facility] tablet TAKE tablet TAKE tablet Urology ONE (1) ONE (1) TAKE ONE TABLET(S) TABLET(S) (1) BY MOUTH BY MOUTH TABLET(S) ONCE A DAY ONCE A DAY BY MOUTH (TAKE ALONG (TAKE ALONG ONCE A DAY WITH 300 MG WITH 300 MG (TAKE TABLETS). TABLETS). ALONG WITH 300 MG TABLETS). amiodarone amiodarone No amiodarone [place] 200 mg 200 mg 200 mg [facility] tablet TAKE tablet TAKE tablet Urology ONE (1) ONE (1) TAKE ONE TABLET(S) TABLET(S) (1) BY MOUTH BY MOUTH TABLET(S) TWICE A TWICE A BY MOUTH DAY. DAY. TWICE A DAY. Aspir-81 Aspir-81 No Aspir-81 [facility] Augmentin Augmentin No 1 Q12H Augmentin [place] 500 mg-125 500 mg-125 500 mg-125 [facility] mg tablet mg tablet mg tablet Urology Take 1 Take 1 Take 1 tablet tablet tablet every 12 every 12 every 12 hours by hours by hours by oral route oral route oral route for 10 for 10 for 10 days. days. days. citalopram citalopram No citalopram [place] 20 mg 20 mg 20 mg [facility] tablet tablet tablet Urology digoxin 125 digoxin 125 No digoxin [place] mcg (0.125 mcg (0.125 125 mcg [facility] [...] ston [facility] furosemide furosemide No furosemide [place] 40 mg 40 mg 40 mg [facility] tablet TAKE tablet TAKE tablet Urology TWO (2) TWO (2) TAKE TWO TABLET(S) TABLET(S) (2) BY MOUTH BY MOUTH TABLET(S) TWICE A TWICE A BY MOUTH DAY. DAY. TWICE A DAY. GaviLyte-G GaviLyte-G No GaviLyte-G [place] 236 236 236 [facility] gram-22.74 gram-22.74 gram-22.74 Urology gram-6.74 gram-6.74 gram-6.74 gram-5.86 gram-5.86 gram-5.86 gram oral gram oral gram oral solution solution solution TAKE BY TAKE BY TAKE BY MOUTH MOUTH MOUTH DIRECTED. DIRECTED. DIRECTED. hydroxyzine hydroxyzine No hydroxyzin [place] HCl 25 mg HCl 25 mg e HCl 25 M etro tablet TAKE tablet TAKE mg tablet Urology ONE (1) ONE (1) TAKE ONE TABLET(S) TABLET(S) (1) BY MOUTH AT BY MOUTH AT TABLET(S) BEDTIME. BEDTIME. BY MOUTH AT BEDTIME. ketoconazol ketoconazol No ketoconazo [place] e 2 % e 2 % le [...] ONCE A DAY. levocetiriz levocetiriz No levocetiri [place] ine 5 mg ine 5 mg zine 5 mg Me tro tablet TAKE tablet TAKE tablet Urology ONE (1) ONE (1) TAKE ONE TABLET(S) TABLET(S) (1) BY MOUTH AT BY MOUTH AT TABLET(S) BEDTIME. BEDTIME. BY MOUTH AT BEDTIME. linezolid linezolid No linezolid [place] 600 mg 600 mg 600 mg [facility] tablet tablet tablet Urology metformin metformin No metformin [place] 1,000 mg 1,000 mg 1,000 mg Met ro tablet TAKE tablet TAKE tablet Urology ONE (1) ONE (1) TAKE ONE TABLET(S) TABLET(S) (1) BY MOUTH BY MOUTH TABLET(S) TWICE A TWICE A BY MOUTH DAY. DAY. TWICE A DAY. methylpredn methylpredn No methylpred [place] isolone 4 isolone 4 nisolone 4 [facility] [...] OVER THE DAY). metolazone metolazone No metolazone [place] 5 mg tablet 5 mg tablet 5 mg M etro TAKE ONE TAKE ONE tablet Urolo gy (1) (1) TAKE ONE TABLET(S) TABLET(S) (1) BY MOUTH BY MOUTH TABLET(S) ONCE A DAY. ONCE A DAY. BY MOUTH ONCE A DAY. metoprolol metoprolol No metoprolol [place] tartrate tartrate tartrate Met ro 100 mg [...] tablet tablet Urology pantoprazol pantoprazol No pantoprazo [place] e 40 mg e 40 mg le [...] [place] [facility] allopurinol allopurinol No allopurino [place] 100 mg 100 mg l 100 mg [facility] tablet TAKE tablet TAKE tablet Urology ONE (1) ONE (1) TAKE ONE TABLET(S) TABLET(S) (1) BY MOUTH BY MOUTH TABLET(S) ONCE A DAY ONCE A DAY BY MOUTH (TAKE WITH (TAKE WITH ONCE A DAY 300 MG 300 MG (TAKE WITH TABLETS). TABLETS). 300 MG TABLETS). allopurinol allopurinol No allopurino [place] 300 mg 300 mg l 300 mg [facility] tablet TAKE tablet TAKE tablet Urology ONE (1) ONE (1) TAKE ONE TABLET(S) TABLET(S) (1) BY MOUTH BY MOUTH TABLET(S) ONCE A DAY. ONCE A DAY. BY MOUTH ONCE A DAY. amiodarone amiodarone No amiodarone [place] 200 mg 200 mg 200 mg [facility] tablet TAKE tablet TAKE tablet Urology ONE (1) ONE (1) TAKE ONE TABLET(S) TABLET(S) (1) BY MOUTH BY MOUTH TABLET(S) TWICE A TWICE A BY MOUTH DAY. DAY. TWICE A DAY. amoxicillin amoxicillin No amoxicilli [place] 500 500 n 500 [facility] mg-potassiu mg-potassiu [...] ston [facility] citalopram citalopram No citalopram [place] 20 mg 20 mg 20 mg [facility] tablet tablet tablet Urology digoxin 125 digoxin 125 No digoxin [place] mcg (0.125 mcg (0.125 125 mcg [facility] mg) tablet mg) tablet (0.125 mg) Urology TAKE ONE TAKE ONE tablet (1) (1) TAKE ONE TABLET(S) TABLET(S) (1) BY MOUTH BY MOUTH TABLET(S) DAILY. DAILY. BY MOUTH DAILY. Immunizations Ordered Immunization Filled Immunization Date Status Commen ts Source Name Name [facility] READY TO USE 2021-08-12 Completed [facility] COVID-19 MRNA 00:00:00 Hospital VACCINATION FLUZONE HIGH-DOSE PF 2020-12-17 Completed [facility] 00:00:00 [facility] PFIZER COVID-19 MRNA 2020-12-17 Completed [facility] VACCINATION 00:00:00 [facility] PFIZER COVID-19 MRNA 2020-05-20 Completed [facility] VACCINATION 00:00:00 [facility] PFIZER COVID-19 MRNA 2020-04-29 Completed [facility] VACCINATION 00:00:00 Hospital FLUZONE HIGH-DOSE PF 2020-01-20 Completed [facility] 00:00:00 Hospital Pneumococcal 2019-03-19 Completed [facility] Polysaccharide 00:00:00 Hospital Influenza, 2018-11-12 Completed [facility] Unspecified 00:00:00 Hospital influenza, influenza, 2018-11-12 Completed [place] [facility] injectable, injectable, 00:00:00 Urology quadrivalent quadrivalent influenza, influenza, 2018-11-12 Completed [place] [facility] injectable, injectable, 00:00:00 Urology quadrivalent quadrivalent influenza, influenza, 2018-11-12 Completed [place] [facility] injectable, injectable, 00:00:00 Urology quadrivalent quadrivalent influenza, influenza, 2018-11-12 Completed [place] [facility] injectable, injectable, 00:00:00 Urology quadrivalent quadrivalent influenza, influenza, 2018-11-12 Completed [place] [facility] injectable, injectable, 00:00:00 Urology quadrivalent quadrivalent influenza, influenza, 2018-11-12 Completed [place] [facility] injectable, injectable, 00:00:00 Urology quadrivalent quadrivalent FLUCELVAX QUAD PF 2018-10-[address] 00:00:00 [facility] Pneumococcal 2017-05-04 Completed [facility] Conjugate 13-Valent 00:00:00 Hospi david FLUCELVAX QUAD PF 2017-05-[address] 00:00:00 Hospital Vital Signs Vital Name Observation Time Observation Value Comments Source BP Diastolic 2022-05-10 00:00:00 81 mm[Hg] [facility] Height 2022-05-10 00:00:00 70 [in_i] [facility] BMI (Body Mass 2022-05-10 00:00:00 32.3 kg/m2 [place] [facility] Index) Urology BP Systolic 2022-05-10 00:00:00 122 mm[Hg] [facility] Body Weight 2022-05-10 00:00:00 225 [lb_av] [facility] BP Diastolic 2022-03-15 00:00:00 80 mm[Hg] [facility] Height 2022-03-15 00:00:00 70 [in_i] [facility] BMI (Body Mass 2022-03-15 00:00:00 32.3 kg/m2 [place] [facility] Index) Urology BP Systolic 2022-03-15 00:00:00 118 mm[Hg] [place] [facility] Body Weight 2022-03-15 00:00:00 225 [lb[facility]av] [facility] BP Diastolic 2021-12-09 00:00:00 74 mm[facility]Hg] [facility] Height 2021-12-09 00:00:00 70 [in_i] [facility] BMI (Body Mass 2021-12-09 00:00:00 32.3 kg/m2 [place] [facility] Index) Urology BP Systolic 2021-12-09 00:00:00 136 mm[Hg] [facility] Body Weight 2021-12-09 00:00:00 225 [lb_av] [facility] BP Diastolic 2021-09-02 00:00:00 72 mm[Hg] [facility] Height 2021-09-02 00:00:00 70 [in_i] [facility] BMI (Body Mass 2021-09-02 00:00:00 32.3 kg/m2 [place] [facility] Index) Urology BP Systolic 2021-09-02 00:00:00 132 mm[Hg] [facility] Body Weight 2021-09-02 00:00:00 225 [lb_av] [facility] Height 2020-10-20 00:00:00 70 [in_i] [facility] BMI (Body Mass 2020-10-20 00:00:00 32.3 kg/m2 [place] [facility] Index) [facility] Body Weight 2020-10-20 00:00:00 225 [lb_av] [facility] Height 2020-07-08 00:00:00 70 [in_i] [facility] BMI (Body Mass 2020-07-08 00:00:00 32.3 kg/m2 [place] [facility] Index) [facility] Body Weight 2020-07-08 00:00:00 225 [lb_av] [facility] Systolic blood 2022-06-12 15:19:00 98 mm[facility]Hg[facility] 2022-06-12 15:19:00 57 mm[Hg] [facility] pressure Heart rate 2022-06-12 15:19:00 94 [facility] 2022-06-12 15:19:00 177.8 cm [facility] Body weight 2022-06-12 15:19:00 73.483 kg [facility] BMI 2022-06-12 15:19:00 23.24 kg/m2 [facility] Height 2022-03-14 17:03:00 5 [ft_i] [facility] Weight 2022-03-14 17:03:00 [facility] BMI Calculated 2022-03-14 [facility] 2022-03-06 15:23:00 36.67 Lola [facility] Oxygen saturation in 2022-03-06 15:23:00 98 /min [facility] Arterial blood by Pulse oximetry Procedures Procedure Date / Time Performing Clinician Source Performed US, renal 2022-05-10 00:00:00 Lucas boyle Urology COMPREHENSIVE METABOLIC 2022-05-02 13:21:00 [facility] PANEL HEMOGLOBIN A1C 2022-05-02 13:21:00 [facility] spital LIPID PANEL 2022-05-02 13:21:00 [facility] spital T3, FREE 2022-05-02 13:21:00 [facility] spital T4, FREE 2022-05-02 13:21:00 [facility] spital THYROID STIMULATING 2022-05-02 13:21:00 [facility] HORMONE THYROID PEROXIDASE 2022-05-02 13:21:00 [facility] ANTIBODY THYROGLOBULIN ANTIBODY 2022-05-02 13:21:00 [facility] ECG 12-LEAD 2022-04-24 13:16:28 [facility] TTE COMPLETE, WO 2022-03-27 15:44:29 [facility] CONTRAST, W DOPPLER ([id number]) CT LUMBAR SPINE WO 2022-03-10 13:38:45 [facility] CONTRAST CT THORACIC SPINE WO 2022-03-10 13:29:50 [facility] CONTRAST AST (SGOT) 2022-03-06 16:07:00 [facility] ALT (SGPT) 2022-03-06 16:07[facility]00 [facility] CREATININE LEVEL 2022-03-06 16:07:00 [facility] ALBUMIN LEVEL 2022-03-06 16:07:00 [facility] CBC WITH PLATELET AND 2022-03-06 16:07:00 [facility] DIFFERENTIAL SEDIMENTATION RATE 2022-03-06 16:07:00 [facility] C-REACTIVE PROTEIN 2022-03-06 16:07:00 [facility] URIC ACID LEVEL 2022-03-06 16:07:00 [facility] ECG 12-LEAD 2022-01-23 14:32:06 Ancel[facility] CBC WITH PLATELET AND 2021-09-05 17:40:00 [facility] DIFFERENTIAL COMPREHENSIVE METABOLIC 2021-09-05 17:40:00 [facility] PANEL SEDIMENTATION RATE 2021-09-05 17:40:00 [facility] C-REACTIVE PROTEIN 2021-09-05 17:40:00 [facility] URIC ACID LEVEL 2021-09-05 17:40:00 [facility] ANKLE BRACHIAL INDEX 2021-07-18 16:24:26 Jorge Livingston [facility] DUPLEX ARTERIAL LOWER 2021-07-18 16:24:08 Jorge Livingston [facility] EXTREMITY BILATERAL Surgery/Procedure 2017-05-02 00:00:00 Lucas Henning U[facility] Colonoscopy 2014-04-14 00:00:00 Lucas boyle Urology CARDIO- Pacemaker [facility] Insertion Urology Plan of Care Planned Activity Planned Date Details Comments Source Future Scheduled Test 2022-07-13 Hepatitis C screening [facility] 11:30:29 (procedure) [code = [id number]] Future Scheduled Test 2022-07-13 SHINGLES VACCINES (1 [facility] 11:30:29 of 2) [code = SHINGLES VACCINES (1 of 2)] Future Scheduled Test 2022-07-13 COLONOSCOPY SCREENING [facility] 11:30:29 [code = COLONOSCOPY SCREENING] Future Scheduled Test 2022-07-13 COVID-19 VACCINE (5 - [facility] 11:30:29 Booster for Pfizer series) [code = COVID-19 VACCINE (5 - Booster for Pfizer series)] Future Scheduled Test 2022-07-13 DIABETIC FOOT EXAM [facility] 11:30:29 [code = DIABETIC FOOT EXAM] Future Scheduled Test 2022-07-13 INFLUENZA VACCINE M [facility] 11:30:29 [code = INFLUENZA VACCINE] Future Scheduled Test 2022-07-13 DIABETES: RETINAL EYE [facility] 11:30:29 EXAM [code = DIABETES: RETINAL EYE EXAM] Future Scheduled Test 2022-07-13 65+ PNEUMOCOCCAL Me [facility] 11:30:29 VACCINE (3 - PPSV23 if available, else PCV20) [code = 65+ PNEUMOCOCCAL VACCINE (3 - PPSV23 if available, else PCV20)] Diagnostic Test 2022-05-10 culture, urine + [facility] Pending 00:00:00 sensitivity [code = Urology culture, urine + sensitivity] Diagnostic Test 2022-05-10 urinalysis, dipstick [facility] Pending 00:00:00 [code = urinalysis, Urology dipstick] Diagnostic Test 2022-05-10 urinalysis, [place] [facility] Pending 00:00:00 microscopic [code = Urology urinalysis, microscopic] Future Appointment 2022-08-16 Flaco Franco [facility] 09:00:00 [id number] [facility] Urology [facility] [address]; , [place] [address] Encounters Start End Encounter Admission Attending Care Care Encounter Source Date/Time Date/Time Type Type Clinicians Facility Department ID 2022-03-27 Outpatient [id number] [id number] [facility] 08:35:49 [id number] [place] [id number] 2022-07-18 2022-07-18 Outpatient JUAN J, [facility] [id number] [place] 00:00:00 00:00:00 MALCOM [address] 2022-06-29 2022-06-29 Transcribe Juan J, 1.2.840.1 [id number] 754 [id number] Methodi 00:00:00 00:00:00 Orders Malcom TenaEmy 49860.1.[address] 3.430.2.7 Hospit a .3.674332 l .8 2022-06-22 2022-06-22 Orders Davion, 1.2.840.7 [id number] 2100 [id number] Methodi 00:00:00 00:00:00 Only Cinthya [address]3917.1.[address] 3.430.2.7 Hospit a .3.499208 l .8 2022-06-19 2022-06-19 Orders Patrickla, 1.2.840.1 [id number] 2100 [id number] Methodi 00:00:00 00:00:00 Only Cinthya 29708.1.[address] 3.430.2.7 Hospit a .3.261728 l .8 2022-06-12 2022-06-12 Office Davion, 1.2.840.0 [id number] 2100 [id number] Methodi 10:00:00 11:19:31 Visit Cinthya 33096.1.[address] 3.430.2.7 Hospit a .3.977981 l .8 2022-06-12 2022-06-12 Travel 1.2.840.1 1.2.409.962 8005 244698 Methodi 00:00:00 00:00:[address] 3.430.2.7 0.2.7.3.698 Ho spita .3.776879 084.8 l .8 2022-06-09 2022-06-09 [facility] 284 193-202 [place] 00:00:00 00:00:00 90837 [facility] 2022-05-17 2022-05-17 Travel 1.2.840.1 1.2.654.147 3437 539813 Methodi 00:00:00 00:00:[address] 3.430.2.7 0.2.7.3.698 Ho spita .3.557812 084.8 l .8 2022-05-10 2022-05-10 Autumn [facility] [place] - [id number] [facility] 00:00:00 00:00:00 Milady Lorenzana MD: [id number] Urology [facility] [address], [place] [address] , Ph. 2022-05-03 2022-05-03 Office Kathleen, 1.2.840.1 [id number] 64482 Methodi 08:20:00 09:34:01 Visit Rigo 54466.1.[address] 3.430.2.7 Hospit a .3.495073 l .8 2022-05-03 2022-05-03 Travel 1.2.840.1 1.2.846.130 3504 917699 Methodi 00:00:00 00:00:[address] 3.430.2.7 0.2.7.3.698 Ho spita .3.601565 084.8 l .8 2022-04-28 2022-04-28 Refill William, 1.2.840.1 [id number] 008260 8758 Methodi 00:00:00 00:00:[address] Steve 3.430.2.7 Hospit a .3.875110 l .8 2022-04-24 2022-04-24 Office Marvin, 1.2.840.1 [id number] 2467 Methodi 08:00:00 08:43:18 Visit Ancelmo 88071.1.[address] 3.430.2.7 Hospit a .3.162011 l .8 2022-04-24 2022-04-24 Travel 1.2.840.1 1.2.549.449 6054 272535 [facility] 00:00:00 00:00:[address] 3.430.2.7 0.2.7.3.698 Ho spita .3.539374 084.8 l .8 2022-03-14 2022-04-13 [facility] MHIE TIRR [id number] 96 [facility] 16:45:00 05:59:00 [facility] 00 l Alfredito Glaser 2022-03-14 2022-04-13 [facility] MHIE TIRR [id number] 96 [facility] 16:45:00 05:59:00 [place] [address] l Alfredito [place] 2022-04-13 2022-04-13 Outpatient Armstrong_B [facility] 284 193-202 [place] 00:00:00 00:00:00 83557 [facility] 2022-04-13 2022-04-13 Outpatient Armstrong_B [facility] 284 193-202 [place] 00:00:00 00:00:00 38358 [facility] 2022-04-13 2022-04-13 Outpatient Armstrong_B [facility] 284 193-202 [place] 00:00:00 00:00:00 40355 [facility] 2022-04-13 2022-04-13 Outpatient Armstrong_B [facility] 284 193-202 [place] 00:00:00 00:00:00 16020 [facility] 2022-04-13 2022-04-13 Outpatient Armstrong_B [facility] 284 193-202 [place] 00:00:00 00:00:00 73425 [facility] 2022-04-13 2022-04-13 Outpatient Armstrong_B [facility] 284 193-202 [place] 00:00:00 00:00:00 69852 [facility] 2022-04-13 2022-04-13 Outpatient Armstrong_B [facility] 284 193-202 [place] 00:00:00 00:00:00 91386 [facility] 2022-03-14 2022-04-12 Outpatient NARA Plummer TIRR [id number] 096 10:45:00 23:59:00 Kathleen 00 2022-03-29 2022-03-29 Telephone [place], 1.2.840.1 [id number] Methodi 00:00:00 00:00:[address] 3.430.2.7 Hospit a .3.800896 l .8 2022-03-27 2022-03-27 Outpatient [facility] [id number] 525 [place] 00:00:00 00:00:[address]MO [address] 2022-03-27 2022-03-27 Travel 1.2.840.1 1.2.831.009 5758 469725 Methodi 00:00:00 00:00:[address] 3.430.2.7 0.2.7.3.698 Ho spita .3.632001 084.8 l .8 2022-03-15 2022-03-15 [facility] [place] - [id number] Jose dorian 00:00:00 00:00:00 Milady Lorenzana MD: [id number] Urology [place] [address], [place] [address] , Ph. 2022-03-13 2022-03-13 Outpatient Armstrong_B [facility] 284 193-202 [place] 00:00:00 00:00:00 14257 [facility] 2022-03-13 2022-03-13 Outpatient Armstrong_B [facility] 284 193-202 [place] 00:00:00 00:00:00 12606 [facility] 2022-03-13 2022-03-13 Outpatient Armstrong_B [facility] 284 193-202 [place] 00:00:00 00:00:00 90765 [facility] 2022-03-10 2022-03-10 Hospital Attar, 1.2.840.1 [id number] 64849 Methodi 06:54:23 23:59:00 Encounter Kathleen 94550.1.1 178 s t 3.430.2.7 Hospit a .3.785597 l .8 2022-03-10 2022-03-10 [facility] Attar, 1.2.840.1 [id number] 27955 42893 Methodi 06:54:09 23:59:00 Encounter Kathleen 04365.1.1 179 s t 3.430.2.7 Hospit a .3.217068 l .8 2022-03-10 2022-03-10 Travel 1.2.840.1 1.2.336.523 1296 319210 Methodi 00:00:00 00:00:[address] 3.430.2.7 0.2.7.3.698 Ho spita .3.380988 084.8 l .8 2022-03-06 2022-03-06 Office [facility], 1.2.840.1 [id number] 8940 Methodi 09:20:00 10:15:26 Visit Kirsten 35491.1.[address] 3.430.2.7 Hospit a .3.676623 l .8 2022-03-06 2022-03-06 Travel 1.2.840.1 1.2.935.315 1411 559430 Methodi 00:00:00 00:00:[address] 3.430.2.7 0.2.7.3.698 Ho spita .3.832377 084.8 l .8 2022-03-02 2022-03-02 [facility] 284 193-202 [place] 00:00:00 00:00:00 69972 [facility] 2022-02-20 2022-02-20 [facility] Attnj, 1.2.840.1 [id number] 2099 [id number] Methodi 00:00:00 00:00:00 Orders Kathleen 38168.1.[address] 3.430.2.7 Hospit a .3.267390 l .8 2022-01-23 2022-01-23 Office Marvin, 1.2.840.1 [id number] 6847 Methodi 08:00:00 09:29:02 Visit Ancelmo 00591.1.[address] 3.430.2.7 Hospit a .3.168756 l .8 2022-01-23 2022-01-23 Travel 1.2.840.1 1.2.205.475 2751 472457 Methodi 00:00:00 00:00:[address] 3.430.2.7 0.2.7.3.698 Ho spita .3.288976 084.8 l .8 2021-12-30 2021-12-30 Outpatient Mykelel_T VFP VFP [id number] 0-20 [place] 00:00:00 00:00:00 189483 Family Practic e 2021-12-29 2021-12-29 Office Kathleen, 1.2.840.1 [id number] 46330 56337 Methodi 14:00:00 14:58:45 Visit Rigo 75540.1.[address] 3.430.2.7 Hospit a .3.062689 l .8 2021-12-29 2021-12-29 Travel 1.2.840.1 1.2.443.031 1957 996896 Methodi 00:00:00 00:00:[address] 3.430.2.7 0.2.7.3.698 Ho spita .3.937883 084.8 l .8 2021-12-14 2021-12-14 Outpatient Armstrong_B [facility] 284 193-202 [place] 00:00:00 00:00:00 42715 [facility] 2021-12-14 2021-12-14 Outpatient Armstrong_B [facility] 284 193-202 [place] 00:00:00 00:00:00 47880 [facility] 2021-12-13 2021-12-13 Outpatient Armstrong_B [facility] 284 193-202 [place] 00:00:00 00:00:00 00002 [facility] 2021-12-12 2021-12-12 Outpatient Armstrong_B [facility] 284 193-202 [place] 00:00:00 00:00:00 62801 [facility] 2021-12-09 2021-12-09 Outpatient Armstrong_B [facility] U 284 193 [place] 00:00:00 00:00:00 [facility] 2021-12-09 2021-12-09 Autumn [facility] [place] - [id number] Jose alarcon 00:00:00 00:00:00 Narayan [place] Milady Camilo MD: 52672 Urology [facility] [address], [place] [address] , Ph. 2021-11-24 2021-11-24 Outpatient Armstrong_B [facility] U 284 193 [place] 00:00:00 00:00:00 [facility] 2021-11-23 2021-11-23 Outpatient Armstrong_B [facility] U 284 [place] 00:00:00 00:00:00 [facility] 2021-11-07 2021-11-07 Patient Karri, 1.2.840.1 [id number] 2100 144409 Methodi 00:00:00 00:00:00 Outreach [place] [address]91.1.[address] 3.430.2.7 Hospit a .3.213690 l .8 2021-10-20 2021-10-20 Travel 1.2.840.1 1.2.965.934 0916 774201 Methodi 00:00:00 00:00:[address] 3.430.2.7 0.2.7.3.698 Ho spita .3.657368 084.8 l .8 2021-10-03 2021-10-03 Outpatient Armstrong_B [facility] U 284 193 [place] 00:00:00 00:00:00 [facility] 2021-09-22 2021-09-22 Office Kathleen, 1.2.840.1 [id number] 60411 57177 Methodi 13:00:00 14:17:47 Visit Rigo 50381.1.[address] 3.430.2.7 Hospit a .3.711635 l .8 2021-09-22 2021-09-22 Travel 1.2.840.1 1.2.204.968 9613 075765 Methodi 00:00:00 00:00:[address] 3.430.2.7 0.2.7.3.698 Ho spita .3.261255 084.8 l .8 2021-09-16 2021-09-16 Outpatient Armstrong_B [facility] 284 193 [place] 00:00:00 00:00:00 [facility] 2021-09-07 2021-09-07 Outpatient Armstrong_B [facility] 284 193 [place] 00:00:00 00:00:00 [facility] 2021-09-05 2021-09-05 Office William, 1.2.840.1 [id number] 4721 Methodi 11:45:00 12:32:31 Visit Man [facility] 11079.1.[address] Steve 3.430.2.7 Hospit a .3.874602 l .8 2021-09-05 2021-09-05 Outpatient Armstrong_B U [facility] 284 193 [place] 11:14:00 11:14:00 [facility] 2021-09-05 2021-09-05 Travel 1.2.840.1 1.2.787.335 3094 206020 Methodi 00:00:00 00:00:[address] 3.430.2.7 0.2.7.3.698 Ho spita .3.325810 084.8 l .8 2021-09-02 2021-09-02 Outpatient Armstrong_B U [facility] 284 193 [place] 09:41:00 09:41:00 [facility] 2021-09-02 2021-09-02 [place] [facility] [place] - [id number] Jose alarcon 00:00:00 00:00:00 Narayan [place] Milady Camilo MD: 80036 Urology [place] [address], [place] [id number] , Ph. 2021-09-02 2021-09-02 Outpatient Ashlee Cherelle [facility] fef2 [id number] 00:00:00 00:00:00 Autumn [id number] Narayan [id number] 2021-08-24 2021-08-24 Outpatient Ashlee_B [facility] 284 193-202 [place] 03:13:00 03:13:00 89169 [facility] 2021-07-20 2021-07-20 Refill Sigrid, 1.2.840.1 [id number] Methodi 00:00:00 00:00:[address] 3.430.2.7 Hospit a .3.736972 l .8 2021-07-18 2021-07-18 Office Jorge Livingston 1.2.840.1 [id number] 21 [id number] Methodi 12:20:00 13:04:05 Visit Mino 72444.1.[address] 3.430.2.7 Hospit a .3.655361 l .8 2021-07-18 2021-07-18 Outpatient YARA, JORGE [facility] 513 [id number] [place] 00:00:00 00:00:[address] 2021-07-18 2021-07-18 Outpatient JORGE LIVINGSTON [facility] [id number] [place] 00:00:00 00:00:[address] 2021-07-18 2021-07-18 Travel 1.2.840.1 1.2.736.507 9800 736653 Methodi 00:00:00 00:00:[address] 3.430.2.7 0.2.7.3.698 Ho spita .3.736430 084.8 l .8 2021-06-22 2021-06-22 Outpatient KATHLEEN, [facility] [id number] 0545 [place] 00:00:00 00:00:00 RIGO [address] 2021-05-26 2021-05-26 Outpatient DASHA, [facility] 021 [id number] 3928 [place] 00:00:00 00:00:00 PETER [address] 2021-05-03 2021-05-05 Inpatient CATHERINE, [facility] 064 [id number] 7483 [place] 00:00:00 00:00:00 ARMANDO [address] 2021-04-20 2021-04-20 Outpatient OPPERMANN, [facility] 2100 [id number] [place] 00:00:00 00:00:00 ROBYN [address] 2021-04-07 2021-04-13 Inpatient CATHERINE, [facility] 027 [id number] 7058 [place] 00:00:00 00:00:00 ARMANDO [address] 2021-04-07 2021-04-07 Outpatient [facility] [id number] 697 [place] 00:00:00 00:00:[address] 2021-04-07 2021-04-07 Outpatient [facility] [id number] 836 [place] 00:00:00 00:00:[address] 2021-04-05 2021-04-05 Outpatient OPPERMANN, [facility] 2100 [id number] [place] 00:00:00 00:00:00 ROBYN [address] 2021-03-30 2021-03-30 Outpatient OPPERMANN, [facility] 2100 [id number] [place] 00:00:00 00:00:00 ROBYN [address] 2021-03-25 2021-03-25 Outpatient ATTAR, [facility] [id number] 789 [place] 00:00:00 00:00:00 MOHAMMED [address] 2021-03-16 2021-03-16 Outpatient OPPERMANN, [facility] 2100 [id number] [place] 00:00:00 00:00:00 ROBYN [address] 2021-03-10 2021-03-10 Outpatient WILLIAM, [facility] [id number] 757 [place] 00:00:00 00:00:00 MOHAMMED [address] 2021-03-09 2021-03-09 Outpatient OPPERMANN, [facility] 2100 [id number] [place] 00:00:00 00:00:00 ROBYN [address] 2021-03-02 2021-03-02 Outpatient OPPERMANN, [facility] 2100 [id number] [place] 00:00:00 00:00:00 ROBYN [address] 2021-01-11 2021-01-11 Outpatient Praful_T VFP VFP [id number] 0-20 [facility] 11:06:00 11:06:00 [id number] Family Practic e 2020-12-29 2021-01-05 Inpatient CATHERINE [facility] 064 [id number] 9708 [place] 00:00:00 00:00:00 ARMANDO [address] 2020-12-15 2020-12-17 Inpatient CATHERINE [facility] 064 [id number] 5172 [place] 00:00:00 00:00:00 ARMANDO [address] 2020-10-21 2020-10-21 Outpatient Armstrong_B [facility] 284 193-202 [place] 09:43:00 09:43:00 53471 [facility] 2020-10-20 2020-10-20 Outpatient Armstrong_B U [facility] 284 193-202 [place] 03:01:00 03:01:00 32542 [facility] 2020-10-20 2020-10-20 Outpatient Rosado, [facility] 90c5 5610-1 00:00:00 00:00:00 Autumn [id number] [place] [id number] 2020-10-20 2020-10-20 Manzanola [facility] [place] - [id number] [facility] 00:00:00 00:00:00 Narayan Zavala Milady Camilo Urosurya villegas MD: 61807 Urology [address] [address], [place] [address] , Ph. 2020 2020 Outpatient BHARATI, [facility] [id number] 8574 [place] 00:00:00 00:00:[address] ALI [address] 2020-07-20 2020-07-20 Outpatient DOLLY [facility] 641 [id number] 779 [place] 00:00:00 00:00:00 BULL [address] 2020-07-16 2020-07-16 Outpatient DOLLY [facility] [id number] 838 [place] 00:00:00 00:00:00 BULL [address] 2020-07-13 2020-07-13 Outpatient Armstrong_B [facility] 284 193-202 [place] 08:31:00 08:31:00 17898 [facility] 2020-07-09 2020-07-09 Outpatient Armstrong_B [facility] 284 193-202 [place] 04:30:00 04:30:00 94491 [facility] 2020-07-08 2020-07-08 Outpatient Armstrong_B [facility] 284 193-202 [place] 11:34:00 11:34:00 40322 [facility] 2020-07-08 2020-07-08 Outpatient Rosado, [facility] HMU 1fa9 ee08-2 00:00:00 00:00:00 Autumn [id number] Narayan [id number] 2020-07-08 2020-07-08 Autumn [facility] [place] - [id number] [facility] Milady Camilo MD: 7777 Urology [facility] [address], [place] [address] , Ph. 2020-07-07 2020-07-07 Outpatient Armstrong_B [facility] 284 193-202 [place] 12:39:00 12:39:00 60730 [facility] 2020-07-06 2020-07-06 Outpatient Armstrong_B [facility] 284 193-202 [place] 10:24:00 10:24:00 83746 [facility] 2020-06-28 2020-06-28 Outpatient WILLIAM [facility] [id number] 958 [place] 00:00:00 00:00:00 MOHAMMED [address] 2020-05-20 2020-05-20 Outpatient CAROLINE [facility] [id number] 492 [place] 00:00:00 00:00:00 MARIO ALBERTO [address] 2020-04-29 2020-04-29 Outpatient [facility] [id number] 543 [place] 00:00:00 00:00:[address] 2020-02-25 2020-02-25 Outpatient WILLIAM, [facility] [id number] 518 [place] 00:00:00 00:00:00 MOHAMMED [address] 2019-12-22 2019-12-22 Outpatient OPPERMANN, [facility] 2100 [id number] [place] 00:00:00 00:00:00 ROBYN [address] 2019-11-24 2019-11-24 Outpatient WILLIAM, [facility] [id number] 090 [place] 00:00:00 00:00:00 MOHAMMED [address] 2019-11-20 2019-11-20 Outpatient Daniel_T VFP VFP [id number] 0-20 [facility] 05:01:00 05:01:00 429329 Family Practic e 2019-10-13 2019-10-13 Outpatient WILLIAM, [facility] [id number] 014 [place] 00:00:00 00:00:00 MOHAMMED [address] 2019-10-11 2019 Outpatient CATHERINE, [facility] 012 [id number] [place] 00:00:00 00:00:00 ARMANDO [address] 2019-09-30 2019-09-30 Outpatient RIVERA, [facility] [id number] 1666 [place] 00:00:00 00:00:00 CHRISSIE [address] 2019-07-29 2019-07-29 Outpatient RIVERA, [facility] [id number] 0215 [place] 00:00:00 00:00:00 CHRISSIE [address] 2019-07-29 2019-07-29 Outpatient RIVERA, [facility] [id number] 7640 [place] 00:00:00 00:00:00 CHRISSIE [address] 2019-05-11 2019-05-11 Emergency SORENSEN, [facility] 064 [id number] 25 [place] 00:00:00 00:00:00 SAÚL [address] 2019-04-23 2019-04-23 Outpatient OPPERMANN, [facility] 2100 [id number] [place] 00:00:00 00:00:00 ROBYN [address] 2019-04-23 2019-04-23 Outpatient ROSADO, [facility] 2100 [id number] [place] 00:00:00 00:00:00 AUTUMN [address] 2019-04-11 2019-04-15 Inpatient KANDALA, [facility] [id number] 057 [place] 00:00:00 00:00:00 RANGANATH [address] 2019-04-07 2019-04-07 Outpatient OPAIMEEMANN, [facility] 2100 [id number] [place] 00:00:00 00:00:00 ORBYN [address] 2019-03-17 2019-03-19 Inpatient DAVION, [facility] [id number] 548 [place] 00:00:00 00:00:00 RANGANATH [address] 2018-12-27 2018-12-27 Outpatient ASHLEE, [facility] 2100 [id number] [place] 00:00:00 00:00:00 AUTUMN [address] 2018-11-11 2018-11-11 Outpatient MARY KATE, [facility] 2100 [id number] [place] 00:00:00 00:00:00 ROBYN [address] 2018-10-17 2018-10-25 Inpatient YONNY, [facility] 012 [id number] 3059 [place] 00:00:00 00:00:00 COLT [address] Results Test Description Test Time Test Comments Results Result Comments Source Lipid panel 2022-05-04 01:03:00 Test Item Value Reference Range Interpretation Comme nts Cholesterol, total (test 111 mg/dL <=200 code = 2093-3) HDL cholesterol (test 57 mg/dL See_Comment [Auto mated message] code = 2084-9) The system [facility] generated this result transmitted ref erence range: > OR = 4 0. The reference range was not used to int erpret this result as normal/abnormal . Triglycerides (test code 76 mg/dL <=150 = 2571-8) LDL cholesterol 38 mg/dL (calc) Reference ra nge: <100 calculated (test code = Brenda rable range <100 72589-7) mg/dL for prima ry prevention; <70 mg/dL for patients wi th CHD or diabetic pat ients with > or = 2 C HD risk factors. LDL-C is now calculated rohit madrid the Keith calculation, [facility] is a validated nov el method ghanshyam madrid better accuracy than the Friedewald equation in the estimation of L DL-C. Gaston SS et al . JIMMY. 2013;310(19): 2075-2871 (http://educati on.Ques tDiagnostics.co m/faq/F AQ164) Cholesterol/HDL ratio 1.9 See_Comment [Auto mated message] (test code = 9830-1) The sys tem which generated this result transmitted ref erence range: <5.0 (ca lc). The reference r mini was not used to interpret this result as normal/abnor mal. Non-HDL cholesterol (test 54 See_Comment Fo r patients with code = 89038-6) diabetes plu s 1 major ASCVD risk fact or, treating to a non-HDL-C goal of <100 mg/dL (LDL-C of <70 mg/dL) is consi dered a therapeutic opt ion. [Automated mess age] The system [employer] generated this result transmitted ref erence range: <130 mg/ dL (calc). The ref erence range was not u sed to interpret this result as normal/abnor mal. KENNETH (test code = KENNETH) FASTING:NO FASTING: NO RAC (test code = RAC) Performing Organization Information: Site ID: RGA Name: [facility] Address: [address] [place] [id number] Director[facility] [id number] 01:03:00 Test Item Value Reference Range Interpretation Comments Hemoglobin A1C 5.0 See_Comment For the purpo se of (test code = screening for t he 4548-4) presence ofdiab etes: <5.7% Consisten t [...] specif ic patient populat ions. Standards of [place] dical Care in Diabetes(ADA). [Automated mess age] The system [employer] generated this result transmitted ref erence range: <5.7 % o f total Hgb. The reference range was not used to int erpret this result as normal/abnormal . KENNETH (test code = FASTING:NO KENNETH) FASTING: NO RAC (test code = Performing RAC) Organization Information: Site ID: [facility] Name: [facility] Address: [address] [place] [address] Director: [place] [id number], [id number] 01:03:00 Test Item Value Reference Range Interpretation Comments T4, free (test code 1.1 ng/dL 0.8-1.8 = 3024-7) KENNETH (test code = FASTING:NO FASTING: NO KENNETH) RAC (test code = Performing Organization RAC) Information: Site ID: A Name: [facility] Address: [address] [place] [address] Director[facility] Center[facility] stimulating [id number] 01:03:00 Test Item Value Reference Range Interpretation Comments TSH (test 0.77 See_Comment [Automated mes chelsea] code = The system [facility] h 3016-3) generated this result transmit rosalina reference range : 0.40 - 4.50 mIU /L. The reference r mini was not used to interpret this result as normal/abnormal . KENNETH (test FASTING:NO FASTING: code = KENNETH) NO RAC (test Performing code = RAC) Organization Information: Site ID: [facility] Name: [facility] Address: [address] [place] [address] Director: [place] [id number], [id number] 01:03:00 Test Item Value Reference Range Interpretation Comments T3, free (test code 3.3 pg/mL 2.3-4.2 = 3051-0) KENNETH (test code = FASTING:NO FASTING: NO KENNETH) RAC (test code = Performing Organization RAC) Information: Site ID: [facility] Name: [facility] Address: [address] [place] [address] Director: [facility] CenterThyroperoxidase [id number] 01:03:00 Test Item Value Reference Range Interpretation [...] Performing Organization Information: Site ID: IG Name: [facility] Lab Address: [address] [place] [id number] Director: Dr. Raffaele [facility] CenterThyroglobulin [id number] 01:03:00 Test Item Value Reference Range Interpretation [...] RAC) Organization Information: Site ID: IG Name: [facility] Lab Address: [address] [place] [id number] Director: Dr. Raffaele [facility] CenterComprehensive metabolic [id number] 01:03:00 Test Item Value Reference Range Interpretation Comments Glucose (test code = 77 mg/dL 65-139 Non-fa sting 2345-7) reference interval BUN (test code = 33 mg/dL 7-25 H 3094-0) Creatinine (test 1.80 mg/dL 0.70-1.35 H code = 2160-0) eGFR (test code = 41 See_Comment L The eGFR i s based [address]75-5) on the CKD-EPI 2020 equation. To calculate the n ew eGFR from a previous Creatinine or Cystatin Cresul t, go to [email or web address] ne [email or web address]/professio na [email or web address]/kdoqi/[email or web address] ca lculator [Automated message] The system which generated this result transmitted reference range : > OR = 60 mL/min/1.73m2. The reference range was not used to interpr et this result as normal/abnormal . BUN/creatinine ratio 18 See_Comment [Autom ated (test code = 3097-3) message ] The system which generated this result transmitted reference range : 6 - 22 (calc). The reference range was not used to interpr et this result as normal/abnormal . Sodium (test code = 140 mmol/L 896-327 8682-2) Potassium (test code 5.6 mmol/L 3.5-5.3 H = 2823-3) Chloride (test code 101 mmol/L 98-110 = 5-0) CO2 (test code = 32 mmol/L 20-32 2027-9) Calcium (test code = 9.9 mg/dL 8.6-10.3 42556-1) Protein (test code = 6.7 g/dL 6.1-8.1 2885-2) Albumin, S (test 4.0 g/dL 3.6-5.1 code = 1751-7) Globulin, total 2.7 See_Comment [Automated (test code = message] The 49169-5) system which generated this result transmitted reference range : 1.9 - 3.7 g/dL (calc). The reference range was not used to interpret this result as normal/abnormal . Albumin/globulin 1.5 See_Comment [Automated ratio (test code = message] The ) system which generated this result transmitted reference range : 1.0 - 2.5 (calc ). The reference range was not used to interpr et this result as normal/abnormal . Total bilirubin 0.3 mg/dL 0.2-1.2 (test code = 1974-2) Alkaline phosphatase 59 U/L 35-144 (test code = 6768-6) AST (test code = 46 U/L 10-35 H 1920-8) ALT (test code = 37 U/L 9-46 1742-6) KENNETH (test code = FASTING:NO KENNETH) FASTING: NO RAC (test code = Performing RAC) Organization Information: Site ID: [facility] Address: [address] [place] [id number] Director: Raffaele Stahl Lab Interpretation Abnormal (test code = 17709-4) [facility] 12 [id number] 13:36:59 Test Item Value Reference Range Interpretation Comments Ventricular rate (test 64 code = 253) Atrial rate (test code 64 = 255) ME interval (test code 282 = 266) QRSD [...] ECG-In automated comparison with ECG of 23-JAN-2022 08:32,-ME interval has increased-Questionable change in initial forces of Anterolateral leads- [facility]23-01-24 15:11:00 Test Item Value Reference Range Interpretation Comments Albumin, S (test 4.6 g/dL 3.8-4.8 code = 1751-7) KENNETH (test code = Performed at: - KENNETH) Lab[address] [id number] Director: Anshu Cerda MD, Phone: [phone] [facility]2023-01-24 15:11:00 Test Item Value Reference Range Interpretation Comments Creatinine (test code = 1.36 mg/dL 0.76-1.27 H 2160-0) eGFR (test code = 57 mL/min/1.73 >=59 L 77775-8) KENNETH (test code = KENNETH) Performed at: [address] [place] [id number] Director: Anshu Cerda MD, Phone: [phone] Lab Interpretation (test Abnormal code = 49757-3) [facility] ([place])2022-03-07 15:11:00 Test Item Value Reference Range Interpretation Comments AST (test code 28 See_Comment [Automated m essage] = 1920-8) The system Sendbloom generated this result transmit rosalina reference range : 0 - 40 IU/L. The reference range was not used to interpret this result as normal/abnormal . KENNETH (test code Performed at: - = KENNETH) [address] [id number] Director: Anshu Cerda MD, Phone: [phone] [facility] 15:11:00 Test Item Value Reference Range Interpretation Comments ALT (test code 29 See_Comment [Automated m essage] = 3842-6) The system ic h generated this result transmit rosalina reference range : 0 - 44 IU/L. The reference range was not used to interpret this result as normal/abnormal . KENNETH (test code Performed at: - = KENNETH) [facility] [id number] Director: Anshu Cerda MD, Phone: [phone] [facility] [id number] 15:11:00 Test Item Value Reference Range Interpretation Comments Uric acid 4.4 mg/dL 3.8-8.4 Therapeutic ta rget (test code = for gout patien ts: 3084-1) <6.0 KENNETH (test code Performed at: - = KENNETH) [facility] [id number] Director: Anshu Cerda MD, Phone: [phone] [facility] [id number] 15:11:00 Test Item Value Reference Range Interpretation Comments CRP (test code = 6 mg/L -1987-06) KENNETH (test code = Performed at: ) [facility] [id number] Director: Anshu Cerda MD, Phone: [phone] [facility] and [id number] 15:11:00 Test Item Value Reference Range Interpretation Comments WBC (test code = 7.3 See_Comment [Automated 5686-2) message] The system which generated this result transmitted reference range : 3.4 - 10.8 x10E3/uL. The reference range was not used to interpret this result as normal/abnormal . RBC (test code = 5.17 See_Comment [Automated 628-8) message] The system which generated this result [...] 0 % Not Estab. (test code = 42853-4) Immature 0.0 See_Comment [Automated granulocytes, message] The absolute (test code = system which 26049-4) generated this result transmitted reference range : 0.0 - 0.1 x10E3/uL. The reference range was not used to interpret this result as normal/abnormal . KENNETH (test code = KENNETH) Performed at: 01 - [facility] [id number] Director: Anshu Cerda MD, Phone: [phone] Lab Interpretation Abnormal (test code = 36922-7) [facility] [id number] 15:11:00 Test Item Value Reference Range Interpretation Comments Sedimentation rate 7 See_Comment [Automat ed (test code = 4537-7) message ] The system which generated this result transmitted reference range : 0 - 30 mm/hr. T he reference range was not used to interpret this result as normal/abnormal . KENNETH (test code = Performed at: KENNETH) - [facility] [address] [id number] Director: Anshu Cerda MD, Phone: [phone] [facility] panel - [id number] 09:18:00 Test Item Value Reference Range Interpretation [...] clarity) nitrite (test code = nitrite) neg [facility] VdupgleHXKJ-MoV-3 (COVID-19) RNA [Presence] in Respiratory specimen by SHANNAN with probe [id number] 01:35:51 Test Item Value Reference Range Interpretation Comments SARS-CoV-2 (COVID-19) RNA Not detected [Presence] in Respiratory specimen by SHANNAN with probe detection (test code = 85893-2) Whether patient is employed in a Unknown healthcare setting (test code = 86491-7) Whether the patient has symptoms Unknown related to condition of interest (test code = 26185-0) Whether the patient was Unknown hospitalized for condition of interest (test code = 92554-6) Whether the patient was admitted Unknown to intensive care unit (ICU) for condition of interest (test code = 92976-7) Whether patient resides in a Unknown congregate care setting (test code = 74944-1) status (test code = Unknown 16029-6) Date and time of symptom onset Unknown (test code = 03662-5) LUCAS BURRELLSARS-CoV-2 (COVID-19) RNA [Presence] in Respiratory specimen by SHANNAN with probe [id number] 00:41:51 Test Item Value Reference Range Interpretation Comments SARS coronavirus RNA [Presence] Not detected in Isolate by SHANNAN with probe detection (test code = 39630-4) Whether patient is employed in a Unknown healthcare setting (test code = 06608-6) Whether the patient has symptoms Unknown related to condition of interest (test code = 87349-6) Whether the patient was Unknown hospitalized for condition of interest (test code = 53922-1) Whether the patient was admitted Unknown to intensive care unit (ICU) for condition of interest (test code = 54748-4) Whether patient resides in a Unknown congregate care setting (test code = 02957-0) status (test code = Unknown 03795-2) Date and time of symptom onset Unknown (test code = 58455-2) LUCAS BURRELLSARS-CoV-2 (COVID-19) RNA [Presence] in Respiratory specimen by SHANNAN with probe [id number] 00:41:51 Test Item Value Reference Range Interpretation Comments SARS-CoV-2 (COVID-19) RNA Not detected [Presence] in Respiratory specimen by SHANNAN with probe detection (test code = 12138-0) Whether patient is employed in a Unknown healthcare setting (test code = 95389-7) Whether the patient has symptoms Unknown related to condition of interest (test code = 13471-1) Whether the patient was Unknown hospitalized for condition of interest (test code = 48228-0) Whether the patient was admitted Unknown to intensive care unit (ICU) for condition of interest (test code = 57321-0) Whether patient resides in a Unknown congregate care setting (test code = 38032-3) status (test code = Unknown 22760-9) Date and time of symptom onset Unknown (test code = 48446-6) LUCAS BURRELLSARS-CoV-2 (COVID-19) RNA [Presence] in Respiratory specimen by SHANNAN with probe [id number] 23:26:09 Test Item Value Reference Range Interpretation Comments SARS-CoV-2 (COVID-19) RNA Not detected Not-Detected [Presence] in Respiratory specimen by SHANNAN with probe detection (test code = 72204-1) Whether patient is employed in a healthcare setting (test code = 06879-5) Whether the patient has symptoms related to condition of interest (test code = 75403-7) Patient was hospitalized because of this condition (test code = 68892-5) Whether the patient was admitted to intensive care unit (ICU) for condition of interest (test code = 38993-2) Whether patient resides in a congregate care setting (test code = 98021-6) LUCAS BURRELLSARS-CoV-2 (COVID-19) RNA [Presence] in Respiratory specimen by SHANNAN with probe [id number] 23:43:22 Test Item Value Reference Range Interpretation Comments SARS-CoV-2 (COVID-19) RNA Not detected Not-Detected [Presence] in Respiratory specimen by SHANNAN with probe detection (test code = 79930-1) Whether patient is employed in a healthcare setting (test code = 73362-5) Whether the patient has symptoms related to condition of interest (test code = 57728-2) Patient was hospitalized because of this condition (test code = 72289-3) Whether the patient was admitted to intensive care unit (ICU) for condition of interest (test code = 80720-1) Whether patient resides in a congregate care setting (test code = 44872-2) LUCAS BURRELLSARS-CoV-2 (COVID-19) RNA [Presence] in Respiratory specimen by SHANNAN with probe [id number] 14:14:19 Test Item Value Reference Range Interpretation Comments SARS-CoV-2 (COVID-19) RNA Not detected Not-Detected [Presence] in Respiratory specimen by SHANNAN with probe detection (test code = 68116-7) Whether patient is employed in a healthcare setting (test code = 80991-8) Whether the patient has symptoms related to condition of interest (test code = 66073-5) Patient was hospitalized because of this condition (test code = 03078-0) Whether the patient was admitted to intensive care unit (ICU) for condition of interest (test code = 06278-4) Whether patient resides in a congregate care setting (test code = 06115-5) [facility]
[2022-08-12 15:42] LABS: Potassium 4.9 mEq/L (3.5-5.1)
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
[2022-08-12 17:07] VITALS: O2SAT 99
[2022-08-12 17:08] VITALS: TEMP 98.1
[2022-08-12 17:09] VITALS: BP 168/72
== END 2022-08-12 17:01 | disposition home or self-care (01) ==
LOC: ER 14:39
DX: T24.201A Burn of second degree of unspecified site of right lower limb, except ankle and foot, initial encounter (principal); T31.0 Burns involving less than 10% of body surface; Z88.6 Allergy status to analgesic agent; Z88.8 Allergy status to other drugs, medicaments and biological substances
CPT/HCPCS: 85025; 80048; 36415; 82550; 85610; 85730; 99285; J7120

== ENCOUNTER 2022-12-14 15:43 | Emergency (ER) | payer OTHER, MEDICARE ==
--- OUTSIDE RECORDS SUMMARY | 2022-12-14 15:52 | XMS REPORT | Continuity of Care Document ---
:1955 Author Organization [facility] t Address [address] [facility] [address] [place] [address] Care Team Providers Name Role Phone Cinthya Ricardo MD Primary Care Physician Mari Johnson MA Attending Clinician Unavailable Cinthya Ricardo MD Attending Clinician Jose Cintron MD Attending Clinician Robyn Melendrez MD Attending Clinician Sally PORRAS, Shakir Mckeon Attending Clinician Unavailable Anamaria PORRAS, Brooklyn Rosario Attending Clinician Unavailable Avtar PORRAS, Bhargavi Attending Clinician Unavailable Catherine MILIAN, Armando Skinner Attending Clinician Kam Booker MD Attending Clinician [phone] Mike Agustin CRNA Attending Clinician Mitali DPM, Harlan Beltran Attending Clinician Mary Cason MA Attending Clinician Unavailable Danny Bach MD Attending Clinician Ismael MILIAN, Kirby Attending Clinician Christ Peña MD Attending Clinician Baltazar MILIAN, Miryam Attending Clinician Deonna Tristan MD Attending Clinician Dustin CASTANO, Vincecomichael REmy Attending Clinician [phone] Gwendolyn Leslie MA Attending Clinician Unavailable Jami Juarez RN Attending Clinician Unavailable MALCOM ARITA Attending Clinician Unavailable Armsgloria_B Attending Clinician Unavailable Kathleen MILIAN, Rigo Attending Clinician Kathleen Thomas MD Attending Clinician Ancelmo Wong MD Attending Clinician Kathleen Plummer Attending Clinician Tamiko Perry MA Attending Clinician Unavailable Kathleen Plummer MD Attending Clinician Kirsten Jordan DO Attending Clinician Pattie Attending Clinician Unavailable Karri PORRAS, Brie Attending Clinician Unavailable Autumn Rosado Attending Clinician [phone] Maribeth Matta MA Attending Clinician Unavailable Jorge Lviingston MD Attending Clinician WOODROW LOU Attending Clinician Unavailable MD ARMANDO ALEXANDER Attending Clinician Unavailable NESS CALABRESE Attending Clinician Unavailable BULL ALBERTO Attending Clinician Unavailable MD BULL ALBERTO Attending Clinician Unavailable MARIO ALBERTO VELAZQUEZ Attending Clinician Unavailable CHRISSIE RIVERA Attending Clinician Unavailable SAÚL SORENSEN Attending Clinician Unavailable COLT BLANCAS Attending Clinician Unavailable ARMANDO ALEXANDER Admitting Clinician Unavailable KIRBY SOTO Admitting Clinician Unavailable Jaycee Admitting Clinician Unavailable Pattie Admitting Clinician Unavailable WOODROW LOU Admitting Clinician Unavailable MD ARMANDO ALEXANDER Admitting Clinician Unavailable BULL ALBERTO Admitting Clinician Unavailable MD BULL ALBERTO Admitting Clinician Unavailable CINTHYA RICARDO Admitting Clinician Unavailable COLT BLANCAS Admitting Clinician Unavailable Payers Payer Name Policy Type Policy Number Effective Date Expiration Date S ource [place]IC[place]: [id number] 2013 [employer] 00:00:00 [place] [id number] 2017 OPTIONS 00:00:00 Problems Condition Condition Condition Status Onset Resolution Last Treating Co mments Source Name Details Category Date Date Treatment Clinician Date Wound Wound Disease Active [facility] cellulitis cellulitis 11-06 st 00:00: Hospita 00 l Necrotic Necrotic Disease Active [facility] di toes toes 11-06 st 00:00: Hospita 00 l Left flank Left flank Disease Active M ethodi pain pain 815 st 00:00: Hospita 00 l EVAL WITH EVAL WITH Diagnosis Active 2022-03-10 Memstephanie ROSA ROSA 1-20 12:47:00 l Active 00:00: [place] 03/03/2022 [facility] T[facility] TODD WITH TODD Diagnosis Active 2022-05-05 Memstephanie ROSA WITH ROSA -20 12:24:00 l Active 00:00: [place] 03/03/2022 [facility] Anemia Anemia Disease Active [facility] 3 st 00:00: [facility]ospita 00 l Vitamin D Vitamin D Disease Active Met [facility] deficiency deficiency 04-08 st 00:00: Hospita 00 l 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 00:00: Hospit 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 y y 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 00:00: Hospita disease disease 00 l Obesity Obesity Disease Active [facility] (BMI (BMI 2-25 st 30-39.9) 30-39.9) 00:00: Hospit a 00 l Borderline Borderline Disease Active M ethodi abnormal abnormal 2 st TFTs TFTs 00:00: Hospita 00 l PAD PAD Disease Active [facility] (periphera (periphera 2-24 st l artery l artery 00:00: Hospit a disease) disease) 00 l (HCC) 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 Added automatic ally from request for surgery [id number] VALERIA (acute VALERIA (acute Disease Active M ethodi kidney kidney 9-05 st injury) injury) 00:00: Hospita 00 l Diverticul Diverticul Disease Active M ethodi itis of itis of 9-05 st large large 00:00: Hospita intestine intestine 00 l with with abscess abscess without without bleeding bleeding Chronic Chronic Disease Active [facility] systolic systolic 9-05 st (congestiv (congestiv 00:00: Ho spita e) heart e) heart 00 l failure failure Trigger Trigger Disease Active [facility] index index 8-07 st finger of finger of 00:00: [facility] left hand left hand 00 l Tendinitis Tendinitis Disease Active M ethodi of finger of finger 8-07 st 00:00: Hospita 00 l CHF CHF Disease Active [facility] exacerbati exacerbati 3-21 st on on 00:00: Hospita 00 l Type 2 Type 2 Disease Active [facility] diabetes diabetes 3-21 st mellitus mellitus 00:00: Hospit a 00 l Essential Essential Disease Active Met [facility]odi hypertensi hypertensi 05-02 st on on 00:00: Hospita 00 l CAD CAD Disease Active [facility] (coronary (coronary 05-02 st artery artery 00:00: Hospita disease) disease) 00 l Scrotal Scrotal Disease Active [facility] edema edema 05-02 st 00:00: Hospita 00 l Neurogenic Neurogenic Problem Active [place] dysfunctio Dysfunctio 05-31 Me [facility] n of the n of the 00:00: Urolog y urinary Urinary 00 bladder Bladder Dysuria Dysuria Problem Active [place] 05-[facility] 00:[facility]: [facility]rology 00 PARAPLEGIA PARAPLEGI [...] l s to drug Aleve Allergy Active [place] to 02-12 [facility] sub[facility]anc 00:[facility]: Urology e 00 COLCHICI Allergy Active [place] to 02-12 [facility] 00:[facility]: Urology e 00 Flomax Allergy Active [place] to 02-12 [facility] 00:[facility]: Urology e 00 Emily Allergy Active [place] to 02-12 [facility] 00:[facility]: Urology e 00 Linezoli Allergy Active [place] to [facility] U[facility] e Family History Family Member Diagnosis Comments Start Date Stop Date Source Natural father Heart disease [facility] Natural mother Cancer [facility] Natural mother [facility] Natural mother Hypertension [facility] Natural sister Diabetes [facility] Social History Social Habit Start Date Stop Date Quantity Comments Source Gender identity 2021-03-01 Identifies as [facility] 23:04:24 male gender Hospital (finding) Sexual orientation 2021-03-01 [facility] 23:04:24 [facility] History of tobacco Current smoker [facility] Alcohol intake 2022-12-08 2022-12-08 Ex-drinker [facility] 00:[facility]:00 (finding) Hospital History of Social 2022-12-08 2022-12-[address] function 00:00:00 00:00:00 Hospital Education 2022-10-18 2022-10-18 21 [facility] 00:[facility] 00:00[facility]00 Hospital Tobacco use and 2022-01-23 2022-01-23 Smokeless tobacco [facility] exposure 00:00:00 00:00:00 non-user Hospital Tobacco Comment 2022-01-23 2022-01-23 only as young [facility] 00:00:00 00:00:00 adult [facility] Sex Assigned At [birth year] M [facility] 00:00:00 00:00:00 Hospital Smoking Status Start Date Stop Date Source Ex-smoker 2022-01-23 00:00:00 2022-01-23 00:00:00 [facility] Medications Ordered Filled Start Stop Current Ordering Indication Dosage Frequency Signature Comments Components Source Medication Medication Date Date Medication? Clinician (SIG) Name Name oxyCODone-a 2022-02 [place] [id number] 1{tbl} Q8H Take 1 [facility] cetaminophe 0-27 10-[address] n 12:02: 00:00 mouth Hospita (PERCOCET) 16 :00 every 8 l 10-325 mg (eight) per tablet hours as needed for moderate pain .acute pain. oxycodone 2022-02- No 9mg Q12H Take 9 mg [facility] myristate 0-27 10-[address] (XTAMPZA ER 12:02: 00:00 every 12 H ospita ORAL) 16 :00 (twelve) l hours. 1 capsule every 12 hours with food Max Daily Amount: 18 mg carvediloL 2022-02- No 6.25mg Q.5D Take 1 [facility] (COREG) 0-27 10-[address] 6.25 MG 12:02: 00:00 (6.25 mg Hospi ta tablet 16 :00 total) by l mouth 2 (two) times a day with meals. empaglifloz 2022-02 No 10mg QD Take 1 Met [facility] in 0-27 10-27 tablet (10 st (Jardiance) 12:02: 00:00 mg total) Hospita 10 mg 16 :00 by mouth l tablet daily. tablet allopurinoL 2022-02 No 300mg QD Take 1 [facility] (ZYLOPRIM) 0-27 10-[address] 300 MG 12:00: 00:00 (300 mg Hospita tablet 52 :00 total) by l mouth daily. Every other day empaglifloz 2022-02 No 25mg QD Take 1 Met [facility]odi in 0-27 10-27 tablet (25 st (Jardiance) 11:57: 00:00 mg total) Hospita 25 mg 20 :00 by mouth l tablet daily. zinc 50 mg 2022-02 Yes 50mg QD Take 50 mg M ethodi tablet 0-[address] 11:24: daily. Hospita 41 l MAGNESIUM 2022-02 Yes 1{tbl} QD Take 1 Meth candelaria ORAL 0-[address] 11:24: mouth Hospita 41 daily. l UNABLE TO 2022-02 Yes 1000mg QD 1,000 mg [facility] FIND 0-[address] 11:24: [place] [facility] 41 oil l methocarbam 2022-02 Yes 500mg Q.[id number] Take 1 [facility] oL 0-[id number] (ROBAXIN) 11:24: 3D (500 mg Hospi ta 500 MG 41 total) by l tablet mouth 3 (three) times a day. cranberry 2022-02 Yes 1{capsu QD Take 1 [facility] fruit 0-27 le} capsule by st extract 11:22: mouth Hospita (CRANBERRY 31 daily. l EXTRACT ORAL) cinnamon 2022-02 Yes 2{tbl} QD Take 2 Metho di bark 0-[address] (CINNAMON 11:22: mouth Hospita ORAL) 31 daily. l APPLE CIDER 2023-1 Yes 2400mg QD Take 2,400 [facility] VINEGAR 0-[address] ORAL 11:22: mouth Hospita 31 daily. l empaglifloz 2022-02 Yes [id number] 10mg QD Take 1 [facility] in 0-27 tablet (10 st (Jardiance) 00:00: mg total) H ospita 10 mg 00 by mouth l tablet daily. tablet carvediloL 2022-02 Yes [id number] 6.25mg Q.5D Take 1 [facility] (COREG) 0-[address] 6.25 MG 00:00: (6.25 mg Hospit a tablet 00 total) by l mouth 2 (two) times a day with meals. aspirin 2022-02 Yes [id number] 81mg Q.[id number] Take 1 [facility] (ECOTRIN) 0-27 [id number] tablet (81 st 81 MG 00:00: 3W mg total) Hospita enteric 00 by mouth 3 l coated (three) tablet times a week. furosemide 2022-02 Yes [id number] 40mg Q.5D Take 1 [facility] (LASIX) 40 0-27 tablet (40 st mg tablet 00:00: mg total) Hos jorge 00 by mouth 2 l (two) times a day. Lantus 2022-02 Yes [id number] 10U QD Inject 0.1 [facility] U-100 0-27 mL (10 st Insulin 100 00:00: Units Hospi ta unit/mL 00 total) l injection under the (vial) skin daily. oxyCODONE 2022-02 Yes [id number] 9mg Q12H Take 9 mg [facility] myristate 0-[address] (Xtampza 00:00: every 12 Hospi ta ER) 9 mg 00 (twelve) l capsule,spr hours inkle,ER .chronic 12hr tmprr pain. 1 capsule every 12 hours with food Max Daily Amount: 18 mg oxyCODone-a 2022-02 Yes [id number] 1{tbl} Q8H Take 1 M ethodi cetaminophe 0-[address] n 00:00: mouth Hospita (PERCOCET) 00 every 8 l 10-325 mg (eight) per tablet hours as needed for moderate pain .chronic pain. Max Daily Amount: 3 tablets lisinopriL 2022-02- Yes [id number] 5mg QD Take 1 [facility] (PRINIVIL) 0-27 04-25 tablet (5 st 5 mg tablet 00:00: 04:59 mg total) Hospita 00 :00 by mouth l daily for 180 days. linaCLOtide 2022-02- Yes [id number] 290ug QD Take 1 [facility] (Linzess) 0-27 01-[address] 290 mcg 00:00: 05:59 (290 mcg Hospi ta capsule 00 :00 total) by l mouth daily before breakfast for 90 days. rosuvastati 2022-02- Yes [id number] 5mg QD Take 1 Methodi n (CRESTOR) 0-27 01-26 tablet (5 st 5 mg tablet 00:00: 05:59 mg total) Hospita 00 :00 by mouth l nightly for 90 days. collagenase 2022-02- Yes [id number] QD Apply Met hodi (SantyL) 0-04 11-[address] ointment 00:00: 04:59 daily for Hos jorge 00 :00 30 days .a l skin ulcer. Apply as directed to back wound wound measuremen ts are 3.7 cm x 3 cm x 1 xm collagenase 2022-02- No QD Apply Meth candelaria (SantyL) 0-04 10-[address] ointment 00:00: 00:00 daily for Hos jorge 00 :00 30 days. l Apply as directed to back wound carvediloL 2022- No [id number] 6.25mg Q.5D Take 0.5 [facility] (COREG) 9-27 10-[address] 12.5 MG 00:00: 00:00 (6.25 mg Hospi ta tablet 00 :00 total) by l mouth 2 (two) times a day with meals for 30 days. IM 2022- No .7mL Q1D Inject 0.7 Method i injection 9-27 10-[address] flu vacc 00:00: 00:00 the Hospita [id number] 00 :00 shoulder, l 5yr up,-PF thigh, or (FLUZONE buttocks HIGH-DOSE) During 240 mcg/0.7 hospitaliz mL syringe ation (Influenza vacination ) for up to 30 days. metoclopram 2022- No [id number] 5mg QD Take 0.5 [facility]i laron 11-08 10-27 tablets (5 st (REGLAN) 10 00:00: 00:00 mg total) Hospita MG tablet 00 :00 by mouth l daily for 30 days. cephalexin 0 2022- No 500mg Q.5D Take 1 Met hodi (Keflex) 11-08 10-[address] 500 MG 00:00: 04:59 (500 mg Hospita capsule 00 :00 total) by l mouth 2 (two) times a day for 14 days. insulin Yes [id number] 1{syrin QD 1 Syringe [facility] syr/ndl 9-11 ge} daily. st U100 half 00:00: Hospita tamika 0.5 mL 00 l 31 gauge x 5/16" syringe methocarbam 2022- No 500mg Q.5D Take 1 [facility] oL 10-05 08-[address] (ROBAXIN) 14:29: 00:00 (500 mg [facility] 500 MG 04 :00 total) by l tablet mouth 2 (two) times a day. Takes at 6 am and 6pm ceFAZolin 2022- No 2g Q8H Infuse 50 [facility] in 0.9% 10-02 09-04 mL ([address] sodium 00:00: 04:59 total) Hospita chloride 00 :00 into a l (ANCEF) 2 venous gram/50 mL catheter IVPB every 8 (eight) hours for 13 days. aspirin 2022- No [id number] 81mg Q.15250770 Take 1 [facility] (ECOTRIN) 09-27 [id number] tablet (81 st 81 MG 00:00: 00:00 3W mg total) Hospit a enteric 00 :00 by mouth 3 l coated (three) tablet times a week. calcium Yes [id number] 1200mg QD Take 2 M ethodi carbonate 8-[address] (Calcium 00:00: (1,200 mg [facility] 600) 600 mg 00 total) by l calcium mouth (1,500 mg) daily. tablet cyanocobala 0 Yes [id number] 1000ug QD Take 1 [facility] min 8-[address] (VITAMIN 00:00: (1,000 mcg Hos jorge B-12) 1000 00 total) by l MCG tablet mouth daily. ferrous Yes [id number] 325mg QD Take 1 [facility] sulfate 325 8-[address] (65 FE) MG 00:00: (325 mg [facility] tablet 00 total) by l mouth daily with breakfast. lancets 30 Yes [id number] BID Met [facility] gauge misc 8-15 st 00:00: Hospita 00 l multivitami Yes [id number] 1{tbl} QD Take 1 [facility] n 8-[address] (THERAGRAN) 00:00: mouth Hospi ta tablet 00 daily. l pyridoxine, Yes [id number] 100mg QD Take 1 [facility] vitamin B6, 8-[address] (B-6) 100 00:00: (100 mg Hospi ta MG tablet 00 total) by l mouth daily. furosemide 2022- No [id number] 40mg Q.5D Take 1 [facility] (LASIX) 40 8-15 10-27 tablet (40 st mg tablet 00:00: 00:00 mg total) Ho spita 00 :00 by mouth 2 l (two) times a day. Lantus 2022- No [id number] 10U QD Inject 0.1 [facility] U-100 8-15 10-27 mL (10 st Insulin 100 00:00: 00:00 Units [facility] unit/mL 00 :00 total) l injection under the (vial) skin daily. linaCLOtide 2022- No [id number] 290ug QD Take 1 [facility] (Linzess) 8-15 10-[address] 290 mcg 00:00: 00:00 (290 mcg Hospi ta capsule 00 :00 total) by l mouth daily before breakfast for 90 days. lisinopriL 2022- No [id number] 5mg QD Take 1 [facility] (PRINIVIL) 8-15 10-27 tablet (5 st 5 mg tablet 00:00: 00:00 mg total) Hospita 00 :00 by mouth l daily for 180 days. rosuvastati 2022- No [id number] 5mg QD Take 1 Methodi n (CRESTOR) 8-15 10-27 tablet (5 st 5 mg tablet 00:00: 00:00 mg total) Hospita 00 :00 by mouth l nightly for 90 days. blood sugar 2022- No [id number] TID M ethodi diagnostic 09-26 st strips 00:00: 00:00 Hospita strip test 00 :00 l strips carvediloL 2022- No [id number] 12.5mg Q.5D Take 1 [facility] (COREG) 09-[address] 12.5 MG 00:00: 00:00 (12.5 mg Hospi ta tablet 00 :00 total) by l mouth 2 (two) times a day with meals. metoclopram 2022- No [id number] 10mg Q.25D Take 1 [facility]i laron 09-26 tablet (10 st (REGLAN) 10 00:00: 00:00 mg total) Hospita MG tablet 00 :00 by mouth 4 l (four) times a day. allopurinoL 2022- No [id number] 300mg Q2D Take 1 [facility] (ZYLOPRIM) 09-[address] 300 MG 00:00: 04:59 (300 mg Hospita tablet 00 :00 total) by l mouth every other day for 30 days. Stop after 1 month pregabalin 2022- No [id number] 75mg Q.5D Take 1 [facility] (Lyrica) 75 09-[address] MG capsule 00:00: 04:59 (75 mg [facility] 00 :00 total) by l mouth 2 (two) times a day for 30 days. insulin 2022- No [id number] 1{syrin QD 1 Syringe Methodi syr/ndl 09-26 ge} daily. st U100 half 00:00: 00:00 Hospita tamika 0.5 mL 00 :00 l 31 gauge x 5/16" syringe empaglifloz 2022- No [id number] 10mg QD Take 1 [facility] in 09-26 tablet (10 st (Jardiance) 00:00: 00:00 mg total) Hospita 10 mg 00 :00 by mouth l tablet daily. tablet naloxegoL 2022- No [id number] 25mg QD Take 1 [facility] (MOVANTIK) 09-26 9102 tablet (25 st 25 mg 00:00: 00:00 mg total) Hospit a tablet 00 :00 by mouth l tablet daily for 60 days. linaCLOtide 2022- No [id number] 290ug QD Take 1 [facility] (Linzess) 09-[address] 290 mcg 00:00: 00:00 (290 mcg Hospi ta capsule 00 :00 total) by l mouth daily before breakfast for 90 days. aspirin 2022- No [id number] 81mg Q.[id number] Take 1 [facility] (ECOTRIN) 09-08 [id number] tablet (81 st 81 MG 00:00: 00:00 3W mg total) Hospit a enteric 00 :00 by mouth 3 l coated (three) tablet times a week. cyanocobala 2022- No 1000ug QD Take 1 M ethodi min 09-[address] (VITAMIN 12:12: 00:00 (1,000 mcg Ho spita B-12) 1000 43 :00 total) by l MCG tablet mouth daily. allopurinoL 2022- No [id number] 300mg Q2D Take 1 [facility] (ZYLOPRIM) 09-[address] 300 MG 00:00: 00:00 (300 mg Hospita tablet 00 :00 total) by l mouth every other day for 30 days. Stop after 1 month blood sugar 2022- No [id number] TID M ethodi diagnostic 09-07 st strips 00:00: 00:00 Hospita strip test 00 :00 l strips calcium 2022- No [id number] 1200mg QD Take 2 [facility] carbonate 09-[address] (Calcium 00:00: 00:00 (1,200 mg Hos [facility] 600) 600 mg 00 :00 total) by l calcium mouth (1,500 mg) daily. tablet carvediloL 2022- No [id number] 12.5mg Q.5D Take 1 [facility] (COREG) 09-[address] 12.5 MG 00:00: 00:00 (12.5 mg Hospi ta tablet 00 :00 total) by l mouth 2 (two) times a day with meals. cyanocobala 2022- No 1000ug QD Take 1 M ethodi min 09-[address] (VITAMIN 00:00: 00:00 (1,000 mcg Ho spita B-12) 1000 00 :00 total) by l MCG tablet mouth daily. empaglifloz 2022- No [id number] 10mg QD Take 1 [facility] in 09-07 tablet (10 st (Jardiance) 00:00: 00:00 mg total) Hospita 10 mg 00 :00 by mouth l tablet daily. tablet ferrous 2022- No [id number] 325mg QD Take 1 M ethodi sulfate 325 09-[address] (65 FE) MG 00:00: 00:00 (325 mg [facility] tablet 00 :00 total) by l mouth daily with breakfast. furosemide 2022- No [id number] 40mg Q.5D Take 1 [facility] (LASIX) 40 09-07 tablet (40 st mg tablet 00:00: 00:00 mg total) Ho spita 00 :00 by mouth 2 l (two) times a day. insulin 2022- No [id number] 1{syrin QD 1 Syringe Methodi syr/ndl 09-07 ge} daily. st U100 half 00:00: 00:00 Hospita tamika 0.5 mL 00 :00 l 31 gauge x 5/16" syringe Lantus 2022- No [id number] 10U QD Inject 0.1 [facility] U-100 09-07 mL (10 st Insulin 100 00:00: 00:00 Units [facility] unit/mL 00 :00 total) l injection under the (vial) skin daily. lisinopriL 2022- No [id number] 5mg QD Take 1 [facility] (PRINIVIL) 09-07 tablet (5 st 5 mg tablet 00:00: 00:00 mg total) Hospita 00 :00 by mouth l daily for 180 days. multivitami 2022- No [id number] 1{tbl} QD Take 1 Methodi n 09-[address] (THERAGRAN) 00:00: 00:00 mouth [facility] tablet 00 :00 daily. l metoclopram 2022- No [id number] 10mg Q.25D Take 1 Methodi laron 09-07 tablet (10 st (REGLAN) 10 00:00: 00:00 mg total) Hospita MG tablet 00 :00 by mouth 4 l (four) times a day. naloxegoL 2022- No [id number] 25mg QD Take 1 [facility] (MOVANTIK) 09-07 9102 tablet (25 st 25 mg 00:00: 00:00 mg total) Hospit a tablet 00 :00 by mouth l tablet daily for 60 days. pregabalin 2022- No [id number] 75mg Q.5D Take 1 [facility] (Lyrica) 75 09-[address] MG capsule 00:00: 00:00 (75 mg [facility] 00 :00 total) by l mouth 2 (two) times a day for 30 days. pyridoxine, 2022- No [id number] 100mg QD Take 1 [facility] vitamin B6, 09-[address] (B-6) 100 00:00: 00:00 (100 mg [facility] MG tablet 00 :00 total) by l mouth daily. rosuvastati 2022- No [id number] 5mg QD Take 1 Methodi n (CRESTOR) 09-07 tablet (5 st 5 mg tablet 00:00: 00:00 mg total) Hospita 00 :00 by mouth l nightly for 90 days. naloxegoL 2022- No [id number] 25mg QD Take 1 [facility] (MOVANTIK) 08-22 9102 tablet (25 st 25 mg 00:00: 00:00 mg total) Hospit a tablet 00 :00 by mouth l tablet daily for 60 days. multivitami 2022- No 1{tbl} QD Take 1 M ethodi n 08-[address] (THERAGRAN) 10:51: 00:00 mouth [facility] tablet 33 :00 daily. l ferrous 2022- No 325mg QD Take 1 Method i sulfate 325 08-[address] (65 FE) MG 10:51: 00:00 (325 mg [facility] tablet 33 :00 total) by l mouth daily with breakfast. pyridoxine, 2022- No 100mg QD Take 1 [facility] vitamin B6, 08-[address] (B-6) 100 10:51: 00:00 (100 mg [facility] MG tablet 33 :00 total) by l mouth daily. multivitami 2022-2022- No 1{tbl} QD Take 1 M ethodi n 08-[address] (THERAGRAN) 10:51: 00:00 mouth [facility] tablet 33 :00 daily. l ferrous 2022- No 325mg QD Take 1 Method i sulfate 325 08-[address] (65 FE) MG 10:51: 00:00 (325 mg [facility] tablet 33 :00 total) by l mouth daily with breakfast. pyridoxine, 2022- No 100mg QD Take 1 [facility] vitamin B6, 08-[address] (B-6) 100 10:51: 00:00 (100 mg [facility] MG tablet 33 :00 total) by l mouth daily. zinc 50 mg Yes 50mg QD Take 50 mg M ethodi tablet 08-[address] 10:44: daily. Hospita 39 l MAGNESIUM 0 Yes 1{tbl} QD Take 1 Meth candelaria ORAL 08-[address] 10:44: mouth Hospita 39 daily. l cranberry Yes Take by Metho di fruit 08-[address] extract 10:44: Hospita (CRANBERRY 39 l EXTRACT ORAL) cinnamon Yes 4000{tb Take 4,000 Methodi bark 08-18 l} tablets by st (CINNAMON 10:44: mouth. Hospit a ORAL) 39 l APPLE CIDER 0 Yes 2400{ca Take 2,400 Methodi VINEGAR 08-18 psule} capsules st ORAL 10:44: by mouth. Hospita 39 l cyanocobala 0 Yes 1000ug QD Take 1 [facility] min 08-[address] (VITAMIN 10:44: (1,000 mcg [facility] B-12) 1000 39 total) by l MCG tablet mouth daily. UNABLE TO Yes 1000mg 1,000 mg. M ethodi FIND 08-[address] 10:44: oil Hospita 39 l allopurinoL 0 Yes [id number] 300mg QD Take 1 [facility] (ZYLOPRIM) 08-[address] 300 MG 00:00: (300 mg Hospita tablet 00 total) by l mouth daily. aspirin 0 Yes [id number] 81mg Q.[id number] Take 1 [facility] (ECOTRIN) 08-18 [id number] tablet (81 st 81 MG 00:00: 3W mg total) Hospita enteric 00 by mouth 3 l coated (three) tablet times a week. calcium Yes [id number] 1200mg QD Take 2 M ethodi carbonate 08-[address] (Calcium 00:00: (1,200 mg [facility] 600) 600 mg 00 total) by l calcium mouth (1,500 mg) daily. tablet carvediloL Yes [id number] 12.5mg Q.5D Take 1 [facility] (COREG) 08-[address] 12.5 MG 00:00: (12.5 mg Hospit a tablet 00 total) by l mouth 2 (two) times a day with meals. empaglifloz Yes [id number] 10mg QD Take 1 [facility] in 08-18 tablet (10 st (Jardiance) 00:00: mg total) H ospita 10 mg 00 by mouth l tablet daily. tablet ferrous 0 Yes [id number] 325mg QD Take 1 [facility] sulfate 325 08-[address] (65 FE) MG 00:00: (325 mg [facility] tablet 00 total) by l mouth daily with breakfast. furosemide 2022-0 Yes [id number] 40mg Q.5D Take 1 [facility] (LASIX) 40 08-18 tablet (40 st mg tablet 00:00: mg total) [facility] 00 by mouth 2 l (two) times a day. insulin 2022-0 Yes [id number] 1{syrin QD 1 Syringe [facility] syr/ndl 08-18 ge} daily. st U100 half 00:00: Hospita tamika 0.5 mL 00 l 31 gauge x 5/16" syringe Lantus 0 Yes [id number] 10U QD Inject 0.1 [facility] U-100 -07 mL (10 st Insulin 100 00:00: Units Hospi ta unit/mL 00 total) l injection under the (vial) skin daily. metoclopram 0 Yes [id number] 5mg Q.25D Take 0.5 [facility] -07 tablets (5 st (REGLAN) 10 00:00: mg total) [facility] MG tablet 00 by mouth 4 l (four) times a day. multivitami Yes [id number] 1{tbl} QD Take 1 [facility] 08-[address] (THERAGRAN) 00:00: mouth [facility] tablet 00 daily. l pyridoxine, Yes [id number] 100mg QD Take 1 [facility] vitamin B6, 08-[address] (B-6) 100 00:00: (100 mg [facility] MG tablet 00 total) by l mouth daily. rosuvastati Yes [id number] 10mg QD Take 1 [facility] (CRESTOR) 08-18 tablet (10 st 10 mg 00:00: mg total) [facility]osp[facility] tablet 00 by mouth l nightly. lisinopriL 2023- No [id number] 5mg QD Take 1 [facility] (PRINIVIL) 08-18 tablet (5 st 5 mg tablet 00:00: 04:59 mg total) [facility]ospita 00 :00 by mouth l daily. pregabalin 2022- No [id number] 75mg Q.5D Take 1 [facility] (Lyrica) 75 08-[address] MG capsule 00:00: 04:59 (75 mg [facility] 00 :00 total) by l mouth 2 (two) times a day for 30 days. allopurinoL 2022- No [id number] 300mg QD Take 1 [facility] (ZYLOPRIM) 08-[address] 300 MG 00:00: 00:00 (300 mg [facility]osp[facility] tablet 00 :00 total) by l mouth daily. aspirin 2022- No [id number] 81mg Q.[id number] Take 1 [facility] (ECOTRIN) 08-18 [id number] tablet (81 st 81 MG 00:00: 00:00 3W mg total) [facility] 00 :00 by mouth 3 l coated (three) tablet times a week. calcium 2022- No [id number] 1200mg QD Take 2 [facility] carbonate 08-[address] (Calcium 00:00: 00:00 (1,200 mg [facility] 600) 600 mg 00 :00 total) by l calcium mouth (1,500 mg) daily. tablet carvediloL 2022- No [id number] 12.5mg Q.5D Take 1 [facility] (COREG) 08-[address] 12.5 MG 00:00: 00:00 (12.5 mg [facility] tablet 00 :00 total) by l mouth 2 (two) times a day with meals. empaglifloz 2022- No [id number] 10mg QD Take 1 [facility] in 08-18 tablet (10 st ([facility]) 00:00: 00:00 mg total) [facility] 10 mg 00 :00 by mouth l tablet daily. tablet ferrous 2022- No [id number] 325mg QD Take 1 M [facility] sulfate 325 08-[address] (65 FE) MG 00:00: 00:00 (325 mg [facility] tablet 00 :00 total) by l mouth daily with breakfast. furosemide 2022- No [id number] 40mg Q.5D Take 1 [facility] (LASIX) 40 08-18 tablet (40 st mg tablet 00:00: 00:00 mg total) [facility] 00 :00 by mouth 2 l (two) times a day. insulin 2022- No [id number] 1{syrin QD 1 Syringe [facility] syr/ndl 08-18 ge} daily. st U100 half 00:00: 00:00 [facility] tamika 0.5 mL 00 :00 l 31 gauge x 5/16" syringe Lantus 2022- No [id number] 10U QD Inject 0.1 [facility] U-100 08-18 mL (10 st Insulin 100 00:00: 00:00 Units [facility] unit/mL 00 :00 total) l injection under the (vial) skin daily. lisinopriL 2022- No [id number] 5mg QD Take 1 [facility] (PRINIVIL) 08-18 tablet (5 st 5 mg tablet 00:00: 00:00 mg total) [facility]osp[facility] 00 :00 by mouth l daily. metoclopram 2022- No [id number] 5mg Q.25D Take 0.5 [facility] 08-18 tablets (5 st (REGLAN) 10 00:00: 00:00 mg total) [facility]osp[facility] MG tablet 00 :00 by mouth 4 l (four) times a day. multivitami 2022- No [id number] 1{tbl} QD Take 1 [facility] n 08-[address] (THERAGRAN) 00:00: 00:00 mouth [facility] tablet 00 :00 daily. l pyridoxine, 2022- No [id number] 100mg QD Take 1 [facility] vitamin B6, 08-[address] (B-6) 100 00:00: 00:00 (100 mg [facility] MG tablet 00 :00 total) by l mouth daily. rosuvastati 2022- No [id number] 10mg QD Take 1 [facility] (CRESTOR) 08-18 tablet (10 s t 10 mg 00:00: 00:00 mg total) [facility] tablet 00 :00 by mouth l nightly. pregabalin 2022- No [id number] 75mg Q.5D Take 1 [facility] (Lyrica) 75 08-[address] MG capsule 00:00: 00:00 (75 mg [facility] 00 :00 total) by l mouth 2 (two) times a day for 30 days. [place] 2022- [place] [id number] 1{tbl} Q6H Take 1 [facility] cetaminophe 08-[address] n 00:00: 04:59 mouth [facility]osp[facility] (Percocet) 00 :00 every 6 l 10-325 mg (six) per tablet hours as needed for moderate pain for up to 5 days .acute pain. Max Daily Amount: 4 tablets oxyCODone-a 2022- No [id number] 1{tbl} Q6H Take 1 [facility] cetaminophe 08-18- tablet by st n 00:00: 04:59 mouth [facility]osp[facility] (Percocet) 00 :00 every 6 l 10-325 mg (six) per tablet hours as needed for moderate pain for up to 5 days .acute pain. Max Daily Amount: 4 tablets pregabalin 2022- No [id number] 50mg QD Take 1 [facility] (Lyrica) 50 - 06-[address] MG capsule 00:00: 04:59 (50 mg [facility] 00 :00 total) by l mouth nightly for 30 days. pregabalin 2022- No [id number] 50mg QD Take 1 [facility] (Lyrica) 50 06-19-[address] MG capsule 00:00: 04:59 (50 mg [facility] 00 :00 total) by l mouth nightly for 30 days. pregabalin 2022- No [id number] 50mg QD Take 1 [facility] (Lyrica) 50 06-19-[address] MG capsule 00:00: 04:59 (50 [...] 600 ORAL) 44 :00 daily. l aspirin 2022-2022- No 81mg Q.[id number] Take 1 M [facility]i (ECOTRIN) 06-12 [id number] tablet (81 st 81 MG 11:26: 00:00 3W mg total) [facility] 44 :00 by mouth 3 l coated (three) tablet times a week. nitrofurant 2022- No nitrofuran [facility] oin 06-[address] (MACRODANTI 11:26: 00:00 macrocryst [facility]ospita N) 50 MG 44 :00 al 50 mg l capsule capsule TAKE ONE (1) CAPSULE(S) BY MOUTH ONCE A DAY. furosemide 2022- No 40mg Q.5D Take 1 [facility] (LASIX) 40 06-12 tablet (40 st mg tablet 11:26: 00:00 mg total) [facility] 44 :00 by mouth 2 l (two) times a day. metoclopram 0 2022- No 5mg Q.25D Take 0.5 [facility] 06-12 tablets (5 st (REGLAN) 10 11:26: 00:00 mg total) [facility]osp[facility] MG tablet 44 :00 by mouth 4 l (four) times a day. carvediloL 2022-2022- No 12.5mg Q.5D Take 1 [facility] (COREG) 06-[address] 12.5 MG 11:26: 00:00 (12.5 mg [facility] tablet 44 :00 total) by l mouth 2 (two) times a day with meals. rosuvastati 2022-2022- No 10mg QD Take 1 Met [facility]odi n (CRESTOR) 06-12 tablet (10 s t 10 mg 11:26: 00:00 mg total) Hospit a tablet 44 :00 by mouth l nightly. calcium 2022- No 1200{ca QD Take 1,200 [facility] carbonate 06-12 psule} capsules st (CALCIUM 11:26: 00:00 by mouth [facility] 600 ORAL) 44 :00 daily. l aspirin 2022-2022- No 81mg Q.[id number] Take 1 M [facility]i (ECOTRIN) 06-12 [id number] tablet (81 st 81 MG 11:26: 00:00 3W mg total) [facility] 44 :00 by mouth 3 l coated (three) tablet times a week. nitrofurant 2022- No nitrofuran [facility] oin 06-[address] (MACRODANTI 11:26: 00:00 macrocryst [facility]ospita N) 50 MG 44 :00 al 50 mg l capsule capsule TAKE ONE (1) CAPSULE(S) BY MOUTH ONCE A DAY. furosemide 2022- No 40mg Q.5D Take 1 [...] 600 ORAL) 44 :00 daily. l aspirin 2022-0 2022- No 81mg Q.[id number] Take 1 M [facility]i (ECOTRIN) 06-12 [id number] tablet (81 st 81 MG 11:26: 00:00 3W mg total) [facility] 44 :00 by mouth 3 l coated (three) tablet times a week. nitrofurant 2022-0 2022- No nitrofuran [facility] oin 06-[address] (MACRODANTI 11:26: 00:00 macrocryst [facility]osp[facility] N) 50 MG 44 :00 al 50 mg l capsule capsule TAKE ONE (1) CAPSULE(S) BY MOUTH ONCE A DAY. zinc 50 mg 2022-0 Yes 50mg QD Take 50 mg M [...] by l mouth daily with breakfast. MAGNESIUM 2022-0 Yes 1{tbl} QD Take 1 [facility] ORAL 06-[address] 10:28: mouth [facility]osp[facility] 18 daily. l pyridoxine, 2022-0 Yes 100mg QD Take 1 [facility] vitamin B6, 06-[address] (B-6) 100 10:28: (100 mg [...] 10:28: by mouth. [facility]ospita 18 l cyanocobala 0 Yes 1000ug QD Take 1 [facility] min 06-[address] (VITAMIN 10:28: (1,000 mcg [facility] B-12) 1000 18 total) by l MCG tablet mouth daily. UNABLE TO 0 Yes 1000mg 1,000 mg. M ethodi FIND 06-[address] 10:28: oil [facility]osp[facility] 18 l allopurinoL 0 Yes [id number] 300mg QD Take 1 [facility] (ZYLOPRIM) 06-[address] 300 MG 00:00: (300 mg [facility]osp[facility] tablet 00 total) by l mouth daily. aspirin Yes [id number] 81mg Q.[id number] Take 1 [facility] (ECOTRIN) 06-12 [id number] tablet (81 st 81 MG 00:00: 3W mg total) [facility] enteric 00 by mouth 3 l coated (three) tablet times a week. calcium Yes 1200mg QD Take 2 [facility] i carbonate 06-[address] (Calcium 00:00: (1,200 mg [facility] 600) 600 mg 00 total) by l calcium mouth (1,500 mg) daily. tablet carvediloL Yes [id number] 12.5mg Q.5D Take 1 [facility] (COREG) 06-[address] 12.5 MG 00:00: (12.5 mg Hospit a tablet 00 total) by l mouth 2 (two) times a day with meals. empaglifloz Yes [id number] 10mg QD Take 1 [facility] in 06-12 tablet (10 st ([facility]) 00:00: mg total) [facility] 10 mg 00 by mouth l tablet daily. tablet nitrofurant 0 Yes [id number] 100mg QD Take 2 [facility] oin 06-[address] (MACRODANTI 00:00: (100 mg [facility] N) 50 MG 00 total) by l capsule mouth daily. rosuvastati 0 Yes [id number] 10mg QD Take 1 [facility] n (CRESTOR) 06-12 tablet (10 st 10 mg 00:00: mg total) [facility]osp[facility] tablet 00 by mouth l nightly. furosemide 2022-0 Yes [id number] 40mg Q.5D Take 1 [facility] (LASIX) 40 5-01 tablet (40 st mg tablet 00:00: mg total) [facility] 00 by mouth 2 l (two) times a day. Lantus 0 Yes [id number] 10U QD Inject 0.1 [facility] U-100 06-12 mL (10 st Insulin 100 00:00: Units [facility] unit/mL 00 total) l injection under the (vial) skin daily. metoclopram 0 Yes [id number] 5mg Q.25D Take 0.5 [facility] 5-01 tablets (5 st (REGLAN) 10 00:00: mg total) [facility] MG tablet 00 by mouth 4 l (four) times a day. nitrofurant Yes [id number] 100mg QD Take 2 [facility] oin 06-[address] (MACRODANTI 00:00: (100 mg [facility] N) 50 MG 00 total) by l capsule mouth daily. lisinopriL 2023- No [id number] 5mg QD Take 1 [facility] (PRINIVIL) 06-12 tablet (5 st 5 mg tablet 00:00: 04:59 mg total) [facility]ospita 00 :00 by mouth l daily. nitrofurant 2022- No [id number] 100mg QD Take 2 [facility] oin 06-12-[address] (MACRODANTI 00:00: 00:00 (100 mg Ho [facility] N) 50 MG 00 :00 total) by l capsule mouth daily. allopurinoL 2022- No [id number] 300mg QD Take 1 [facility] (ZYLOPRIM) 06-[address] 300 MG 00:00: 00:00 (300 mg [facility]osp[facility] tablet 00 :00 total) by l mouth daily. aspirin 2022- No [id number] 81mg Q.[id number] Take 1 [facility] (ECOTRIN) 06-12 [id number] tablet (81 st 81 MG 00:00: 00:00 3W mg total) [facility] 00 :00 by mouth 3 l coated (three) tablet times a week. calcium 2022- No 1200mg QD Take 2 [facility]o di carbonate 06-[address] (Calcium 00:00: 00:00 (1,200 mg [facility] 600) 600 mg 00 :00 total) by l calcium mouth (1,500 mg) daily. tablet carvediloL 2022- No [id number] 12.5mg Q.5D Take 1 [facility] (COREG) 06-[address] 12.5 MG 00:00: 00:00 (12.5 mg [facility] tablet 00 :00 total) by l mouth 2 (two) times a day with meals. empaglifloz 2022- No [id number] 10mg QD Take 1 [facility] in 06-12 tablet (10 st ([facility]) 00:00: 00:00 mg total) [facility] 10 mg 00 :00 by mouth l tablet daily. tablet rosuvastati 2022- No [id number] 10mg QD Take 1 [facility] n (CRESTOR) 06-12 tablet (10 s t 10 mg 00:00: 00:00 mg total) [facility] tablet 00 :00 by mouth l nightly. furosemide 2022- No [id number] 40mg Q.5D Take 1 [facility] (LASIX) 40 06-12 tablet (40 st mg tablet 00:00: 00:00 mg total) [facility] 00 :00 by mouth 2 l (two) times a day. Lantus 2022- No [id number] 10U QD Inject 0.1 [facility] U-100 06-12 mL (10 st Insulin 100 00:00: 00:00 Units [facility] unit/mL 00 :00 total) l injection under the (vial) skin daily. lisinopriL 2022- No [id number] 5mg QD Take 1 [facility] (PRINIVIL) 06-12 tablet (5 st 5 mg tablet 00:00: 00:00 mg total) [facility]osp[facility] 00 :00 by mouth l daily. metoclopram 2022- No [id number] 5mg Q.25D Take 0.5 [facility] 06-12 tablets (5 st (REGLAN) 10 00:00: 00:00 mg total) [facility]osp[facility] MG tablet 00 :00 by mouth 4 l (four) times a day. allopurinoL 2022- No [id number] 300mg QD Take 1 [facility] (ZYLOPRIM) 06-[address] 300 MG 00:00: 00:00 (300 mg [facility] tablet 00 :00 total) by l mouth daily. aspirin 2022- No [id number] 81mg Q.[id number] Take 1 [facility] (ECOTRIN) 06-12 [id number] tablet (81 st 81 MG 00:00: 00:00 3W mg total) [facility] 00 :00 by mouth 3 l coated (three) tablet times a week. calcium 2022- No 1200mg QD Take 2 [facility] di carbonate 06-[address] (Calcium 00:00: 00:00 (1,200 mg [facility] 600) 600 mg 00 :00 total) by l calcium mouth (1,500 mg) daily. tablet carvediloL 2022- No [id number] 12.5mg Q.5D Take 1 [facility] (COREG) 06-[address] 12.5 MG 00:00: 00:00 (12.5 mg [facility] tablet 00 :00 total) by l mouth 2 (two) times a day with meals. empaglifloz 2022- No [id number] 10mg QD Take 1 [facility] in 06-12 tablet (10 st ([facility]) 00:00: 00:00 mg total) [facility] 10 mg 00 :00 by mouth l tablet daily. tablet rosuvastati 2022- No [id number] 10mg QD Take 1 [facility] n (CRESTOR) 06-12 tablet (10 s t 10 mg 00:00: 00:00 mg total) Hospit [facility] tablet 00 :00 by mouth l nightly. furosemide 2022- No [id number] 40mg Q.5D Take 1 [facility] (LASIX) 40 06-12 tablet (40 st mg tablet 00:00: 00:00 mg total) [facility] 00 :00 by mouth 2 l (two) times a day. Lantus 2022- No [id number] 10U QD Inject 0.1 [facility] U-100 06-12 mL (10 st Insulin 100 00:00: 00:00 Units [facility] unit/mL 00 :00 total) l injection under the (vial) skin daily. lisinopriL 2022- No [id number] 5mg QD Take 1 [facility] (PRINIVIL) 06-12 tablet (5 st 5 mg tablet 00:00: 00:00 mg total) [facility]osp[facility] 00 :00 by mouth l daily. metoclopram No [id number] 5mg Q.25D Take 0.5 [facility] 06-12 tablets (5 st (REGLAN) 10 00:00: 00:00 mg total) [facility]osp[facility] MG tablet 00 :00 by mouth 4 l (four) times a day. gabapentin No [id number] 300mg Q.[id number] Take 1 [facility] (Neurontin) 06-[id number] 300 mg 00:00: 00:00 3D (300 mg [facility]osp[facility] capsule 00 :00 total) by l mouth 3 (three) times a day as needed (sciatic pain) for up to 30 days. gabapentin 2022- No [id number] 300mg Q.[id number] Take 1 [facility] (Neurontin) 06-[id number] 300 mg 00:00: 00:00 3D (300 mg [facility] capsule 00 :00 total) by l mouth 3 (three) times a day as needed (sciatic pain) for up to 30 days. gabapentin 2022- No [id number] 300mg Q.[id number] Take 1 [facility] (Neurontin) 06-[id number] 300 mg 00:00: 00:00 3D (300 mg [facility] capsule 00 :00 total) by l mouth 3 (three) times a day as needed (sciatic pain) for up to 30 days. omega-3/dha No 1400mg QD Take 1,400 [facility] /epa/dpa/fi 3-22 03-[address] sh oil 09:04: 00:00 mouth [facility]osp[facility] (OMEGA-3 24 :00 daily. l 2100 ORAL) omega-3/dha 2022- No 1400mg QD Take 1,400 [facility] /epa/dpa/fi 05-03 03-[address] sh oil 09:04: 00:00 mouth [facility]osp[facility] (OMEGA-3 24 :00 daily. l 2100 ORAL) omega-3/dha 2022-0 2022- No 1400mg QD Take 1,400 [facility] /epa/dpa/fi 05-03 03-[address] sh oil 09:04: 00:00 mouth [facility]osp[facility] (OMEGA-3 24 :00 daily. l 2100 ORAL) blood sugar 2022-0 Yes [id number] TID [facility] diagnostic 05-03 st strips 00:00: [facility]osp[facility] strip test 00 l strips insulin 2022-0 Yes 1{syrin QD 1 Syringe [facility] syr/ndl 05-03 ge} daily. st U100 half 00:00: [facility]osp[facility] tamika 0.5 mL 00 l 31 gauge x 5/16" syringe blood sugar 2022-0 Yes [id number] TID [facility] diagnostic 05-03 st strips 00:00: [facility]ospita strip test 00 l strips blood sugar 2022-0 2022- No [id number] TID M [facility]i diagnostic 05-03-27 st strips 00:00: 00:00 [facility]osp[facility] strip test 00 :00 l strips insulin 2022-0 3- No 1{syrin QD 1 Syringe M ethodi syr/ndl 05-03 07-07 ge} daily. st U100 half 00:00: 00:00 [facility] tamika 0.5 mL 00 :00 l 31 gauge x 5/16" syringe insulin 2022-0 2023- No 1{syrin QD 1 Syringe M ethodi syr/ndl 05-03 07-07 ge} daily. st U100 half 00:00: 00:00 [facility] tamika 0.5 mL 00 :00 l 31 gauge x 5/16" syringe empaglifloz 2022-0 2022- No 10mg QD Take 1 [facility] in 05-03 05- tablet (10 st ([facility]) 00:00: 00:00 mg total) [facility]osp[facility] 10 mg 00 :00 by mouth l tablet daily. tablet Lantus 2022-0 2022- No 10U QD Inject 0.1 [facility] U-100 05-03 05-01 mL (10 st Insulin 100 00:00: 00:00 Units [facility] unit/mL 00 :00 total) l injection under the (vial) skin daily. predniSONE 2022-2022- No 1 tablet [facility] (DELTASONE) 05-[address] 20 mg 00:00: 00:00 morning [facility]osp[facility] tablet 00 :00 and night l for 5 days then 1 for 5 days. FOR GOUT FLARES empaglifloz 2022-2022- No 10mg QD Take 1 [facility] in 05-03 tablet (10 st ([facility]) 00:00: 00:00 mg total) [facility] 10 mg 00 :00 by mouth l tablet daily. tablet Lantus 2022-2022- No 10U QD Inject 0.1 [facility] U-100 05-03 mL (10 st Insulin 100 00:00: 00:00 Units [facility] unit/mL 00 :00 total) l injection under the (vial) skin daily. predniSONE 2022-2022- No 1 tablet [facility] (DELTASONE) 05-[address] 20 mg 00:00: 00:00 morning [facility] tablet 00 :00 and night l for 5 days then 1 for 5 days. FOR GOUT FLARES empaglifloz 2022-2022- No 10mg QD Take 1 [facility] in 05-03 tablet (10 st ([facility]) 00:00: 00:00 mg total) [facility]osp[facility] 10 mg 00 :00 by mouth l tablet daily. tablet Lantus 2022-2022- No 10U QD Inject 0.1 [facility] [...] for 5 days. FOR GOUT FLARES allopurinoL 2022- No 300mg QD Take 1 [facility] (ZYLOPRIM) 03-[address] 300 MG 00:00: 00:00 (300 mg [facility]osp[facility] tablet 00 :00 total) by l mouth daily. allopurinoL 2022- No 300mg QD Take 1 [facility] (ZYLOPRIM) 03-[address] 300 MG 00:00: 00:00 (300 mg [facility] tablet 00 :00 total) by l mouth daily. allopurinoL 2022- No 300mg QD Take 1 [facility] (ZYLOPRIM) 03-[address] 300 MG 00:00: 00:00 (300 mg [facility]osp[facility] tablet 00 :00 total) by l mouth daily. predniSONE 2022- No 1 tablet [facility] (DELTASONE) 03-[address] 20 mg 00:00: 00:00 morning [facility]osp[facility] tablet 00 :00 and night l for 5 days then 1 for 5 days. FOR GOUT FLARES predniSONE 2022- No 1 tablet [facility] (DELTASONE) 03-[address] 20 mg 00:00: 00:00 morning [facility] tablet 00 :00 and night l for 5 days then 1 for 5 days. FOR GOUT FLARES predniSONE 2022- No 1 tablet [facility] (DELTASONE) 03-[address] 20 mg 00:00: 00:00 morning [facility] tablet 00 :00 and night l for 5 days then 1 for 5 days. FOR GOUT FLARES lisinopriL 2021-02- No 5mg QD Take 1 [facility] (PRINIVIL) 03-26 tablet (5 st 5 mg tablet 00:00: 00:00 mg total) [facility]ospita 00 :00 by mouth l daily. lisinopriL 2021-02- No 5mg QD Take 1 [facility] (PRINIVIL) 03-26 tablet (5 st 5 mg tablet 00:00: 00:00 mg total) [facility]ospita 00 :00 by mouth l daily. lisinopriL 2021-02- No 5mg QD Take 1 [facility] (PRINIVIL) 03-26 tablet (5 st 5 mg tablet 00:00: 00:00 mg total) [facility]ospita 00 :00 by mouth l daily. Lantus 2021-02- No 15U QD Inject [facility] U-100 03-[address] Insulin 100 00:00: 00:00 (15 Units [facility]osp[facility] unit/mL 00 :00 total) l injection under the (vial) skin daily. Lantus 2021-02 No 15U QD Inject [facility] U-100 03-[address] Insulin 100 00:00: 00:00 (15 Units [facility]osp[facility] unit/mL 00 :00 total) l injection under the (vial) skin daily. Lantus 2021-02 No 15U QD Inject [facility] U-100 03-[address] Insulin 100 00:00: 00:00 (15 Units [facility]osp[facility] unit/mL 00 :00 total) l injection under the (vial) skin daily. levothyroxi 2021-02- No 25ug QD Take 25 [facility] ne 1-17 11-[address] (SYNTHROID) 14:47: 00:00 mouth [facility] 25 mcg 21 :00 daily. l tablet levothyroxi 2021-02- No 25ug QD Take 25 [facility] ne 1-17 11-[address] (SYNTHROID) 14:47: 00:00 mouth [facility] 25 mcg 21 :00 daily. l tablet levothyroxi 2021-02 No 25ug QD Take 25 [facility] ne 1-17 11-[address] (SYNTHROID) 14:47: 00:00 mouth [facility] 25 mcg 21 :00 daily. l tablet predniSONE 2021-02 No 1mg QD Take 1 [facility] (DELTASONE) 1-17 11-[address] 1 mg tablet 14:46: 00:00 mouth [facility] 31 :00 daily. l predniSONE 2021-02- No 1mg QD Take 1 [facility] (DELTASONE) 1-17 11-[address] 1 mg tablet 14:46: 00:00 mouth [facility] 31 :00 daily. l predniSONE 2021-02- No 1mg QD Take 1 [facility] (DELTASONE) 1-17 11-[address] 1 mg tablet 14:46: 00:00 mouth [facility] 31 :00 daily. l blood sugar 2021-02- No [id number] TID M [facility]i diagnostic 02-28 st strips 00:00: 00:00 [facility]ospita strip test 00 :00 l strips levothyroxi 2021-02- No 25ug Take 1 [facility] ne 02-28 tablet (25 st (SYNTHROID) 00:00: 00:00 mcg total) [facility]ospita 25 mcg 00 :00 by mouth. l tablet blood sugar 2021-02- No [id number] TID M ethodi diagnostic 02-28 st strips 00:00: 00:00 [facility]ospita strip test 00 :00 l strips levothyroxi 2021-02- No 25ug Take 1 [facility] ne 02-28 tablet (25 st (SYNTHROID) 00:00: 00:00 mcg total) [facility]ospita 25 mcg 00 :00 by mouth. l tablet blood sugar 2021-02- No [id number] TID M ethodi diagnostic 02-28 st strips [...] 15U QD Inject 15 [facility] GLARGINE 09-22-[address] (LANTUS) 14:11: 00:00 under the [facility] 100 unit/mL 50 :00 skin l injection daily. (vial) insulin 2021- No 15U QD Inject 15 [facility] GLARGINE 09-22 08-[address] (LANTUS) 14:11: 00:00 under the [facility] 100 unit/mL 50 :00 skin l injection daily. (vial) insulin 2021- No 5U [id number] Inject 5 [facility] regular 8-11 08-[id number] (HumuLIN-R) 14:09: 00:00 3D under the [facility]osp[facility] 100 unit/mL 25 :00 skin 3 l injection (three) times a day before meals. insulin 2021- No 5U [id number] Inject 5 [facility] regular 09-[id number] (HumuLIN-R) 14:09: 00:00 3D under the [facility]osp[facility] 100 unit/mL 25 :00 skin 3 l injection (three) times a day before meals. empaglifloz 2022- No 10mg QD Take 1 [facility] in 09-22 tablet (10 st ([facility]) 00:00: 00:00 mg total) [facility]osp[facility] 10 mg 00 :00 by mouth l tablet daily. tablet empaglifloz 2022- No 10mg QD Take 1 [facility] in 09-22 tablet (10 st ([facility]) 00:00: 00:00 mg total) [facility]osp[facility] 10 mg 00 :00 by mouth l tablet daily. tablet empaglifloz 2022- No 10mg QD Take 1 [facility] in 09-22 tablet (10 st ([facility]iance) 00:00: 00:00 mg total) [facility]osp[facility] 10 mg 00 :00 by mouth l tablet daily. tablet insulin 2021- No 10U QD Inject 0.1 [facility] GLARGINE 09-22-17 mL (10 st (LANTUS) 00:00: 00:00 Units [facility]osp[facility] 100 unit/mL 00 :00 total) l injection under the (vial) skin daily. insulin 2021- No 10U QD Inject 0.1 [facility] GLARGINE 09-22 11-17 mL (10 st (LANTUS) 00:00: 00:00 Units [facility]osp[facility] 100 unit/mL 00 :00 total) l injection under the (vial) skin daily. insulin 2021- No 10U QD Inject 0.1 [facility] GLARGINE 09-22 11-17 mL (10 st (LANTUS) 00:00: 00:00 Units [facility]ospita 100 unit/mL 00 :00 total) l injection under the (vial) skin daily. acetaminoph 2021- No 1000mg Q.5D Take 1,000 [facility] en 7-25 07-[address] (TYLENOL) 12:24: 00:00 mouth 2 [facility] 500 MG 17 :00 (two) l tablet times a day as needed for mild pain or moderate pain. acetaminoph 2021- No 1000mg Q.5D Take 1,000 [...] by mouth l daily for 90 days. predniSONE 2021-2021- No 1mg QD Take 1 [facility] (DELTASONE) 07-20-25 tablet (1 st 1 mg tablet 00:00: 00:00 mg total) [facility]ospita 00 :00 by mouth l daily for 90 days. lancets 30 2021-0 Yes [id number] BID [facility] gauge misc 5-11 st 00:00: [facility]ospita 00 l lancets 30 2021-0 Yes [id number] BID [facility] gauge misc 5-11 st 00:00: [facility]ospita 00 l lancets 30 2021-0 3- No [id number] BID [facility] gauge misc 06-2215 st 00:00: 00:00 Hospita 00 :00 l blood sugar 2021-0 2022- No [id number] BID M ethodi diagnostic 06-22 st strips 00:00: 00:00 [facility]ospita strip test 00 :00 l strips blood sugar 2021-0 2021- No [id number] BID M [facility]i diagnostic 06-22 st strips 00:00: 00:00 [facility]ospita strip test 00 :00 l strips blood sugar 2021-0 2- No [id number] BID M ethodi diagnostic 06-22 st strips 00:00: 00:00 Hospita strip test 00 :00 l strips empaglifloz 2022-0 2022- No 10mg QD Take 1 [facility] in 06-22 tablet (10 st ([facility]) 00:00: 00:00 mg total) [facility]osp[facility] 10 mg 00 :00 by mouth l tablet daily. tablet empaglifloz 2021- No 10mg QD Take 1 [facility] in 06-22 tablet (10 st ([facility]) 00:00: 00:00 mg total) [facility]osp[facility] 10 mg 00 :00 by mouth l tablet daily. tablet allopurinoL 2022- No 300mg Q.5D Take 1 [facility] (ZYLOPRIM) 05-[address] 300 MG 00:00: 00:00 (300 mg [facility]osp[facility] tablet 00 :00 total) by l mouth 2 (two) times a day. allopurinoL 2021-2022- No 300mg Q.5D Take 1 [facility] (ZYLOPRIM) 05-[address] 300 MG 00:00: 00:00 (300 mg [facility]osp[facility] tablet 00 :00 total) by l mouth 2 (two) times a day. allopurinoL 2021-2022- No 300mg Q.5D Take 1 [facility] [...] No Inject 4 M ethodi diabetic 32 - 05-[address] gauge x 00:00: 00:00 daily Hospita " 00 :00 l needle pen needle, 2022- No Inject 4 M ethodi diabetic 32 - 05-[address] gauge x 00:00: 00:00 daily [facility]ospita " 00 :00 l needle pen needle, 2022- No Inject 4 M ethodi diabetic 32 - 05-[address] gauge x 00:00: 00:00 daily [facility]ospita " 00 :00 l needle Eliquis 5 [...] [facility] furosemide furosemide No furosemide [place] 40 mg 40 mg 40 mg [facility] tablet TAKE tablet TAKE tablet [facility] TWO (2) TWO (2) TAKE TWO TABLET(S) TABLET(S) (2) BY MOUTH BY MOUTH TABLET(S) TWICE A TWICE A BY MOUTH DAY. DAY. TWICE A DAY. GaviLyte-G GaviLyte-G No GaviLyte-G [place] 236 [id number] 236 [facility] gram-22.74 gram-22.74 gram-22.74 [facility] gram-6.74 gram-6.74 gram-6.74 gram-5.86 gram-5.86 gram-5.86 gram oral gram oral gram oral solution solution solution TAKE BY TAKE BY TAKE BY MOUTH MOUTH MOUTH DIRECTED. DIRECTED. DIRECTED. hydroxyzine hydroxyzine No hydroxyzin [place] HCl 25 mg HCl 25 mg e HCl 25 M etro tablet TAKE tablet TAKE mg tablet [facility]rology ONE (1) ONE (1) TAKE ONE TABLET(S) TABLET(S) (1) BY MOUTH AT BY MOUTH AT TABLET(S) BEDTIME. BEDTIME. BY MOUTH AT BEDTIME. ketoconazol ketoconazol No ketoconazo [place] e 2 % e 2 % le [...] ONCE A DAY. levocetiriz levocetiriz No levocetiri [place] ine 5 mg ine 5 mg zine 5 mg Me tro tablet TAKE tablet TAKE tablet Urology ONE (1) ONE (1) TAKE ONE TABLET(S) TABLET(S) (1) BY MOUTH AT BY MOUTH AT TABLET(S) BEDTIME. BEDTIME. BY MOUTH AT BEDTIME. linezolid linezolid No linezolid [place] 600 mg 600 mg 600 mg [facility] tablet tablet tablet Urology metformin metformin No metformin [place] 1,000 mg 1,000 mg 1,000 mg Met ro tablet TAKE tablet TAKE tablet Urology ONE (1) ONE (1) TAKE ONE TABLET(S) TABLET(S) (1) BY MOUTH BY MOUTH TABLET(S) TWICE A TWICE A BY MOUTH DAY. DAY. TWICE A DAY. methylpredn methylpredn No methylpred [place] isolone 4 isolone 4 nisolone 4 [facility] [...] OVER THE DAY). metolazone metolazone No metolazone [place] 5 mg tablet 5 mg tablet 5 mg M etro TAKE ONE TAKE ONE tablet Urolo gy (1) (1) TAKE ONE TABLET(S) TABLET(S) (1) BY MOUTH BY MOUTH TABLET(S) ONCE A DAY. ONCE A DAY. BY MOUTH ONCE A DAY. metoprolol metoprolol No metoprolol [place] tartrate tartrate tartrate Met ro 100 mg [...] DOSES. 3 DOSES. ondansetron ondansetron No ondansetro [place] HCl 4 mg HCl 4 mg n HCl 4 mg M etro tablet tablet tablet Urology pantoprazol pantoprazol No pantoprazo [place] e 40 mg e 40 mg le [...] WEEK. A WEEK. zinc zinc No zinc [place] [facility] Accu-Chek Accu-Chek No Accu-Chek [place] Guide test Guide test Guide test [facility] strips USE strips USE strips USE Urology TO TEST TO TEST TO TEST TWICE TWICE TWICE DAILY. DAILY. DAILY. allopurinol allopurinol No allopurino [place] 300 mg 300 mg l 300 mg [facility] tablet TAKE tablet TAKE tablet Urology ONE (1) ONE (1) TAKE ONE TABLET(S) TABLET(S) (1) BY MOUTH BY MOUTH TABLET(S) TWICE A TWICE A BY MOUTH DAY. DAY. TWICE A DAY. amiodarone amiodarone No amiodarone [place] 200 mg 200 mg 200 mg [facility] tablet TAKE tablet TAKE tablet Urology ONE (1) ONE (1) TAKE ONE TABLET(S) TABLET(S) (1) BY MOUTH BY MOUTH TABLET(S) TWICE A TWICE A BY MOUTH DAY. DAY. TWICE A DAY. apple cider apple cider No apple [place] vinegar 600 vinegar 600 cider [facility] mg capsule mg capsule vinegar U[facility] Take by Take by 600 mg oral route. oral route. capsule Take by oral route. Aspir-81 Aspir-81 No Aspir-81 [facility] calcium calcium No calcium [place] [facility] carvedilol carvedilol No carvedilol [place] 3.125 mg 3.125 mg 3.125 mg Met ro tablet TAKE tablet TAKE tablet Urology ONE (1) ONE (1) TAKE ONE TABLET(S) TABLET(S) (1) BY MOUTH BY MOUTH TABLET(S) TWICE A DAY TWICE A DAY BY MOUTH WITH FOOD. WITH FOOD. TWICE A DAY WITH FOOD. Cinnamon Cinnamon No Cinnamon [facility] ertapenem 1 ertapenem 1 No ertapenem [place] gram gram 1 gram [facility] solution solution solution Uro logy for for for injection injection injection Fish Oil Fish Oil No Fish Oil [facility] furosemide furosemide No furosemide [place] 40 mg 40 mg 40 mg [facility] tablet TAKE tablet TAKE tablet Urology TWO (2) TWO (2) TAKE TWO TABLET(S) TABLET(S) (2) BY MOUTH BY MOUTH TABLET(S) TWICE A TWICE A BY MOUTH DAY. DAY. TWICE A DAY. Jardiance Jardiance No 1 Q1D Jardiance [place] 10 mg 10 mg 10 mg [facility] tablet Take tablet Take tablet Urology 1 tablet 1 tablet Take 1 every day every day tablet by oral by oral every day route. route. by oral route. Lantus Lantus No Lantus [place] Solostar Tikiostar Solostar Met ro U-100 U-100 U-100 Urology Insulin Insulin Insulin levothyroxi levothyroxi No levothyrox [place] ne 25 mcg ne 25 mcg ine [...] STOMACH. magnesium magnesium No 500mg Q1D magnesium [place] 250 mg (as 250 mg (as 250 mg (as [facility] magnesium magnesium magnesium Urology oxide) oxide) oxide) tablet Take tablet Take tablet 500 mg 500 mg Take 500 every day every day mg every by oral by oral day by route. route. oral route. metoclopram metoclopram No metoclopra [place] laron 5 mg laron 5 mg mide [...] AND AT BEDTIME. metoprolol metoprolol No metoprolol [place] tartrate tartrate tartrate Met ro 100 mg 100 mg 100 mg Urology tablet TAKE tablet TAKE tablet ONE (1) ONE (1) TAKE ONE TABLET(S) TABLET(S) (1) BY MOUTH BY MOUTH TABLET(S) TWICE A TWICE A BY MOUTH DAY. DAY. TWICE A DAY. multivitami multivitami No multivitam [place] n n in [facility] nitroglycer nitroglycer No nitroglyce [place] in 0.4 mg in 0.4 mg rin [...] TABS DIAL 911). pantoprazol pantoprazol No pantoprazo [place] e 40 mg e 40 mg le 40 mg [facility] tablet,luis tablet,luis tablet,del Urology yed release yed release ayed TAKE ONE TAKE ONE release (1) (1) TAKE ONE TABLET(S) TABLET(S) (1) BY MOUTH BY MOUTH TABLET(S) ONCE A DAY. ONCE A DAY. BY MOUTH ONCE A DAY. potassium potassium No potassium [place] chloride ER chloride ER chloride [facility] 20 mEq 20 mEq ER 20 mEq Urolog y tablet,exte tablet,exte tablet,ext nded nded ended release(par release(par release(pa t/cryst) t/cryst) rt/cryst) TAKE ONE TAKE ONE TAKE ONE (1) (1) (1) TABLET(S) TABLET(S) TABLET(S) BY MOUTH BY MOUTH BY MOUTH ONCE A DAY. ONCE A DAY. ONCE A DAY. prednisone prednisone No prednisone [place] 1 mg tablet 1 mg tablet 1 mg M etro TAKE ONE TAKE ONE tablet Urolo gy (1) (1) TAKE ONE TABLET(S) TABLET(S) (1) BY MOUTH BY MOUTH TABLET(S) ONCE A DAY. ONCE A DAY. BY MOUTH ONCE A DAY. rosuvastati rosuvastati No rosuvastat [place] n 10 mg n 10 mg in 10 mg [facility] tablet TAKE tablet TAKE tablet Urology ONE (1) ONE (1) TAKE ONE TABLET(S) TABLET(S) (1) BY MOUTH BY MOUTH TABLET(S) NIGHTLY. NIGHTLY. BY MOUTH NIGHTLY. Vitamin B-6 Vitamin B-6 No Vitamin [place] 100 mg 100 mg B-6 100 mg [facility] tablet Take tablet Take tablet Urology by oral by oral Take by route. route. oral route. vitamin B12 vitamin B12 No vitamin [place] 1,000 1,000 B12 1,000 [facility] mcg-folic mcg-folic mcg-folic Urology acid 400 acid 400 acid 400 mcg mcg mcg sublingual sublingual sublingual lozenge lozenge lozenge Place by Place by Place by sublingual sublingual sublingual route. route. route. zinc zinc No zinc [place] [facility] Accu-Chek Accu-Chek No Accu-Chek [place] Guide test Guide test Guide test [facility] strips USE strips USE strips USE Urology TO TEST TO TEST TO TEST TWICE TWICE TWICE DAILY. DAILY. DAILY. allopurinol allopurinol No allopurino [place] 300 mg 300 mg l 300 mg [facility] tablet TAKE tablet TAKE tablet Urology ONE (1) ONE (1) TAKE ONE TABLET(S) TABLET(S) (1) BY MOUTH BY MOUTH TABLET(S) ONCE A DAY. ONCE A DAY. BY MOUTH ONCE A DAY. apple cider apple cider No apple [place] vinegar 600 vinegar 600 cider [facility] mg capsule mg capsule vinegar Urology Take by Take by 600 mg oral route. oral route. capsule Take by oral route. Aspir-81 Aspir-81 No Aspir-81 [facility] Bactrim DS Bactrim DS No 1 Q12H Bactrim DS [place] 800 mg-160 800 mg-160 800 mg-160 [facility] mg tablet mg tablet mg tablet Urology Take 1 Take 1 Take 1 tablet tablet tablet every 12 every 12 every 12 hours by hours by hours by oral route oral route oral route for 7 days. for 7 days. for 7 days. calcium calcium No calcium [place] [facility] carvedilol carvedilol No carvedilol [place] 3.125 mg 3.125 mg 3.125 mg Met ro tablet TAKE tablet TAKE tablet Urology ONE (1) ONE (1) TAKE ONE TABLET(S) TABLET(S) (1) BY MOUTH BY MOUTH TABLET(S) TWICE A DAY TWICE A DAY BY MOUTH WITH FOOD. WITH FOOD. TWICE A DAY WITH FOOD. Cinnamon Cinnamon No Cinnamon [facility] cranberry cranberry No cranberry [facility] Fish Oil Fish Oil No Fish Oil [facility] furosemide furosemide No furosemide [place] 40 mg 40 mg 40 mg [facility] tablet TAKE tablet TAKE tablet Urology TWO (2) TWO (2) TAKE TWO TABLET(S) TABLET(S) (2) BY MOUTH BY MOUTH TABLET(S) TWICE A TWICE A BY MOUTH DAY. DAY. TWICE A DAY. Humulin R Humulin R No Humulin R [place] Regular Regular Regular [facility] U-100 U-100 U-100 [...] 30 UNITS DAILY. Lantus Lantus No Lantus [place] U-100 U-100 U-100 [facility] Insulin 100 Insulin 100 Insulin Urology unit/mL unit/mL 100 subcutaneou subcutaneou unit/mL s solution s solution subcutaneo INJECT 15 INJECT 15 us UNITS UNDER UNITS UNDER solution THE SKIN THE SKIN INJECT 15 ONCE DAILY. ONCE DAILY. UNITS UNDER THE SKIN ONCE DAILY. levothyroxi levothyroxi No levothyrox [place] ne 25 mcg ne 25 mcg ine [...] STOMACH. magnesium magnesium No 500mg Q1D magnesium [place] 250 mg (as 250 mg (as 250 mg (as [facility] magnesium magnesium magnesium Urology oxide) oxide) oxide) tablet Take tablet Take tablet 500 mg 500 mg Take 500 every day every day mg every by oral by oral day by route. route. oral route. metoclopram metoclopram No metoclopra [place] laron 5 mg laron 5 mg mide [...] AND AT BEDTIME. multivitami multivitami No multivitam [place] n n in [facility] nitrofurant nitrofurant No 1capsul Q1D nitrofuran [place] [facility]ryst U[facility] l 50 mg l 50 mg al 50 mg capsule capsule capsule Take 1 Take 1 Take 1 capsule capsule capsule every day every day every day by oral by oral by oral route for route for route for 30 days. 30 days. 30 days. prednisone prednisone No prednisone [place] 1 mg tablet 1 mg tablet 1 mg M etro TAKE ONE TAKE ONE tablet Urolo gy (1) (1) TAKE ONE TABLET(S) TABLET(S) (1) BY MOUTH BY MOUTH TABLET(S) ONCE A DAY. ONCE A DAY. BY MOUTH ONCE A DAY. rosuvastati rosuvastati No rosuvastat [place] n 10 mg n 10 mg in 10 mg [facility] tablet TAKE tablet TAKE tablet Urology ONE (1) ONE (1) TAKE ONE TABLET(S) TABLET(S) (1) BY MOUTH BY MOUTH TABLET(S) NIGHTLY. NIGHTLY. BY MOUTH NIGHTLY. Vitamin B-6 Vitamin B-6 No Vitamin [place] 100 mg 100 mg B-6 100 mg [facility] tablet Take tablet Take tablet Urology by oral by oral Take by route. route. oral route. vitamin B12 vitamin B12 No vitamin [place] 1,000 1,000 B12 1,000 [facility] mcg-folic mcg-folic mcg-folic Urology acid 400 acid 400 acid 400 mcg mcg mcg sublingual sublingual sublingual lozenge lozenge lozenge Place by Place by Place by sublingual sublingual sublingual route. route. route. zinc zinc No zinc [facility] Urology Accu-Chek Accu-Chek No Accu-Chek [place] Guide test Guide test Guide test [facility] strips USE strips USE strips USE Urology DIRECTED DIRECTED THREE TIMES THREE TIMES DIRECTED A DAY. A DAY. THREE TIMES A DAY. allopurinol allopurinol No allopurino [place] 300 mg 300 mg l 300 mg [facility] tablet TAKE tablet TAKE tablet Urology ONE (1) ONE (1) TAKE ONE TABLET(S) TABLET(S) (1) BY MOUTH BY MOUTH TABLET(S) ONCE A DAY. ONCE A DAY. BY MOUTH ONCE A DAY. apple cider apple cider No apple [place] vinegar 600 vinegar 600 cider [facility] mg capsule mg capsule vinegar Urology Take by Take by 600 mg oral route. oral route. capsule Take by oral route. Aspir-81 Aspir-81 No Aspir-81 [facility] calcium calcium No calcium [place] [facility] carvedilol carvedilol No carvedilol [place] 12.5 mg 12.5 mg 12.5 mg [facility] tablet TAKE tablet TAKE tablet Urology ONE (1) ONE (1) TAKE ONE TABLET(S) TABLET(S) (1) BY MOUTH BY MOUTH TABLET(S) TWICE A DAY TWICE A DAY BY MOUTH WITH FOOD. WITH FOOD. TWICE A DAY WITH FOOD. carvedilol carvedilol No carvedilol [place] 3.125 mg 3.125 mg 3.125 mg Met ro tablet TAKE tablet TAKE tablet Urology ONE (1) ONE (1) TAKE ONE TABLET(S) TABLET(S) (1) BY MOUTH BY MOUTH TABLET(S) TWICE A DAY TWICE A DAY BY MOUTH WITH FOOD. WITH FOOD. TWICE A DAY WITH FOOD. Cinnamon Cinnamon No Cinnamon [facility] cranberry cranberry No cranberry [place] [facility] Fish Oil Fish Oil No Fish Oil [facility] furosemide furosemide No furosemide [place] 40 mg 40 mg 40 mg [facility] tablet TAKE tablet TAKE tablet Urology TWO (2) TWO (2) TAKE TWO TABLET(S) TABLET(S) (2) BY MOUTH BY MOUTH TABLET(S) TWICE A TWICE A BY MOUTH DAY. DAY. TWICE A DAY. Humulin R Humulin R No Humulin R [place] Regular Regular Regular [facility] U-100 U-100 U-100 [...] 30 UNITS DAILY. Jardiance Jardiance No Jardiance [place] 10 mg 10 mg 10 mg [facility] tablet TAKE tablet TAKE tablet Urology ONE (1) ONE (1) TAKE ONE TABLET(S) TABLET(S) (1) BY MOUTH BY MOUTH TABLET(S) ONCE A DAY. ONCE A DAY. BY MOUTH ONCE A DAY. Lantus Lantus No Lantus [place] U-100 U-100 U-100 [facility] Insulin 100 Insulin 100 Insulin Urology unit/mL unit/mL 100 subcutaneou subcutaneou unit/mL s solution s solution subcutaneo INJECT 15 INJECT 15 us UNITS UNDER UNITS UNDER solution THE SKIN THE SKIN INJECT 15 ONCE DAILY. ONCE DAILY. UNITS UNDER THE SKIN ONCE DAILY. levothyroxi levothyroxi No levothyrox [place] ne 25 mcg ne 25 mcg ine [...] AN EMPTY STOMACH. lisinopril lisinopril No lisinopril [place] 5 mg tablet 5 mg tablet 5 mg M etro TAKE ONE TAKE ONE tablet Urolo gy (1) (1) TAKE ONE TABLET(S) TABLET(S) (1) BY MOUTH BY MOUTH TABLET(S) ONCE A DAY. ONCE A DAY. BY MOUTH ONCE A DAY. magnesium magnesium No 500mg Q1D magnesium [place] 250 mg (as 250 mg (as 250 mg (as [facility] magnesium magnesium magnesium Urology oxide) oxide) oxide) tablet Take tablet Take tablet 500 mg 500 mg Take 500 every day every day mg every by oral by oral day by route. route. oral route. metoclopram metoclopram No metoclopra [place] laron 5 mg laron 5 mg mide [...] AND AT BEDTIME. multivitami multivitami No multivitam [place] n n in [facility] nitrofurant nitrofurant No nitrofuran [place] oin oin toin [facility] macrocrysta macrocrysta macrocryst Urology l 50 mg l 50 mg al 50 mg capsule capsule capsule TAKE ONE TAKE ONE TAKE ONE (1) (1) (1) CAPSULE(S) CAPSULE(S) CAPSULE(S) BY MOUTH BY MOUTH BY MOUTH ONCE A DAY. ONCE A DAY. ONCE A DAY. prednisone prednisone No prednisone [place] 1 mg tablet 1 mg tablet 1 mg M etro TAKE ONE TAKE ONE tablet Urolo gy (1) (1) TAKE ONE TABLET(S) TABLET(S) (1) BY MOUTH BY MOUTH TABLET(S) ONCE A DAY. ONCE A DAY. BY MOUTH ONCE A DAY. prednisone prednisone No prednisone [place] 20 mg 20 mg 20 mg [facility] [...] FOR 5 DAYS. rosuvastati rosuvastati No rosuvastat [place] n 10 mg n 10 mg in 10 mg [facility] tablet TAKE tablet TAKE tablet Urology ONE (1) ONE (1) TAKE ONE TABLET(S) TABLET(S) (1) BY MOUTH BY MOUTH TABLET(S) NIGHTLY. NIGHTLY. BY MOUTH NIGHTLY. sulfamethox sulfamethox No sulfametho [place] azole 800 azole 800 xazole 800 [facility] mg-trimetho mg-trimetho mg-trimeth Urology prim 160 mg prim 160 mg oprim 160 tablet TAKE tablet TAKE mg tablet ONE (1) ONE (1) TAKE ONE TABLET(S) TABLET(S) (1) BY MOUTH BY MOUTH TABLET(S) EVERY EVERY BY MOUTH TWELVE TWELVE EVERY HOURS FOR HOURS FOR TWELVE SEVEN DAYS. SEVEN DAYS. HOURS FOR SEVEN DAYS. Sure Sure No Sure [place] Comfort Comfort Comfort [facility] Insulin Insulin Insulin Urolog y Syringe 0.3 Syringe 0.3 Syringe mL 31 gauge mL 31 gauge 0.3 mL 31 x 16" USE x 06/27" USE gauge x DIRECTED DIRECTED 06/27" USE FOR LANTUS FOR LANTUS AND HUMALOG AND HUMALOG DIRECTED INJECTIONS INJECTIONS FOR LANTUS 4 TIMES 4 TIMES AND DAILY. DAILY. HUMALOG INJECTIONS 4 TIMES DAILY. sure sure No sure [place] comfort comfort comfort [facility] insulin insulin insulin Urolog y syringe/u-1 syringe/u-1 syringe/u- 00/ 00/ 100/ 0.3ml/31g x 0.3ml/31g x 0.3ml/31g 16 31g x 16 31g x x 16 31g 16" 0.3 16" 0.3 x 5/16" ml misc ml misc 0.3 ml misc Vitamin B-6 Vitamin B-6 No Vitamin [place] 100 mg 100 mg B-6 100 mg [facility] tablet Take tablet Take tablet Urology by oral by oral Take by route. route. oral route. vitamin B12 vitamin B12 No vitamin [place] 1,000 1,000 B12 1,000 [facility] mcg-folic mcg-folic mcg-folic Urology acid 400 acid 400 acid 400 mcg mcg mcg sublingual sublingual sublingual lozenge lozenge lozenge Place by Place by Place by sublingual sublingual sublingual route. route. route. zinc zinc No zinc [place] [facility] Accu-Chek Accu-Chek No Accu-Chek [place] Guide test Guide test Guide test [facility] strips USE strips USE strips USE Urology THREE TIMES THREE TIMES THREE A DAY. A DAY. TIMES A DAY. allopurinol allopurinol No allopurino [place] 300 mg 300 mg l 300 mg [facility] tablet TAKE tablet TAKE tablet Urology ONE (1) ONE (1) TAKE ONE TABLET(S) TABLET(S) (1) BY MOUTH BY MOUTH TABLET(S) ONCE A DAY. ONCE A DAY. BY MOUTH ONCE A DAY. apple cider apple cider No apple [place] vinegar 600 vinegar 600 cider [facility] mg capsule mg capsule vinegar Urology Take by Take by 600 mg oral route. oral route. capsule Take by oral route. Aspir-81 Aspir-81 No Aspir-81 [facility] calcium calcium No calcium [place] [facility] carvedilol carvedilol No carvedilol [place] 12.5 mg 12.5 mg 12.5 mg [facility] tablet TAKE tablet TAKE tablet Urology ONE (1) ONE (1) TAKE ONE TABLET(S) TABLET(S) (1) BY MOUTH BY MOUTH TABLET(S) TWICE A DAY TWICE A DAY BY MOUTH WITH FOOD. WITH FOOD. TWICE A DAY WITH FOOD. carvedilol carvedilol No carvedilol [place] 3.125 mg 3.125 mg 3.125 mg Met ro tablet TAKE tablet TAKE tablet Urology ONE (1) ONE (1) TAKE ONE TABLET(S) TABLET(S) (1) BY MOUTH BY MOUTH TABLET(S) TWICE A DAY TWICE A DAY BY MOUTH WITH FOOD. WITH FOOD. TWICE A DAY WITH FOOD. Cinnamon Cinnamon No Cinnamon [facility] cranberry cranberry No cranberry [place] [facility] furosemide furosemide No furosemide [place] 40 mg 40 mg 40 mg [facility] tablet TAKE tablet TAKE tablet Urology TWO (2) TWO (2) TAKE TWO TABLET(S) TABLET(S) (2) BY MOUTH BY MOUTH TABLET(S) TWICE A TWICE A BY MOUTH DAY. DAY. TWICE A DAY. Humulin R Humulin R No Humulin R [place] Regular Regular Regular [facility] U-100 U-100 U-100 [...] 30 UNITS DAILY. Jardiance Jardiance No Jardiance [place] 10 mg 10 mg 10 mg [facility] tablet TAKE tablet TAKE tablet Urology ONE (1) ONE (1) TAKE ONE TABLET(S) TABLET(S) (1) BY MOUTH BY MOUTH TABLET(S) ONCE A DAY. ONCE A DAY. BY MOUTH ONCE A DAY. Lantus Lantus No Lantus [place] U-100 U-100 U-100 [facility] Insulin 100 Insulin 100 Insulin Urology unit/mL unit/mL 100 subcutaneou subcutaneou unit/mL s solution s solution subcutaneo INJECT 10 INJECT 10 us UNITS UNDER UNITS UNDER solution THE SKIN THE SKIN INJECT 10 ONCE A DAY. ONCE A DAY. UNITS UNDER THE SKIN ONCE A DAY. levothyroxi levothyroxi No levothyrox [place] ne 25 mcg ne 25 mcg ine [...] AN EMPTY STOMACH. lisinopril lisinopril No lisinopril [place] 5 mg tablet 5 mg tablet 5 [...] route. oral route. metoclopram metoclopram No metoclopra [place] laron 5 mg laron 5 mg mide [...] AND AT BEDTIME. multivitami multivitami No multivitam [place] n n in [facility] nitrofurant nitrofurant No nitrofuran [place] oin oin toin [facility] macrocrysta macrocrysta macrocryst Urology l 50 mg l 50 mg al 50 mg capsule capsule capsule TAKE ONE TAKE ONE TAKE ONE (1) (1) (1) CAPSULE(S) CAPSULE(S) CAPSULE(S) BY MOUTH BY MOUTH BY MOUTH ONCE A DAY. ONCE A DAY. ONCE A DAY. prednisone prednisone No prednisone [place] 1 mg tablet 1 mg tablet 1 mg M etro TAKE ONE TAKE ONE tablet Urolo gy (1) (1) TAKE ONE TABLET(S) TABLET(S) (1) BY MOUTH BY MOUTH TABLET(S) ONCE A DAY. ONCE A DAY. BY MOUTH ONCE A DAY. prednisone prednisone No prednisone [place] 20 mg 20 mg 20 mg [facility] [...] FOR 5 DAYS. rosuvastati rosuvastati No rosuvastat [place] n 10 mg n 10 mg in 10 mg [facility] tablet TAKE tablet TAKE tablet Urology ONE (1) ONE (1) TAKE ONE TABLET(S) TABLET(S) (1) BY MOUTH BY MOUTH TABLET(S) NIGHTLY. NIGHTLY. BY MOUTH NIGHTLY. sulfamethox sulfamethox No sulfametho [place] azole 800 azole 800 xazole 800 [facility] mg-trimetho mg-trimetho mg-trimeth Urology prim 160 mg prim 160 mg oprim 160 tablet TAKE tablet TAKE mg tablet ONE (1) ONE (1) TAKE ONE TABLET(S) TABLET(S) (1) BY MOUTH BY MOUTH TABLET(S) EVERY EVERY BY MOUTH TWELVE TWELVE EVERY HOURS FOR HOURS FOR TWELVE SEVEN DAYS. SEVEN DAYS. HOURS FOR SEVEN DAYS. Sure Sure No Sure [place] Comfort Comfort Comfort [facility] Insulin Insulin Insulin [...] 4 TIMES DAILY. Sure Sure No Sure [facility] Comfort Comfort [facility] Insulin Insulin Insulin Urolog y Syringe 0.5 Syringe 0.5 Syringe mL 31 gauge mL 31 gauge 0.5 mL 31 x 5/16" USE x 16" USE gauge x ONE (1) ONE (1) 16" USE SYRINGE SYRINGE ONE (1) ONCE A DAY. ONCE A DAY. SYRINGE ONCE A DAY. sure sure No sure [facility] comfort comfort [facility] insulin insulin insulin Urolog y syringe/u-1 syringe/u-1 syringe/u- 100/ 0.3ml/31g x 0.3ml/31g x 0.3ml/31g 5/16 31g x 5/16 31g x x 5/16 31g 5/16" 0.3 5/16" 0.3 x 5/16" ml misc ml misc 0.3 ml misc sure sure No sure [facility] comfort comfort [facility] insulin insulin insulin Urolog y syringe/u-1 syringe/u-1 syringe/u- 00 100/ 0.5ml/31g x 0.5ml/31g x 0.5ml/31g 5/16 31g x 5/16 31g x x 5/16 31g 5/16" 0.5 06/27" 0.5 x 06/27" ml misc ml misc 0.5 ml misc Vitamin B-6 Vitamin B-6 No Vitamin [place] 100 mg 100 mg B-6 100 mg [facility] tablet Take tablet Take tablet Urology by oral by oral Take by route. route. oral route. vitamin B12 vitamin B12 No vitamin [place] 1,000 1,000 B12 1,000 [facility] mcg-folic mcg-folic mcg-folic Urology acid 400 acid 400 acid 400 mcg mcg mcg sublingual sublingual sublingual lozenge lozenge lozenge Place by Place by Place by sublingual sublingual sublingual route. route. route. zinc zinc No zinc [place] [facility] allopurinol allopurinol No allopurino [place] 100 mg 100 mg l 100 mg [facility] tablet TAKE tablet TAKE tablet Urology ONE (1) ONE (1) TAKE ONE TABLET(S) TABLET(S) (1) BY MOUTH BY MOUTH TABLET(S) ONCE A DAY ONCE A DAY BY MOUTH (TAKE ALONG (TAKE ALONG ONCE A DAY WITH 300 MG WITH 300 MG (TAKE TABLETS). TABLETS). ALONG WITH 300 MG TABLETS). amiodarone amiodarone No amiodarone [place] 200 mg 200 mg 200 mg [facility] tablet TAKE tablet TAKE tablet Urology ONE (1) ONE (1) TAKE ONE TABLET(S) TABLET(S) (1) BY MOUTH BY MOUTH TABLET(S) TWICE A TWICE A BY MOUTH DAY. DAY. TWICE A DAY. Aspir-81 Aspir-81 No Aspir-81 Flaco ston [facility] Augmentin Augmentin No 1 Q12H Augmentin [place] 500 mg-125 500 mg-125 500 mg-125 [facility] mg tablet mg tablet mg tablet Urology Take 1 Take 1 Take 1 tablet tablet tablet every 12 every 12 every 12 hours by hours by hours by oral route oral route oral route for 10 for 10 for 10 days. days. days. citalopram citalopram No citalopram [place] 20 mg 20 mg 20 mg [facility] tablet tablet tablet Urology digoxin 125 digoxin 125 No digoxin [place] mcg (0.125 mcg (0.125 125 mcg [facility] [...] ston [facility] furosemide furosemide No furosemide [place] 40 mg 40 mg 40 mg [facility] tablet TAKE tablet TAKE tablet Urology TWO (2) TWO (2) TAKE TWO TABLET(S) TABLET(S) (2) BY MOUTH BY MOUTH TABLET(S) TWICE A TWICE A BY MOUTH DAY. DAY. TWICE A DAY. GaviLyte-G GaviLyte-G No GaviLyte-G [place] 236 236 236 [facility] gram-22.74 gram-22.74 gram-22.74 Urology gram-6.74 gram-6.74 gram-6.74 gram-5.86 gram-5.86 gram-5.86 gram oral gram oral gram oral solution solution solution TAKE BY TAKE BY TAKE BY MOUTH MOUTH MOUTH DIRECTED. DIRECTED. DIRECTED. hydroxyzine hydroxyzine No hydroxyzin [place] HCl 25 mg HCl 25 mg e HCl 25 M etro tablet TAKE tablet TAKE mg tablet Urology ONE (1) ONE (1) TAKE ONE TABLET(S) TABLET(S) (1) BY MOUTH AT BY MOUTH AT TABLET(S) BEDTIME. BEDTIME. BY MOUTH AT BEDTIME. ketoconazol ketoconazol No ketoconazo [place] e 2 % e 2 % le [...] ONCE A DAY. levocetiriz levocetiriz No levocetiri [place] ine 5 mg ine 5 mg zine 5 mg Me tro tablet TAKE tablet TAKE tablet Urology ONE (1) ONE (1) TAKE ONE TABLET(S) TABLET(S) (1) BY MOUTH AT BY MOUTH AT TABLET(S) BEDTIME. BEDTIME. BY MOUTH AT BEDTIME. linezolid linezolid No linezolid [place] 600 mg 600 mg 600 mg [facility] tablet tablet tablet Urology metformin metformin No metformin [place] 1,000 mg 1,000 mg 1,000 mg Met ro tablet TAKE tablet TAKE tablet Urology ONE (1) ONE (1) TAKE ONE TABLET(S) TABLET(S) (1) BY MOUTH BY MOUTH TABLET(S) TWICE A TWICE A BY MOUTH DAY. DAY. TWICE A DAY. methylpredn methylpredn No methylpred [place] isolone 4 isolone 4 nisolone 4 Metro [...] OVER THE DAY). metolazone metolazone No metolazone [place] 5 mg tablet 5 mg tablet 5 mg M etro TAKE ONE TAKE ONE tablet Urolo gy (1) (1) TAKE ONE TABLET(S) TABLET(S) (1) BY MOUTH BY MOUTH TABLET(S) ONCE A DAY. ONCE A DAY. BY MOUTH ONCE A DAY. metoprolol metoprolol No metoprolol [place] tartrate tartrate tartrate Met ro 100 mg [...] tablet tablet Urology pantoprazol pantoprazol No pantoprazo [place] e 40 mg e 40 mg le [...] [facility] allopurinol allopurinol No allopurino [place] 100 mg 100 mg l 100 mg [facility] tablet TAKE tablet TAKE tablet Urology ONE (1) ONE (1) TAKE ONE TABLET(S) TABLET(S) (1) BY MOUTH BY MOUTH TABLET(S) ONCE A DAY ONCE A DAY BY MOUTH (TAKE WITH (TAKE WITH ONCE A DAY 300 MG 300 MG (TAKE WITH TABLETS). TABLETS). 300 MG TABLETS). allopurinol allopurinol No allopurino [place] 300 mg 300 mg l 300 mg [facility] tablet TAKE tablet TAKE tablet Urology ONE (1) ONE (1) TAKE ONE TABLET(S) TABLET(S) (1) BY MOUTH BY MOUTH TABLET(S) ONCE A DAY. ONCE A DAY. BY MOUTH ONCE A DAY. amiodarone amiodarone No amiodarone [place] 200 mg 200 mg 200 mg [facility] tablet TAKE tablet TAKE tablet Urology ONE (1) ONE (1) TAKE ONE TABLET(S) TABLET(S) (1) BY MOUTH BY MOUTH TABLET(S) TWICE A TWICE A BY MOUTH DAY. DAY. TWICE A DAY. amoxicillin amoxicillin No amoxicilli [place] 500 500 n 500 [facility] mg-potassiu mg-potassiu [...] [facility] citalopram citalopram No citalopram [place] 20 mg 20 mg 20 mg [facility] tablet tablet tablet Urology digoxin 125 digoxin 125 No digoxin [place] mcg (0.125 mcg (0.125 125 mcg [facility] mg) tablet mg) tablet (0.125 mg) Urology TAKE ONE TAKE ONE tablet (1) (1) TAKE ONE TABLET(S) TABLET(S) (1) BY MOUTH BY MOUTH TABLET(S) DAILY. DAILY. BY MOUTH DAILY. Immunizations Ordered Immunization Filled Date Status Comments Sour ce Name Immunization Name PFIZER READY TO USE 2021-08-12 Completed [facility] 00:00:00 Hospital VACCINATION PFIZER READY TO USE 2021-08-12 Completed [facility] COVID-19 MRNA 00:00:00 Hospital VACCINATION FLUZONE HIGH-DOSE PF 2020-12-17 Completed [facility] 00:00:00 [facility] PFIZER COVID-19 MRNA 2020-12-17 Completed [facility] VACCINATION 00:00:00 Hospital FLUZONE HIGH-DOSE PF 2020-12-17 Completed [facility] 00[facility]00:00 [facility] PFIZER COVID-19 MRNA 2020-12-17 Completed [facility] VACCINATION 00:00:00 [facility] PFIZER COVID-19 MRNA 2020-05-20 Completed [facility] VACCINATION 00:00:00 [facility] PFIZER COVID-19 MRNA 2020-05-20 Completed [facility] VACCINATION 00:00:00 [facility] PFIZER COVID-19 MRNA 2020-04-29 Completed [facility] VACCINATION 00:00:00 [facility] PFIZER COVID-19 MRNA 2020-04-29 Completed [facility] VACCINATION 00:00:00 Hospital FLUZONE HIGH-DOSE PF 2020-01-20 Completed [facility] 00:00:00 Hospital FLUZONE HIGH-DOSE PF 2020-01-20 Completed [facility] 00:[facility]:00 Hospital Pneumococcal 2019-03-19 [facility]pleted [facility] 00:00:00 [facility] Pneumococcal 2019-03-19 [facility]pleted [facility] Polys[facility] 00:00:00 Hospital Influenza, 2018-11-12 Completed [facility] Unspecified 00:00:00 [facility] Influenza, 2018-11-12 Completed [facility] Un[facility] 00:00:00 [facility] influenza, influenza, 2018-11-12 Completed [place] [facility] injectable, injectable, 00:00:00 [facility]rology quadrivalent quadrivalent influenza, influenza, 2018-11-12 Completed [place] [facility] injectable, injectable, 00:00:00 [facility]rology quadrivalent quadrivalent influenza, influenza, 2018-11-12 Completed [place] [facility] injectable, injectable, 00:00:00 [facility] quadrivalent quadrivalent influenza, influenza, 2018-11-12 Completed [place] [facility] injectable, injectable, 00:00:00 [facility]rology quadrivalent quadrivalent influenza, influenza, 2018-11-12 Completed [place] [facility] injectable, injectable, 00:00:00 [facility]rology quadrivalent quadrivalent influenza, influenza, 2018-11-12 Completed [place] [facility] injectable, injectable, 00:00:00 [facility]rology quadrivalent quadrivalent FLUCELVAX QUAD PF 2018-10-[address] [facility] FLUCELVAX QUAD PF 2018-10-[address] 00:[facility] Pneumococcal 2017-05-04 Completed [facility] Conjugate [facility] 00:00:00 Hospi david FLUCELVAX QUAD PF 2017-05-[address] [facility] Pneumococcal 2017-05-04 Completed [facility] Conjugate [facility] 00:00:00 [facility] FLUCELVAX QUAD PF 2017-05-[address] [facility] Pneumococcal Unknown Completed [facility] FLUCELVAX QUAD PF Unknown Completed [facility] FLUCELVAX QUAD PF Unknown Completed [facility] Pneumococcal Unknown Completed [facility] PFIZER COVID-19 MRNA Unknown Completed [facility] PFIZER COVID-19 MRNA Unknown Completed [facility], [facility] FLUZONE HIGH-DOSE PF Unknown Completed [facility] PFIZER COVID-19 MRNA Unknown Completed [facility] PFIZER READY TO USE Unknown Completed [facility] COVID-19 MRNA Hospital VACCINATION FLUZONE HIGH-DOSE PF Unknown Completed [facility] Vital Signs Vital Name Observation Time Observation Value Comments Source BP Diastolic 2022-05-10 00:00:00 81 mm[Hg] [facility] Height 2022-05-10 00:00:00 70 [in_i] [facility] BMI (Body Mass 2022-05-10 00:00:00 32.3 kg/m2 [place] [facility] BP Systolic 2022-05-10 00:00:00 122 mm[Hg] [facility] Body Weight 2022-05-10 00:00:00 225 [lb_av] [facility] BP Diastolic 2022-03-15 00:00:00 80 mm[Hg] [facility] Height 2022-03-15 00:00:00 70 [in_i] [facility] BMI (Body Mass 2022-03-15 00:00:00 32.3 kg/m2 [place] [facility]) [facility] BP Systolic 2022-03-15 00:00:00 118 mm[Hg] [facility] Body Weight 2022-03-15 00:00:00 225 [lb_av] [facility] BP Diastolic 2021-12-09 00:00:00 74 mm[Hg] [facility] Height 2021-12-09 00:00:00 70 [in_i] [facility] BMI (Body Mass 2021-12-09 00:00:00 32.3 kg/m2 [place] [facility] BP Systolic 2021-12-09 00:00:00 136 mm[Hg] [facility] Body Weight 2021-12-09 00:00:00 225 [lb_av] [facility] BP Diastolic 2021-09-02 00:00:00 72 mm[Hg] [facility] Height 2021-09-02 00:00:00 70 [in_i] [facility] BMI (Body Mass 2021-09-02 00:00:00 32.3 kg/m2 [place] [facility] BP Systolic 2021-09-02 00:00:00 132 mm[Hg] [facility] Body Weight 2021-09-02 00:00:00 225 [lb_av] [facility] Height 2020-10-20 00:00:00 70 [in_i] [facility] BMI (Body Mass 2020-10-20 00:00:00 32.3 kg/m2 [place] [facility] Body Weight 2020-10-20 00:00:00 225 [lb_av] [facility] Height 2020-07-08 00:00:00 70 [in_i] [facility] BMI (Body Mass 2020-07-08 00:00:00 32.3 kg/m2 [place] [facility] Body Weight 2020-07-08 00:00:00 225 [lb_av] [facility] Systolic blood 2022-12-08 16:16:00 132 mm[Hg] [facility] pressure Diastolic blood 2022-12-08 16:16:00 71 mm[Hg] [facility] pressure Heart rate 2022-12-08 16:16:00 73 /min [facility] Body height 2022-12-08 16:16:00 177.8 cm [facility] Body weight 2022-12-08 16:16:00 72.122 kg [facility] BMI 2022-12-08 16:16:00 22.81 kg/m2 [facility] Body temperature 2022-11-15 18:18:19 36.89 Lola [facility] Respiratory rate 2022-11-15 18:18:19 16 /min [facility] Oxygen saturation in 2022-11-08 12:38:46 100 /min [facility] Arterial blood by Pulse oximetry Systolic blood 2022-08-18 15:45:00 94 mm[Hg] [facility] pressure Diastolic blood 2022-08-18 15:45:00 53 mm[Hg] [facility] pressure Heart rate 2022-08-18 15:45:00 87 /min [facility] Body height 2022-07-18 19:12:00 177.8 cm [facility] Body weight 2022-07-18 19:12:00 72.576 kg [facility] BMI 2022-07-18 19:12:00 22.96 kg/m2 [facility] Systolic blood 2022-06-12 15:19:00 98 mm[Hg] [facility] pressure Diastolic blood 2022-06-12 15:19:00 57 mm[Hg] [facility] pressure Heart rate 2022-06-12 15:19:00 94 /min [facility] Body height 2022-06-12 15:19:00 177.8 cm [facility] Body weight 2022-06-12 15:19:00 73.483 kg [facility] BMI 2022-06-12 15:19:00 23.24 kg/m2 [facility] Height 2022-03-14 17:03:00 5 [ft_i] [facility] Weight 2022-03-14 17:03:00 [facility] BMI Calculated 2022-03-14 17:03:00 [facility] Body temperature 2022-03-06 15:23:00 36.67 Lola [facility] Oxygen saturation in 2022-03-06 15:23:00 98 /min [facility] Arterial blood by Pulse oximetry Procedures Procedure Date / Time Performing Clinician Source Performed HC DEBRID NONSELECT 2022-11-15 18:30:00 Jackelyn Huang [facility] POC GLUCOSE 2022-11-08 13:45:00 Armando Alexander [facility] POC GLUCOSE 2022-11-08 03:18:00 [facility] 2022-11-07 23:07:00 Catherine [facility] ANAEROBIC CULTURE 2022-11-07 22:40:00 Harlan Jasmine [facility] FUNGUS CULTURE 2022-11-07 22:40:00 Harlan Jasmine [facility] AEROBIC CULTURE 2022-11-07 22:40:00 Selbst, [facility] AFB CULTURE 2022-11-07 22:40:00 Selbst, [facility] ANAEROBIC CULTURE 2022-11-07 22:32:00 Selbst, [facility] FUNGUS CULTURE 2022-11-07 22:32:00 Selbst, [facility] AF[employer] CULTURE 2022-11-07 22:32:00 Selbst, [facility] FUNGUS SMEAR 2022-11-07 22:32:00 Selbst, [facility] [employer] STAIN 2022-11-07 22:32:00 Selbst, [facility] TISSUE CULTURE 2022-11-07 22:32:00 Selbst, [facility] AMPUTATION, TOE 2022-11-07 22:05:00 Selbst, [facility] POC GLUCOSE 2022-11-07 20:19:[address] [facility] PV PHYSIOLOGIC ARTERIAL 2022-11-07 19:08:00 Selbst, [facility] LOWER EXTREMITY COMPLETE XR FOOT 3+ VW RIGHT 2022-11-07 18:07:17 Selbs, [facility] POC GLUCOSE 2022-11-07 17:27:[address] [facility] SURGICAL PATHOLOGY 2022-11-07 13:40:00 [facility] REQUEST POC GLUCOSE 2022-11-07 12:54:[address] [facility] LIPID PANEL 2022-11-07 08:58:[address] [facility] CBC WITH PLATELET AND 2022-11-07 08:58:00 Selbst, [facility] DIFFERENTIAL BASIC METABOLIC PANEL 2022-11-07 08:58:00 [facility] PROTHROMBIN TIME WITH INR 2022-11-07 08:58:00 Selbst, Harlan Shirley [facility] TYPE AND SCREEN 2022-11-07 08:58:00 Selbst, [facility] ESTIMATED GFR 2022-11-07 08:58:00 Selbst, [facility] POC GLUCOSE 2022-11-07 02:49:[address] [facility] ECG 12-LEAD 2022-11-07 02:12:[address] [facility] POC GLUCOSE 2022-11-06 23:55:[address] [facility] HEMOGLOBIN A1C 2022-11-06 18:48:[address] [facility] CBC WITH PLATELET AND 2022-11-06 18:48:00 [facility] DIFFERENTIAL PROTHROMBIN TIME WITH INR 2022-11-06 18:48:00 [facility] SEDIMENTATION RATE 2022-11-06 18:48:00 [facility] COMPREHENSIVE METABOLIC 2022-11-06 18:48:00 [facility] PANEL THYROID STIMULATING 2022-11-06 18:48:00 [facility] HORMONE T4, FREE 2022-11-06 18:48:[address] [facility] C-REACTIVE PROTEIN 2022-11-06 18:48:00 [facility] PROCALCITONIN 2022-11-06 18:48:[address] [facility] ESTIMATED GFR 2022-11-06 18:48:[address] [facility] CT ABDOMEN W CONTRAST 2022-10-27 21:12:19 [facility] HC NEG PRESSURE WOUND [place] 2022-10-25 20:15:52 Bianca [facility] <50SQ CM HC DEBRID SUBQ TIS 2022-10-25 19:45:00 [facility] 20SQCM OR< HC NEG PRESSURE WOUND [place] 2022-10-18 19:46:42 [facility] <50SQ CM HC DEBRID NONSELECT 2022-10-18 17:30:00 [facility] HC DEBRID MUSC/FASCI 1ST 2022-10-18 17:30:00 [facility] 20SQCM/< POC GLUCOSE 2022-10-04 16:13:00 [facility] POC GLUCOSE 2022-10-04 12:24:00 [facility] POC GLUCOSE 2022-10-04 00:12:00 [facility] POC GLUCOSE 2022-10-03 22:09:00 [facility] POC GLUCOSE 2022-10-03 12:20:00 [facility] POC GLUCOSE 2022-10-02 22:26:00 Christ Peña Ho spital CONSULT TO OSTOMY CARE 2022-10-02 13:02:48 Elvin Sydney [facility] NURSE CBC WITH PLATELET AND 2022-10-02 10:02:00 [facility]FFER[facility] COMPREHENSIVE METABOLIC 2022-10-02 10:02:00 [facility] PANEL ESTIMATED GFR 2022-10-02 10:02:00 Christ Peña Ho spital POC GLUCOSE 2022-10-02 00:35:00 Christ Peña Ho spital POC GLUCOSE 2022-10-01 21:28:00 Christ Peña spital CONSULT TO OSTOMY CARE 2022-10-01 16:56:58 Shaikh [facility] NURSE POC GLUCOSE 2022-10-01 16:09:00 Christ Peña Ho spital POC GLUCOSE 2022-10-01 12:26:00 Christ Peña Ho spital POC GLUCOSE 2022-10-01 01:16:00 Christ Peña spital XR SHOULDER 2+ VW RIGHT 2022-09-30 21:59:50 [facility] POC GLUCOSE 2022-09-30 21:52:00 Christ Peña spital VENIPUNC NEED PHYS 2022-09-30 20:35:54 Alix Gibbs [facility] SKILL,DX OR RX POC GLUCOSE 2022-09-30 16:21:00 Christ Peña spital TTE COMPLETE, WO 2022-09-30 15:43:00 Ancelmo Wong H ospital CONTRAST, W DOPPLER ([id number]) POC GLUCOSE 2022-09-30 12:26:00 Christ Peña spital CBC WITH PLATELET AND 2022-09-30 10:58:00 [facility] DIFFERENTIAL COMPREHENSIVE METABOLIC 2022-09-30 10:58:00 [facility] PANEL ESTIMATED GFR 2022-09-30 10:58:00 Christ Peña Ho spital POC GLUCOSE 2022-09-30 01:37:00 Christ Peña Ho spital POC GLUCOSE 2022-09-29 20:41:00 Christ Peña Ho spital POC GLUCOSE 2022-09-29 17:00:00 Christ Peña Ho spital US VISCERAL DRAIN 2022-09-29 16:45:00 [facility] ANAEROBIC CULTURE 2022-09-29 16:27:00 [facility] FUNGUS CULTURE 2022-09-29 16:27:00 [facility] AEROBIC CULTURE 2022-09-29 16:27:00 [facility] FUNGUS SMEAR 2022-09-29 16:27:00 [facility] POC GLUCOSE 2022-09-29 12:32:00 Christ Peña Ho spital CBC WITH PLATELET AND 2022-09-29 10:12:00 Peña [facility] DIFFERENTIAL COMPREHENSIVE METABOLIC 2022-09-29 10:12:00 [facility] PANEL ESTIMATED GFR 2022-09-29 10:12:00 Christ Peña Ho spital POC GLUCOSE 2022-09-29 01:57:00 Christ Peña Ho spital POC GLUCOSE 2022-09-28 22:00:00 Christ Peña Ho spital POC GLUCOSE 2022-09-28 16:11:00 Christ Peña Ho spital POC GLUCOSE 2022-09-28 14:09:00 Christ Peña Ho spital ANAEROBIC CULTURE 2022-09-28 13:34:00 Robyn Melendrez [facility] FUNGUS CULTURE 2022-09-28 13:34:00 Robyn Melendrez [facility] AEROBIC CULTURE 2022-09-28 13:34:00 Robyn Melendrez [facility] AFB CULTURE 2022-09-28 13:34:00 Robyn Melendrez [facility] FUNGUS SMEAR 2022-09-28 13:34:00 Robyn Melendrez [facility] AFB STAIN 2022-09-28 13:34:00 Robyn Melendrez [facility] DEBRIDEMENT 2022-09-28 12:58:00 Robyn Melendrez [facility] CBC WITH PLATELET AND 2022-09-28 08:22:00 [facility] DIFFERENTIAL COMPREHENSIVE METABOLIC 2022-09-28 08:22:00 Peña [facility] PANEL PROTHROMBIN TIME WITH INR 2022-09-28 08:22[facility]00 [facility] 2022-09-28 08:22:00 Christ Peña Ho spital POC GLUCOSE 2022-09-28 01:17:00 Christ Peña Ho spital POC GLUCOSE 2022-09-27 11:23:00 [facility] TROPONIN T 2022-09-27 09:41:00 Danny Bach Ho spital LACTIC ACID LEVEL - NOW 2022-09-27 09:41:00 [place] [facility] AND REPEAT 2X EVERY 3 [facility] HOURS CBC WITH PLATELET AND 2022-09-27 09:40:00 [facility] DIFFERENTIAL COMPREHENSIVE METABOLIC 2022-09-27 09:40:00 [facility] PANEL ESTIMATED GFR 2022-09-27 09:40:00 [facility] CONSULT TO OSTOMY CARE 2022-09-27 04:39:46 [facility] NURSE POC GLUCOSE 2022-09-27 02:32:00 [facility] 2022-09-27 01:51:00 Isreal Danny Cheng spital POC GLUCOSE 2022-09-27 00:05:00 Isreal Danny Cheng spital LACTIC ACID LEVEL - NOW 2022-09-26 23:59:00 [facility] AND REPEAT 2X EVERY [address] [place] LUMBAR SPINE W 2022-09-26 23:24:23 [facility] CONTRAST [facility] CT ABDOMEN PELVIS W 2022-09-26 23:24:02 [facility] CONTRAST ECG ED PRELIMINARY 2022-09-26 22:02:38 [facility] INTERPRETATION BLOOD CULTURE, AEROBIC & 2022-09-26 21:46:00 [facility] ANAEROBIC [place] LACTIC ACID LEVEL - NOW 2022-09-26 21:45:00 [facility] AND REPEAT 2X EVERY 3 [facility] HOURS XR FOOT 3+ VW RIGHT 2022-09-26 21:35:26 [facility] BLOOD CULTURE, AEROBIC & 2022-09-26 21:35:00 [facility] ANAEROBIC [facility] ECG 12-LEAD 2022-09-26 21:26:43 Danny Bach spital CBC WITH PLATELET AND 2022-09-26 21:14:00 [facility] DIFFERENTIAL COMPREHENSIVE METABOLIC 2022-09-26 21:14:00 [facility] PANEL TROPONIN T 2022-09-26 21:14[facility]00 [facility], TOTAL 2022-09-26 21:14:00 [facility] URINALYSIS SCREEN AND 2022-09-26 21:14:00 [facility] MICROSCOPY, WITH REFLEX TO CULTURE ESTIMATED GFR 2022-09-26 21:14:00 Danny Bach spital POC GLUCOSE 2022-09-26 20:58:00 Danny Bach [facility] URINE CULTURE 2022-09-26 20:54:00 Danny Bach Ho spital MRI LUMBAR SPINE W WO 2022-07-18 20:14:57 [facility], renal 2022-05-10 00:00:00 [facility] COMPREHENSIVE METABOLIC 2022-05-02 13:21:00 [facility] PANEL HEMOGLOBIN A1C 2022-05-02 13:21:00 [facility] LIPID PANEL 2022-05-02 13:21:00 [facility] Ho spital T3, FREE 2022-05-02 13:21:00 [facility] T4, FREE 2022-05-02 13:21:00 [facility]ital THYROID STIMULATING 2022-05-02 13:21:00 [facility] HORMONE THYROID PEROXIDASE 2022-05-02 13:21:00 [facility] ANTIBODY THYROGLOBULIN ANTIBODY 2022-05-02 13:21:00 [facility] ECG 12-LEAD 2022-04-24 13:16:28 Ancelmo Wong Ho spital TTE COMPLETE, WO 2022-03-27 15:44:29 Ancelmo Wong H [facility] CONTRAST, W DOPPLER ([id number]) CT LUMBAR SPINE WO 2022-03-10 13:38:45 [facility] CONTRAST CT THORACIC SPINE WO 2022-03-10 13:29:50 [facility] CONTRAST AST (SGOT) 2022-03-06 16:07:00 Kirsten Jordan Ho spital ALT (SGPT) 2022-03-06 16:07:00 Kirsten Jordan Ho spital CREATININE LEVEL 2022-03-06 16:07:00 Kirsten Jordan H ospital ALBUMIN LEVEL 2022-03-06 16:07:00 Kirsten Jordan spital CBC WITH PLATELET AND 2022-03-06 16:07:00 [facility]FFER[facility] SEDIMENTATION RATE 2022-03-06 16:07:00 [facility] C-REACTIVE PROTEIN 2022-03-06 16:07:00 [facility] URIC ACID LEVEL 2022-03-06 16:07:00 [facility] spital ECG 12-LEAD 2022-01-23 14:32:06 Ancelmo Wongist spital CBC WITH PLATELET AND 2021-09-05 17:40:00 [facility] DIFFERENTIAL COMPREHENSIVE METABOLIC 2021-09-05 17:40:00 [facility] PANEL SEDIMENTATION RATE 2021-09-05 17:40:00 [facility] C-REACTIVE PROTEIN 2021-09-05 17:40:00 [facility] URIC ACID LEVEL 2021-09-05 17:40:00 [facility] ANKLE BRACHIAL INDEX 2021-07-18 16:24:26 Jorge Livingston [facility] DUPLEX ARTERIAL LOWER 2021-07-18 16:24:08 Jorge Livingston [facility] EXTREMITY BILATERAL Surgery/Procedure 2017-05-02 00:00:00 [facility] Colonoscopy 2014-04-14 00:00:00 Lucas boyle [facility] CARDIO- Pacemaker [facility] Insertion Urology Plan of Care Planned Activity Planned Date Details Comments Source Future Scheduled 2022-12-[address] [facility] Test 10:32:36 malignant neoplasm of colon (procedure) [code = 947949561] Future Scheduled 2022-12-[address] [facility] Test 10:32:36 malignant neoplasm of colon (procedure) [code = 414018904] Future Scheduled 2022-12-14 Hepatitis C screening [facility] Test 10:32:36 (procedure) [code = 802380216] Future Scheduled 2022-12-14 SHINGLES VACCINES (1 [facility] 10:32:36 of 2) [code = SHINGLES VACCINES (1 of 2)] Future Scheduled 2022-12-[address] [facility] Test 10:32:36 malignant neoplasm of colon (procedure) [code = 671865517] Future Scheduled 2022-12-14 COVID-19 VACCINE (5 - [facility] 10:32:36 ) [code = COVID-19 VACCINE ( - season)] Future Scheduled 2022-12-14 [facility]ACCINE [facility] 10:32:36 (#1) [code = INFLUENZA VACCINE (#1)] Future Scheduled 2022-12-14 DIABETES: RETINAL EYE [facility] 10:32:36 EXAM [code = DIABETES: RETINAL EYE EXAM] Future Scheduled 2022-12-14 DI[facility]ETIC FOOT [facility]AM [facility] 10:32:36 [code = DIABETIC FOOT EXAM] Future Scheduled 2022-12-14 65+ [facility] [facility] Test 10:32:36 VACCINE (3 - PPSV23 or PCV20) [code = 65+ PNEUMOCOCCAL VACCINE (3 - PPSV23 or PCV20)] Future Scheduled 2022-12-14 [facility] 10:32:36 malignant neoplasm of colon (procedure) [code = 678500468] Future Scheduled 2022-12-14 [facility] 10:32:36 malignant neoplasm of colon (procedure) [code = 986513626] Future Scheduled 2022-08-21 [facility] 08:59:59 malignant neoplasm of colon (procedure) [code = 961310398] Future Scheduled 2022-08-21 [facility] 08:59:59 malignant neoplasm of colon (procedure) [code = 116630470] Future Scheduled 2022-08-21 [facility] 08:59:59 (procedure) [code = 582773879] Future Scheduled 2022-08-21 SHINGLES VACCINES (1 [facility] 08:59:59 of 2) [code = SHINGLES VACCINES (1 of 2)] Future Scheduled 2022-08-21 COVID-19 VACCINE (5 - [facility] 08:59:59 Pfizer series) [code = COVID-19 VACCINE (5 - Pfizer series)] Future Scheduled 2022-08-21 DIABETIC FOOT EXAM [facility] Test 08:59:59 [code = DIABETIC FOOT EXAM] Future Scheduled 2022-08-21 [facility] 08:59:59 malignant neoplasm of colon (procedure) [code = [id number]] Future Scheduled 2022-08-21 [facility]INE [facility] 08:59:59 [code = INFLUENZA VACCINE] Future Scheduled 2022-08-21 DIABETES: RETINAL EYE [facility] Test 08:59:59 EXAM [code = DIABETES: RETINAL EYE EXAM] Future Scheduled 2022-08-21 65+ P[facility]UMOCOCCAL [facility] 08:59:59 VACCINE (3 - PPSV23 if available, else PCV20) [code = 65+ PNEUMOCOCCAL VACCINE (3 - PPSV23 if available, else PCV20)] Future Scheduled 2022-08-21 [facility]:59:59 malignant neoplasm of colon (procedure) [code = 379641110] Future Scheduled 2022-08-21 [facility] 08:59:59 malignant neoplasm of colon (procedure) [code = 278681539] Future Scheduled 2022-07-13 Hepatitis C screening [facility] Test 11:30:29 (procedure) [code = 029031627] Future Scheduled 2022-07-13 SHINGLES VACCINES (1 [facility] Test 11:30:29 of 2) [code = SHINGLES VACCINES (1 of 2)] Future Scheduled 2022-07-13 COLONOSCOPY SCREENING [facility] Test 11:30:29 [code = COLONOSCOPY SCREENING] Future Scheduled 2022-07-13 COVID-19 VACCINE (5 - Me [facility] Test 11:30:29 Booster for Pfizer series) [code = COVID-19 VACCINE (5 - Booster for Pfizer series)] Future Scheduled 2022-07-13 DIABETIC FOOT EXAM [facility] Test 11:30:29 [code = DIABETIC FOOT EXAM] Future Scheduled 2022-07-13 [facility]ACCINE [facility] 11:30:29 [code = INFLUENZA VACCINE] Future Scheduled 2022-07-13 DIABETES: RETINAL EYE [facility] Test 11:30:29 EXAM [code = DIABETES: RETINAL EYE EXAM] Future Scheduled 2022-07-13 65+ [facility]CCAL [facility] 11:30:29 VACCINE (3 - PPSV23 if available, else PCV20) [code = 65+ PNEUMOCOCCAL VACCINE (3 - PPSV23 if available, else PCV20)] Diagnostic Test 2022-05-10 culture, urine + [facility] Pending 00:00:00 sensitivity [code = Urology culture, urine + sensitivity] Diagnostic Test 2022-05-10 urinalysis, dipstick [place] [facility] Pending 00:00:00 [code = urinalysis, Urology dipstick] Diagnostic Test 2022-05-10 urinalysis, [facility] P[facility] 00:00:00 microscopic [code = Urology urinalysis, microscopic] Encounters Start End Encounter Admission Attending Care Care Encounter Source Date/Time Date/Time Type Type Clinicians Facility Department ID 2022-12-14 2022-12-14 Kofi Johnson, 1.2.840.1 [id number] [facility] 00:00:00 00:00:00 Only Mari Siu50.1.[address] 3.430.2.7 Hospit a .3.648228 l .8 2022-12-08 2022-12-08 Office Michael Ricardo.2.840.1 [id number] 2100 [id number] [facility] 11:15:00 12:14:31 Visit Cinthya 33004.1.[address] 3.430.2.7 Hospit a .3.317494 l .8 2022-12-08 2022-12-08 [facility] [id number] [place] 00:00:00 00:00:00 CINTHYA [address] 2022-12-06 2022-12-06 Office Sanchez 1.2.840.1 [id number] [id number] 2615 [facility] 14:30:00 15:57:25 Visit Jose Mcbride 18201.1.[address] 3.430.2.7 Hospit a .3.080495 l .8 2022-12-06 2022-12-06 Orders Alex 1.2.840.1 [id number] 4712 [facility] 00:00:00 00:00:00 Only Mari 67122.1.[address] 3.430.2.7 Hospit a .3.424481 l .8 2022-12-06 2022-12-06 [facility] [id number] 803 [place] 00:00:00 00:00:00 JOSE [address] 2022-11-15 2022-11-15 Office [place], 1.2.840.1 [id number] 789 [id number] Methodi 13:30:00 14:04:27 Visit Robyn Escalante 52452.1.1 191 s t 3.430.2.7 Hospit a .3.089539 l .8 2022-11-15 2022-11-15 Abstract Sally, 1.2.840.1 [id number] 94300 18439 [facility] 00:00:00 00:00:[address] Mike 3.430.2.7 Hospit a .3.524738 l .8 2022-11-15 2022-11-15 Outpatient SCOTTY, [facility] 2100 003003 [place] 00:00:00 00:00:00 ROBYN [facility] 2022-11-10 2022-11-10 Patient Anamaria, 1.2.840.1 [id number] 733 [id number] Methodi 00:00:00 00:00:00 Outreach [place] 07817.1.[address] Marlene 3.430.2.7 Hospit a .3.284391 l .8 2022-11-09 2022-11-09 Patient AvtarBhargavi 1.2.840.1 [id number] 2099 [id number] Methodi 00:00:00 00:00:[address] 3.430.2.7 Hospit a .3.113644 l .8 2022-11-09 2022-11-09 Patient Robis, 1.2.840.1 [id number] 495 [id number] Methodi 00:00:00 00:00:00 Outreach [place] [address]24.1.[address] Marlene 3.430.2.7 Hospit a .3.663560 l .8 2022-11-06 2022-11-08 Hospital Catherine, 1.2.840.1 [id number] 995 [id number] Methodi 11:50:00 14:48:00 Encounter Armando Skinner 17770.1.[address] 3.430.2.7 Hospit a .3.053592 l .8 2022-11-06 2022-11-08 Inpatient [facility] [id number] 6843 [place] 00:00:00 00:00:00 ARMANDO [address] 2022-11-07 2022-11-07 Anesthesia Kam Booker 1.2.840 .1 [id number] Methodi 17:05:00 17:59:00 Event Mike Agustin 24904.1.[address] 3.430.2.7 Hospit a .3.441961 l .8 2022-11-07 2022-11-07 Surgery Selzat, 1.2.840.1 [id number] 814999 2122 [facility] 16:30:00 17:43:[address] Devin 3.430.2.7 Hospit a .3.437289 l .8 2022-10-27 2022-10-27 Outpatient [facility] 2100 [id number] [place] 00:00:00 00:00:00 ROBYN [address] 2022-10-25 2022-10-25 Office [facility], 1.2.840.1 [id number] Methodi 14:45:00 15:31:53 Visit Robyn Escalante 91758.1.1 450 s t 3.430.2.7 Hospit a .3.184404 l .8 2022-10-25 2022-10-25 Outpatient [facility] 2100 [id number] [place] 00:00:00 00:00:00 ROBYN [address] 2022-10-23 2022-10-23 Refill Yoav, 1.2.840.1 [id number] 6839 Methodi 00:00:00 00:00:[address] 3.430.2.7 Hospit a .3.652120 l .8 2022-10-18 2022-10-18 Office [facility], 1.2.840.1 [id number] 475 9943670 Methodi 12:30:00 14:12:58 Visit Robyn Escalante 21753.1.1 173 s t 3.430.2.7 Hospit a .3.300706 l .8 2022-10-18 2022-10-18 Outpatient PARVIN, [facility] 2100 [id number] [place] 00:00:00 00:00:00 ROBYN [address] 2022-10-13 2022-10-13 Abstract Sally, 1.2.840.1 [id number] 13957 05902 Methodi 00:00:00 00:00:[address] Mike 3.430.2.7 Hospit a .3.428088 l .8 2022-10-09 2022-10-09 Telephone Davion, 1.2.840.2 [id number] 21 [id number] Methodi 00:00:00 00:00:[address] 3.430.2.7 Hospit a .3.998122 l .8 2022-09-26 2022-10-04 [facility] Danny Bach 1.2.840.1 [id number] 2 [id number] Methodi 15:39:00 14:29:00 Encounter Ismael Juan Mbunny 37695.1.[address] Christ Peña 3.430.2.7 H ospita Miryam Ledesma .3.756155 l .8 2022-09-26 2022-10-04 Inpatient BALTAZAR, [facility] 2100 [id number] [place] 00:00:00 00:00:00 MIRYAM [address] 2022-10-02 2022-10-02 Orders [place], 1.2.840.1 [id number] Methodi 00:00:00 00:00:00 Only Robyn Escalante 43614.1.1 149 s t 3.430.2.7 Hospit a .3.007973 l .8 2022-09-28 2022-09-28 Surgery Parvin, 1.2.840.1 [id number] 183 [id number] Methodi 08:00:00 09:25:00 Robyn E. 65424.1.1 904 s t 3.430.2.7 Hospit a .3.884620 l .8 2022-09-28 2022-09-28 Anesthesia Deonna Tristan 1.2.840.1 1 [id number] Methodi 07:54:00 08:53:00 Event Reta Chan 30092.1.[address] 3.430.2.7 Hospit a .3.294209 l .8 2022-09-28 2022-09-28 Telephone Leslie, 1.2.840.1 [id number] 024 [id number] Methodi 00:00:00 00:00:[address] 3.430.2.7 Hospit a .3.292946 l .8 2022-09-26 2022-09-26 [facility] [id number] 2100 158874 Methodi 14:15:00 15:13:18 Visit Cinthya 17097.1.[address] 3.430.2.7 Hospit a .3.016310 l .8 2022-09-26 2022-09-26 Outpatient [facility] [id number] 7139 [place] 00:00:00 00:00:00 CINTHYA [address] 2022-09-21 2022-09-21 Patient Juarez, 1.2.840.1 [id number] 3471 Methodi 00:00:00 00:00:00 Outreach Jami 24743.1.[address] 3.430.2.7 Hospit a .3.787392 l .8 2022-09-11 2022-09-11 Patient Juarez, 1.2.840.1 [id number] 092033 9512 Methodi 00:00:00 00:00:00 Outreach Jami [address]80.1.[address] 3.430.2.7 Hospit a .3.153836 l .8 2022-09-11 2022-09-11 Orders [facility], 1.2.840.2 [id number] 2100 115441 Methodi 00:00:00 00:00:00 Only Kraiganatjose 98374.1.[address] 3.430.2.7 Hospit a .3.917626 l .8 2022-09-07 2022-09-07 Office [facility], 1.2.840.4 [id number] 2099 814911 Methodi 11:15:00 12:24:17 Visit Kraiganatjose 67864.1.[address] 3.430.2.7 Hospit a .3.690426 l .8 2022-09-07 2022-09-07 Travel 1.2.840.1 1.2.239.923 6238 865984 Methodi 00:00:00 00:00:[address] 3.430.2.7 0.2.7.3.698 Ho spita .3.074466 084.8 l .8 2022-09-07 2022-09-07 Outpatient [facility], [facility] [id number] 9129 [place] 00:00:00 00:00:00 RANGANATH [address] 2022-09-04 2022-09-04 Telephone [facility], 1.2.840.7 [id number] Methodi 00:00:00 00:00:[address] 3.430.2.7 Hospit a .3.685819 l .8 2022-08-25 2022-08-25 Orders Johnson, 1.2.840.1 [id number] 797972 6041 Methodi 00:00:00 00:00:00 Only Mari 13235.1.[address] 3.430.2.7 Hospit a .3.626906 l .8 2022-08-22 2022-08-22 Orders [facility], 1.2.840.7 [id number] 2099 745407 Methodi 00:00:00 00:00:00 Only Ranganath 22272.1.[address] 3.430.2.7 Hospit a .3.051402 l .8 2022-08-22 2022-08-22 Telephone [facility], 1.2.840.9 [id number] Methodi 00:00:00 00:00:[address] 3.430.2.7 Hospit a .3.121931 l .8 2022-08-21 2022-08-21 Patient Juarez, 1.2.840.1 [id number] 820905 6045 Methodi 00:00:00 00:00:00 Outreach Jami [address]995.1.[address] 3.430.2.7 Hospit a .3.582515 l .8 2022-08-21 2022-08-21 Patient Juarez, 1.2.840.1 [id number] 3337 Methodi 00:00:00 00:00:00 Outreach Jami [address]152.1.[address] 3.430.2.7 Hospit a .3.160223 l .8 2022-08-18 2022-08-18 Office Samuelaixa, 1.2.840.2 [id number] 2099 093449 Methodi 10:15:00 11:40:26 Visit Chris 07752.1.[address] 3.430.2.7 Hospit a .3.864413 l .8 2022-08-18 2022-08-18 Office Davion, 1.2.840.8 [id number] 2099 363514 Methodi 10:15:00 11:40:26 Visit Chris 24955.1.[address] 3.430.2.7 Hospit a .3.685443 l .8 2022-08-18 2022-08-18 Travel 1.2.840.1 1.2.593.383 5208 737295 Methodi 00:00:00 00:00:[address] 3.430.2.7 0.2.7.3.698 Ho spita .3.506359 084.8 l .8 2022-08-18 2022-08-18 Travel 1.2.840.1 1.2.151.740 6440 141613 Methodi 00:00:00 00:00:[address] 3.430.2.7 0.2.7.3.698 Ho spita .3.738801 084.8 l .8 2022-08-16 2022-08-16 Patient Juarez, 1.2.840.1 [id number] 953698 8023 Methodi 00:00:00 00:00:00 Outreach Jami 00744.1.[address] 3.430.2.7 Hospit a .3.048299 l .8 2022-08-16 2022-08-16 Patient Juarez, 1.2.840.1 [id number] 028055 4384 Methodi 00:00:00 00:00:00 Outreach Jami [address]3552.1.[address] 3.430.2.7 Hospit a .3.944342 l .8 2022-08-08 2022-08-08 Telephone Cason, 1.2.840.1 [id number] 2099 495811 Methodi 00:00:00 00:00:[address] 3.430.2.7 Hospit a .3.808832 l .8 2022-08-08 2022-08-08 Telephone Cason 1.2.840.1 [id number] 2099 063709 Methodi 00:00:00 00:00:[address] 3.430.2.7 Hospit a .3.514313 l .8 2022-07-18 2022-07-18 [facility] [id number] 383 [place] 00:00:00 00:00:00 MALCOM Paredes [facility] 2022-06-29 2022-06-29 Transcribe Juan J 1.2.840.1 [id number] 590 3086922 Methodi 00:00:00 00:00:00 Orders Malcom Holland 77746.1.[address] 3.430.2.7 Hospit a .3.348823 l .8 2022-06-29 2022-06-29 Transcribe Juan J 1.2.840.1 [id number] 517 [id number] Methodi 00:00:00 00:00:00 Orders Malcom Holland 12360.1.[address] 3.430.2.7 Hospit a .3.232633 l .8 2022-06-22 2022-06-22 Orders Samueldala, 1.2.840.7 [id number] 2099 146315 Methodi 00:00:00 00:00:00 Only Ranganath 40679.1.[address] 3.430.2.7 Hospit a .3.310084 l .8 2022-06-22 2022-06-22 Orders Samueldala, 1.2.840.3 [id number] 2099 028335 Methodi 00:00:00 00:00:00 Only Ranganath 88745.1.[address] 3.430.2.7 Hospit a .3.051525 l .8 2022-06-19 2022-06-19 Orders Samueldala, 1.2.840.7 [id number] 2100 479939 Methodi 00:00:00 00:00:00 Only Ranganath 48311.1.[address] 3.430.2.7 Hospit a .3.341810 l .8 2022-06-19 2022-06-19 Orders Samueldala, 1.2.840.2 [id number] 2100 785211 Methodi 00:00:00 00:00:00 Only Ranganath 85512.1.[address] 3.430.2.7 Hospit a .3.485567 l .8 2022-06-12 2022-06-12 [facility] 1.2.840.8 [id number] 2099 705122 Methodi 10:00:00 11:19:31 Visit Kraiganath 09782.1.[address] 3.430.2.7 Hospit a .3.745323 l .8 2022-06-12 2022-06-12 Office [facility], 1.2.840.7 [id number] 2099989 Methodi 10:00:00 11:19:31 Visit Ranganath 76488.1.[address] 3.430.2.7 Hospit a .3.685891 l .8 2022-06-12 2022-06-12 Travel 1.2.840.1 1.2.706.387 1614 290589 Methodi 00:00:00 00:00:[address] 3.430.2.7 0.2.7.3.698 Ho spita .3.399556 084.8 l .8 2022-06-12 2022-06-12 Travel 1.2.840.1 1.2.576.706 8207 140205 Methodi 00:00:00 00:00:[address] 3.430.2.7 0.2.7.3.698 Ho spita .3.378917 084.8 l .8 2022-06-09 2022-06-09 Outpatient [facility] 284 193 [place] 00:00:00 00:00:[facility]22-06-09 [facility] 284 193 [place] 00:00:00 00:00:00 45312 [facility] 2022-05-17 2022-05-17 Travel 1.2.840.1 1.2.812.207 9124 508765 Methodi 00:00:00 00:00:[address] 3.430.2.7 0.2.7.3.698 Ho spita .3.020826 084.8 l .8 2022-05-17 2022-05-17 Travel 1.2.840.1 1.2.895.828 5752 520692 Methodi 00:00:00 00:00:[address] 3.430.2.7 0.2.7.3.698 Ho spita .3.978537 084.8 l .8 2022-05-10 2022-05-10 [facility] [place] - [id number] Jose alarcon 00:00:00 00:00:00 Narayan Zavala Milady Camilo MD: [id number] [address] [address], [place] [address] , Ph. 2022-05-03 2022-05-03 Office Kathleen, 1.2.840.1 [id number] 16798 43917 Methodi 08:20:00 09:34:01 Visit Rigo 02924.1.[address] 3.430.2.7 Hospit a .3.547621 l .8 2022-05-03 2022-05-03 Office Kathleen, 1.2.840.1 [id number] 84745 Methodi 08:20:00 09:34:01 Visit Rigo 02822.1.[address] 3.430.2.7 Hospit a .3.853617 l .8 2022-05-03 2022-05-03 Travel 1.2.840.1 1.2.942.820 0280 743230 Methodi 00:00:00 00:00:[address] 3.430.2.7 0.2.7.3.698 Ho spita .3.814079 084.8 l .8 2022-05-03 2022-05-03 Travel 1.2.840.1 1.2.777.970 7982 161408 Methodi 00:00:00 00:00:[address] 3.430.2.7 0.2.7.3.698 Ho spita .3.276944 084.8 l .8 2022-04-28 2022-04-28 Refill William, 1.2.840.1 [id number] 983554 1336 Methodi 00:00:00 00:00:[address] Steve 3.430.2.7 Hospit a .3.667975 l .8 2022-04-28 2022-04-28 Refill William, 1.2.840.1 [id number] 880168 8810 Methodi 00:00:00 00:00:[address] Steve 3.430.2.7 Hospit a .3.806918 l .8 2022-04-24 2022-04-24 Office Amy, 1.2.840.1 [id number] 499091 1007 Methodi 08:00:00 08:43:18 Visit Ancelmo 03290.1.[address] 3.430.2.7 Hospit a .3.224593 l .8 2022-04-24 2022-04-24 Office Amy, 1.2.840.1 [id number] 014182 5796 Methodi 08:00:00 08:43:18 Visit Ancelmo 74783.1.[address] 3.430.2.7 Hospit a .3.258552 l .8 2022-04-24 2022-04-24 Travel 1.2.840.1 1.2.224.322 5477 271930 Methodi 00:00:00 00:00:[address] 3.430.2.7 0.2.7.3.698 Ho spita .3.002582 084.8 l .8 2022-04-24 2022-04-24 Travel 1.2.840.1 1.2.016.841 5097 154341 Methodi 00:00:00 00:00:[address] 3.430.2.7 0.2.7.3.698 Ho spita .3.567391 084.8 l .8 2022-03-14 2022-04-13 [facility] [id number] 96 [facility] 16:45:00 05:59:00 [facility] 00 l Alfredito Glaser 2022-04-13 2022-04-13 Outpatient [facility] 284 193-202 [place] 00:00:00 00:00:00 28768 [facility] 2022-04-13 2022-04-13 Outpatient [facility] 284 193-202 [place] 00:00:00 00:00:00 47615 [facility] 2022-04-13 2022-04-13 Outpatient [facility] 284 193-202 [place] 00:00:00 00:00:00 59169 [facility] 2022-04-13 2022-04-13 Outpatient [facility] 284 193-202 [place] 00:00:00 00:00:00 84186 [facility] 2022-04-13 2022-04-13 Outpatient [facility] 284 193-202 [place] 00:00:00 00:00:00 74303 [facility] 2022-04-13 2022-04-13 Outpatient [facility] 284 193-202 [place] 00:00:00 00:00:00 01026 [facility] 2022-04-13 2022-04-13 Outpatient [facility] 284 193-202 [place] 00:00:00 00:00:00 80761 [facility] 2022-03-14 2022-04-12 Outpatient NARA Plummer MHTIRCastillo [id number] 096 10:45:00 23:59:00 Kathleen 00 2022-03-29 2022-03-29 Telephone Perry, 1.2.840.1 [id number] Methodi 00:00:00 00:00:[address] 3.430.2.7 Hospit a .3.189517 l .8 2022-03-29 2022-03-29 Telephone Perry, 1.2.840.1 [id number] Methodi 00:00:00 00:00:[address] 3.430.2.7 Hospit a .3.523676 l .8 2022-03-27 2022-03-27 Travel 1.2.840.1 1.2.226.999 1897 905461 Methodi 00:00:00 00:00:[address] 3.430.2.7 0.2.7.3.698 Ho spita .3.315873 084.8 l .8 2022-03-27 2022-03-27 Outpatient AMY [facility] [id number] 525 [place] 00:00:00 00:00:[address] ANCELMO [address] 2022-03-272022-03-27 Travel 1.2.840.1 1.2.602.094 5874 107162 Methodi 00:00:00 00:00:[address] 3.430.2.7 0.2.7.3.698 Ho spita .3.665630 084.8 l .8 2022-03-15 2022-03-15 [facility] [place] - [id number] Jose alarcon 00:00:00 00:00:00 Narayan [place] Milady Camilo MD: [id number] Urology [facility] [address], [place] [address] , Ph. 2022-03-13 2022-03-13 Outpatient [facility] 284 193-202 [place] 00:00:00 00:00:00 29394 [facility] 2022-03-13 2022-03-13 Outpatient [facility] 284 193-202 [place] 00:00:00 00:00:00 32655 [facility] 2022-03-13 2022-03-13 Outpatient [facility] 284 193-202 [place] 00:00:00 00:00:00 99921 [facility] 2022-03-10 2022-03-10 [facility], .2.840.1 [id number] 17336 Methodi 06:54:23 23:59:00 Encounter Kathleen 47396.1.1 178 s t 3.430.2.7 Hospit a .3.557061 l .8 2022-03-10 2022-03-10 [facility], .2.840.1 [id number] 78660 Methodi 06:54:23 23:59:00 Encounter Kathleen 81652.1.1 178 s t 3.430.2.7 Hospit a .3.999015 l .8 2022-03-10 2022-03-10 [facility], 2.840.1 [id number] 74503 Methodi 06:54:09 23:59:00 Encounter Kathleen 69725.1.1 179 s t 3.430.2.7 Hospit a .3.237176 l .8 2022-03-10 2022-03-10 [facility], 1.2.840.1 [id number] 28752 76049 Methodi 06:54:09 23:59:00 Encounter Kathleen 47469.1.1 179 s t 3.430.2.7 Hospit a .3.196357 l .8 2022-03-10 2022-03-10 Travel 1.2.840.1 1.2.128.949 5099 149380 Methodi 00:00:00 00:00:[address] 3.430.2.7 0.2.7.3.698 Ho spita .3.761291 084.8 l .8 2022-03-10 2022-03-10 Travel 1.2.840.1 1.2.968.502 5447 845772 Methodi 00:00:00 00:00:[address] 3.430.2.7 0.2.7.3.698 Ho spita .3.183303 084.8 l .8 2022-03-06 2022-03-06 Office [facility], 1.2.840.1 [id number] 4280 Methodi 09:20:00 10:15:26 Visit Kirsten 76534.1.[address] 3.430.2.7 Hospit a .3.620963 l .8 2022-03-06 2022-03-06 Office [facility], 1.2.840.1 [id number] 0650 Methodi 09:20:00 10:15:26 Visit Lauraa 63071.1.[address] 3.430.2.7 Hospit a .3.398020 l .8 2022-03-06 2022-03-06 Travel 1.2.840.1 1.2.926.939 0202 201122 Methodi 00:00:00 00:00:[address] 3.430.2.7 0.2.7.3.698 Ho spita .3.516774 084.8 l .8 2022-03-06 2022-03-06 Travel 1.2.840.1 1.2.510.395 7264 468315 Methodi 00:00:00 00:00:[address] 3.430.2.7 0.2.7.3.698 Ho spita .3.247164 084.8 l .8 2022-03-02 2022-03-02 Outpatient [facility] [phone] [place] 00:00:00 00:00:00 29501 [facility] 2022-02-20 2022-02-20 [facility], 1.2.840.1 [id number] 2099 [id number] Methodi 00:00:00 00:00:00 Orders Kathleen 17655.1.[address] 3.430.2.7 Hospit a .3.252574 l .8 2022-02-20 2022-02-20 Community [facility], 1.2.840.1 [id number] 2099 452968 Methodi 00:00:00 00:00:00 Orders Kathleen 45716.1.[address] 3.430.2.7 Hospit a .3.382581 l .8 2022-01-23 2022-01-23 Office Amy, 1.2.840.1 [id number] 6300 Methodi 08:00:00 09:29:02 Visit Ancelmo 08281.1.[address] 3.430.2.7 Hospit a .3.416132 l .8 2022-01-23 2022-01-23 Office Amy, 1.2.840.1 [id number] 1330 Methodi 08:00:00 09:29:02 Visit Ancelmo 49902.1.[address] 3.430.2.7 Hospit a .3.306099 l .8 2022-01-23 2022-01-23 Travel 1.2.840.1 1.2.678.202 2280 868260 Methodi 00:00:00 00:00:[address] 3.430.2.7 0.2.7.3.698 Ho spita .3.753144 084.8 l .8 2022-01-23 2022-01-23 Travel 1.2.840.1 1.2.664.638 3134 295571 Methodi 00:00:00 00:00:[address] 3.430.2.7 0.2.7.3.698 Ho spita .3.422022 084.8 l .8 2021-12-30 2021-12-30 Outpatient [facility]FP 441506 0-20 [place] 00:00:00 00:00:00 257472 Family Pract[facility] e 2021-12-29 2021-12-29 Office Kathleen, 1.2.840.1 [id number] Methodi 14:00:00 14:58:45 Visit Rigo 37456.1.[address] 3.430.2.7 Hospit a .3.279644 l .8 2021-12-29 2021-12-29 Office Kathleen, 1.2.840.1 [id number] Methodi 14:00:00 14:58:45 Visit Rigo 19800.1.[address] 3.430.2.7 Hospit a .3.399522 l .8 2021-12-29 2021-12-29 Travel 1.2.840.1 1.2.874.932 7803 726356 Methodi 00:00:00 00:00:[address] 3.430.2.7 0.2.7.3.698 Ho spita .3.831480 084.8 l .8 2021-12-29 2021-12-29 Travel 1.2.840.1 1.2.994.622 5818 549378 Methodi 00:00:00 00:00:[address] 3.430.2.7 0.2.7.3.698 Ho spita .3.216628 084.8 l .8 2021-12-14 2021-12-14 Out[facility] 284 193-202 [place] 00:00:00 00:00:00 18952 [facility] 2021-12-14 2021-12-14 [facility] 284 193-202 [place] 00:00:00 00:00:00 79523 [facility] 2021-12-13 2021-12-13 Out[facility] 284 193-202 [place] 00:00:00 00:00:00 69084 [facility] 2021-12-12 2021-12-12 Out[facility] 284 [id number] [place] 00:00:00 00:00:00 26226 [facility] 2021-12-09 2021-12-09 [facility] 284 [id number] [place] 00:00:00 00:00:00 70366 [facility] 2021-12-09 2021-12-09 [place] [facility] [place] [id number] H dorian 00:00:00 00:00:00 Milady Lorenzana MD: [id number] [id number] , Ph. 2021-11-24 2021-11-24 Out[facility] 284 [id number] [place] 00:00:00 00:00:00 69761 [facility] 2021-11-23 2021-11-23 Out[facility] 284 [id number] [place] 00:00:00 00:00:00 47606 [facility] 2021-11-07 2021-11-07 Patient Karri, 1.2.840.1 [id number] 2100 041211 Methodi 00:00:00 00:00:00 Outreach Brie 12840.1.[address] 3.430.2.7 Hospit a .3.599517 l .8 2021-10-20 2021-10-20 Travel 1.2.840.1 1.2.301.883 5149 007603 Methodi 00:00:00 00:00:[address] 3.430.2.7 0.2.7.3.698 Ho spita .3.183228 084.8 l .8 2021-10-03 2021-10-03 Out[facility] 284 193- [place] 00:00:00 00:00:00 [facility] 2021-09-22 2021-09-22 Office Kathleen, 1.2.840.1 [id number] 43890 72314 Methodi 13:00:00 14:17:47 Visit Rigo 36018.1.[address] 3.430.2.7 Hospit a .3.848160 l .8 2021-09-22 2021-09-22 Travel 1.2.840.1 1.2.445.981 2793 528512 Methodi 00:00:00 00:00:[address] 3.430.2.7 0.2.7.3.698 Ho spita .3.961350 084.8 l .8 2021-09-16 2021-09-16 Out[facility] 284 193- [place] 00:00:00 00:00:00 [facility] 2021-09-07 2021-09-07 [facility] 284 193- [place] 00:00:00 00:00:00 [facility] 2021-09-05 2021-09-05 Office William, 1.2.840.1 [id number] 3907 Methodi 11:45:00 12:32:31 Visit Kathleen 31394.1.[address] Steve 3.430.2.7 Hospit a .3.719858 l .8 2021-09-05 2021-09-05 Out[facility] 284 193 [place] 11:14:00 11:14:00 [facility] 2021-09-05 2021-09-05 Travel 1.2.840.1 1.2.189.014 9216 372445 Methodi 00:00:00 00:00:[address] 3.430.2.7 0.2.7.3.698 Ho spita .3.264439 084.8 l .8 2021-09-02 2021-09-02 [facility] [facility] [place] 193-202 [place] 09:41:[facility]02 2021-09-02 [place] [facility] [place] - [id number] Jose candineal 00:00:00 00:00:00 Milady Lorenzana MD: [id number] [address], [place] [address] , Ph. 2021-09-02 2021-09-02 Outpatient Rosado, [facility] fef2 [id number] 00:00:00 00:00:00 Autumn [id number] [place] [id number] 2021-08-24 2021-08-24 [facility] 284 [id number] [place] 03:13:00 03:13:00 [facility] 2021-07-20 2021-07-20 Lauren Matta, 1.2.840.1 [id number] Methodi 00:00:00 00:00:[address] 3.430.2.7 Hospit a .3.951857 l .8 2021-07-18 2021-07-18 Office Jorge Livingston 1.2.840.1 [id number] Methodi 12:20:00 13:04:05 Visit Mino 78568.1.[address] 3.430.2.7 Hospit a .3.045988 l .8 2021-07-18 2021-07-18 Outpatient JORGE LIVINGSTON [facility] [id number] [place] 00:00:00 00:00:00 177 Method i 2021-07-18 2021-07-18 Outpatient JORGE LIVINGSTON [facility] [id number] [place] 00:00:00 00:00:[address] 2021-07-18 2021-07-18 [facility] 1.2.840.1 1.2.837.540 [id number] Methodi 00:00:00 00:00:00 01826.1.1 350.1.13.43 639 3.430.2.7 0.2.7.3.698 spita .3.635928 084.8 l .8 2021-06-22 2021-06-22 Outpatient KATHLEEN, [facility] [id number] [place] 00:00:00 00:00:00 RIGO 902 Method i 2021-05-26 2021-05-26 Outpatient DASHA, [facility] 021 [id number] [place] 00:00:00 00:00:00 PETER 264 Method i 2021-05-03 2021-05-05 Inpatient CATHERINE, [facility] 064 [id number] [place] 00:00:00 00:00:00 ARMANDO 724 Method i 2021-04-20 2021-04-20 Outpatient PARVIN, [facility] [id number] [place] 00:00:00 00:00:00 ROBYN 872 Method i 2021-04-07 2021-04-13 Inpatient CATHERINE, [facility] 027 [id number] [place] 00:00:00 00:00:00 ARMANDO 391 Method i 2021-04-07 2021-04-07 Outpatient [facility] [id number] [place] 00:00:00 00:00:00 326 Method i 2021-04-07 2021-04-07 Outpatient [facility] [id number] [place] 00:00:00 00:00:00 066 Method i 2021-04-05 2021-04-05 Outpatient PARVIN, [facility] 2100 [id number] [place] 00:00:00 00:00:00 ROBYN 117 Method i 2021-03-30 2021-03-30 Outpatient OPSCOTTY, [facility] 2100 [id number] [place] 00:00:00 00:00:00 ROBYN [address] 2021-03-25 2021-03-25 Outpatient ATTAR, [facility] [id number] [place] 00:00:00 00:00:00 MOHAMMED [address] 2021-03-16 2021-03-16 Outpatient OPPERMANN, [facility] 2100 [id number] [place] 00:00:00 00:00:00 ROBYN [address] 2021-03-10 2021-03-10 Outpatient WILLIAM, [facility] [id number] [place] 00:00:00 00:00:00 MOHAMMED [address] 2021-03-09 2021-03-09 Outpatient OPPERMANN, [facility] 2100 [id number] [place] 00:00:00 00:00:00 ROBYN [address] 2021-03-02 2021-03-02 Outpatient OPPERMANN, [facility] 2100 [id number] [place] 00:00:00 00:00:00 ROBYN [address] 2021-01-11 2021-01-11 Outpatient Daniel_T VFP VFP [id number] 0-20 [facility] 11:06:00 11:06:00 [id number] Family Practic e 2020-12-29 2021-01-05 Inpatient CATHERINE, [facility] 064 [id number] [place] 00:00:00 00:00:00 ARMANDO [address] 2020-12-15 2020-12-17 Inpatient CATHERINE, [facility] 064 [id number] [place] 00:00:00 00:00:00 ARMANDO [address] 2020-10-21 2020-10-21 Outpatient Armstrong_B [facility] 284 [id number] [place] 09:43:00 09:43:00 18847 [facility] 2020-10-20 2020-10-20 Outpatient Armstrong_B [facility] 284 [id number] [place] 03:01:00 03:01:00 47534 [facility] 2020-10-20 2020-10-20 Outpatient Rosado, U [facility] [id number] [id number] 00:00:00 00:00:00 Autumn [id number] Narayan [id number] 2020-10-20 2020-10-20 [place] [facility] [place] - [id number] dorian 00:00:00 00:00:00 Narayan Milady Love MD: [id number] Urology PA [facility] [address], [place] [address] , Ph. 2020 2020 Outpatient BHARATI, [facility] [id number] [place] 00:00:00 00:00:[address] ALI [address] 2020-07-20 2020-07-20 Outpatient DOLLY, [facility] [id number] [place] 00:00:00 00:00:00 BULL [address] 2020-07-16 2020-07-16 Outpatient DOLLY, [facility] [id number] [place] 00:00:00 00:00:00 BULL [address] 2020-07-13 2020-07-13 Outpatient Armstrong_B [facility] 284 [id number] [place] 08:31:00 08:31:00 89210 [facility] 2020-07-09 2020-07-09 Outpatient Armstrong_B [facility] 284 [id number] [place] 04:30:00 04:30:00 76373 [facility] 2020-07-08 2020-07-08 Outpatient Armstrong_B [facility] 284 [id number] [place] 11:34:00 11:34:00 40601 [facility] 2020-07-08 2020-07-08 Outpatient Rosado, U U 1fa9 ee08-2 00:00:00 00:00:00 Autumn [id number] Narayan [id number] 2020-07-08 2020-07-08 [place] [facility] [place] - [id number] H dorian 00:00:00 00:00:00 Milady Lorenzana MD: 7777 Urology OVIDIO [facility] [address], [place] [address] , Ph. 2020-07-07 2020-07-07 Outpatient Armstrong_B [facility] 284 [id number] [place] 12:39:00 12:39:00 12333 [facility] 2020-07-06 2020-07-06 Outpatient Armstrong_B [facility] 284 [id number] [place] 10:24:00 10:24:00 79184 [facility] 2020-06-28 2020-06-28 Outpatient WILLIAM, [facility] [id number] [place] 00:00:00 00:00:00 MOHAMMED [address] 2020-05-20 2020-05-20 Outpatient ROBBEN, [facility] [id number] [place] 00:00:00 00:00:00 CHRISTOPHER [address] 2020-04-29 2020-04-29 Outpatient [facility] [id number] [place] 00:00:00 00:00:[address] 2020-02-25 2020-02-25 Outpatient WILLIAM, [facility] [id number] [place] 00:00:00 00:00:00 MOHAMMED [address] 2019-12-22 2019-12-22 Outpatient OPSCOTTY, [facility] 2100 [id number] [place] 00:00:00 00:00:00 ROBYN [address] 2019-11-24 2019-11-24 Outpatient WILLIAM, [facility] [id number] [place] 00:00:00 00:00:00 MOHAMMED [address] 2019-11-20 2019-11-20 Outpatient Daniel_T VFP VFP [id number] 0-20 [facility] 05:01:00 05:01:00 [id number] Family Practic e 2019-10-13 2019-10-13 Outpatient WILLIAM, [facility] [id number] [place] 00:00:00 00:00:00 MOHAMMED [address] 2019-10-11 2019 Outpatient CATHERINE, [facility] 012 [id number] [place] 00:00:00 00:00:00 ARMANDO [address] 2019-09-30 2019-09-30 Outpatient RIVERA, [facility] [id number] [place] 00:00:00 00:00:00 CHRISSIE [address] 2019-07-29 2019-07-29 Outpatient NICOLE, [facility] [id number] [place] 00:00:00 00:00:00 CHRISSIE 064 Method i 2019-07-29 2019-07-29 Outpatient RIVERA, [facility] [id number] [place] 00:00:00 00:00:00 CHRISSIE [address] 2019-05-11 2019-05-11 Emergency FRANCHESCA, [facility] 064 [id number] [place] 00:00:00 00:00:00 SAÚL 529 Meth[address] di 2019-04-23 2019-04-23 Outpatient OPPERMANN, [facility] 2100 [id number] [place] 00:00:00 00:00:00 ROBYN [address] 2019-04-23 2019-04-23 Outpatient RISHI, [facility] 2100 [id number] [place] 00:00:00 00:00:00 AUTUMN 957 Method i 2019-04-11 2019-04-15 Inpatient KANGAB, [facility] 559 [id number] [place] 00:00:00 00:00:00 RANGANATH 103 Meth candelaria 2019-04-07 2019-04-07 Outpatient OPSCOTTY, [facility] [id number] [place] 00:00:00 00:00:00 ROBYN 434 Method i 2019-03-17 2019-03-19 Inpatient DAVION, [facility] [id number] [place] 00:00:00 00:00:00 RANGANATH 582 Meth candelaria 2018-12-27 2018-12-27 Outpatient RISHI, [facility] 2100 [id number] [place] 00:00:00 00:00:00 AUTUMN 988 Method i 2018-11-11 2018-11-11 Outpatient OPAIMEEMANN, [facility] 2100 [id number] [place] 00:00:00 00:00:00 ROBYN [address] 2018-10-17 2018-10-25 Inpatient JOGLEKAR, [facility] 012 [id number] [place] 00:00:00 00:00:00 COLT [address] Results Test Description Test Time Test Comments Results Result Comments Source Surgical pathology request 2022-12-07 17:56:57 Test Item Value Reference Range Interpretation Comme nts Case number (test code = 1752921) [id number] Surgical pathology report (test code = See link below for PDF Lab R eport 3362) Result status (test code = 9710326) This is Final Report for [id number] 7010-38 [facility] [id number] 12:09:00 Test Item Value Reference Interpretation Comments Range Fungus culture Aspergillus A Specimen isolate (test code species, not Informati onSpecimen = 580-1) fumigatus Source: Ritu espino Site: Foot: Rig ht foot bone Lab Interpretation Abnormal (test code = 19019-5) [facility] [id number] 15:14:00 Test Item Value Reference Range Interpretation Comments Anaerobic No anaerobic Specimen culture isolate organisms InformationS pecimen (test code = isolated. Source: Ritu [facility] 85485-1) Site: Foot: Rig ht foot bone [facility] [id number] 19:47:00 Test Item Value Reference Range Interpretation Comments Tissue culture No growth Specimen isolate (test after 3 days. InformationSp ecimen code = 20739-3) Source: Tiss ueSpecimen Site: Foot: Rig ht foot tissue [facility] [id number] 13:21:00 Test Item Value Reference Range Interpretation Comments Aerobic culture No growth Specimen isolate (test after 3 days. InformationSp ecimen code = 61829-4) Source: Bone Specimen Site: Foot: Right gardenia t bone [facility] [id number] 18:30:00 Test Item Value Reference Range Interpretation Comments AFB culture No growth Specimen isolate (test after 6 weeks InformationSp ecimen code = 543-9) of Source: WoundS pecimen incubation. Site: Back: LOW ER BVACK WOUND CULTURE [facility] [id number] 19:47:00 Test Item Value Reference Range Interpretation Comments Fungus smear No fungi Specimen (test code = observed. InformationSpec imen Source: 1443) TissueSpecimen Site: Foot: Right foot tiss ue [facility] [id number] 18:53:00 Test Item Value Reference Range Interpretation Comments AFB stain No acid fast Specimen (test code = bacilli (AFB) [facility] 676-7) seen. Source: TissueS pecimen Site: Foot: Rig ht foot tissue [facility] [id number] 17:57:00 Test Item Value Reference Range Interpretation Comments Gram stain No WBC's or Specimen isolate (test organisms seen. Information Specimen code = 1469) Source: TissueS pecimen Site: Foot: Rig ht foot tissue [facility] [id number] 13:46:00 Test Item Value Reference Range Interpretation Comments POC glucose (test code 117 mg/dL 65-99 H Opera tor Name: = 67024-1) Melania Martínez I D: [id number] able: [facility] Notified r d engineer Interpretation Abnormal (test code = 42835-8) [facility] 12 [id number] 18:39:34 Test Item Value Reference Range Interpretation Comments Ventricular rate (test 60 code = 253) QRSD interval (test code 160 = 260) QT interval (test code = 476 264) QTC interval (test code = 476 265) QRS axis 1 (test code = -30 268) T wave axis (test code = -6 270) EKG impression (test code Sinus rhythm with = 273) 1st degree AV block-Left axis deviation-Right bundle branch block-Inferior infarct , age undetermined-Abnorma l ECG- [facility]ocardi[facility] Complete, (w Contrast, Strain and 3D if needed)2022-09-30 22:39:11 Test Item Value Reference Range Interpretation Comments Ao Root Diameter 3.83 cm (test code = 4578940237) AoV Area, Vmax (test 0.88 cm2 >=1.5 A code = 6128619941) AoV Area, VTI (test 0.97 cm2 code = 6013233777) AoV Mean PG (test 29.31 mmHg code = 2583418224) AoV Peak PG (test 46.11 mmHg code = 4396038766) AoV Vmax (test code 3.87 m/s = 9666402333) AoV VTI (test code = 0.74 m 9584142790) BSA Mallory (test code 1.93 m2 = 8076355532) BSA (test code = 1.92 m2 6040158068) IVS,d (test code = 0.83 cm 0.6-1.19 5261486872) IVS/LVPW,2D (test 0.67 code = 3472802997) Left Atrium 4.18 cm Dimension Anterior (test code = 1957963857) LV,d (test code = 5.77 cm 4.2-5.8 0534215748) LV EF,2D (test code 53.77 % = 3432404259) LV % FS,2D (test 22.70 % code = 9740699615) LV,s (test code = 4.46 cm 9036022665) LVOT area (test code 3.76 cm2 = 1172281594) LVOT Diam,S (test 2.19 cm code = 8748896955) LVOT Vmax (test code 1.21 m/s = 1785264754) LVOT VTI (test code 0.30 m = 0598914477) LVPWD,d (test code = 1.24 cm 0.60-1.19 A 1947107423) PV Pk Grad (test 4.31 mmHg code = 8355777879) PV VMAX (test code = 1.04 m/s 1950480591) RVOT Vmax (test code 0.68 m/s = 7996155233) RVSP (TR) (test code 27.93 mmHg = 8528897733) TR Vpeak (test code 3.01 m/s = 3329228713) MV E A ratio (test 0.96 code = 6246615313) RA pressure (test 10.00 mmHg code = 1610898401) TR pk grad (test 17.93 mmHg code = 9909555937) AoV area i VTI BSA 0.50 cm2/m2 >=0.85 A Cherokee (test code = 4751320310) BMI (test code = 23.67 kg/m2 4201676291) LV mass (test code = 241.53 g 1453431829) E wave decelartion 232.45 See_Comment [Automat ed time (test code = message] T he 2934720510) system which generated this result transmitted reference range : 200 msec. The reference range was not used to interpret this result as normal/abnormal . MV Peak A Marcus (test 1.35 m/s code = 4314539617) MV valve area p 1/2 3.26 cm2 method (test code = 8703665723) MV Peak E Marcus (test 1.30 m/s code = 7613609171) MV stenosis pressure 67.41 ms 1/2 time (test code = 8452202137) LVOT stroke volume 1.13 ml (test code = 3370179193) AV LVOT peak 5.28 mmHg gradient (test code = 5747961231) Ascending aorta 4.13 cm (test code = 0642924859) RVSP (test code = 27.93 mmHg 2860000340) Ao Root Diameter 3.83 cm (test code = 1191536642) Mitral Valve E/E' 17.80 Septal Ratio (test code = 4903968061) LV SYS VOL (test 90.45 ml 21-61 A code = 2037678855) LV KHAN VOL (test 164.31 ml 62-150 A code = 9064983464) LA area s A4C (test 12.96 cm2 code = 3631834606) LV SI Teich 2D (test 38.40 ml/m2 code = 6260623915) LV SV Teich 2D (test 73.86 ml code = 3946185927) LV Vol s Teich PSAX 90.45 ml (test code = 0720388754) LVOT SI (test code = 38.09 ml/m2 8672978215) RVOT pk grad (test 1.78 mmHg code = 0971371322) BSA Haycock (test 1.93 m2 code = 0267317123) AoV Vmn (test code = 2.60 m/s 0796385576) LV FS Teich 2D (test 22.68 code = 1364708747) MV AE ratio (test 1.04 code = 4197636031) LV FS Cube 2D (test 22.68 code = 1486851801) LVOT Vmn (test code 0.88 = 8804239445) Pt Size (test code = 177.80 6495131227) Pt Wt (test code = 74.84 8388750850) Aov area Vmn (test 0.88 cm2 code = 3595913200) LA A_P score P (test 2.34 code = 3366363144) LVOT mean grad (test 3.34 mmHg code = 0010931733) RVOT mean grad (test 0.82 mmHg code = 3997015689) RVOT Vmn (test code 0.41 m/s = 2617264682) RVOT VTI (test code 0.11 m = 0019861908) 85 of MPHR (test 129.23 code = 1238167415) AoV area I VMN bsa 0.46 cm2/m2 (test code = 3224146556) Calc MPHR (test code 152.03 bpm = 2749960419) LV SI Cube 2D (test 53.58 ml/m2 code = 7729059036) LV SV Cube 2D (test 103.05 ml code = 0438633633) LV vol d cube 2D 191.67 ml (test code = 4251224902) LV vol s cube 2D 88.61 ml (test code = 8665670483) MV Decel slope (test 5.61 m/s2 code = 7551932389) Pred Exer Dur R1 7.48 (test code = 1831191550) Pred METS R1 (test 7.80 code = 1026993450) LA Vol MOD A4C (test 31.57 ml code = 4420115194) E prime sept (test 0.07 >=7.00 A code = 9248767096) E prime lat (test 0.13 >=10.00 A code = 1449130507) Velocity Ratio 0.31 m/s (V1/V2) (test code = 4689) Relative wall 0.43 cm thickness (test code = 6076438964) E/A ratio (test code 0.96 = 5666079139) LV Mass Index (test 125.80 g/m2 code = 0223381739) LVOT VTI (CM) (test 30.00 cm code = 7888350097) KENNETH (test code = KENNETH) Left Ventricle: Left ventricle size is normal. Mildly increased wall thickness. Mildly increased ventricular mass. Findings consistent with mild concentric hypertrophy. Normal wall motion. Normal systolic function with a visually estimated EF of 50 - 55%. Grade I (impaired relaxation) diastolic dysfunction. Normal left ventricular filling pressure. Aortic Valve: Moderate valvular regurgitation. Moderate to severe stenosis. Peak aortic vlocity is 3.9 m/.sec. Mean gradient is 38 mm Hg. JORDAN by continutiy equation is 0.9 cm2. Aorta: Normal sized sinus of Valsalva and aortic root. Mildly dilated ascending aorta, that measures 4.1 cm. Left VentricleLeft ventricle size is normal. Mildly increased wall thickness. Mildly increased ventricular mass. Findings consistent with mild concentric hypertrophy. Normal wall motion. Normal systolic function with a visually estimated EF of 50 - 55%. Grade I (impaired relaxation) diastolic dysfunction. Normal left ventricular filling pressure.Right VentricleRight ventricle size is normal. Normal systolic function.Left AtriumLeft atrium is mildly dilated.Right AtriumRight atrium size is normal.IVC/SVCIVC diameter is less than or equal to 21 mm and decreases greater than 50% during inspiration; therefore the estimated right atrial pressure is normal (~3 mmHg).Mitral ValveValve structure is normal. Trace valvular regurgitation. No stenosis.Tricuspid ValveValve structure is normal. Trace valvular regurgitation. No stenosis.Aortic ValveSeverely sclerotic cusps. Moderately calcified cusps. Moderate valvular regurgitation. Moderate to severe stenosis.Pulmonic ValveValve structure is normal. No significant valvular regurgitation. No stenosis.Pericardiu mThere is no pericardial effusion present.AortaNormal sized sinus of Valsalva and aortic root. Mildly dilated ascending aorta.Study DetailsStudy quality was fair.The apical, parasternal and suprasternal views were obtained. The subcostal view was limited. Lab Interpretation Abnormal (test code = 36795-2) [facility] [id number] 21:44:00 Test Item Value Reference Range Interpretation Comments Urine culture (test SEE COMMENT Bacteriu polo screen code = 1202469) negative. [facility] [id number] 01:03:00 Test Item Value Reference Range Interpretation Comments Glucose (test code = 77 mg/dL 65-139 Non-fa sting 2345-7) reference interval BUN (test code = 33 mg/dL 7-25 H 3094-0) Creatinine (test 1.80 mg/dL 0.70-1.35 H code = 2160-0) eGFR (test code = 41 See_Comment L The eGFR i s based 47603-4) on the CKD-EPI 2020 equation. To calculate the n ew eGFR from a previous Creatinine or Cystatin Cresul t, go to https://[email or web address] ne y.org/shirlene oconnor/kdoqi/gfr%5F ca lculator [Automated message] The system which [...] . Sodium (test code = 140 mmol/L 185-573 8487-2) Potassium (test code 5.6 mmol/L 3.5-5.3 H = 2823-3) Chloride (test code 101 mmol/L 98-110 = 2075-0) CO2 (test code = 32 mmol/L 20-32 2027-9) Calcium (test code = 9.9 mg/dL 8.6-10.3 08797-1) Protein (test code = 6.7 g/dL 6.1-8.1 2885-2) Albumin, S (test 4.0 g/dL 3.6-5.1 code = 1751-7) Globulin, total 2.7 See_Comment [Automated (test code = message] The 16156-0) system which generated this result transmitted reference range : 1.9 - 3.7 g/dL (calc). The reference range was not used to interpret this result as normal/abnormal . Albumin/globulin 1.5 See_Comment [Automated ratio (test code = message] The 1750) system which generated this result transmitted reference [...] RAC) Organization Information: Site ID: RGA Name: [facility] Address: [address] [place] [address] Director: Raffaele Stahl Lab Interpretation Abnormal (test code = 15779-7) [facility] [id number] 01:03:00 Test Item Value Reference Range Interpretation Comments Cholesterol, total 111 mg/dL <=200 (test code = 2092-3) HDL cholesterol 57 mg/dL See_Comment [Automated (test code = 2084-10) message ] The system which generated this result transmitted reference range : > OR = 40. The reference range was not used to interpret this result as normal/abnormal . Triglycerides (test 76 mg/dL <=150 code = 2571-8) LDL cholesterol 38 mg/dL (calc) Reference ra nge: calculated (test <100 Desira ble code = 77684-5) range <100 m g/dL for primary prevention; <70 mg/dL for patients with C HD or diabetic patients with > or = 2 CHD risk factors. LDL-C is now calculated using the Keith calculation, which is a validated novel method providin g better accuracy than the Friedewald equation in the estimation of LDL-C. Gaston S S et al. JIMMY. 2013;310(19): 5609-5595 (http://educati on .Neomatrix .com/faq/NSL068 ) Cholesterol/HDL 1.9 See_Comment [Automated ratio (test code = message] The 9830-1) system which generated this result transmitted reference range : <5.0 (calc). Th e reference range was not used to interpret this result as normal/abnormal . Non-HDL cholesterol 54 See_Comment For fei ents with (test code = diabetes plus 1 52754-0) major ASCVD ris k factor, treatin g [...] RAC) Organization Information: Site ID: RGA Name: [facility] Address: [address] [place] [phone] Director: Raffaele Stahl [facility] [id number] 01:03:00 Test Item Value Reference Range Interpretation [...] specif ic patient populat ions. Standards of Or dical Care in Diabetes(ADA). [Automated mess age] The system [employer] generated this result transmitted ref erence range: <5.7 % o f total Hgb. The reference range was not used to int erpret this result as normal/abnormal . KENNETH (test code = FASTING:NO KENNETH) FASTING: NO RAC (test code = Performing RAC) Organization Information: Site ID: [facility] Name: [facility] Address: [address] [place] [address] Director: [address] [id number] 01:03:00 Test Item Value Reference Range Interpretation Comments T4, free (test code 1.1 ng/dL 0.8-1.8 = 3024-7) KENNETH (test code = FASTING:NO FASTING: NO KENNETH) RAC (test code = Performing Organization RAC) Information: Site ID: [facility] Name: [facility] Address: [address] [place] [address] Director: [facility]woodsThy[facility] stimulating [id number] 01:03:00 Test Item Value Reference Range Interpretation Comments TSH (test 0.77 See_Comment [Automated mes chelsea] code = The system [employer] 3016-3) generated this result transmit rosalina reference range : 0.40 - 4.50 mIU /L. The reference r mini was not used to interpret this result as normal/abnormal . KENNETH (test FASTING:NO FASTING: code = KENNETH) NO RAC (test Performing code = RAC) Organization Information: Site ID: [facility] Name: [facility] Address: [address] [place] [phone] Director: Raffaele Stahl [facility], [id number] 01:03:00 Test Item Value Reference Range Interpretation Comments T3, free (test code 3.3 pg/mL 2.3-4.2 = 3051-0) KENNETH (test code = FASTING:NO FASTING: NO KENNETH) RAC (test code = Performing Organization RAC) Information: Site ID: RGA Name: [facility] Lab Address: [address] [place] [phone] Director: Raffaele Stahl [facility] HospitalThyroperoxidase [id number] 01:03:00 Test Item Value Reference Range Interpretation [...] Performing Organization Information: Site ID: IG Name: [facility] [facility] Address[facility] [address] [place] [phone] Director: Dr. Raffaele Stahl [facility] CenterThyroglobulin vifrytzj6913-05-41 01:03:00 Test Item Value Reference Range Interpretation [...] RAC) Organization Information: Site ID: IG Name: [facility] Address: [address] [place] [phone] Director: Dr. Raffaele Stahl [facility] HospitalCom[facility] metabolic [id number] 01:03:00 Test Item Value Reference Range Interpretation Comments Glucose (test code = 77 mg/dL 65-139 Non-fa sting 2345-7) reference interval BUN (test code = 33 mg/dL 7-25 H 3094-0) Creatinine (test 1.80 mg/dL 0.70-1.35 H code = 2160-0) eGFR (test code = 41 See_Comment L The eGFR i s based 39154-0) on the CKD-EPI 2020 equation. To calculate the n ew eGFR from a previous Creatinine or Cystatin Cresul t, go to https://www.kid ne y.org/profjosé miguel na ls/kdoqi/gfr%5F ca lculator [Automated message] The [...] . Sodium (test code = 140 mmol/L 192-256 4065-2) Potassium (test code 5.6 mmol/L 3.5-5.3 H = 2823-3) Chloride (test code 101 mmol/L 98-110 = 2075-0) CO2 (test code = 32 mmol/L 20-32 2027-9) Calcium (test code = 9.9 mg/dL 8.6-10.3 59977-2) Protein (test code = 6.7 g/dL 6.1-8.1 2885-2) Albumin, S (test 4.0 g/dL 3.6-5.1 code = 1751-7) Globulin, total 2.7 See_Comment [Automated (test code = message] The 37054-5) system which generated this result transmitted reference range : 1.9 - 3.7 g/dL (calc). The reference range was not used to interpret this result as normal/abnormal . Albumin/globulin 1.5 See_Comment [Automated ratio (test code = message] The 1759-0) system which generated this result transmitted reference range : 1.0 - 2.5 (calc ). The reference range was not used to interpr et this result as normal/abnormal . Total bilirubin 0.3 mg/dL 0.2-1.2 (test code = 1975-2) Alkaline phosphatase 59 U/L 35-144 (test code = 6768-6) AST (test code = 46 U/L 10-35 H 1920-8) ALT (test code = 37 U/L 9-46 1742-6) KENNETH (test code = FASTING:NO KENNETH) FASTING: NO RAC (test code = Performing RAC) Organization Information: Site ID: RGA Name: [facility] Lab Address: [address] [place] [phone] Director: Raffaele Stahl Lab Interpretation Abnormal (test code = 90938-2) [facility] HospitalLipid [id number] 01:03:00 Test Item Value Reference Range Interpretation Comments Cholesterol, total 111 mg/dL <=200 (test code = 2093-3) HDL cholesterol 57 mg/dL See_Comment [Automated (test code = 2084-10) message ] The system which generated this result transmitted reference range : > OR = 40. The reference range was not used to interpret this result as normal/abnormal . Triglycerides (test 76 mg/dL <=150 code = 2571-8) LDL cholesterol 38 mg/dL (calc) Reference ra nge: calculated (test <100 Desira ble code = 76890-7) range <100 m g/dL for primary prevention; <70 mg/dL for patients with C HD or diabetic patients with > or = 2 CHD risk factors. LDL-C is now calculated using the Gsaton-Deutsch calculation, which is a validated novel method providin g better accuracy than the Friedewald equation in the estimation of LDL-C. Gaston S S et al. JIMMY. 2013;310(19): 8764-5677 (http://educati on .Urban GentlemanDiagnosti [employer] .com/faq/OQH816 ) Cholesterol/HDL 1.9 See_Comment [Automated ratio (test code = message] The 9830-1) system which generated this result transmitted reference range : <5.0 (calc). Th e reference range was not used to interpret this result as normal/abnormal . Non-HDL cholesterol 54 See_Comment For fei ents with (test code = diabetes plus 1 19155-8) major ASCVD ris k factor, treatin g [...] = Performing RAC) Organization Information: Site ID: NEHA Name: [facility] Lab Address: [address] [place] [phone] Director: [place] Thom Wilson HealthHemoglobin [id number] 01:03:00 Test Item Value Reference Range Interpretation [...] specif ic patient populat ions. Standards of Or dical Care in Diabetes(ADA). [Automated mess age] The system [employer] generated this result transmitted ref erence range: <5.7 % o f total Hgb. The reference range was not used to int erpret this result as normal/abnormal . KENNETH (test code = FASTING:NO KENNETH) FASTING: NO RAC (test code = Performing RAC) Organization Information: Site ID: [facility] Name: [facility] Address: [address] [place] [phone] Director: Raffaele Tomas Wilson HealthT4, [id number] 01:03:00 Test Item Value Reference Range Interpretation Comments T4, free (test code 1.1 ng/dL 0.8-1.8 = 3024-7) KENNETH (test code = FASTING:NO FASTING: NO KENNETH) RAC (test code = Performing Organization RAC) Information: Site ID: [facility] Name: [facility] Address: [address] [place] [phone] Director: Raffaele Stahl [facility] HospitalThyroid stimulating [id number] 01:03:00 Test Item Value Reference Range Interpretation Comments TSH (test 0.77 See_Comment [Automated mes chelsea] code = The system ic h 3016-3) generated this result transmit rosalina reference range : 0.40 - 4.50 mIU /L. The reference r mini was not used to interpret this result as normal/abnormal . KENNETH (test FASTING:NO FASTING: code = KENNETH) NO RAC (test Performing code = RAC) Organization Information: Site ID: RGA Name: [facility] Lab Address: [address] [place] [phone] Director: Raffaele Stahl [facility] HospitalT3, [id number] 01:03:00 Test Item Value Reference Range Interpretation Comments T3, free (test code 3.3 pg/mL 2.3-4.2 = 3051-0) KENNETH (test code = FASTING:NO FASTING: NO KENNETH) RAC (test code = Performing Organization RAC) Information: Site ID: RGA Name: [facility] Lab Address: [address] [place] [phone] Director: Raffaele [facility] CenterThyroperoxidase [id number] 01:03:00 Test Item Value Reference Range Interpretation Comments Thyroperoxidase Ab <1 See_Comment [Automat ed (test code = 8099-4) message ] The system which generated this result transmitted reference range : <9 IU/mL. The reference range was not used to interpret this result as normal/abnormal . KENNETH (test code = KENNETH) FASTING:NO FASTING: NO RAC (test code = RAC) Performing Organization Information: Site ID: Name: [facility] Address: [address] [place] [address] Director: Dr. Raffaele Stahl [facility] CenterThyroglobulin [id number] 01:03:00 Test Item Value Reference Range Interpretation [...] RAC) Organization Information: Site ID: IG Name: [facility] Lab Address: [address] [place] [phone] Director: Dr. Raffaele Cheng [facility] CenterT3, [id number] 01:03:00 Test Item Value Reference Range Interpretation Comments T3, free (test code 3.3 pg/mL 2.3-4.2 = 3051-0) KENNETH (test code = FASTING:NO FASTING: NO KENNETH) RAC (test code = Performing Organization RAC) Information: Site ID: RGA Name: [facility] Lab Address: [address] [place] [phone] Director: Raffaele Stahl [facility] CenterThyroperoxidase [id number] 01:03:00 Test Item Value Reference Range Interpretation [...] Performing Organization Information: Site ID: IG Name: [facility] Lab Address: [address] [place] [address] Director: Dr. Raffaele Stahl [facility] CenterThyroglobulin esaprdvk6635-22-41 01:03:00 Test Item Value Reference Range Interpretation [...] RAC) Organization Information: Site ID: IG Name: [facility] Lab Address: [address] [place] [phone] Director: Dr. Raffaele Cheng [facility] CenterEC 12 iizt6824-86-81 13:36:59 Test Item Value Reference Range Interpretation Comments Ventricular rate (test 64 code = 253) Atrial rate (test code 64 = 255) HI interval (test code 282 = 266) QRSD [...] ECG-In automated comparison with ECG of 23-JAN-2022 08:32,-HI interval has increased-Questionable change in initial forces of Anterolateral leads-Electronically Signed By Ancelmo Wong MD ([id number]), society editor Jennifer Meyers ([id number]) on 04/24/2022 8:36:58 AM [place] [address] ycvs4916-74-18 13:36:59 Test Item Value Reference Range Interpretation Comments Ventricular rate (test 64 code = 253) Atrial rate (test code 64 = 255) HI interval (test code 282 = 266) QRSD [...] ECG-In automated comparison with ECG of 23-JAN-2022 08:32,-HI interval has increased-Questionable change in initial forces of Anterolateral leads-Electronically Signed By Ancelmo Wong MD ([id number]), society editor Jennifer Meyers ([id number]) on 04/24/2022 8:36:58 AM [facility]2023-01-24 15:11:00 Test Item Value Reference Range Interpretation Comments Albumin, S (test 4.6 g/dL 3.8-4.8 code = 1751-7) KENNETH (test code = Performed at: KENNETH) [address] [id number] Director: Anshu Cerda MD, Phone: [phone] [facility] HospitalCreatinine [id number] 15:11:00 Test Item Value Reference Range Interpretation Comments Creatinine (test code = 1.36 mg/dL 0.76-1.27 H 2160-0) eGFR (test code = 57 mL/min/1.73 >=59 L 23087-2) KENNETH (test code = KENNETH) Performed at: - [address] [id number] Director: Anshu Cerda MD, Phone: [phone] Lab Interpretation (test Abnormal code = 13704-9) [facility] ([facility]OT)2022-03-07 15:11:00 Test Item Value Reference Range Interpretation Comments AST (test code 28 See_Comment [Automated m essage] = 1920-8) The system Nulogyic h generated this result transmit rosalina reference range : 0 - 40 IU/L. The reference range was not used to interpret this result as normal/abnormal . KENNETH (test code Performed at: - = KENNETH) Lab[address] [id number] Director: Anshu Cerda MD, Phone: [phone] [facility] (SGPT)2022-03-07 15:11:00 Test Item Value Reference Range Interpretation Comments ALT (test code 29 See_Comment [Automated m essage] = 1742-6) The system Nulogyic h generated this result transmit rosalina reference range : 0 - 44 IU/L. The reference range was not used to interpret this result as normal/abnormal . KENNETH (test code Performed at: - = KENNETH) [address] [id number] Director: Anshu Cerda MD, Phone: [phone] [facility] HospitalUric acid [id number] 15:11:00 Test Item Value Reference Range Interpretation Comments Uric acid 4.4 mg/dL 3.8-8.4 Therapeutic ta rget (test code = for gout patien ts: 3084-1) <6.0 KENNETH (test code Performed at: KENNETH) [facility] [address] [id number] Director: Anshu Cerda MD, Phone: [phone] [facility]-reactive [id number] 15:11:00 Test Item Value Reference Range Interpretation Comments CRP (test code = 6 mg/L 0-1987-06) KENNETH (test code = Performed at: ) [facility] [address] [id number] Director: Anshu Cerda MD, Phone: [phone] [facility] with platelet and gsjlzaotgkko0398-83-19 15:11:00 Test Item Value Reference Range Interpretation Comments WBC (test code = 7.3 See_Comment [Automated 3058-2) message] The system which generated this result transmitted reference range : 3.4 - 10.8 x10E3/uL. The reference range was not used to interpret this result as normal/abnormal . RBC (test code = 5.17 See_Comment [Automated 345-8) message] The system which generated this result [...] (test 225 See_Comment [Autom ated code = 487-3) message] The system which generated this result [...] 0 % Not Estab. (test code = 30846-6) Immature 0.0 See_Comment [Automated granulocytes, message] The absolute (test code = system which 52702-6) generated this result transmitted reference range : 0.0 - 0.1 x10E3/uL. The reference range was not used to interpret this result as normal/abnormal . KENNETH (test code = KENNETH) Performed at: [facility] [place] [id number] Director: Anshu Cerda MD, Phone: [phone] Lab Interpretation Abnormal (test code = 14503-9) [facility] qeae8948-12-06 15:11:00 Test Item Value Reference Range Interpretation Comments Sedimentation rate 7 See_Comment [Automat ed (test code = 4537-7) message ] The system which generated this result transmitted reference range : 0 - 30 mm/hr. T he reference range was not used to interpret this result as normal/abnormal . KENNETH (test code = Performed at: KENNETH) - [address] [id number] Director: Anshu Cerda MD, Phone: [phone] [facility]2023-01-24 15:11:00 Test Item Value Reference Range Interpretation Comments Albumin, S (test 4.6 g/dL 3.8-4.8 code = 1751-7) KENNETH (test code = Performed at: KENNETH) [address] [id number] Director: Anshu Cerda MD, Phone: [phone] [facility]2023-01-24 15:11:00 Test Item Value Reference Range Interpretation Comments Creatinine (test code = 1.36 mg/dL 0.76-1.27 H 2160-0) eGFR (test code = 57 mL/min/1.73 >=59 L 52525-7) KENNETH (test code = KENNETH) Performed at: [address] [id number] Director: Anshu Cerda MD, Phone: [phone] Lab Interpretation (test Abnormal code = 25874-1) [facility] (SGOT)2022-03-07 15:11:00 Test Item Value Reference Range Interpretation Comments AST (test code 28 See_Comment [Automated m essage] = 1920-8) The system whic h generated this result transmit rosalina reference range : 0 - 40 IU/L. The reference range was not used to interpret this result as normal/abnormal . KENNETH (test code Performed at: - = KENNETH) [address] [id number] Director: Anshu Cerda MD, Phone: [phone] [facility] (PT)2022-03-07 15:11:00 Test Item Value Reference Range Interpretation Comments ALT (test code 29 See_Comment [Automated m essage] = 1742-6) The system whic h generated this result transmit rosalina reference range : 0 - 44 IU/L. The reference range was not used to interpret this result as normal/abnormal . KENNETH (test code Performed at: KENNETH) [address] [id number] Director: Anshu Cerda MD, Phone: [phone] [facility] HospitalUric acid gkjvp4741-73-28 15:11:00 Test Item Value Reference Range Interpretation Comments Uric acid 4.4 mg/dL 3.8-8.4 Therapeutic ta rget (test code = for gout patien ts: 3084-1) <6.0 KENNETH (test code Performed at: = KENNETH) [address] [id number] Director: Anshu Cerda MD, Phone: [phone] [facility] HospitalC-reactive kgifgbc3075-64-94 15:11:00 Test Item Value Reference Range Interpretation Comments CRP (test code = 6 mg/L -1987-06) KENNETH (test code = Performed at: ) [address] [id number] Director: Anshu Cerda MD, Phone: [phone] [facility] with platelet and vmxyblqvczcb2935-40-36 15:11:00 Test Item Value Reference Range Interpretation Comments WBC (test code = 7.3 See_Comment [Automated 4616-2) message] The system which generated this result transmitted reference range : 3.4 - 10.8 x10E3/uL. The reference range was not used to interpret this result as normal/abnormal . RBC (test code = 5.17 See_Comment [Automated 029-8) message] The system which generated this result [...] 0 % Not Estab. (test code = 44503-1) Immature 0.0 See_Comment [Automated granulocytes, message] The absolute (test code = system which 87417-2) generated this result transmitted reference range : 0.0 - 0.1 x10E3/uL. The reference range was not used to interpret this result as normal/abnormal . KENNETH (test code = KENNETH) Performed at: [address] [id number] Director: Anshu Cerda MD, Phone: [phone] Lab Interpretation Abnormal (test code = 75457-6) [facility]2023-01-24 15:11:00 Test Item Value Reference Range Interpretation Comments Sedimentation rate 7 See_Comment [Automat ed (test code = 4537-7) message ] The system which generated this result transmitted reference range : 0 - 30 mm/hr. T he reference range was not used to interpret this result as normal/abnormal . KENNETH (test code = Performed at: [facility]) - [address] [id number] Director: Anshu Cerda MD, Phone: [phone] [facility]2023-01-24 15:11:00 Test Item Value Reference Range Interpretation Comments Albumin, S (test 4.6 g/dL 3.8-4.8 code = 1751-7) KENNETH (test code = Performed at: [facility]) [address] [id number] Director: Anshu Cerda MD, Phone: [phone] [facility]2023-01-24 15:11:00 Test Item Value Reference Range Interpretation Comments Creatinine (test code = 1.36 mg/dL 0.76-1.27 H 2160-0) eGFR (test code = 57 mL/min/1.73 >=59 L 90381-1) KENNETH (test code = KENNETH) Performed at: [address] [place] [id number] Director: Anshu Cerda MD, Phone: [phone] Lab Interpretation (test Abnormal code = 05639-2) [facility] (OT)2022-03-07 15:11:00 Test Item Value Reference Range Interpretation Comments AST (test code 28 See_Comment [Automated m essage] = 1920-8) The system [employer] generated this result transmit rosalina reference range : 0 - 40 IU/L. The reference range was not used to interpret this result as normal/abnormal . KENNETH (test code Performed at: 01 - = KENNETH) [facility] [id number] Director: Anshu Cerda MD, Phone: [phone] [facility] (SGPT)2022-03-07 15:11:00 Test Item Value Reference Range Interpretation Comments ALT (test code 29 See_Comment [Automated m essage] = 1742-6) The system [employer] generated this result transmit rosalina reference range : 0 - 44 IU/L. The reference range was not used to interpret this result as normal/abnormal . KENNETH (test code Performed at: - = KENNETH) [facility] [id number] Director: Anshu Cerda MD, Phone: [phone] [facility] HospitalUric acid ekutu8272-15-42 15:11:00 Test Item Value Reference Range Interpretation Comments Uric acid 4.4 mg/dL 3.8-8.4 Therapeutic ta rget (test code = for gout patien ts: 3084-1) <6.0 KENNETH (test code Performed at: - = KENNETH) [facility] [address] [id number] Director: Anshu Cerda MD, Phone: [phone] [facility] HospitalUrinalysis macro (dipstick) panel - Gosfo7627-42-57 09:18:00 Test Item Value Reference Range Interpretation [...] clarity) nitrite (test code = nitrite) neg [facility] GlyihdcXEVX-KpM-4 (COVID-19) RNA [Presence] in Respiratory specimen by SHANNAN with probe ocvglusgv7019-08-37 01:35:51 Test Item Value Reference Range Interpretation Comments SARS-CoV-2 (COVID-19) RNA Not detected [Presence] in Respiratory specimen by SHANNAN with probe detection (test code = 12442-3) Whether patient is employed in a Unknown healthcare setting (test code = 97569-9) Whether the patient has symptoms Unknown related to condition of interest (test code = 31232-1) Whether the patient was Unknown hospitalized for condition of interest (test code = 65241-5) Whether the patient was admitted Unknown to intensive care unit (ICU) for condition of interest (test code = 36161-7) Whether patient resides in a Unknown congregate care setting (test code = 43973-0) status (test code = Unknown 04845-1) Date and time of symptom onset Unknown (test code = 80984-2) LUCAS BURRELLSARS-CoV-2 (COVID-19) RNA [Presence] in Respiratory specimen by SHANNAN with probe kggzscaiv0094-29-82 00:41:51 Test Item Value Reference Range Interpretation Comments SARS coronavirus RNA [Presence] Not detected in Isolate by SHANNAN with probe detection (test code = 46030-6) Whether patient is employed in a Unknown healthcare setting (test code = 41468-3) Whether the patient has symptoms Unknown related to condition of interest (test code = 83294-4) Whether the patient was Unknown hospitalized for condition of interest (test code = 24792-2) Whether the patient was admitted Unknown to intensive care unit (ICU) for condition of interest (test code = 85645-8) Whether patient resides in a Unknown congregate care setting (test code = 25021-7) status (test code = Unknown 05837-2) Date and time of symptom onset Unknown (test code = 88957-2) LUCAS BURRELLSARS-CoV-2 (COVID-19) RNA [Presence] in Respiratory specimen by SHANNAN with probe wxscmszsh5927-32-13 00:41:51 Test Item Value Reference Range Interpretation Comments SARS-CoV-2 (COVID-19) RNA Not detected [Presence] in Respiratory specimen by SHANNAN with probe detection (test code = 97688-5) Whether patient is employed in a Unknown healthcare setting (test code = 10774-6) Whether the patient has symptoms Unknown related to condition of interest (test code = 52307-1) Whether the patient was Unknown hospitalized for condition of interest (test code = 43750-6) Whether the patient was admitted Unknown to intensive care unit (ICU) for condition of interest (test code = 91420-7) Whether patient resides in a Unknown congregate care setting (test code = 90723-5) status (test code = Unknown 72575-1) Date and time of symptom onset Unknown (test code = 03486-5) LUCAS CHENG GIXHJBCX-UxD-1 (COVID-19) RNA [Presence] in Respiratory specimen by SHANNAN with probe qoxihpfeo7759-98-38 23:26:09 Test Item Value Reference Range Interpretation Comments SARS-CoV-2 (COVID-19) RNA Not detected Not-Detected [Presence] in Respiratory specimen by SHANNAN with probe detection (test code = 05293-8) Whether patient is employed in a healthcare setting (test code = 09135-0) Whether the patient has symptoms related to condition of interest (test code = 79123-7) Patient was hospitalized because of this condition (test code = 50597-4) Whether the patient was admitted to intensive care unit (ICU) for condition of interest (test code = 08716-5) Whether patient resides in a congregate care setting (test code = 11048-4) LUCAS CHENG LIISVFDX-SgF-4 (COVID-19) RNA [Presence] in Respiratory specimen by SHANNAN with probe umivkpuzv5600-48-40 23:43:22 Test Item Value Reference Range Interpretation Comments SARS-CoV-2 (COVID-19) RNA Not detected Not-Detected [Presence] in Respiratory specimen by SHANNAN with probe detection (test code = 38189-6) Whether patient is employed in a healthcare setting (test code = 60432-8) Whether the patient has symptoms related to condition of interest (test code = 18904-2) Patient was hospitalized because of this condition (test code = 98563-4) Whether the patient was admitted to intensive care unit (ICU) for condition of interest (test code = 71186-3) Whether patient resides in a congregate care setting (test code = 01179-2) [facility]OVID[facility]19) RNA [Presence] in Respiratory specimen by SHANNAN with probe bwjmoresn0823-33-26 14:14:19 Test Item Value Reference Range Interpretation Comments SARS-CoV-2 (COVID-19) RNA Not detected Not-Detected [Presence] in Respiratory specimen by SHANNAN with probe detection (test code = 04665-5) Whether patient is employed in a healthcare setting (test code = 31306-5) Whether the patient has symptoms related to condition of interest (test code = 85456-0) Patient was hospitalized because of this condition (test code = 91004-1) Whether the patient was admitted to intensive care unit (ICU) for condition of interest (test code = 84416-4) Whether patient resides in a congregate care setting (test code = 15341-8) [facility]
[2022-12-14] MEDS ORDERED: NA CHLORIDE 0.9% 100 ML ONE (16:43)
[2022-12-14] MEDS ORDERED: PIPERACIL/TAZO 3.375 GM VIAL IV ONE (16:44)
[2022-12-14 16:59] LABS: Absolute Lymphocytes (CBC) 1.6 K/uL (0.7-4.9); Hematocrit 33.6 % (39.6-49.0); Lymphocytes % 22.1 % (15.3-44.8); MCV 80.5 fL (80-100); MPV 8.7 fL (7.6-11.3); Platelets 209 thou/uL (152-406); RBC Red Blood Cell Count 4.17 M/uL (4.33-5.43)
[2022-12-14] MEDS ORDERED: MORPHINE 4 MG/ML SYR ONE (17:07)
[2022-12-14 17:11] LABS: Bilirubin Total 0.3 mg/dL (0.2-1.0); Potassium 4.1 mEq/L (3.5-5.1); Protein, Total 6.9 g/dL (6.4-8.2)
--- NOTE | 2022-12-14 17:41 | EDPHYS ---
Physician Documentation [facility] Name: Gregory Payne Age: 67 yrs Sex: Male : 1955 Arrival Date: 12/14/2022 Time: 15:43 Bed 15 Private MD: ED Physician Mynor Maharaj HPI: 12/14 17:55 This 67 yrs old Male presents to ER via Ambulatory with complaints of Wound Infection - rt bleeding left low back. 17:55 Patient presents to the ED with a chronic wound to his back. 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 He did state that he had some bleeding in it and a small amount of purulence. Denies fever, chills, acute complaints. Symptoms are mild in severity, no other aggravating alleviating factors. Patient states that this occurred after having massage therapy at that area that was vigorous.. Historical: - Allergies: 16:03 Colchicine; ll1 16:03 Fentanyl; ll1 16:03 GABAPENTIN; ll1 16:03 Naproxen; ll1 - PMHx: 16:03 Atrial Fib; CHF; Diabetes - NIDDM; Myocardial infarction; ll1 - Immunization history:: Adult Immunizations up to date. - Social history:: Smoking status: Patient denies any tobacco usage or history of. ROS: 17:55 Constitutional: Negative for fever, chills, and weight loss, Cardiovascular: Negative rt for chest pain, palpitations, and edema, Respiratory: Negative for shortness of breath, cough, wheezing, and pleuritic chest pain, Abdomen/GI: Negative for abdominal pain, nausea, vomiting, diarrhea, and constipation, MS/Extremity: Negative for injury and deformity, Neuro: Negative for headache, weakness, numbness, tingling, and seizure, Psych: Negative for depression, anxiety, suicide ideation, homicidal ideation, and hallucinations, 17:55 Skin: Positive for Sacral wound, negative for erythema, Exam: 17:55 Constitutional: This is a well developed, well nourished patient who is awake, alert, rt and in no acute distress. Head/Face: Normocephalic, atraumatic. Neck: Trachea midline, no thyromegaly or masses palpated, and no cervical lymphadenopathy. Supple, full range of motion without nuchal rigidity, or vertebral point tenderness. No Meningismus. Cardiovascular: Regular rate and rhythm with a normal S1 and S2. No gallops, murmurs, or rubs. Normal PMI, no JVD. No pulse deficits. MS/ Extremity: Pulses equal, no cyanosis. Neurovascular intact. Full, normal range of motion. Neuro: Awake and alert, GCS 15, oriented to person, place, time, and situation. Cranial nerves II-XII grossly intact. Motor strength 5/5 in all extremities. Sensory grossly intact. Cerebellar exam normal. Normal gait. Psych: Awake, alert, with orientation to person, place and time. Behavior, mood, and affect are within normal limits. 17:55 Skin: Sacral wound noted on the back, roughly 3 cm in diameter, scant amount of purulence, good granulation tissue noted.. Vital Signs: 16:08 BP 163 / 62; Pulse 73; Resp 19 S; Pulse Ox 100% on R/A; kc6 17:06 BP 127 / 61; Pulse 62; Resp 18 S; Pulse Ox 99% on R/A; kc6 MDM: 15:55 Patient medically screened. rt 17:55 Differential diagnosis: Wound, wound infection, osteo-. Data reviewed: vital signs, rt nurses notes, lab test result(s). I considered the following discharge prescriptions or medication management in the emergency department Medications were administered in the Emergency Department. See MAR. Test considered but Not performed: CT: After discussion with patient, wound is shrinking, as he had a minimal CT scans, wishes to spare further radiation. I see no evidence to suggest the patient has an occult osteomyelitis, will forego CT scan, he will follow-up as an outpatient closely with his wound care schedule. Care significantly affected by the following chronic conditions: Diabetes. Counseling: I had a detailed discussion with the patient and/or guardian regarding the historical points, exam findings, and any diagnostic results supporting the discharge/admit diagnosis, lab results, the need for outpatient follow up, to return to the emergency department if symptoms worsen or persist or if there are any questions or concerns that arise at home. 12/14 16:27 Order name: CBC with Diff; Complete Time: 17:14 rt 12/14 16:27 Order name: CMP; Complete Time: 17:14 rt Administered Medications: 16:44 Drug: Piperacillin-Tazobactam IVPB 3.375 grams IVPB once over 60 mins; (mix in NS 100 kc6 mL) Route: IVPB; Infused Over: 60 mins; Site: right forearm; 17:19 Follow up: Response: No adverse reaction; IV Status: Completed infusion; IV Intake: kc6 100ml 17:02 Drug: morphine IVP or IV 4 mg IVP once over 4 mins Route: IVP; Infused Over: 4 mins; kc6 Site: right forearm; 17:19 Follow up: Response: No adverse reaction; Pain is decreased; RASS: Alert and Calm (0) kc6 Disposition Summary: 12/14/22 17:40 Discharge Ordered Notes: Location: Home rt Problem: an ongoing problem rt Symptoms: are unchanged rt Condition: Stable rt Diagnosis - Sacral wound rt Followup: rt - With: Private Physician - When: 7 - 10 days - Reason: Discharge Instructions: - Discharge Summary Sheet rt - Wound Care, Adult rt Forms: - Medication Reconciliation Form rt - Thank You Letter rt - Antibiotic Education rt - Prescription Opioid Use rt - Patient Portal Instructions rt - Leadership Thank You Letter rt Prescriptions: - Augmentin 875-125 mg Oral Tablet - take 1 tablet ORAL route every 12 hours for 10 days; 20 tablet; Refills: 0, rt Product Selection Permitted Signatures: Dispatcher [employer] Marina Villalobos RN RN ll1 Edel Claudio RN RN kc6 Mynor Maharaj MD MD rt
--- NOTE | 2022-12-14 17:41 | ER ---
Nurse's Notes [facility] Name: Gregory Payne Age: 67 yrs Sex: Male : 1955 Arrival Date: 12/14/2022 Time: 15:43 Bed 15 Private MD: Diagnosis: Sacral wound Presentation: 12/14 16:03 Ebola Screen: Patient denies travel to an Ebola-affected area in the 21 days before ll1 illness onset. Risk Assessment: Do you want to hurt yourself or someone else? Patient reports no desire to harm self or others. 16:03 Method Of Arrival: Ambulatory ll1 16:03 Acuity: RAH 3 ll1 16:09 Chief complaint: Patient states: wound to the lower back that has been slowly heeling kc6 since summer, caused by a previous fall. pt states today it started bleeding. Coronavirus screen: At this time, the client does not indicate any symptoms associated with coronavirus-19. Initial Sepsis Screen: Does the patient meet any 2 criteria? No. Patient's initial sepsis screen is negative. Does the patient have a suspected source of infection? No. Patient's initial sepsis screen is negative. Onset of symptoms was December 14, 2022. Triage Assessment: 16:09 General: Appears in no apparent distress. uncomfortable, Behavior is calm, cooperative, kc6 appropriate for age. Pain: Complains of pain in lumbar area. EENT: No signs and/or symptoms were reported regarding the EENT system. Neuro: Level of Consciousness is awake, alert, obeys commands, Oriented to person, place, time, situation, Appropriate for age. Cardiovascular: Capillary refill < 3 seconds. Respiratory: Airway is patent Trachea midline Respiratory effort is even, unlabored, Respiratory pattern is regular, symmetrical. GI: No signs and/or symptoms were reported involving the gastrointestinal system. : No signs and/or symptoms were reported regarding the genitourinary system. Derm: Skin is healthy with good turgor, Skin is pink, warm \T\ dry. Wound noted lumbar area Wound is wound appears to be open, with purulent drainage and tunneling. no odor noted. packed with and covered in a gauze dressing that is clean, dry, and intact. Musculoskeletal: No signs and/or symptoms reported regarding the musculoskeletal system. Circulation, motion, and sensation intact. Capillary refill < 3 seconds, Range of motion: intact in all extremities. Historical: - Allergies: 16:03 Colchicine; ll1 16:03 Fentanyl; ll1 16:03 GABAPENTIN; ll1 16:03 Naproxen; ll1 - PMHx: 16:03 Atrial Fib; CHF; Diabetes - NIDDM; Myocardial infarction; ll1 - Immunization history:: Adult Immunizations up to date. - Social history:: Smoking status: Patient denies any tobacco usage or history of. Screenin:12 [facility] ED Fall Risk Assessment (Adult) History of falling in the last 3 months, kc6 including since admission Yes- single mechanical fall (1 pt) Confusion or Disorientation No (0 pts) Intoxicated or Sedated No (0 pts) Impaired Gait Yes (1 pt) Mobility Assist Device Used Yes (1 pt) Altered Elimination No (0 pt) Score/Fall Risk Level 3 or more points = High Risk. Abuse screen: Denies threats or abuse. Denies injuries from another. Nutritional screening: No deficits noted. Tuberculosis screening: No symptoms or risk factors identified. Assessment: 16:11 Reassessment: please see triage assessment. kc6 17:06 Reassessment: Patient appears in no apparent distress at this time. No changes from kc6 previously documented assessment. Patient and/or family updated on plan of care and expected duration. Pain level reassessed. Patient is alert, oriented x 3, equal unlabored respirations, skin warm/dry/pink. 17:09 Reassessment: Herlinda Solorzano (friend) [phone]. kc6 Vital Signs: 16:08 BP 163 / 62; Pulse 73; Resp 19 S; Pulse Ox 100% on R/A; kc6 17:06 BP 127 / 61; Pulse 62; Resp 18 S; Pulse Ox 99% on R/A; kc6 ED Course: 15:46 Patient arrived in ED. im 15:48 Mynor Maharaj MD is Attending Physician. rt 15:53 Edel Claudio, VERN is Primary Nurse. kc6 16:02 Arm band placed on Patient placed in an exam room, on a stretcher. ll1 16:04 Triage completed. ll1 16:12 Patient has correct armband on for positive identification. Placed in gown. Bed in low kc6 position. Call light in reach. Side rails up X2. Adult w/ patient. Client placed on continuous cardiac and pulse oximetry monitoring. NIBP monitoring applied. 16:45 Inserted saline lock: 20 gauge in right forearm, using aseptic technique. Blood kc6 collected. Patient maintains SpO2 saturation greater than 95% on room air. 18:01 No provider procedures requiring assistance completed. IV discontinued, intact, kc6 bleeding controlled, No redness/swelling at site. Pressure dressing applied. Administered Medications: 16:44 Drug: Piperacillin-Tazobactam IVPB 3.375 grams IVPB once over 60 mins; (mix in NS 100 kc6 mL) Route: IVPB; Infused Over: 60 mins; Site: right forearm; 17:19 Follow up: Response: No adverse reaction; IV Status: Completed infusion; IV Intake: kc6 100ml 17:02 Drug: morphine IVP or IV 4 mg IVP once over 4 mins Route: IVP; Infused Over: 4 mins; kc6 Site: right forearm; 17:19 Follow up: Response: No adverse reaction; Pain is decreased; RASS: Alert and Calm (0) kc6 Medication: 18:02 VIS not applicable for this client. kc6 Intake: 17:19 IV: 100ml; Total: 100ml. kc6 Outcome: 17:40 Discharge ordered by . rt 18:01 Discharged to home ambulatory, kc6 18:01 Condition: good 18:01 Discharge instructions given to patient, Instructed on discharge instructions, follow up and referral plans. medication usage, wound care, Demonstrated understanding of instructions, follow-up care, medications, wound care, Prescriptions given X 1, 18:02 Patient left the ED. kc6 Signatures: Marina Ta RN RN ll1 Edel Claudio RN RN kc6 Mynor Maharaj MD MD rt Clarita Sicnlair
[2022-12-14 18:30] VITALS: BP 127/61; O2SAT 99
== END 2022-12-14 18:02 | disposition home or self-care (01) ==
LOC: ER 15:43
DX: S31.000A Unspecified open wound of lower back and pelvis without penetration into retroperitoneum, initial encounter (principal); Z88.6 Allergy status to analgesic agent; Z88.8 Allergy status to other drugs, medicaments and biological substances
CPT/HCPCS: 96365; 85025; 36415; 80053; 96375; 99285; J2543